=== PATIENT | female | born 1935 | race Caucasian/White ===

== ENCOUNTER → 2018-03-02 11:02 | Outpatient (CLI) | payer MEDICARE, MEDICAID, SELFPAY ==
[2018-03-02 12:21] LABS: Add Manual Diff / Slide Review NO; Basophils Percent Auto 1.5 % (0-2); Eosinophils Percent Auto 9.6 % (2-4); Hematocrit 40.8 % (36-46); Hemoglobin 13.6 g/dL (12.0-16.0); Lymphocytes Percent Auto 30.4 % (25-40); Mean Corpuscular HGB Conc 33.3 % (30-36); Mean Corpuscular Hemoglobin 30.1 PG (26-34); Mean Corpuscular Volume 90.4 fL (80-100); Monocytes Percent Auto 14.1 % (3-14); Neutrophils Absolute Auto 2000 /uL (3000-5900); Neutrophils Percent Auto 44.4 % (50-75); Platelet Count 211 X10^3/uL (150-400); Red Blood Cell Count 4.51 X10^6/uL (4.0-5.2); Red Cell Distribution Width 14.3 % (11.6-14.8); White Blood Cell Count 4.4 X10^3/uL (4.5-11.0)
[2018-03-02 12:37] LABS: Alanine Aminotransferase 27 IU/L (9-52); Albumin 4.1 g/dL (3.5-5.0); Albumin Globulin Ratio 1.4 (1.0-2.8); Alkaline Phosphatase 94 U/L (38-126); Aspartate Aminotransferase 31 IU/L (14-36); BUN Creatinine Ratio 10.8 (6-22); Bilirubin Total 0.6 mg/dL (0.2-1.3); Blood Urea Nitrogen 14 mg/dL (7-17); Calcium 9.2 mg/dL (8.4-10.2); Carbon Dioxide 37 mmol/L (22-32); Chloride 96 mmol/L (98-107); Cholesterol 212 mg/dL (140-199); Estimated Glomerular Filt Rate 39.3 mL/min (>60); Glucose 102 mg/dL (80-110); HDL Cholesterol 53 mg/dL (40-60); HEMOLYSIS < 15 (0-50); LDL Cholesterol Calculated 133 mg/dL (<100); Potassium 3.9 mmol/L (3.4-5.1); Sodium 140 mmol/L (137-145); Total Protein 7.1 g/dL (6.3-8.2); Triglycerides 130 mg/dL (35-150)
[2018-03-02 13:21] LABS: TSH w/ Reflex to FT4 2.13 uIU/mL (0.47-4.68)
== END ==
PROVIDERS: PCP Internal Medicine; Visit Provider Internal Medicine
DX: R60.9 Edema, unspecified (principal)
CPT/HCPCS: 36415; 80053; 80061; 84443; 85025

== ENCOUNTER 2018-03-15 15:49 | Emergency (ER) | payer MEDICARE, MEDICAID, SELFPAY ==
[2018-03-15 16:19] VITALS: BP 125/66; PULSE 79; RESP 20; TEMP 37.2; O2SAT 95
--- NOTE | 2018-03-15 17:44 | ED.GENADULT ---
HPI - General Adult General Chief complaint: Nausea/Vomiting/Diarrhea Stated complaint: sick,low blood pressure,thinks dehydrated Time Seen by Provider: 03/15/18 17:43 Source: patient Mode of arrival: ambulatory Limitations: no limitations History of Present Illness HPI narrative: This 82-year-old female comes to ED today due to feeling ?terrible? she states that she has been feeling this way for at least the last 2 weeks. She describes feeling somewhat weak in general and feels like she is dehydrated with dry lips. She states that she has a history of severe acid reflux and has not been eating or drinking well because even water has been giving her reflux recently. She states that this occurs after she eats or drinks. She states that she has also had medication changes and had been on more diuretic previously due to increased lower extremity swelling, so her grandson thought to check her blood pressure today which was 93/49, when her typical systolic is 120 or more. She thinks that she has probably had low blood pressures at home contributing to her symptoms. She denies any chest pain currently and states she has only had her usual acid reflux pain. She denies any dyspnea even though she does have asthma. States she has not needed her inhaler. She denies any abdominal pain or vomiting. She states that she does have urinary incontinence, denies any increased frequency, dysuria, or hematuria. She states she had a small, harder than usual bowel movement a couple of days ago that caused her to strain. She states there was slight blood after straining, otherwise none. She denies any new pain or swelling in her legs, states she has had some ongoing swelling and also started Coumadin about 3 weeks ago for a DVT. She notes that she saw her information resources manager 2 days ago and had an echocardiogram and EKG, and ?my heart is strong?. She states that she stopped her gabapentin and tramadol on her own thinking it might contribute to her symptoms. She also notes that she was prescribed an additional diuretic to take 3 times per week but cannot remember what it was. Her warfarin level was low and her PCP did already give her instructions on increasing it for the next couple of days. Related Data Home Medications Medication Instructions Recorded Confirmed calcium carbonate [Tums] 500 mg PO QDAY #0 10/18/17 03/15/18 estradiol [Estrace] 1 gm VAGINAL #0 10/18/17 fesoterodine [Toviaz] 4 mg PO QDAY #0 10/18/17 03/15/18 fluoxetine 20 mg PO QDAY #0 10/18/17 03/15/18 furosemide 40 mg PO DAILY #0 10/18/17 03/15/18 levothyroxine [Tirosint] 125 mcg PO QDAY #0 10/18/17 03/15/18 metoprolol succinate [Toprol XL] 100 mg PO QDAY #0 10/18/17 03/15/18 montelukast 10 mg PO QPM #0 10/18/17 03/15/18 pantoprazole 40 mg PO BID #0 10/18/17 03/15/18 cyanocobalamin (vitamin B-12) 1,000 mcg PO DAILY 03/15/18 03/15/18 [B-12 DOTS] oxybutynin chloride 5 mg PO BID 03/15/18 03/15/18 potassium chloride 20 meq PO BID 03/15/18 03/15/18 warfarin 2.5 mg PO DAILY 03/15/18 03/15/18 Allergies Allergy/AdvReac Type Severity Reaction Status Date / Time chlorothiazide Allergy Unknown Verified 03/15/18 16:16 [CHLOROTHIAZIDE] codeine [CODEINE] Allergy Unknown itching Verified 03/15/18 16:16 naproxen [NAPROXEN] AdvReac Unknown SHOOTING Verified 03/15/18 16:16 ELECTRICITY DOWN LEG Review of Systems Review of Systems All systems reviewed & are unremarkable except as noted in HPI and below PFSH Social History Smoking Status: Never smoker Exam Narrative Exam Narrative: GENERAL APPEARANCE: Patient sitting comfortably, in no distress. HEENT: EOMI, normal oropharynx NECK/THYROID: Neck supple, no JVD, no masses. LUNGS: Clear to auscultation bilaterally. HEART: Regular rate and rhythm without murmur, normal S1, S2, no S3 or S4. ABDOMEN: Soft, NT, ND, + BS x 4 quadrants, no palpable masses EXTREMITIES: No cyanosis, 1+ pitting bilaterally with tenderness mainly through the shins NEUROLOGIC: Alert and oriented but not able to remember medications, normal speech, and coordination. DERMATOLOGIC: Numerous small scabs on the lower extremities mainly on the shins where she is tender, no erythema or drainage Initial Vital Signs Initial Vital Signs: Vital Signs Temperature 99 F 03/15/18 16:19 Pulse Rate 79 03/15/18 16:19 Respiratory Rate 20 03/15/18 16:19 Blood Pressure 125/66 H 03/15/18 16:19 Pulse Oximetry 95 03/15/18 16:19 Course Additional Information: Patient's blood pressure readings were back to baseline by the time of discharge. She reported feeling significantly improved, was able to tolerate oral fluids without reflux. She felt comfortable returning home and following up with her PCP. She agreed to return to the ED if any acutely worsening symptoms again. She was ambulating comfortably with her walker at the time of discharge Orders Ordered: ED Orders 03/15/18 17:58 EKG-12 Lead Stat 03/15/18 18:00 XR chest 1V Stat 03/15/18 18:06 Complete Blood Count AUTO DIFF Stat Comprehensive Metabolic Panel Stat Lactate (Lactic Acid) Stat Prothrombin Time INR Stat Troponin I Stat Discontinued Medications Al Hydrox/Mg Hydrox/Simethicone 20 ml/ Lidocaine HCl 15 ml 0 ml PO NOW ONE Stop: 03/15/18 18:13 Last Admin: 03/15/18 18:24 Dose: 35 ml Sodium Chloride (Normal Saline 0.9%) 1,000 mls @ 1,000 mls/hr IV BOLUS ONE Stop: 03/15/18 18:57 Last Infusion: 03/15/18 19:46 Dose: 0 mls/hr Admin: 03/15/18 18:21 Dose: 1,000 mls/hr Potassium Chloride (Potassium Chloride) 20 meq PO NOW ONE Stop: 03/15/18 19:40 Last Admin: 03/15/18 19:48 Dose: Vital Signs - 8 hr 03/15/18 16:19 03/15/18 18:00 03/15/18 18:14 Temperature 99 F Pulse Rate 79 89 Pulse Rate [Orthostatic Lying] 75 Pulse Rate [Orthostatic Sitting] 85 Pulse Rate [Orthostatic Standing] 92 H Respiratory Rate 20 Blood Pressure 125/66 H Blood Pressure [Left Arm] 109/56 L Blood Pressure [Orthostatic Lying] 109/56 L Blood Pressure [Orthostatic Sitting] 121/89 H Blood Pressure [Orthostatic Standing] 112/60 Pulse Oximetry 95 95 03/15/18 19:30 03/15/18 20:30 Temperature Pulse Rate 75 79 Pulse Rate [Orthostatic Lying] Pulse Rate [Orthostatic Sitting] Pulse Rate [Orthostatic Standing] Respiratory Rate Blood Pressure Blood Pressure [Left Arm] 117/43 L 113/62 Blood Pressure [Orthostatic Lying] Blood Pressure [Orthostatic Sitting] Blood Pressure [Orthostatic Standing] Pulse Oximetry 99 95 Medical Decision Making Lab Data Result diagrams: 03/15/18 18:06 03/15/18 18:06 Lab Results 03/15/18 03/15/18 03/15/18 Range/Units 18:06 18:06 18:06 WBC 7.7 (4.5-11.0) X10^3/uL RBC 4.60 (4.0-5.2) X10^6/uL Hgb 13.7 (12.0-16.0) g/dL Hct 41.3 (36-46) % MCV 89.8 (80-100) fL MCH 29.7 (26-34) PG MCHC 33.1 (30-36) % RDW 14.4 (11.6-14.8) % Plt Count 228 (150-400) X10^3/uL Neut % (Auto) 55.3 (50-75) % Lymph % (Auto) 25.7 (25-40) % [place] % (Auto) 12.8 (3-14) % Eos % (Auto) 5.0 H (2-4) % Baso % (Auto) 1.2 (0-2) % Neut # (Auto) 4200 (1164-1787) /uL PT 16.1 H (10.1-12.7) SECONDS INR 1.5 H (0.9-1.3) Sodium 141 (137-145) mmol/L Potassium 3.0 L (3.4-5.1) mmol/L Chloride 96 L (98-107) mmol/L Carbon Dioxide 36 H (22-32) mmol/L BUN 14 (7-17) mg/dL Creatinine 1.20 H (0.52-1.04) mg/dL Estimated GFR 43.1 L (>60) mL/min BUN/Creatinine Ratio 11.7 (6-22) Glucose 102 (80-110) mg/dL Lactate (0.7-2.1) mmol/L Calcium 9.4 (8.4-10.2) mg/dL Total Bilirubin 0.8 (0.2-1.3) mg/dL AST 32 (14-36) IU/L ALT 29 (9-52) IU/L Alkaline Phosphatase 89 (38-126) U/L Troponin I < 0.012 (0.01-0.034) ng/mL Total Protein 7.1 (6.3-8.2) g/dL Albumin 4.0 (3.5-5.0) g/dL Globulin 3.1 (1.7-4.1) g/dL Albumin/Globulin Ratio 1.3 (1.0-2.8) / Range/Units 18:06 WBC (4.5-11.0) X10^3/uL RBC (4.0-5.2) X10^6/uL Hgb (12.0-16.0) g/dL Hct (36-46) % MCV (80-100) fL MCH (26-34) PG MCHC (30-36) % RDW (11.6-14.8) % Plt Count (150-400) X10^3/uL Neut % (Auto) (50-75) % Lymph % (Auto) (25-40) % [place] % (Auto) (3-14) % Eos % (Auto) (2-4) % Baso % (Auto) (0-2) % Neut # (Auto) (2287-9270) /uL PT (10.1-12.7) SECONDS INR (0.9-1.3) Sodium (137-145) mmol/L Potassium (3.4-5.1) mmol/L Chloride (98-107) mmol/L Carbon Dioxide (22-32) mmol/L BUN (7-17) mg/dL Creatinine (0.52-1.04) mg/dL Estimated GFR (>60) mL/min BUN/Creatinine Ratio (6-22) Glucose (80-110) mg/dL Lactate 1.5 (0.7-2.1) mmol/L Calcium (8.4-10.2) mg/dL Total Bilirubin (0.2-1.3) mg/dL AST (14-36) IU/L ALT (9-52) IU/L Alkaline Phosphatase (38-126) U/L Troponin I (0.01-0.034) ng/mL Total Protein (6.3-8.2) g/dL Albumin (3.5-5.0) g/dL Globulin (1.7-4.1) g/dL Albumin/Globulin Ratio (1.0-2.8) ECG Data Attestation: I personally reviewed and interpreted this ECG as follows: (Normal sinus rhythm with rate 73, normal axis, subtle nonspecific T-wave changes in lateral leads) Prior ECG tracings: not available for review Discharge Plan Departure Patient Disposition: Home Clinical Impression: Low blood pressure, Dehydration, GERD (gastroesophageal reflux disease), Diuretic-induced hypokalemia Discharge Date/Time: 03/15/18 20:45 Interventions: ED Discharge Assessment Last Done: 03/15/18 21:04 Instructions: DI for Gastroesophageal Reflux Disease (GERD), GERD Diet, DI for Hypotension Activity Restrictions/Additional Instructions: Since you are feeling better, it is okay to return home and monitor. Please remain off of the additional diuretic that you were prescribed but could not remember today. Please continue your Lasix as prescribed since needed for leg swelling. Please take your potassium again tonight, and continue tomorrow as prescribed. Since you noticed low blood pressures at home, please cut your metoprolol in half for the next couple of days until you follow up with your PCP. Please take your acid reflux medicine as usual, and add a liquid antacid such as Maalox or Gaviscon as needed instead of taking the chewable tablets. You should be sure to see your PCP this week to review your medicines and symptoms and see if any additional adjustments can be made. It seemed like you were low on fluids today and also your potassium was a little bit low. As we talked about, you should return immediately if you have any acutely worsening symptoms again Prescriptions: No Action estradiol [Estrace] 0.01 % cream 1 gm Vaginal Qty: 0 RF: 0 fesoterodine [Toviaz] 4 MG tablet extended release 24 hr 4 mg PO QDAY Qty: 0 RF: 0 calcium carbonate [Tums] 500 MG tablet,chewable 500 mg PO QDAY Qty: 0 RF: 0 fluoxetine 20 MG capsule 20 mg PO QDAY Qty: 0 RF: 0 furosemide 40 MG tablet 40 mg PO DAILY Qty: 0 RF: 0 levothyroxine [Tirosint] 125 MCG capsule 125 mcg PO QDAY Qty: 0 RF: 0 metoprolol succinate [Toprol XL] 100 MG tablet extended release 24 hr 100 mg PO QDAY Qty: 0 RF: 0 montelukast 10 MG tablet 10 mg PO QPM Qty: 0 RF: 0 pantoprazole 40 MG tablet,delayed release (DR/EC) 40 mg PO BID Qty: 0 RF: 0 warfarin 2.5 mg tablet 2.5 mg PO DAILY RF: 0 potassium chloride 10 mEq Capsule, Extended Release 20 meq PO BID RF: 0 cyanocobalamin (vitamin B-12) [B-12 DOTS] 500 mcg Tablet 1,000 mcg PO DAILY RF: 0 oxybutynin chloride 5 mg Tablet 5 mg PO BID RF: 0 Referrals: Moreno Rodas MD [Primary Care Provider] -
[2018-03-15 18:00] VITALS: BP 109/56; PULSE 89; O2SAT 95
--- NOTE | 2018-03-15 18:00 | DI.RAD.S_ITS ---
PROCEDURE: XR CHEST 1V INDICATIONS: asthma, weakness TECHNIQUE: One view of the chest was acquired. COMPARISON: [facility], , CHEST 2 VIEW, 10/18/2017, 16:19. FINDINGS: Surgical changes and devices: None. Lungs and pleura: No pleural effusions or pneumothorax. No new or acute consolidation. There is unchanged nonspecific left basilar pleural thickening. Diffuse scarring/atelectasis Mediastinum: Mediastinal contours appear normal. Heart size is normal. Bones and chest wall: No suspicious bony lesions. Overlying soft tissues appear unremarkable. IMPRESSION: No definite new or acute consolidation. Left basilar pleural thickening, unchanged. Scattered scarring/atelectasis. Dictated by: Stew Sultana M.D. on 03/15/2018 at 18:58 Approved by: Stew Sultana M.D. on 03/15/2018 at 19:00
[2018-03-15 18:14] VITALS: BP 109/56; BP 112/60; BP 121/89; PULSE 75; PULSE 85; PULSE 92
[2018-03-15 18:19] LABS: Add Manual Diff / Slide Review NO; Basophils Percent Auto 1.2 % (0-2); Hematocrit 41.3 % (36-46); Hemoglobin 13.7 g/dL (12.0-16.0); Lymphocytes Percent Auto 25.7 % (25-40); Mean Corpuscular HGB Conc 33.1 % (30-36); Mean Corpuscular Hemoglobin 29.7 PG (26-34); Mean Corpuscular Volume 89.8 fL (80-100); Monocytes Percent Auto 12.8 % (3-14); Neutrophils Absolute Auto 4200 /uL (3000-5900); Neutrophils Percent Auto 55.3 % (50-75); Platelet Count 228 X10^3/uL (150-400); Red Cell Distribution Width 14.4 % (11.6-14.8); White Blood Cell Count 7.7 X10^3/uL (4.5-11.0)
[2018-03-15] MEDS: SODIUM CHLORIDE 0.9% 1,000 ML 1000 ML IV (18:21)
[2018-03-15] MEDS: MAG HYDROX/ALUMINUM/SIMETH SUS 20 ML, LIDOCAINE VISCOUS 2% 15 ML PO (18:24)
[2018-03-15 18:35] LABS: INR 1.5 (0.9-1.3); Prothrombin Time 16.1 SECONDS (10.1-12.7)
[2018-03-15 18:48] LABS: Lactate (Lactic Acid) 1.5 mmol/L (0.7-2.1)
--- NOTE | 2018-03-15 19:02 | PC.NURSE ---
Pt has been feeling ill for last week. Her medications were recently changed around and her reflux has been getting worse as well, per pt report. She states she has not been eating or drinking much, because she will get reflux. Upon assessment, her lips are visibly dry and mucous membranes are dry.
[2018-03-15 19:09] LABS: Alanine Aminotransferase 29 IU/L (9-52); Albumin Globulin Ratio 1.3 (1.0-2.8); Alkaline Phosphatase 89 U/L (38-126); Aspartate Aminotransferase 32 IU/L (14-36); BUN Creatinine Ratio 11.7 (6-22); Bilirubin Total 0.8 mg/dL (0.2-1.3); Blood Urea Nitrogen 14 mg/dL (7-17); Calcium 9.4 mg/dL (8.4-10.2); Carbon Dioxide 36 mmol/L (22-32); Chloride 96 mmol/L (98-107); Estimated Glomerular Filt Rate 43.1 mL/min (>60); Globulin 3.1 g/dL (1.7-4.1); Glucose 102 mg/dL (80-110); HEMOLYSIS < 15 (0-50); Sodium 141 mmol/L (137-145); Total Protein 7.1 g/dL (6.3-8.2)
[2018-03-15 19:24] LABS: Troponin I < 0.012 ng/mL (0.01-0.034)
[2018-03-15 19:30] VITALS: BP 117/43; PULSE 75; O2SAT 99
[2018-03-15 20:30] VITALS: BP 113/62; PULSE 79; O2SAT 95
== END 2018-03-15 20:45 | disposition home or self-care (01) ==
PROVIDERS: Emergency Provider Internal Medicine; PCP Internal Medicine
DX: I95.9 Hypotension, unspecified (principal); E86.0 Dehydration; E87.6 Hypokalemia; K21.9 Gastro-esophageal reflux disease without esophagitis
CPT/HCPCS: 36591; 71045; 80053; 83605; 84484; 85025; 85610; 93005; 93010; 96360; 99283; 99285

== ENCOUNTER 2018-03-16 10:24 | Emergency (ER) | payer MEDICARE, MEDICAID, SELFPAY ==
[2018-03-16 10:32] VITALS: BP 117/63; PULSE 83; RESP 18; TEMP 36.8; O2SAT 100
--- NOTE | 2018-03-16 11:31 | ED_ITS ---
HPI - Weakness General Chief complaint: Weakness Stated complaint: DEHYDRATED, CANT EAT OR DRINK Time Seen by Provider: 03/16/18 11:25 Source: patient and old records reviewed Mode of arrival: ambulatory Limitations: no limitations History of Present Illness HPI Narrative: Patient is a 82-year-old female presenting with generalized weakness she has not been feeling well for the last 2 weeks, not really able to eat or drink doing to her severe acid reflux. She has had episodes of vomiting off and on and continues to have nausea and decreased appetite. Yesterday she was seen and evaluated noted to have some mild hypokalemia and blood pressure was in the 90s. She received IV fluid and potassium. sHe continues to have nausea and decreased appetite. The epigastric discomfort but no real abdominal pain no chest pain shortness of breath. MD Complaint: generalized weakness Related Data Home Medications Medication Instructions Recorded Confirmed calcium carbonate [Tums] 500 mg PO QDAY #0 10/18/17 03/15/18 estradiol [Estrace] 1 gm VAGINAL #0 10/18/17 fesoterodine [Toviaz] 4 mg PO QDAY #0 10/18/17 03/15/18 fluoxetine 20 mg PO QDAY #0 10/18/17 03/15/18 furosemide 40 mg PO DAILY #0 10/18/17 03/15/18 levothyroxine [Tirosint] 125 mcg PO QDAY #0 10/18/17 03/15/18 metoprolol succinate [Toprol XL] 100 mg PO QDAY #0 10/18/17 03/15/18 montelukast 10 mg PO QPM #0 10/18/17 03/15/18 pantoprazole 40 mg PO BID #0 10/18/17 03/15/18 cyanocobalamin (vitamin B-12) 1,000 mcg PO DAILY 03/15/18 03/15/18 [B-12 DOTS] oxybutynin chloride 5 mg PO BID 03/15/18 03/15/18 potassium chloride 20 meq PO BID 03/15/18 03/15/18 warfarin 2.5 mg PO DAILY 03/15/18 03/15/18 Previous Rx's Medication Instructions Recorded amoxicillin-pot clavulanate 1 tab PO BID #14 tab 03/16/18 [Augmentin] Allergies Allergy/AdvReac Type Severity Reaction Status Date / Time chlorothiazide Allergy Unknown Verified 03/15/18 16:16 [CHLOROTHIAZIDE] codeine [CODEINE] Allergy Unknown itching Verified 03/15/18 16:16 naproxen [NAPROXEN] AdvReac Unknown SHOOTING Verified 03/15/18 16:16 ELECTRICITY DOWN LEG Review of Systems Review of Systems All systems reviewed & are unremarkable except as noted in HPI and below Constitutional Denies body ache(s), Denies chills, Reports fatigue, Denies frequent falls and Reports poor appetite Eyes Denies change in vision, Denies eye discharge, Denies irritation and Denies loss of vision Cardiovascular Denies chest pain, Denies irregular heart rhythm (History AFib), Denies lightheadedness, Denies palpitations, Denies dyspnea, Denies dyspnea on exertion and Denies orthopnea Respiratory Denies cough, Denies dyspnea, Denies dyspnea on exertion and Denies wheezing Gastrointestinal Gastrointestinal: Denies abdominal pain, Denies change in bowel habits, Denies diarrhea, Denies nausea and Denies vomiting Musculoskeletal Denies back pain, Denies muscle weakness, Denies numbness and Denies tingling Integumentary/Breasts Denies pruritus, Denies erythema, Denies rash and Denies wounds Neurologic Denies frequent falls, Denies loss of vision, Denies numbness and Denies tingling Endocrine Reports fatigue and Denies palpitations Hematologic/Lymphatic Reports easy bruising (On Coumadin) Allergic/Immunologic Denies wheezing PFSH Medical History GERD (gastroesophageal reflux disease) (Acute) History of hysterectomy (Acute) Hypothyroid (Acute) Paroxysmal A-fib (Acute) Social History Smoking Status: Never smoker Exam Initial Vital Signs Initial Vital Signs: Vital Signs Temperature 98.3 F 03/16/18 10:32 Pulse Rate 83 03/16/18 10:32 Respiratory Rate 18 03/16/18 10:32 Blood Pressure 117/63 03/16/18 10:32 Pulse Oximetry 100 03/16/18 10:32 GENERAL: Alert elderly healthy female in no acute distress cooperative HEENT: Head atraumatic,EOMI, pupils reactive CARDIOVASCULAR: Regular rate and rhythm without murmurs, rubs or gallops. RESPIRATORY: Breath sounds equal bilaterally, no wheezes rales or rhonchi. ABDOMEN: Soft, mild epigastric pain without guarding or rebound no right upper quadrant pain minimal tenderness in her lower abdomen : No CVA tenderness EXTREMITIES: Normal range of motion, no clubbing or edema. Neurovascularly intact NEUROLOGICAL: Alert and oriented x4.Normal gait and speech. Cranial nerves II through XII grossly intact. SKIN: Warm, dry, no laceration, no petechiae, no rashes or lesions. Course Orders Ordered: Discontinued Medications Sodium Chloride (Normal Saline 0.9%) 1,000 mls @ 150 mls/hr IV CONT SUSI Last Infusion: 03/16/18 14:22 Dose: 0 mls/hr Admin: 03/16/18 12:35 Dose: 150 mls/hr Pantoprazole Sodium (Protonix) 40 mg IV NOW ONE Stop: 03/16/18 11:42 Last Admin: 03/16/18 12:35 Dose: 40 mg Vital Signs - 8 hr 03/16/18 10:32 Temperature 98.3 F Pulse Rate 83 Respiratory Rate 18 Blood Pressure 117/63 Pulse Oximetry 100 MDM - Weakness Medical Records Attestation: I reviewed the patient's medical records. Lab Data Attestation: I reviewed the patient's lab results. Result diagrams: 03/16/18 12:15 03/16/18 12:15 Lab Results 03/16/18 03/16/18 Range/Units 12:15 12:15 WBC 5.2 (4.5-11.0) X10^3/uL RBC 4.20 (4.0-5.2) X10^6/uL Hgb 12.6 (12.0-16.0) g/dL Hct 37.9 (36-46) % MCV 90.2 (80-100) fL MCH 30.1 (26-34) PG MCHC 33.4 (30-36) % RDW 14.6 (11.6-14.8) % Plt Count 182 (150-400) X10^3/uL Neut % (Auto) 49.2 L (50-75) % Lymph % (Auto) 30.3 (25-40) % [place] % (Auto) 13.6 (3-14) % Eos % (Auto) 5.6 H (2-4) % Baso % (Auto) 1.3 (0-2) % Neut # (Auto) 2500 L (1331-2981) /uL Sodium 139 (137-145) mmol/L Potassium 4.0 (3.4-5.1) mmol/L Chloride 98 (98-107) mmol/L Carbon Dioxide 35 H (22-32) mmol/L BUN 13 (7-17) mg/dL Creatinine 1.10 H (0.52-1.04) mg/dL Estimated GFR 47.7 L (>60) mL/min BUN/Creatinine Ratio 11.8 (6-22) Glucose 99 (80-110) mg/dL Calcium 8.9 (8.4-10.2) mg/dL Total Bilirubin 1.0 (0.2-1.3) mg/dL AST 37 H (14-36) IU/L ALT 28 (9-52) IU/L Alkaline Phosphatase 69 (38-126) U/L Total Protein 6.7 (6.3-8.2) g/dL Albumin 3.8 (3.5-5.0) g/dL Globulin 2.9 (1.7-4.1) g/dL Albumin/Globulin Ratio 1.3 (1.0-2.8) Lipase 67 (23-300) U/L Imaging Data CT scan - abdomen: Radiologist's impression: PROCEDURE: CT ABDOMEN PELVIS W CON INDICATIONS: Vomitting, nausea, Midline abdominal pain TECHNIQUE: After the administration of intravenous contrast, 5 mm thick sections acquired from the diaphragm to the symphysis. 5 mm coronal and sagittal reformats were acquired. For radiation dose reduction, the following was used: automated exposure control, adjustment of mA and/or kV according to patient size. COMPARISON: None. FINDINGS: Image quality: Excellent. ABDOMEN: Lung bases: Lung bases are clear. Heart size is normal. Solid organs: Liver is normal in size and enhancement. Mild fatty infiltration of the liver. Gallbladder is surgically absent. Biliary system is non dilated. Pancreas enhances normally. Spleen is normal in size and enhancement. No adrenal nodules. Kidneys demonstrate normal size and enhancement, without hydronephrosis. Peritoneum and bowel: There is wall thickening and surrounding inflammatory change in the sigmoid and distal descending colon. No perforation, obstruction, or renal fluid collections. The ascending and proximal transverse colon demonstrates wall thickening with no surrounding inflammatory change. Small esophageal hiatal hernia. Focus of high density in the small bowel likely represents ingested material. Nodes and vessels: No retroperitoneal or mesenteric adenopathy by size criteria. Aorta and inferior vena cava are normal in size. Miscellaneous: Small fat-containing periumbilical hernia. PELVIS: Genitourinary: Bladder wall thickness is normal. Hysterectomy. Miscellaneous: Bilateral fat containing inguinal hernias. No adenopathy. Bones: No suspicious bony lesions. No vertebral body compression fractures. IMPRESSION: 1. Sigmoid and distal descending colitis. No perforation or obstruction. Consider colonoscopy upon resolution of the patient's symptoms to exclude any underlying mass lesions. 2. Mild ascending colitis. Dictated by: Oleg Pham M.D. on 03/16/2018 at 12:46 MDM Narrative Medical decision making narrative: Overall labs appear improved from yesterday. CT does reveal mild colitis. Her INR yesterday was 1.5. She is tolerating oral fluids. Blood pressure has been stable. I will start her on antibiotics. Discharge Plan Departure Patient Disposition: Home Clinical Impression: Colitis Discharge Date/Time: 03/16/18 14:23 Interventions: ED Discharge Assessment Last Done: 03/16/18 14:22 Instructions: Clear Liquid Diet, DI for Colitis Activity Restrictions/Additional Instructions: *You have been diagnosed with colitis *What to do: Clear liquid diet for the next 1-3 days, may increase fluid as tolerated -antibiotics can change it you're Coumadin level please have your INR rechecked next week *Continue to take medications as directed Augmentin 1 pill twice a day for 7 days *Follow up with your primary care provider in 2-3 days *Return to ER if you should have increasing vomiting, abdominal pain, fever inability to drink fluids or any new, worsening or concerning symptoms Prescriptions: New amoxicillin-pot clavulanate [Augmentin] 875-125 mg tablet 1 tab PO BID Qty: 14 RF: 0 No Action estradiol [Estrace] 0.01 % cream 1 gm Vaginal Qty: 0 RF: 0 fesoterodine [Toviaz] 4 MG tablet extended release 24 hr 4 mg PO QDAY Qty: 0 RF: 0 calcium carbonate [Tums] 500 MG tablet,chewable 500 mg PO QDAY Qty: 0 RF: 0 fluoxetine 20 MG capsule 20 mg PO QDAY Qty: 0 RF: 0 furosemide 40 MG tablet 40 mg PO DAILY Qty: 0 RF: 0 levothyroxine [Tirosint] 125 MCG capsule 125 mcg PO QDAY Qty: 0 RF: 0 metoprolol succinate [Toprol XL] 100 MG tablet extended release 24 hr 100 mg PO QDAY Qty: 0 RF: 0 montelukast 10 MG tablet 10 mg PO QPM Qty: 0 RF: 0 pantoprazole 40 MG tablet,delayed release (DR/EC) 40 mg PO BID Qty: 0 RF: 0 warfarin 2.5 mg tablet 2.5 mg PO DAILY RF: 0 potassium chloride 10 mEq Capsule, Extended Release 20 meq PO BID RF: 0 cyanocobalamin (vitamin B-12) [B-12 DOTS] 500 mcg Tablet 1,000 mcg PO DAILY RF: 0 oxybutynin chloride 5 mg Tablet 5 mg PO BID RF: 0 Referrals: Moreno Rodas MD [Primary Care Provider] -
--- NOTE | 2018-03-16 12:04 | DI.CT.S_ITS ---
PROCEDURE: CT ABDOMEN PELVIS W CON INDICATIONS: Vomitting, nausea, Midline abdominal pain TECHNIQUE: After the administration of intravenous contrast, 5 mm thick sections acquired from the diaphragm to the symphysis. 5 mm coronal and sagittal reformats were acquired. For radiation dose reduction, the following was used: automated exposure control, adjustment of mA and/or kV according to patient size. COMPARISON: None. FINDINGS: Image quality: Excellent. ABDOMEN: Lung bases: Lung bases are clear. Heart size is normal. Solid organs: Liver is normal in size and enhancement. Mild fatty infiltration of the liver. Gallbladder is surgically absent. Biliary system is non dilated. Pancreas enhances normally. Spleen is normal in size and enhancement. No adrenal nodules. Kidneys demonstrate normal size and enhancement, without hydronephrosis. Peritoneum and bowel: There is wall thickening and surrounding inflammatory change in the sigmoid and distal descending colon. No perforation, obstruction, or renal fluid collections. The ascending and proximal transverse colon demonstrates wall thickening with no surrounding inflammatory change. Small esophageal hiatal hernia. Focus of high density in the small bowel likely represents ingested material. Nodes and vessels: No retroperitoneal or mesenteric adenopathy by size criteria. Aorta and inferior vena cava are normal in size. Miscellaneous: Small fat-containing periumbilical hernia. PELVIS: Genitourinary: Bladder wall thickness is normal. Hysterectomy. Miscellaneous: Bilateral fat containing inguinal hernias. No adenopathy. Bones: No suspicious bony lesions. No vertebral body compression fractures. IMPRESSION: 1. Sigmoid and distal descending colitis. No perforation or obstruction. Consider colonoscopy upon resolution of the patient's symptoms to exclude any underlying mass lesions. 2. Mild ascending colitis. Dictated by: Oleg Pham M.D. on 03/16/2018 at 12:46 Approved by: Oleg Pham M.D. on 03/16/2018 at 12:53
[2018-03-16 12:09] VITALS: BP 113/67; PULSE 70; RESP 10; O2SAT 97
[2018-03-16] MEDS: SODIUM CHLORIDE 0.9% 1,000 ML 150 ML IV (12:35)
[2018-03-16] MEDS: PANTOPRAZOLE 40 MG VIAL IV (12:35)
[2018-03-16 12:43] LABS: Alanine Aminotransferase 28 IU/L (9-52); Albumin 3.8 g/dL (3.5-5.0); Albumin Globulin Ratio 1.3 (1.0-2.8); Alkaline Phosphatase 69 U/L (38-126); Aspartate Aminotransferase 37 IU/L (14-36); BUN Creatinine Ratio 11.8 (6-22); Blood Urea Nitrogen 13 mg/dL (7-17); Calcium 8.9 mg/dL (8.4-10.2); Carbon Dioxide 35 mmol/L (22-32); Chloride 98 mmol/L (98-107); Estimated Glomerular Filt Rate 47.7 mL/min (>60); Globulin 2.9 g/dL (1.7-4.1); Glucose 99 mg/dL (80-110); Lipase 67 U/L (23-300); Sodium 139 mmol/L (137-145); Total Protein 6.7 g/dL (6.3-8.2)
[2018-03-16 12:47] LABS: HEMOLYSIS 104 (0-50)
[2018-03-16 12:49] LABS: Add Manual Diff / Slide Review NO; Basophils Percent Auto 1.3 % (0-2); Eosinophils Percent Auto 5.6 % (2-4); Hematocrit 37.9 % (36-46); Hemoglobin 12.6 g/dL (12.0-16.0); Lymphocytes Percent Auto 30.3 % (25-40); Mean Corpuscular HGB Conc 33.4 % (30-36); Mean Corpuscular Hemoglobin 30.1 PG (26-34); Mean Corpuscular Volume 90.2 fL (80-100); Monocytes Percent Auto 13.6 % (3-14); Neutrophils Absolute Auto 2500 /uL (3000-5900); Neutrophils Percent Auto 49.2 % (50-75); Platelet Count 182 X10^3/uL (150-400); Red Cell Distribution Width 14.6 % (11.6-14.8); White Blood Cell Count 5.2 X10^3/uL (4.5-11.0)
[2018-03-16 13:09] VITALS: BP 113/85; PULSE 71; RESP 7; O2SAT 97
--- NOTE | 2018-03-16 13:48 | ED_ITS ---
HPI - Weakness General Chief complaint: Weakness Stated complaint: DEHYDRATED, CANT EAT OR DRINK Time Seen by Provider: 03/16/18 11:25 Related Data Home Medications Medication Instructions Recorded Confirmed calcium carbonate [Tums] 500 mg PO QDAY #0 10/18/17 03/15/18 estradiol [Estrace] 1 gm VAGINAL #0 10/18/17 fesoterodine [Toviaz] 4 mg PO QDAY #0 10/18/17 03/15/18 fluoxetine 20 mg PO QDAY #0 10/18/17 03/15/18 furosemide 40 mg PO DAILY #0 10/18/17 03/15/18 levothyroxine [Tirosint] 125 mcg PO QDAY #0 10/18/17 03/15/18 metoprolol succinate [Toprol XL] 100 mg PO QDAY #0 10/18/17 03/15/18 montelukast 10 mg PO QPM #0 10/18/17 03/15/18 pantoprazole 40 mg PO BID #0 10/18/17 03/15/18 cyanocobalamin (vitamin B-12) 1,000 mcg PO DAILY 03/15/18 03/15/18 [B-12 DOTS] oxybutynin chloride 5 mg PO BID 03/15/18 03/15/18 potassium chloride 20 meq PO BID 03/15/18 03/15/18 warfarin 2.5 mg PO DAILY 03/15/18 03/15/18 Allergies Allergy/AdvReac Type Severity Reaction Status Date / Time chlorothiazide Allergy Unknown Verified 03/15/18 16:16 [CHLOROTHIAZIDE] codeine [CODEINE] Allergy Unknown itching Verified 03/15/18 16:16 naproxen [NAPROXEN] AdvReac Unknown SHOOTING Verified 03/15/18 16:16 ELECTRICITY DOWN [facility] Social History Smoking Status: Never smoker Exam Initial Vital Signs Initial Vital Signs: Vital Signs Temperature 98.3 F 03/16/18 10:32 Pulse Rate 83 03/16/18 10:32 Respiratory Rate 18 03/16/18 10:32 Blood Pressure 117/63 03/16/18 10:32 Pulse Oximetry 100 03/16/18 10:32 Scores CURB-65 Confusion: Yes BUN >19mg/dL (>7mmol/L): Yes Respiratory rate greater or equal to 30: Yes SBP <90mmHg or DBP less or equal to 60mmHg: Yes Age 65 or Older: Yes CURB-65 Total: 5 Score 0-1 Outpatient care, Score 2 Inpt vs. Obs, Score 3 or over Inpt admit with ICU for score of 4-5 Course Orders Ordered: ED Orders 03/16/18 12:04 CT abdomen pelvis w con Stat 03/16/18 12:15 Complete Blood Count AUTO DIFF Stat Comprehensive Metabolic Panel Stat Lipase Stat Sodium Chloride (Normal Saline 0.9%) 1,000 mls @ 150 mls/hr IV CONT SUSI Last Admin: 03/16/18 12:35 Dose: 150 mls/hr Discontinued Medications Pantoprazole Sodium (Protonix) 40 mg IV NOW ONE Stop: 03/16/18 11:42 Last Admin: 03/16/18 12:35 Dose: 40 mg Vital Signs - 8 hr 03/16/18 10:32 03/16/18 12:09 03/16/18 13:09 Temperature 98.3 F Pulse Rate 83 70 71 Respiratory Rate 18 10 L 7 L Blood Pressure 117/63 Blood Pressure [Left Arm] 113/67 113/85 H Pulse Oximetry 100 97 97 MDM - Weakness Lab Data Result diagrams: 03/16/18 12:15 03/16/18 12:15 Lab Results 03/16/18 03/16/18 Range/Units 12:15 12:15 WBC 5.2 (4.5-11.0) X10^3/uL RBC 4.20 (4.0-5.2) X10^6/uL Hgb 12.6 (12.0-16.0) g/dL Hct 37.9 (36-46) % MCV 90.2 (80-100) fL MCH 30.1 (26-34) PG MCHC 33.4 (30-36) % RDW 14.6 (11.6-14.8) % Plt Count 182 (150-400) X10^3/uL Neut % (Auto) 49.2 L (50-75) % Lymph % (Auto) 30.3 (25-40) % [place] % (Auto) 13.6 (3-14) % Eos % (Auto) 5.6 H (2-4) % Baso % (Auto) 1.3 (0-2) % Neut # (Auto) 2500 L (7448-0639) /uL Sodium 139 (137-145) mmol/L Potassium 4.0 (3.4-5.1) mmol/L Chloride 98 (98-107) mmol/L Carbon Dioxide 35 H (22-32) mmol/L BUN 13 (7-17) mg/dL Creatinine 1.10 H (0.52-1.04) mg/dL Estimated GFR 47.7 L (>60) mL/min BUN/Creatinine Ratio 11.8 (6-22) Glucose 99 (80-110) mg/dL Calcium 8.9 (8.4-10.2) mg/dL Total Bilirubin 1.0 (0.2-1.3) mg/dL AST 37 H (14-36) IU/L ALT 28 (9-52) IU/L Alkaline Phosphatase 69 (38-126) U/L Total Protein 6.7 (6.3-8.2) g/dL Albumin 3.8 (3.5-5.0) g/dL Globulin 2.9 (1.7-4.1) g/dL Albumin/Globulin Ratio 1.3 (1.0-2.8) Lipase 67 (23-300) U/L Discharge Plan Departure Prescriptions: No Action estradiol [Estrace] 0.01 % cream 1 gm Vaginal Qty: 0 RF: 0 fesoterodine [Toviaz] 4 MG tablet extended release 24 hr 4 mg PO QDAY Qty: 0 RF: 0 calcium carbonate [Tums] 500 MG tablet,chewable 500 mg PO QDAY Qty: 0 RF: 0 fluoxetine 20 MG capsule 20 mg PO QDAY Qty: 0 RF: 0 furosemide 40 MG tablet 40 mg PO DAILY Qty: 0 RF: 0 levothyroxine [Tirosint] 125 MCG capsule 125 mcg PO QDAY Qty: 0 RF: 0 metoprolol succinate [Toprol XL] 100 MG tablet extended release 24 hr 100 mg PO QDAY Qty: 0 RF: 0 montelukast 10 MG tablet 10 mg PO QPM Qty: 0 RF: 0 pantoprazole 40 MG tablet,delayed release (DR/EC) 40 mg PO BID Qty: 0 RF: 0 warfarin 2.5 mg tablet 2.5 mg PO DAILY RF: 0 potassium chloride 10 mEq Capsule, Extended Release 20 meq PO BID RF: 0 cyanocobalamin (vitamin B-12) [B-12 DOTS] 500 mcg Tablet 1,000 mcg PO DAILY RF: 0 oxybutynin chloride 5 mg Tablet 5 mg PO BID RF: 0
[2018-03-16 14:07] VITALS: BP 111/52; PULSE 70; RESP 13; O2SAT 99
== END 2018-03-16 14:23 | disposition home or self-care (01) ==
PROVIDERS: Emergency Provider Emergency Medicine; PCP Internal Medicine
DX: K52.9 Noninfective gastroenteritis and colitis, unspecified (principal)
CPT/HCPCS: 36415; 36591; 74177; 80053; 81003; 83690; 85025; 96361; 96374; 99283; 99285; C9113; Q9967

== ENCOUNTER → 2018-06-10 16:19 | Outpatient (CLI) | payer MEDICARE, MEDICAID, SELFPAY | PROVIDERS: PCP Internal Medicine; Visit Provider Physician Assistant | DX: R30.0 Dysuria (principal) | CPT/HCPCS: 87077; 87086; 87186 ==

== ENCOUNTER 2018-08-24 16:00 | Emergency (ER) | payer MEDICARE, MEDICAID, SELFPAY ==
[2018-08-24 16:03] VITALS: BP 118/71; PULSE 76; RESP 20; TEMP 36.3; O2SAT 100; BMI 34.9
--- NOTE | 2018-08-24 16:17 | ED.HA ---
HPI - Headache <Emilie Burdick PA-C - Last Filed: 08/24/18 19:51> General Chief Complaint: Headache Stated Complaint: HEADACHE Time Seen by Provider: 08/24/18 16:05 Source: patient Mode of arrival: ambulatory Limitations: no limitations History of Present Illness HPI Narrative: This 83-year-old female is sent for evaluation of left-sided headache. She has a history of infrequent migraines. She states that they are always on the left side and she gets photophobia. She developed a headache last night with light sensitivity. She states that typically the headache is in the top and front of her left side and radiates into the eye area, but this 1 is more on the top and side of her head the up above her ear. She does not have any visual scotoma or vision change. She does not have any nausea or vomiting. She does not have any jaw claudication. She states she has not had any earache or recent upper respiratory symptoms. She has not had a fever. She denies any acute weakness or difficulty with speech. She states that this headache is more of a shoot stabbing pain intermittently then as steady as her usual migraine pain is. Pain was more frequent last night. She states that she took 2 tramadol at home without relief. She does not get frequent migraines and thus has not been on any prophylactic medication at home. She has been going about her usual activities and eating and drinking normally. She states that she was on warfarin for a femoral blood clot last year but discontinued that in June. She is not on any new medicines. Related Data Home Medications Medication Instructions Recorded Confirmed estradiol [Estrace] 1 gm VAGINAL #0 10/18/17 08/24/18 fesoterodine [Toviaz] 4 mg PO QDAY #0 10/18/17 08/24/18 fluoxetine 20 mg PO QDAY #0 10/18/17 08/24/18 levothyroxine [Tirosint] 125 mcg PO QDAY #0 10/18/17 08/24/18 montelukast 10 mg PO QPM #0 10/18/17 08/24/18 pantoprazole 40 mg PO BID #0 10/18/17 08/24/18 cyanocobalamin (vitamin B-12) 1,000 mcg PO DAILY 03/15/18 08/24/18 [B-12 DOTS] oxybutynin chloride 5 mg PO BID 03/15/18 08/24/18 potassium chloride 20 meq PO BID 03/15/18 08/24/18 furosemide 40 mg tablet 20 mg PO DAILY #0 tab 06/10/18 08/24/18 Allergies Allergy/AdvReac Type Severity Reaction Status Date / Time chlorothiazide Allergy Unknown Verified 08/24/18 15:23 [CHLOROTHIAZIDE] codeine [CODEINE] Allergy Unknown itching Verified 08/24/18 15:23 naproxen [NAPROXEN] AdvReac Unknown SHOOTING Verified 08/24/18 15:23 ELECTRICITY DOWN [facility] Review of Systems <Emilie Burdick PA-C - Last Filed: 08/24/18 19:51> Review of Systems ROS Unobtainable: All systems reviewed & are unremarkable except as noted in HPI and below PFSH <Emilie Burdick PA-C - Last Filed: 08/24/18 19:51> Medical History GERD (gastroesophageal reflux disease) (Chronic) History of migraine (Chronic) Hypothyroid (Chronic) Neuropathy (Chronic) Paroxysmal A-fib (Chronic) History of DVT (deep vein thrombosis) (Resolved) Surgical History History of hysterectomy (Resolved) Family History Other No pertinent family history Social History Smoking Status: Never smoker Family History Other No pertinent family history Social History Smoking Status: Never smoker Exam <Emilie Burdick PA-C - Last Filed: 08/24/18 19:51> Narrative Exam Narrative: GENERAL APPEARANCE: Patient sitting comfortably, in no distress. HEENT: PERRL, EOMI, normal TMs and oropharynx, no sinus TTP. Temporal artery pulsations symmetric bilaterally, no tenderness NECK: Supple, no masses LUNGS: Clear to auscultation bilaterally. HEART: Rate and rhythm regular without murmur, normal S1 and S2, no S3 or S4. ABDOMEN: Soft, NT, ND, + BS x 4 quadrants NEUROLOGIC: Alert and oriented, normal speech, and coordination. MUSCULOSKELETAL: Full Csp AROM without tenderness over the cervical spine or paraspinal musculature Initial Vital Signs Initial Vital Signs: Vital Signs Temperature 97.4 F L 08/24/18 16:03 Pulse Rate 76 08/24/18 16:03 Respiratory Rate 20 08/24/18 16:03 Blood Pressure 118/71 08/24/18 16:03 Pulse Oximetry 100 08/24/18 16:03 <Aimee Lovell DO - Last Filed: 08/26/18 18:47> Initial Vital Signs Initial Vital Signs: Vital Signs Temperature 97.4 F L 08/24/18 16:03 Pulse Rate 76 08/24/18 16:03 Respiratory Rate 20 08/24/18 16:03 Blood Pressure 118/71 08/24/18 16:03 Pulse Oximetry 100 08/24/18 16:03 Course <Emilie Burdick PA-C - Last Filed: 08/24/18 19:51> Additional Information: Reviewed no acute findings on patient's studies, and she is feeling markedly improved after medications and fluids. She is not at all sedated. She prefers to return home and will rest tonight. She agreed to return if any acutely worsening symptoms again. This is likely a variant of her migraine. She already has follow up scheduled with her PCP next week. Orders Ordered: Discontinued Medications Diphenhydramine HCl (Benadryl) 12.5 mg IV NOW ONE Stop: 08/24/18 16:30 Last Admin: 08/24/18 17:23 Dose: 12.5 mg Sodium Chloride (Normal Saline 0.9%) 1,000 mls @ 1,000 mls/hr IV BOLUS ONE Stop: 08/24/18 17:28 Last Infusion: 08/24/18 18:41 Dose: 0 mls/hr Admin: 08/24/18 17:24 Dose: 1,000 mls/hr Ketorolac Tromethamine (Toradol) 15 mg IV NOW ONE Stop: 08/24/18 17:42 Last Admin: 08/24/18 17:45 Dose: 15 mg Vital Signs - 8 hr 08/24/18 16:03 08/24/18 18:02 08/24/18 19:21 Temperature 97.4 F L Pulse Rate 76 76 72 Respiratory Rate 20 18 16 Blood Pressure 118/71 110/75 Blood Pressure [Right Arm] 103/70 Pulse Oximetry 100 100 97 <DO [place] Last Filed: 08/26/18 18:47> Orders Ordered: Discontinued Medications Diphenhydramine HCl (Benadryl) 12.5 mg IV NOW ONE Stop: 08/24/18 16:30 Last Admin: 08/24/18 17:23 Dose: 12.5 mg Sodium Chloride (Normal Saline 0.9%) 1,000 mls @ 1,000 mls/hr IV BOLUS ONE Stop: 08/24/18 17:28 Last Infusion: 08/24/18 18:41 Dose: 0 mls/hr Admin: 08/24/18 17:24 Dose: 1,000 mls/hr Ketorolac Tromethamine (Toradol) 15 mg IV NOW ONE Stop: 08/24/18 17:42 Last Admin: 08/24/18 17:45 Dose: 15 mg Vital Signs - 8 hr 08/24/18 16:03 08/24/18 18:02 08/24/18 19:21 Temperature 97.4 F L Pulse Rate 76 76 72 Respiratory Rate 20 18 16 Blood Pressure 118/71 110/75 Blood Pressure [Right Arm] 103/70 Pulse Oximetry 100 100 97 MDM - Headache <Emilie Burdick PA-C - Last Filed: 08/24/18 19:51> Lab Data Result diagrams: 08/24/18 16:52 08/24/18 16:52 Lab Results 08/24/18 08/24/18 Range/Units 16:52 16:52 WBC 5.0 (4.5-11.0) X10^3/uL RBC 4.20 (4.0-5.2) X10^6/uL Hgb 12.5 (12.0-16.0) g/dL Hct 37.6 (36-46) % MCV 89.5 (80-100) fL MCH 29.7 (26-34) PG MCHC 33.2 (30-36) % RDW 14.5 (11.6-14.8) % Plt Count 225 (150-400) X10^3/uL Neut % (Auto) 41.6 L (50-75) % Lymph % (Auto) 36.1 (25-40) % [place] % (Auto) 12.4 (3-14) % Eos % (Auto) 8.8 H (2-4) % Baso % (Auto) 1.1 (0-2) % Neut # (Auto) 2100 (4275-7283) /uL Lymph # (Auto) 1800 (8214-0940) /uL [place] # (Auto) 600 (0-900) /uL Eos # (Auto) 400 (0-450) /uL Baso # (Auto) 100 (0-100) /uL ESR 16 (0-20) MM/HR Sodium 138 (137-145) mmol/L Potassium 4.1 (3.4-5.1) mmol/L Chloride 101 (98-107) mmol/L Carbon Dioxide 29 (22-32) mmol/L BUN 17 (7-17) mg/dL Creatinine 1.00 (0.52-1.04) mg/dL Estimated GFR 53.1 L (>60) mL/min BUN/Creatinine Ratio 17.0 (6-22) Glucose 89 (80-110) mg/dL Calcium 8.7 (8.4-10.2) mg/dL Total Bilirubin 0.4 (0.2-1.3) mg/dL AST 27 (14-36) IU/L ALT 31 (9-52) IU/L Alkaline Phosphatase 79 (38-126) U/L C-Reactive Protein < 0.5 (<1.0) mg/dL Total Protein 6.9 (6.3-8.2) g/dL Albumin 3.8 (3.5-5.0) g/dL Globulin 3.1 (1.7-4.1) g/dL Albumin/Globulin Ratio 1.2 (1.0-2.8) Imaging Data CT scan - head: Radiologist's impression: [place] [address] CT Scan Report Signed Patient: Sun Mejia PMR#: [id number] : 1936Acct:[id number] Age/Sex: 83 / FDate of Service: 08/24/18 Loc: ED Accession Number: [id number] Procedure: CT head/brain wo con Ordering Provider: Emilie Burdick P.A-C PROCEDURE: CT HEAD/BRAIN WO CON INDICATIONS: atypical DIGGS TECHNIQUE: Noncontrast 4.5 mm thick angled axial sections acquired from the foramen magnum to the vertex, with coronal and sagittal reformats. For radiation dose reduction, the following was used: automated exposure control, adjustment of mA and/or kV according to patient size. COMPARISON: None. FINDINGS: Image quality: Excellent. CSF spaces: Basal cisterns are patent. No extra-axial fluid collections. The ventricles are symmetric in size and shape. Brain: No intracranial bleeds or masses. There is cerebral volume loss for age, with resultant ventricular and sulcal prominence. There are periventricular and deep white matter chronic small vessel ischemic changes. There is intracranial internal carotid artery atherosclerosis. Skull and face: Calvarium and visualized facial bones appear intact, without suspicious lesions. Sinuses: Visualized sinuses and mastoids are clear. IMPRESSION: Source of atypical headache is not seen. Dictated by: Cristian Gallegos M.D. on 08/24/2018 at 17:03 Approved by: Cristian Gallegos M.D. on 08/24/2018 at 17:04 <Aimee Lovell, DO - Last Filed: 08/26/18 18:47> Lab Data Lab Results 08/24/18 08/24/18 Range/Units 16:52 16:52 WBC 5.0 (4.5-11.0) X10^3/uL RBC 4.20 (4.0-5.2) X10^6/uL Hgb 12.5 (12.0-16.0) g/dL Hct 37.6 (36-46) % MCV 89.5 (80-100) fL MCH 29.7 (26-34) PG MCHC 33.2 (30-36) % RDW 14.5 (11.6-14.8) % Plt Count 225 (150-400) X10^3/uL Neut % (Auto) 41.6 L (50-75) % Lymph % (Auto) 36.1 (25-40) % [place] % (Auto) 12.4 (3-14) % Eos % (Auto) 8.8 H (2-4) % Baso % (Auto) 1.1 (0-2) % Neut # (Auto) 2100 (0389-0248) /uL Lymph # (Auto) 1800 (4434-2052) /uL [place] # (Auto) 600 (0-900) /uL Eos # (Auto) 400 (0-450) /uL Baso # (Auto) 100 (0-100) /uL ESR 16 (0-20) MM/HR Sodium 138 (137-145) mmol/L Potassium 4.1 (3.4-5.1) mmol/L Chloride 101 (98-107) mmol/L Carbon Dioxide 29 (22-32) mmol/L BUN 17 (7-17) mg/dL Creatinine 1.00 (0.52-1.04) mg/dL Estimated GFR 53.1 L (>60) mL/min BUN/Creatinine Ratio 17.0 (6-22) Glucose 89 (80-110) mg/dL Calcium 8.7 (8.4-10.2) mg/dL Total Bilirubin 0.4 (0.2-1.3) mg/dL AST 27 (14-36) IU/L ALT 31 (9-52) IU/L Alkaline Phosphatase 79 (38-126) U/L C-Reactive Protein < 0.5 (<1.0) mg/dL Total Protein 6.9 (6.3-8.2) g/dL Albumin 3.8 (3.5-5.0) g/dL Globulin 3.1 (1.7-4.1) g/dL Albumin/Globulin Ratio 1.2 (1.0-2.8) Imaging Data CT scan - head: Radiologist's impression: [place] [address] CT Scan Report Signed Patient: Sun Mejia PMR#: [id number] : 7Acct:[id number] Age/Sex: 83 / FDate of Service: 08/24/18 Loc: ED Accession Number: [id number] Procedure: CT head/brain wo con Ordering Provider: Emilie Burdick P.A-C PROCEDURE: CT HEAD/BRAIN WO CON INDICATIONS: atypical DIGGS TECHNIQUE: Noncontrast 4.5 mm thick angled axial sections acquired from the foramen magnum to the vertex, with coronal and sagittal reformats. For radiation dose reduction, the following was used: automated exposure control, adjustment of mA and/or kV according to patient size. COMPARISON: None. FINDINGS: Image quality: Excellent. CSF spaces: Basal cisterns are patent. No extra-axial fluid collections. The ventricles are symmetric in size and shape. Brain: No intracranial bleeds or masses. There is cerebral volume loss for age, with resultant ventricular and sulcal prominence. There are periventricular and deep white matter chronic small vessel ischemic changes. There is intracranial internal carotid artery atherosclerosis. Skull and face: Calvarium and visualized facial bones appear intact, without suspicious lesions. Sinuses: Visualized sinuses and mastoids are clear. IMPRESSION: Source of atypical headache is not seen. Dictated by: Cristian Gallegos M.D. on 08/24/2018 at 17:03 Approved by: Cristian Gallegos M.D. on 08/24/2018 at 17:04 Discharge Plan Departure Patient Disposition: Home Clinical Impression: Migraine headache Qualifiers: Migraine type: without aura Status migrainosus presence: without status migrainosus Intractability: not intractable Qualified Code(s): G43.009 - Migraine without aura, not intractable, without status migrainosus Discharge Date/Time: 08/24/18 19:23 Interventions: ED Discharge Assessment Last Done: 08/24/18 19:21 Instructions: DI for Migraine Activity Restrictions/Additional Instructions: Since you are feeling so much better, you can monitor at home. There was no acute problem found on your testing today and it is most likely that this headache is a little bit different variation of your migraine. Please rest in a dark, quiet environment tonight. Avoid screen time! Please follow-up with your PCP in a few days as you have already planned. As we talked about, you should return immediately to the ED if you have acutely worsening symptoms again, or new symptoms such as fever, weakness or difficulty talking, vision change or vomiting Prescriptions: No Action estradiol [Estrace] 0.01 % cream 1 gm Vaginal Qty: 0 RF: 0 fesoterodine [Toviaz] 4 MG tablet extended release 24 hr 4 mg PO QDAY Qty: 0 RF: 0 fluoxetine 20 MG capsule 20 mg PO QDAY Qty: 0 RF: 0 levothyroxine [Tirosint] 125 MCG capsule 125 mcg PO QDAY Qty: 0 RF: 0 montelukast 10 MG tablet 10 mg PO QPM Qty: 0 RF: 0 pantoprazole 40 MG tablet,delayed release (DR/EC) 40 mg PO BID Qty: 0 RF: 0 furosemide 40 mg tablet 20 mg PO DAILY Qty: 0 RF: 0 potassium chloride 10 mEq Capsule, Extended Release 20 meq PO BID RF: 0 cyanocobalamin (vitamin B-12) [B-12 DOTS] 500 mcg Tablet 1,000 mcg PO DAILY RF: 0 oxybutynin chloride 5 mg Tablet 5 mg PO BID RF: 0 Referrals: Moreno Rodas MD [Primary Care Provider] - <Aimee Lovell DO - Last Filed: 08/26/18 18:47> Cosign ED Attending Cosignature Attestation: I was immediately available in the department for consultation. This documentation has been reviewed and I agree with assessment and plan. Supervised by Aimee Lovell DO
--- NOTE | 2018-08-24 16:29 | DI.CT.S_ITS ---
PROCEDURE: CT HEAD/BRAIN WO CON INDICATIONS: atypical DIGGS TECHNIQUE: Noncontrast 4.5 mm thick angled axial sections acquired from the foramen magnum to the vertex, with coronal and sagittal reformats. For radiation dose reduction, the following was used: automated exposure control, adjustment of mA and/or kV according to patient size. COMPARISON: None. FINDINGS: Image quality: Excellent. CSF spaces: Basal cisterns are patent. No extra-axial fluid collections. The ventricles are symmetric in size and shape. Brain: No intracranial bleeds or masses. There is cerebral volume loss for age, with resultant ventricular and sulcal prominence. There are periventricular and deep white matter chronic small vessel ischemic changes. There is intracranial internal carotid artery atherosclerosis. Skull and face: Calvarium and visualized facial bones appear intact, without suspicious lesions. Sinuses: Visualized sinuses and mastoids are clear. IMPRESSION: Source of atypical headache is not seen. Dictated by: Cristian Gallegos M.D. on 08/24/2018 at 17:03 Approved by: Cristian Gallegos M.D. on 08/24/2018 at 17:04
--- NOTE | 2018-08-24 16:40 | ED_ITS ---
HPI - Headache <Emilie Burdick PA-C - Last Filed: 08/24/18 19:51> General Chief Complaint: Headache Stated Complaint: HEADACHE Time Seen by Provider: 08/24/18 16:05 Source: patient Mode of arrival: ambulatory Limitations: no limitations History of Present Illness HPI Narrative: This 83-year-old female is sent for evaluation of left-sided headache. She has a history of infrequent migraines. She states that they are always on the left side and she gets photophobia. She developed a headache last night with light sensitivity. She states that typically the headache is in the top and front of her left side and radiates into the eye area, but this 1 is more on the top and side of her head the up above her ear. She does not have any visual scotoma or vision change. She does not have any nausea or vomiting. She does not have any jaw claudication. She states she has not had any earache or recent upper respiratory symptoms. She has not had a fever. She denies any acute weakness or difficulty with speech. She states that this headache is more of a shoot stabbing pain intermittently then as steady as her usual migraine pain is. Pain was more frequent last night. She states that she took 2 tramadol at home without relief. She does not get frequent migraines and thus has not been on any prophylactic medication at home. She has been going about her usual activities and eating and drinking normally. She states that she was on warfarin for a femoral blood clot last year but discontinued that in June. She is not on any new medicines. Related Data Home Medications Medication Instructions Recorded Confirmed estradiol [Estrace] 1 gm VAGINAL #0 10/18/17 08/24/18 fesoterodine [Toviaz] 4 mg PO QDAY #0 10/18/17 08/24/18 fluoxetine 20 mg PO QDAY #0 10/18/17 08/24/18 levothyroxine [Tirosint] 125 mcg PO QDAY #0 10/18/17 08/24/18 montelukast 10 mg PO QPM #0 10/18/17 08/24/18 pantoprazole 40 mg PO BID #0 10/18/17 08/24/18 cyanocobalamin (vitamin B-12) 1,000 mcg PO DAILY 03/15/18 08/24/18 [B-12 DOTS] oxybutynin chloride 5 mg PO BID 03/15/18 08/24/18 potassium chloride 20 meq PO BID 03/15/18 08/24/18 furosemide 40 mg tablet 20 mg PO DAILY #0 tab 06/10/18 08/24/18 Allergies Allergy/AdvReac Type Severity Reaction Status Date / Time chlorothiazide Allergy Unknown Verified 08/24/18 15:23 [CHLOROTHIAZIDE] codeine [CODEINE] Allergy Unknown itching Verified 08/24/18 15:23 naproxen [NAPROXEN] AdvReac Unknown SHOOTING Verified 08/24/18 15:23 ELECTRICITY DOWN LEG Review of Systems <Emilie Burdick PA-C - Last Filed: 08/24/18 19:51> Review of Systems ROS Unobtainable: All systems reviewed & are unremarkable except as noted in HPI and below PFSH <Emilie Burdick PA-C - Last Filed: 08/24/18 19:51> Medical History GERD (gastroesophageal reflux disease) (Chronic) History of migraine (Chronic) Hypothyroid (Chronic) Neuropathy (Chronic) Paroxysmal A-fib (Chronic) History of DVT (deep vein thrombosis) (Resolved) Surgical History History of hysterectomy (Resolved) Family History Other No pertinent family history Social History Smoking Status: Never smoker Family History Other No pertinent family history Social History Smoking Status: Never smoker Exam <Emilie Burdick PA-C - Last Filed: 08/24/18 19:51> Narrative Exam Narrative: GENERAL APPEARANCE: Patient sitting comfortably, in no distress. HEENT: PERRL, EOMI, normal TMs and oropharynx, no sinus TTP. Temporal artery pulsations symmetric bilaterally, no tenderness NECK: Supple, no masses LUNGS: Clear to auscultation bilaterally. HEART: Rate and rhythm regular without murmur, normal S1 and S2, no S3 or S4. ABDOMEN: Soft, NT, ND, + BS x 4 quadrants NEUROLOGIC: Alert and oriented, normal speech, and coordination. MUSCULOSKELETAL: Full Csp AROM without tenderness over the cervical spine or paraspinal musculature Initial Vital Signs Initial Vital Signs: Vital Signs Temperature 97.4 F L 08/24/18 16:03 Pulse Rate 76 08/24/18 16:03 Respiratory Rate 20 08/24/18 16:03 Blood Pressure 118/71 08/24/18 16:03 Pulse Oximetry 100 08/24/18 16:03 <Aimee Lovell DO - Last Filed: 08/26/18 18:47> Initial Vital Signs Initial Vital Signs: Vital Signs Temperature 97.4 F L 08/24/18 16:03 Pulse Rate 76 08/24/18 16:03 Respiratory Rate 20 08/24/18 16:03 Blood Pressure 118/71 08/24/18 16:03 Pulse Oximetry 100 08/24/18 16:03 Course <Emilie Burdick PA-C - Last Filed: 08/24/18 19:51> Additional Information: Reviewed no acute findings on patient's studies, and she is feeling markedly improved after medications and fluids. She is not at all sedated. She prefers to return home and will rest tonight. She agreed to return if any acutely worsening symptoms again. This is likely a variant of her migraine. She already has follow up scheduled with her PCP next week. Orders Ordered: Discontinued Medications Diphenhydramine HCl (Benadryl) 12.5 mg IV NOW ONE Stop: 08/24/18 16:30 Last Admin: 08/24/18 17:23 Dose: 12.5 mg Sodium Chloride (Normal Saline 0.9%) 1,000 mls @ 1,000 mls/hr IV BOLUS ONE Stop: 08/24/18 17:28 Last Infusion: 08/24/18 18:41 Dose: 0 mls/hr Admin: 08/24/18 17:24 Dose: 1,000 mls/hr Ketorolac Tromethamine (Toradol) 15 mg IV NOW ONE Stop: 08/24/18 17:42 Last Admin: 08/24/18 17:45 Dose: 15 mg Vital Signs - 8 hr 08/24/18 16:03 08/24/18 18:02 08/24/18 19:21 Temperature 97.4 F L Pulse Rate 76 76 72 Respiratory Rate 20 18 16 Blood Pressure 118/71 110/75 Blood Pressure [Right Arm] 103/70 Pulse Oximetry 100 100 97 <DO [place] Last Filed: 08/26/18 18:47> Orders Ordered: Discontinued Medications Diphenhydramine HCl (Benadryl) 12.5 mg IV NOW ONE Stop: 08/24/18 16:30 Last Admin: 08/24/18 17:23 Dose: 12.5 mg Sodium Chloride (Normal Saline 0.9%) 1,000 mls @ 1,000 mls/hr IV BOLUS ONE Stop: 08/24/18 17:28 Last Infusion: 08/24/18 18:41 Dose: 0 mls/hr Admin: 08/24/18 17:24 Dose: 1,000 mls/hr Ketorolac Tromethamine (Toradol) 15 mg IV NOW ONE Stop: 08/24/18 17:42 Last Admin: 08/24/18 17:45 Dose: 15 mg Vital Signs - 8 hr 08/24/18 16:03 08/24/18 18:02 08/24/18 19:21 Temperature 97.4 F L Pulse Rate 76 76 72 Respiratory Rate 20 18 16 Blood Pressure 118/71 110/75 Blood Pressure [Right Arm] 103/70 Pulse Oximetry 100 100 97 MDM - Headache <Emilie Burdick PA-C - Last Filed: 08/24/18 19:51> Lab Data Result diagrams: 08/24/18 16:52 08/24/18 16:52 Lab Results 08/24/18 08/24/18 Range/Units 16:52 16:52 WBC 5.0 (4.5-11.0) X10^3/uL RBC 4.20 (4.0-5.2) X10^6/uL Hgb 12.5 (12.0-16.0) g/dL Hct 37.6 (36-46) % MCV 89.5 (80-100) fL MCH 29.7 (26-34) PG MCHC 33.2 (30-36) % RDW 14.5 (11.6-14.8) % Plt Count 225 (150-400) X10^3/uL Neut % (Auto) 41.6 L (50-75) % Lymph % (Auto) 36.1 (25-40) % Young % (Auto) 12.4 (3-14) % Eos % (Auto) 8.8 H (2-4) % Baso % (Auto) 1.1 (0-2) % Neut # (Auto) 2100 (4569-7631) /uL Lymph # (Auto) 1800 (5996-8665) /uL Young # (Auto) 600 (0-900) /uL Eos # (Auto) 400 (0-450) /uL Baso # (Auto) 100 (0-100) /uL ESR 16 (0-20) MM/HR Sodium 138 (137-145) mmol/L Potassium 4.1 (3.4-5.1) mmol/L Chloride 101 (98-107) mmol/L Carbon Dioxide 29 (22-32) mmol/L BUN 17 (7-17) mg/dL Creatinine 1.00 (0.52-1.04) mg/dL Estimated GFR 53.1 L (>60) mL/min BUN/Creatinine Ratio 17.0 (6-22) Glucose 89 (80-110) mg/dL Calcium 8.7 (8.4-10.2) mg/dL Total Bilirubin 0.4 (0.2-1.3) mg/dL AST 27 (14-36) IU/L ALT 31 (9-52) IU/L Alkaline Phosphatase 79 (38-126) U/L C-Reactive Protein < 0.5 (<1.0) mg/dL Total Protein 6.9 (6.3-8.2) g/dL Albumin 3.8 (3.5-5.0) g/dL Globulin 3.1 (1.7-4.1) g/dL Albumin/Globulin Ratio 1.2 (1.0-2.8) Imaging Data CT scan - head: Radiologist's impression: [place] [address] CT Scan Report Signed Patient: Sun Mejia PMR#: [id number] : 1936Acct:[id number] Age/Sex: 83 / FDate of Service: 08/24/18 Loc: ED Accession Number: [id number] Procedure: CT head/brain wo con Ordering Provider: Emilie Burdick P.A-C PROCEDURE: CT HEAD/BRAIN WO CON INDICATIONS: atypical DIGGS TECHNIQUE: Noncontrast 4.5 mm thick angled axial sections acquired from the foramen magnum to the vertex, with coronal and sagittal reformats. For radiation dose reduction, the following was used: automated exposure control, adjustment of mA and/or kV according to patient size. COMPARISON: None. FINDINGS: Image quality: Excellent. CSF spaces: Basal cisterns are patent. No extra-axial fluid collections. The ventricles are symmetric in size and shape. Brain: No intracranial bleeds or masses. There is cerebral volume loss for age, with resultant ventricular and sulcal prominence. There are periventricular and deep white matter chronic small vessel ischemic changes. There is intracranial internal carotid artery atherosclerosis. Skull and face: Calvarium and visualized facial bones appear intact, without suspicious lesions. Sinuses: Visualized sinuses and mastoids are clear. IMPRESSION: Source of atypical headache is not seen. Dictated by: Cristian Gallegos M.D. on 08/24/2018 at 17:03 Approved by: Cristian Gallegos M.D. on 08/24/2018 at 17:04 <Aimee Lovell, DO - Last Filed: 08/26/18 18:47> Lab Data Lab Results 08/24/18 08/24/18 Range/Units 16:52 16:52 WBC 5.0 (4.5-11.0) X10^3/uL RBC 4.20 (4.0-5.2) X10^6/uL Hgb 12.5 (12.0-16.0) g/dL Hct 37.6 (36-46) % MCV 89.5 (80-100) fL MCH 29.7 (26-34) PG MCHC 33.2 (30-36) % RDW 14.5 (11.6-14.8) % Plt Count 225 (150-400) X10^3/uL Neut % (Auto) 41.6 L (50-75) % Lymph % (Auto) 36.1 (25-40) % Young % (Auto) 12.4 (3-14) % Eos % (Auto) 8.8 H (2-4) % Baso % (Auto) 1.1 (0-2) % Neut # (Auto) 2100 (2099-8856) /uL Lymph # (Auto) 1800 (2660-2810) /uL Young # (Auto) 600 (0-900) /uL Eos # (Auto) 400 (0-450) /uL Baso # (Auto) 100 (0-100) /uL ESR 16 (0-20) MM/HR Sodium 138 (137-145) mmol/L Potassium 4.1 (3.4-5.1) mmol/L Chloride 101 (98-107) mmol/L Carbon Dioxide 29 (22-32) mmol/L BUN 17 (7-17) mg/dL Creatinine 1.00 (0.52-1.04) mg/dL Estimated GFR 53.1 L (>60) mL/min BUN/Creatinine Ratio 17.0 (6-22) Glucose 89 (80-110) mg/dL Calcium 8.7 (8.4-10.2) mg/dL Total Bilirubin 0.4 (0.2-1.3) mg/dL AST 27 (14-36) IU/L ALT 31 (9-52) IU/L Alkaline Phosphatase 79 (38-126) U/L C-Reactive Protein < 0.5 (<1.0) mg/dL Total Protein 6.9 (6.3-8.2) g/dL Albumin 3.8 (3.5-5.0) g/dL Globulin 3.1 (1.7-4.1) g/dL Albumin/Globulin Ratio 1.2 (1.0-2.8) Imaging Data CT scan - head: Radiologist's impression: [place] [address] CT Scan Report Signed Patient: Sun Mejia PMR#: [id number] : 7Acct:[id number] Age/Sex: 83 / FDate of Service: 08/24/18 Loc: ED Accession Number: [id number] Procedure: CT head/brain wo con Ordering Provider: Emilie Burdick P.A-C PROCEDURE: CT HEAD/BRAIN WO CON INDICATIONS: atypical DIGGS TECHNIQUE: Noncontrast 4.5 mm thick angled axial sections acquired from the foramen magnum to the vertex, with coronal and sagittal reformats. For radiation dose reduction, the following was used: automated exposure control, adjustment of mA and/or kV according to patient size. COMPARISON: None. FINDINGS: Image quality: Excellent. CSF spaces: Basal cisterns are patent. No extra-axial fluid collections. The ventricles are symmetric in size and shape. Brain: No intracranial bleeds or masses. There is cerebral volume loss for age, with resultant ventricular and sulcal prominence. There are periventricular and deep white matter chronic small vessel ischemic changes. There is intracranial internal carotid artery atherosclerosis. Skull and face: Calvarium and visualized facial bones appear intact, without suspicious lesions. Sinuses: Visualized sinuses and mastoids are clear. IMPRESSION: Source of atypical headache is not seen. Dictated by: Cristian Gallegos M.D. on 08/24/2018 at 17:03 Approved by: Cristian Gallegos M.D. on 08/24/2018 at 17:04 Discharge Plan Departure Patient Disposition: Home Clinical Impression: Migraine headache Qualifiers: Migraine type: without aura Status migrainosus presence: without status migrainosus Intractability: not intractable Qualified Code(s): G43.009 - Migraine without aura, not intractable, without status migrainosus Discharge Date/Time: 08/24/18 19:23 Interventions: ED Discharge Assessment Last Done: 08/24/18 19:21 Instructions: DI for Migraine Activity Restrictions/Additional Instructions: Since you are feeling so much better, you can monitor at home. There was no acute problem found on your testing today and it is most likely that this headache is a little bit different variation of your migraine. Please rest in a dark, quiet environment tonight. Avoid screen time! Please follow-up with your PCP in a few days as you have already planned. As we talked about, you should return immediately to the ED if you have acutely worsening symptoms again, or new symptoms such as fever, weakness or difficulty talking, vision change or vomiting Prescriptions: No Action estradiol [Estrace] 0.01 % cream 1 gm Vaginal Qty: 0 RF: 0 fesoterodine [Toviaz] 4 MG tablet extended release 24 hr 4 mg PO QDAY Qty: 0 RF: 0 fluoxetine 20 MG capsule 20 mg PO QDAY Qty: 0 RF: 0 levothyroxine [Tirosint] 125 MCG capsule 125 mcg PO QDAY Qty: 0 RF: 0 montelukast 10 MG tablet 10 mg PO QPM Qty: 0 RF: 0 pantoprazole 40 MG tablet,delayed release (DR/EC) 40 mg PO BID Qty: 0 RF: 0 furosemide 40 mg tablet 20 mg PO DAILY Qty: 0 RF: 0 potassium chloride 10 mEq Capsule, Extended Release 20 meq PO BID RF: 0 cyanocobalamin (vitamin B-12) [B-12 DOTS] 500 mcg Tablet 1,000 mcg PO DAILY RF: 0 oxybutynin chloride 5 mg Tablet 5 mg PO BID RF: 0 Referrals: Moreno Rodas MD [Primary Care Provider] - <Aimee Lovell DO - Last Filed: 08/26/18 18:47> Cosign ED Attending Cosignature Attestation: I was immediately available in the department for consultation. This documentation has been reviewed and I agree with assessment and plan. Supervised by Aimee Lovell DO
[2018-08-24 16:59] LABS: Add Manual Diff / Slide Review NO; Basophils Absolute Auto 100 /uL (0-100); Basophils Percent Auto 1.1 % (0-2); Eosinophils Absolute Auto 400 /uL (0-450); Eosinophils Percent Auto 8.8 % (2-4); Hematocrit 37.6 % (36-46); Hemoglobin 12.5 g/dL (12.0-16.0); Lymphocytes Absolute Auto 1800 /uL (1100-4500); Lymphocytes Percent Auto 36.1 % (25-40); Mean Corpuscular HGB Conc 33.2 % (30-36); Mean Corpuscular Hemoglobin 29.7 PG (26-34); Mean Corpuscular Volume 89.5 fL (80-100); Monocytes Absolute Auto 600 /uL (0-900); Monocytes Percent Auto 12.4 % (3-14); Neutrophils Absolute Auto 2100 /uL (1500-7000); Neutrophils Percent Auto 41.6 % (50-75); Platelet Count 225 X10^3/uL (150-400); Red Cell Distribution Width 14.5 % (11.6-14.8)
[2018-08-24] MEDS: diphenhydrAMINE 50 MG/ML VIAL 12.5 MG IV (17:23)
[2018-08-24 17:24] LABS: Alanine Aminotransferase 31 IU/L (9-52); Albumin 3.8 g/dL (3.5-5.0); Albumin Globulin Ratio 1.2 (1.0-2.8); Alkaline Phosphatase 79 U/L (38-126); Aspartate Aminotransferase 27 IU/L (14-36); Bilirubin Total 0.4 mg/dL (0.2-1.3); Blood Urea Nitrogen 17 mg/dL (7-17); Calcium 8.7 mg/dL (8.4-10.2); Carbon Dioxide 29 mmol/L (22-32); Chloride 101 mmol/L (98-107); Estimated Glomerular Filt Rate 53.1 mL/min (>60); Globulin 3.1 g/dL (1.7-4.1); Glucose 89 mg/dL (80-110); HEMOLYSIS 28 (0-50); Potassium 4.1 mmol/L (3.4-5.1); Sodium 138 mmol/L (137-145); Total Protein 6.9 g/dL (6.3-8.2)
[2018-08-24] MEDS: SODIUM CHLORIDE 0.9% 1,000 ML 1000 ML IV (17:24)
[2018-08-24 17:25] LABS: C-Reactive Protein Quant < 0.5 mg/dL (<1.0)
[2018-08-24 17:37] LABS: Erythrocyte Sedimentation Rate 16 MM/HR (0-20)
[2018-08-24] MEDS: KETOROLAC 60 MG/2 ML VIAL 15 MG IV (17:45)
[2018-08-24 18:02] VITALS: BP 103/70; PULSE 76; RESP 18; O2SAT 100
[2018-08-24 19:21] VITALS: BP 110/75; PULSE 72; RESP 16; O2SAT 97
== END 2018-08-24 19:23 | disposition home or self-care (01) ==
PROVIDERS: Emergency Provider Internal Medicine; PCP Internal Medicine
DX: G43.009 Migraine without aura, not intractable, without status migrainosus (principal)
CPT/HCPCS: 70450; 80053; 85025; 85651; 86140; 96361; 96374; 96375; 99283; 99284; J1200; J1885

== ENCOUNTER 2019-01-13 20:15 | Emergency (ER) | payer MEDICARE, MEDICAID, SELFPAY ==
[2019-01-13 20:23] VITALS: BP 113/63; PULSE 91; RESP 18; TEMP 37.2; O2SAT 97; BMI 35.2
--- NOTE | 2019-01-13 20:32 | ED_ITS ---
HPI - General Adult General Chief complaint: Eye Problems Stated complaint: RIGHT EYE BLOOD AND HURTS Time Seen by Provider: 01/13/19 20:31 Source: patient Mode of arrival: ambulatory Limitations: no limitations History of Present Illness HPI narrative: Patient is an 83-year-old female. Several years ago she underwent bilateral cataract surgery. Patient here today for concerns of pain and bleeding in her right eye. She states she woke up this morning noticing some redness on the inside portion of her right eye. She states that has worsened throughout today. Stated that she did not notice any change in vision. Does have some pain on the upper portion of the eye specially with moving the eye. No reported trauma. Related Data Home Medications Medication Instructions Recorded Confirmed estradiol [Estrace] 1 gm VAGINAL #0 10/18/17 08/24/18 fesoterodine [Toviaz] 4 mg PO QDAY #0 10/18/17 08/24/18 fluoxetine 20 mg PO QDAY #0 10/18/17 08/24/18 levothyroxine [Tirosint] 125 mcg PO QDAY #0 10/18/17 08/24/18 montelukast 10 mg PO QPM #0 10/18/17 08/24/18 pantoprazole 40 mg PO BID #0 10/18/17 08/24/18 cyanocobalamin (vitamin B-12) 1,000 mcg PO DAILY 03/15/18 08/24/18 [B-12 DOTS] oxybutynin chloride 5 mg PO BID 03/15/18 08/24/18 potassium chloride 20 meq PO BID 03/15/18 08/24/18 furosemide 40 mg tablet 20 mg PO DAILY #0 tab 06/10/18 08/24/18 Allergies Allergy/AdvReac Type Severity Reaction Status Date / Time chlorothiazide Allergy Unknown Verified 01/13/19 20:23 [CHLOROTHIAZIDE] codeine [CODEINE] Allergy Unknown itching Verified 01/13/19 20:23 naproxen [NAPROXEN] AdvReac Unknown SHOOTING Verified 01/13/19 20:23 ELECTRICITY DOWN LEG Review of Systems Constitutional Denies fever(s) and Denies headache(s) Eyes Denies diplopia, Denies irritation, Denies itchy eyes and Denies seeing flashes Comments: Redness and pain around the right eye ENT Ears, Nose, Mouth, and Throat: Denies vertigo, Denies dizziness, Denies headache(s), Denies nasal congestion and Denies sore throat Cardiovascular Denies chest pain and Denies dyspnea Respiratory Denies dyspnea Gastrointestinal Gastrointestinal: Denies abdominal pain Integumentary/Breasts Denies rash Neurologic Denies vertigo, Denies dizziness and Denies headache(s) Hematologic/Lymphatic Denies easy bleeding and Denies easy bruising Allergic/Immunologic Denies itchy eyes [facility] Medical History GERD (gastroesophageal reflux disease) (Chronic) History of migraine (Chronic) Hypothyroid (Chronic) Neuropathy (Chronic) Paroxysmal A-fib (Chronic) History of DVT (deep vein thrombosis) (Resolved) Surgical History (Updated 08/24/18 @ 16:39 by Emilie Burdick PA-C) History of hysterectomy (Resolved) Family History (Updated 08/24/18 @ 16:39 by Emilie Burdick PA-C) Other No pertinent family history Social History Smoking Status: Never smoker Family History (Updated 08/24/18 @ 16:39 by Emilie Burdick PA-C) Other No pertinent family history Social History Smoking Status: Never smoker Exam Initial Vital Signs Initial Vital Signs: Vital Signs Temperature 99.0 F 01/13/19 20:23 Pulse Rate 91 H 01/13/19 20:23 Respiratory Rate 18 01/13/19 20:23 Blood Pressure 113/63 01/13/19 20:23 Pulse Oximetry 97 01/13/19 20:23 Const General: cooperative, comfortable, well developed, well groomed and No acute distress HENMT Head: normal to inspection and normocephalic Ears: TM's normal bilaterally Eyes Other: Left eye unremarkable, right eye with subconjunctival hemorrhage on the nasal aspect. Does cross the limbus however does not protrude into the visual axis. Interocular pressure right eye 7 interocular pressure left eye 8. No proptosis. No erythema around the eye. Neck Lymphatic: No lymphadenopathy Resp Effort & Inspection: normal respiratory effort Skin Lesions: no lesions Rashes: no rashes Neuro General: alert, awake and oriented x3 Cognition: normal cognition Speech: speech normal Extrem General: normal to inspection and capillary refill normal Psych Appearance: grossly normal and well kempt Scores GCS [place] coma scale eye opening: Spontaneous [place] coma scale verbal response: Orientated [place] coma scale motor response: Obey commands Liz coma scale total score: 15 Course Vital Signs - 8 hr 01/13/19 20:23 Temperature 99.0 F Pulse Rate 91 H Respiratory Rate 18 Blood Pressure 113/63 Pulse Oximetry 97 Medical Decision Making MDM Narrative Medical decision making narrative: Patient stated that she had very difficult time seeing the visual acuity chart with the right eye. She did state that she has had problems with distant vision in that right eye in the past. She can see close vision without problems. I did discuss the case with on-call ophthalmology at [facility] who stated that if she could see a close vision and that is reassuring. He suspected that her distant vision is probably not new. No signs of conjunctivitis. No trauma. Doubt retrobulbar hematoma. No proptosis. Hold on further workup for now. Informed the patient to contact her infection prevention specialist on Wednesday. She was given return precautions and follow-up instructions. She expressed understanding and agreement with plan. Discharge Plan Departure Patient Disposition: Home Clinical Impression: Subconjunctival hemorrhage Qualifiers: Laterality: right Qualified Code(s): H11.31 - Conjunctival hemorrhage, right eye Discharge Date/Time: 01/13/19 21:28 Interventions: ED Discharge Assessment Last Done: 01/13/19 21:27 Instructions: DI for Subconjunctival Hemorrhage Activity Restrictions/Additional Instructions: Recommend you contact the Ophthalmology Clinic here at the hospital on Wednesday morning for a follow-up. Continue all of your medications as directed. Return to the emergency department for any new or worsening symptoms Prescriptions: No Action estradiol [Estrace] 0.01 % cream 1 gm Vaginal Qty: 0 RF: 0 fesoterodine [Toviaz] 4 MG tablet extended release 24 hr 4 mg PO QDAY Qty: 0 RF: 0 fluoxetine 20 MG capsule 20 mg PO QDAY Qty: 0 RF: 0 levothyroxine [Tirosint] 125 MCG capsule 125 mcg PO QDAY Qty: 0 RF: 0 montelukast 10 MG tablet 10 mg PO QPM Qty: 0 RF: 0 pantoprazole 40 MG tablet,delayed release (DR/EC) 40 mg PO BID Qty: 0 RF: 0 furosemide 40 mg tablet 20 mg PO DAILY Qty: 0 RF: 0 potassium chloride 10 mEq Capsule, Extended Release 20 meq PO BID RF: 0 cyanocobalamin (vitamin B-12) [B-12 DOTS] 500 mcg Tablet 1,000 mcg PO DAILY RF: 0 oxybutynin chloride 5 mg Tablet 5 mg PO BID RF: 0 Referrals: Moreno Rodas MD [Primary Care Provider] -
== END 2019-01-13 21:28 | disposition home or self-care (01) ==
PROVIDERS: Emergency Provider Emergency Medicine; PCP Internal Medicine
DX: H11.31 Conjunctival hemorrhage, right eye (principal)
CPT/HCPCS: 99282; 99283

== ENCOUNTER → 2019-06-05 09:35 | Outpatient (CLI) | payer MEDICARE, MEDICAID, SELFPAY | PROVIDERS: PCP Internal Medicine; Visit Provider Physician Assistant | DX: R30.0 Dysuria (principal) | CPT/HCPCS: 87077; 87086; 87186 ==

== ENCOUNTER 2019-06-07 18:28 | Emergency (ER) | payer MEDICARE, MEDICAID, SELFPAY ==
[2019-06-07 18:39] VITALS: BP 120/66; PULSE 119; RESP 20; TEMP 36.4; O2SAT 96; BMI 36.0
--- NOTE | 2019-06-07 18:39 | DI.RAD.S_ITS ---
PROCEDURE: XR CHEST 1V INDICATIONS: chest pain TECHNIQUE: One view of the chest was acquired. COMPARISON: [facility], CR, XR CHEST 1V, 03/15/2018, 18:04. FINDINGS: Surgical changes and devices: None. Lungs and pleura: No acute consolidation. Left basilar pleural thickening appears unchanged. Scattered scarring/atelectasis. No pleural effusions or pneumothorax. Mediastinum: Mediastinal contours appear normal. Heart size is normal. Bones and chest wall: No suspicious bony lesions. Overlying soft tissues appear unremarkable. IMPRESSION: No interval change or acute disease. Dictated by: Stew Sultana M.D. on 06/07/2019 at 19:18 Approved by: Stew Sultana M.D. on 06/07/2019 at 19:19
--- NOTE | 2019-06-07 18:50 | ED.CHESTPAIN ---
HPI - Chest Pain General Chief Complaint: Chest Pain Stated Complaint: Chest pain Time Seen by Provider: 06/07/19 18:30 Source: patient Mode of arrival: Ambulatory Limitations: no limitations History of Present Illness HPI narrative: 83-year-old female nonsmoker with history hypothyroid and was all DVT presents with a chief complaint of a sudden onset right-sided sharp and stabbing chest pain that lasts seconds to minutes and goes away without any provocation or palliation. She denies any radiation of symptoms nor she have any associated symptoms such as dizziness, weakness, lightheadedness. She denies any fever or chills. She was recently started on nitrofurantoin for a urinary tract infection and has concern that her symptoms are because of that medication. MD complaint: chest pain Onset (ago): hour(s) Duration: intermittent Onset: during rest Pain location: right chest Severity: mild Quality: sharp Pain radiation: none Relieving factors: nothing Exacerbating factors: nothing Treatments prior to arrival chest pain: none Related Data On Oral Contraceptives: No Home Medications Medication Instructions Recorded Confirmed estradiol [Estrace] 1 gm VAGINAL #0 10/18/17 06/05/19 fesoterodine [Toviaz] 4 mg PO QDAY #0 10/18/17 06/05/19 fluoxetine 20 mg PO QDAY #0 10/18/17 06/05/19 levothyroxine [Tirosint] 125 mcg PO QDAY #0 10/18/17 06/05/19 montelukast 10 mg PO QPM #0 10/18/17 06/05/19 pantoprazole 40 mg PO BID #0 10/18/17 06/05/19 cyanocobalamin (vitamin B-12) 1,000 mcg PO DAILY 03/15/18 06/05/19 [B-12 DOTS] oxybutynin chloride 5 mg PO BID 03/15/18 06/05/19 potassium chloride 20 meq PO BID 03/15/18 06/05/19 furosemide 40 mg tablet 20 mg PO DAILY #0 tab 06/10/18 06/05/19 Previous Rx's Medication Instructions Recorded nitrofurantoin 100 mg PO BID 7 Days #14 cap 06/05/19 monohydrate/macrocrystals 100 mg capsule Allergies Allergy/AdvReac Type Severity Reaction Status Date / Time chlorothiazide Allergy Unknown Verified 06/07/19 18:39 [CHLOROTHIAZIDE] codeine [CODEINE] Allergy Unknown itching Verified 06/07/19 18:39 naproxen [NAPROXEN] AdvReac Unknown SHOOTING Verified 06/07/19 18:39 ELECTRICITY DOWN LEG Review of Systems Constitutional Constitutional: Denies chills, Denies fatigue, Denies fever(s), Denies frequent falls, Denies lethargy and Denies weakness Eyes Eyes: Denies change in vision, Denies eye discharge, Denies irritation and Denies loss of vision ENT Ears, Nose, Mouth, and Throat: Denies change in voice, Denies dizziness, Denies neck pain, Denies sore throat and Denies throat swelling Cardiovascular Cardiovascular: Reports chest pain, Denies irregular heart rhythm, Denies lightheadedness, Denies palpitations, Denies dyspnea, Denies dyspnea on exertion and Denies orthopnea Respiratory Respiratory: Denies cough, Denies dyspnea, Denies dyspnea on exertion and Denies wheezing Gastrointestinal Gastrointestinal: Denies abdominal pain, Denies change in bowel habits, Denies diarrhea, Denies nausea and Denies vomiting Genitourinary Genitourinary: Denies hematuria, Denies flank pain, Denies urinary incontinence and Denies urinary urgency Musculoskeletal Musculoskeletal: Denies back pain, Denies muscle weakness, Denies neck pain, Denies numbness and Denies tingling Integumentary/Breasts Skin/Breast: Denies pruritus, Denies erythema, Denies rash and Denies wounds Neurologic Neurologic: Denies behavioral changes, Denies confusion, Denies dizziness, Denies frequent falls, Denies loss of vision, Denies numbness, Denies tingling and Denies weakness Psychiatric Psychiatric: Denies anxiety, Denies behavioral changes, Denies confusion, Denies depression, Denies homicidal ideation and Denies suicidal ideation Endocrine Endocrine: Denies fatigue, Denies flushing and Denies palpitations Hematologic/Lymphatic Hematologic/Lymphatic: Denies easy bruising Allergic/Immunologic Allergic/Immunologic: Denies urticaria, Denies throat swelling and Denies wheezing Patient History Medical History GERD (gastroesophageal reflux disease) (Chronic) History of DVT (deep vein thrombosis) (Resolved) History of migraine (Chronic) Hypothyroid (Chronic) Neuropathy (Chronic) Paroxysmal A-fib (Chronic) Surgical History History of hysterectomy (Resolved) Family History Other No pertinent family history Social History Smoking Status: Never smoker alcohol intake frequency: 0-2 drinks per day Substance Use Type: does not use Exam Narrative Exam Narrative: GENERAL: [83] year old patient appears stated age. Well-nourished, well-developed patient, in mild distress. Anxious HEAD: Atraumatic. Normocephalic. EYES: Pupils equal round and reactive. Extraocular motions intact. No scleral icterus. No injection or drainage. ENT: Nose without bleeding, purulent drainage. Throat without erythema, tonsillar hypertrophy or exudate. Airway patent. NECK: Trachea midline. Non tender CARDIOVASCULAR: Regular rate and rhythm without murmurs, gallops, or rubs. RESPIRATORY: Clear to auscultation. Breath sounds equal bilaterally. No wheezes, rales, or rhonchi. GASTROINTESTINAL: Abdomen soft, non-tender, nondistended. EXTREMITIES: No edema or joint tenderness. BACK: Nontender without deformity or crepitance. No flank tenderness. NEURO: AOx3. SKIN: No rash or erythema of visible areas Initial Vital Signs Initial Vital Signs: Vital Signs Temperature 97.5 F L 06/07/19 18:39 Pulse Rate 119 H 06/07/19 18:39 Respiratory Rate 20 06/07/19 18:39 Blood Pressure 120/66 06/07/19 18:39 Pulse Oximetry 96 06/07/19 18:39 Course Orders Ordered: ED Orders 06/07/19 18:39 XR chest 1V Stat EKG-12 Lead Stat 06/07/19 19:01 B Type Natriuretic Peptide Stat Complete Blood Count AUTO DIFF Stat Comprehensive Metabolic Panel Stat D Dimer Stat Lipase Stat Partial Thromboplastin Time Stat Prothrombin Time INR Stat Troponin & CK Cardiac Panel Stat 06/07/19 19:29 CT angio chest PE protocol Stat 06/07/19 20:34 EKG-12 Lead Stat 06/07/19 20:38 Troponin I Stat Vital Signs Vital signs: Vital Signs - 8 hr 06/07/19 18:39 06/07/19 19:39 06/07/19 20:04 Temperature 97.5 F L Pulse Rate 119 H 94 H 89 Respiratory Rate 20 16 18 Blood Pressure 120/66 Blood Pressure [Right Arm] 127/74 141/79 H Pulse Oximetry 96 100 100 06/07/19 21:32 Temperature Pulse Rate 87 Respiratory Rate 13 Blood Pressure 152/71 H Blood Pressure [Right Arm] Pulse Oximetry 96 MDM - Chest Pain Lab Data Result diagrams: 06/07/19 19:06/07/19 19:01 Labs: Lab Results 06/07/19 06/07/19 06/07/19 Range/Units 19:01 19: 19: WBC 5.4 (4.5-11.0) X10^3/uL RBC 4.16 (4.0-5.2) X10^6/uL Hgb 12.3 (12.0-16.0) g/dL Hct 36.8 (36-46) % MCV 88.5 (80-100) fL MCH 29.5 (26-34) PG MCHC 33.3 (30-36) % RDW 15.5 H (11.6-14.8) % Plt Count 246 (150-400) X10^3/uL Neut % (Auto) 48.1 L (50-75) % Lymph % (Auto) 29.9 (25-40) % Victoria % (Auto) 11.7 (3-14) % Eos % (Auto) 9.0 H (2-4) % Baso % (Auto) 1.3 (0-2) % Neut # (Auto) 2600 (8028-5928) /uL Lymph # (Auto) 1600 (4483-7879) /uL Victoria # (Auto) 600 (0-900) /uL Eos # (Auto) 500 H (0-450) /uL Baso # (Auto) 100 (0-100) /uL PT 10.7 (10.1-12.7) SECONDS INR 0.9 (0.9-1.3) APTT 30 (26.4-36.2) SECONDS D-Dimer 2173 H (<230) ng/mL Sodium 139 (137-145) mmol/L Potassium 3.6 (3.4-5.1) mmol/L Chloride 102 (98-107) mmol/L Carbon Dioxide 32 (22-32) mmol/L BUN 13 (7-17) mg/dL Creatinine 1.10 H (0.52-1.04) mg/dL Estimated GFR 47.6 L (>60) mL/min BUN/Creatinine Ratio 11.8 (6-22) Glucose 111 H (80-110) mg/dL Calcium 9.2 (8.4-10.2) mg/dL Total Bilirubin 0.5 (0.2-1.3) mg/dL AST 37 H (14-36) IU/L ALT 32 (<35) IU/L Alkaline Phosphatase 106 (38-126) U/L Total Creatine Kinase 86 (30-135) U/L CK-MB (CK-2) TNP CK-MB (CK-2) Rel Index TNP Troponin I < 0.012 (0.01-0.034) ng/mL B-Natriuretic Peptide (<100) Total Protein 6.7 (6.3-8.2) g/dL Albumin 3.9 (3.5-5.0) g/dL Globulin 2.8 (1.7-4.1) g/dL Albumin/Globulin Ratio 1.4 (1.0-2.8) Lipase 106 (23-300) U/L 06/07/19 06/07/19 06/07/19 Range/Units 19:01 19:01 20:38 WBC (4.5-11.0) X10^3/uL RBC (4.0-5.2) X10^6/uL Hgb (12.0-16.0) g/dL Hct (36-46) % MCV (80-100) fL MCH (26-34) PG MCHC (30-36) % RDW (11.6-14.8) % Plt Count (150-400) X10^3/uL Neut % (Auto) (50-75) % Lymph % (Auto) (25-40) % Victoria % (Auto) (3-14) % Eos % (Auto) (2-4) % Baso % (Auto) (0-2) % Neut # (Auto) (9175-8897) /uL Lymph # (Auto) (6917-5493) /uL Victoria # (Auto) (0-900) /uL Eos # (Auto) (0-450) /uL Baso # (Auto) (0-100) /uL PT (10.1-12.7) SECONDS INR (0.9-1.3) APTT (26.4-36.2) SECONDS D-Dimer Cancelled (<230) ng/mL Sodium (137-145) mmol/L Potassium (3.4-5.1) mmol/L Chloride (98-107) mmol/L Carbon Dioxide (22-32) mmol/L BUN (7-17) mg/dL Creatinine (0.52-1.04) mg/dL Estimated GFR (>60) mL/min BUN/Creatinine Ratio (6-22) Glucose (80-110) mg/dL Calcium (8.4-10.2) mg/dL Total Bilirubin (0.2-1.3) mg/dL AST (14-36) IU/L ALT (<35) IU/L Alkaline Phosphatase (38-126) U/L Total Creatine Kinase (30-135) U/L CK-MB (CK-2) CK-MB (CK-2) Rel Index Troponin I < 0.012 (0.01-0.034) ng/mL B-Natriuretic Peptide < 100 (<100) Total Protein (6.3-8.2) g/dL Albumin (3.5-5.0) g/dL Globulin (1.7-4.1) g/dL Albumin/Globulin Ratio (1.0-2.8) Lipase (23-300) U/L Imaging Data Chest x-ray: Attestation: I personally reviewed and interpreted this imaging study as follows: Radiologist's impression: [facility] Diagnostics DATE TYPE STATUS AUTHOR Racheal 06/07/19 19:29 Stew Sultana 06/07/19 18:39 Stew Sultana 08/24/18 16:29 Cristian Gallegos 03/16/18 12:04 Erasmo Pham 03/15/18 18:00 Stew Sultana Sandra P 83, F0 1935 [facility], Main ED R02 170.18cm 104.326kg BMI: 36.0kg/m? Chest Pain Search Chart No Data to Display itching SHOOTING ELECTRICITY DOWN LEG ONSET Today 20:04 Sun Mejia F [address] [address] XRay Report Signed Patient: Sun Mejia PMR#: [id number] : 7Acct:[id number] Age/Sex: 83 / FDate of Service: 06/07/19 Loc: ED Accession Number: [id number] Procedure: XR chest 1V Ordering Provider: Js Mijares D.O. PROCEDURE: XR CHEST 1V INDICATIONS: chest pain TECHNIQUE: One view of the chest was acquired. COMPARISON: [facility], CR, XR CHEST 1V, 03/15/2018, 18:04. FINDINGS: Surgical changes and devices: None. Lungs and pleura: No acute consolidation. Left basilar pleural thickening appears unchanged. Scattered scarring/atelectasis. No pleural effusions or pneumothorax. Mediastinum: Mediastinal contours appear normal. Heart size is normal. Bones and chest wall: No suspicious bony lesions. Overlying soft tissues appear unremarkable. IMPRESSION: No interval change or acute disease. Dictated by: Stew Sultana M.D. on 06/07/2019 at 19:18 CT scan - chest: Radiologist's impression: [address] [address] [address] Scan Report Signed Patient: Sun Mejia PMR#: [id number] : 7Acct:[id number] Age/Sex: 83 / FDate of Service: 06/07/19 Loc: ED Accession Number: [id number] Procedure: CT angio chest PE protocol Ordering Provider: Js Mijares D.O. PROCEDURE: CT ANGIO CHEST PE PROTOCOL INDICATIONS: sudden sharp chest pain TECHNIQUE: After the administration of intravenous contrast, 2 mm thick sections acquired from the pulmonary apices to the posterior costophrenic angles. 3-dimensional maximum intensity projection (MIP) coronal and sagittal reformats were then acquired through the thorax. For radiation dose reduction, the following was used: automated exposure control, adjustment of mA and/or kV according to patient size. COMPARISON: [facility], CT, CT ABDOMEN PELVIS W CON, 03/16/2018, 12:17. FINDINGS: Image quality: Excellent. Pulmonary arteries: Pulmonary arteries are normal in size, and demonstrate no intraluminal filling defects to suggest central pulmonary embolism. Lungs and pleura: Lungs are clear. 2 mm left lung nodule image 145 series 6. No pleural effusions or pneumothorax. Central and peripheral airways are patent. Mediastinum: Heart size is normal, without pericardial effusion. Coronary artery calcifications are noted. No mediastinal or hilar adenopathy. Thoracic aorta is normal in caliber and enhancement. Small hiatal hernia Bones and chest wall: No suspicious bony lesions. Ribs and thoracic spine appear intact throughout. Thyroid gland grossly unremarkable. No axillary or supraclavicular adenopathy. Abdomen: Visualized upper abdominal solid organs appear normal in the early arterial phase of enhancement. IMPRESSION: No pulmonary embolism. No evidence of aortic dissection. Scattered subsegmental atelectasis and/or scarring. No focal consolidation. Small hiatal hernia 2 mm indeterminate anterior left lung pulmonary nodule which could be followed up with one year interval chest CT to document stability. Dictated by: Stew Sultana M.D. on 06/07/2019 at 20:10 Approved by: Stew Sultana M.D. on 06/07/2019 at 20:17 ECG Data Interpretation: EKG is normal sinus rhythm rate [ 85] and free of any signs of ischemia or ectopy. No ST segmental elevation or depression. No T wave inversions MDM Narrative Medical decision making narrative: Multiple etiologies for patient's symptoms considered including: [Pulmonary embolism versus costochondritis versus atypical chest pain versus cardiac ischemia Multiple causes of chest pain considered including ME, PE, pneumothorax, pneumonia, aortic dissection, and pleurisy. Patient reports no radiation, no diaphoresis, no provocation with exertion, and no vomiting] Patient's symptoms improved or duration of stay with above-stated therapies. Findings and discharge diagnosis discussed with patient/family followed by verbalization of understanding Return precautions discussed with patient/family whom verbalize understanding. Discharge Plan Departure Patient Disposition: Home Clinical Impression: Atypical chest pain Discharge Date/Time: 06/07/19 21:33 Instructions: DI for Atypical Chest Pain Activity Restrictions/Additional Instructions: *You have been diagnosed with [atypical chest] *What to do: *Take medications as directed *Follow up with your primary care provider in 2-3 days, call for an appointment. Let them know you were seen in the Emergency Department and that we ask that you be seen in follow up *Return to ER if you should have any new, worsening or concerning symptoms, Prescriptions: No Action nitrofurantoin monohyd/m-cryst [Macrobid] 100 mg capsule 100 mg PO BID 7 Days Qty: 14 RF: 0 estradiol [Estrace] 0.01 % cream 1 gm Vaginal Qty: 0 RF: 0 fesoterodine [Toviaz] 4 MG tablet extended release 24 hr 4 mg PO QDAY Qty: 0 RF: 0 fluoxetine 20 MG capsule 20 mg PO QDAY Qty: 0 RF: 0 levothyroxine [Tirosint] 125 MCG capsule 125 mcg PO QDAY Qty: 0 RF: 0 montelukast 10 MG tablet 10 mg PO QPM Qty: 0 RF: 0 pantoprazole 40 MG tablet,delayed release (DR/EC) 40 mg PO BID Qty: 0 RF: 0 furosemide 40 mg tablet 20 mg PO DAILY Qty: 0 RF: 0 potassium chloride 10 mEq Capsule, Extended Release 20 meq PO BID RF: 0 cyanocobalamin (vitamin B-12) [B-12 DOTS] 500 mcg Tablet 1,000 mcg PO DAILY RF: 0 oxybutynin chloride 5 mg Tablet 5 mg PO BID RF: 0 Referrals: Moreno Rodas MD [Primary Care Provider] -
[2019-06-07 19:08] LABS: Add Manual Diff / Slide Review NO; Basophils Absolute Auto 100 /uL (0-100); Basophils Percent Auto 1.3 % (0-2); Eosinophils Absolute Auto 500 /uL (0-450); Hematocrit 36.8 % (36-46); Hemoglobin 12.3 g/dL (12.0-16.0); Lymphocytes Absolute Auto 1600 /uL (1100-4500); Lymphocytes Percent Auto 29.9 % (25-40); Mean Corpuscular HGB Conc 33.3 % (30-36); Mean Corpuscular Hemoglobin 29.5 PG (26-34); Mean Corpuscular Volume 88.5 fL (80-100); Monocytes Absolute Auto 600 /uL (0-900); Monocytes Percent Auto 11.7 % (3-14); Neutrophils Absolute Auto 2600 /uL (1500-7000); Neutrophils Percent Auto 48.1 % (50-75); Platelet Count 246 X10^3/uL (150-400); Red Blood Cell Count 4.16 X10^6/uL (4.0-5.2); Red Cell Distribution Width 15.5 % (11.6-14.8); White Blood Cell Count 5.4 X10^3/uL (4.5-11.0)
[2019-06-07 19:15] LABS: INR 0.9 (0.9-1.3); Prothrombin Time 10.7 SECONDS (10.1-12.7)
[2019-06-07 19:18] LABS: PTT Partial Thromboplastin Tim 30 SECONDS (26.4-36.2)
[2019-06-07 19:19] LABS: Alanine Aminotransferase 32 IU/L (<35); Albumin 3.9 g/dL (3.5-5.0); Albumin Globulin Ratio 1.4 (1.0-2.8); Alkaline Phosphatase 106 U/L (38-126); Aspartate Aminotransferase 37 IU/L (14-36); BUN Creatinine Ratio 11.8 (6-22); Bilirubin Total 0.5 mg/dL (0.2-1.3); Blood Urea Nitrogen 13 mg/dL (7-17); Calcium 9.2 mg/dL (8.4-10.2); Carbon Dioxide 32 mmol/L (22-32); Chloride 102 mmol/L (98-107); Creatine Kinase 86 U/L (30-135); Estimated Glomerular Filt Rate 47.6 mL/min (>60); Globulin 2.8 g/dL (1.7-4.1); Glucose 111 mg/dL (80-110); HEMOLYSIS < 15 (0-50); Lipase 106 U/L (23-300); Potassium 3.6 mmol/L (3.4-5.1); Sodium 139 mmol/L (137-145); Total Protein 6.7 g/dL (6.3-8.2)
[2019-06-07 19:25] LABS: D Dimer 2173 ng/mL (<230)
--- NOTE | 2019-06-07 19:29 | DI.CT.S_ITS ---
PROCEDURE: CT ANGIO CHEST PE PROTOCOL INDICATIONS: sudden sharp chest pain TECHNIQUE: After the administration of intravenous contrast, 2 mm thick sections acquired from the pulmonary apices to the posterior costophrenic angles. 3-dimensional maximum intensity projection (MIP) coronal and sagittal reformats were then acquired through the thorax. For radiation dose reduction, the following was used: automated exposure control, adjustment of mA and/or kV according to patient size. COMPARISON: [facility], CT, CT ABDOMEN PELVIS W CON, 03/16/2018, 12:17. FINDINGS: Image quality: Excellent. Pulmonary arteries: Pulmonary arteries are normal in size, and demonstrate no intraluminal filling defects to suggest central pulmonary embolism. Lungs and pleura: Lungs are clear. 2 mm left lung nodule image 145 series 6. No pleural effusions or pneumothorax. Central and peripheral airways are patent. Mediastinum: Heart size is normal, without pericardial effusion. Coronary artery calcifications are noted. No mediastinal or hilar adenopathy. Thoracic aorta is normal in caliber and enhancement. Small hiatal hernia Bones and chest wall: No suspicious bony lesions. Ribs and thoracic spine appear intact throughout. Thyroid gland grossly unremarkable. No axillary or supraclavicular adenopathy. Abdomen: Visualized upper abdominal solid organs appear normal in the early arterial phase of enhancement. IMPRESSION: No pulmonary embolism. No evidence of aortic dissection. Scattered subsegmental atelectasis and/or scarring. No focal consolidation. Small hiatal hernia 2 mm indeterminate anterior left lung pulmonary nodule which could be followed up with one year interval chest CT to document stability. Dictated by: Stew Sultana M.D. on 06/07/2019 at 20:10 Approved by: Stew Sultana M.D. on 06/07/2019 at 20:17
[2019-06-07 19:30] LABS: Troponin I < 0.012 ng/mL (0.01-0.034)
[2019-06-07 19:39] VITALS: BP 127/74; PULSE 94; RESP 16; O2SAT 100
[2019-06-07 20:04] VITALS: BP 141/79; PULSE 89; RESP 18; O2SAT 100
--- NOTE | 2019-06-07 20:26 | PC.NURSE ---
spoke with patient's family, per patient's request i informed them that we were still waiting for reads on radiology and lab results, that patient was stable, VS wnl and that that patient would contact them when we knew more; also alerted dr knight that pt had experienced three consecutive sharp pains on the right which were now resolved, dr knight states no action necessary at this time
--- NOTE | 2019-06-07 20:28 | PC.NURSE ---
terri crowe([facility]) [phone] Maximino crowe([facility]) [phone]
[2019-06-07 20:48] LABS: B Type Natriuretic Peptide < 100 (<100)
[2019-06-07 21:09] LABS: Troponin I < 0.012 ng/mL (0.01-0.034)
[2019-06-07 21:32] VITALS: BP 152/71; PULSE 87; RESP 13; O2SAT 96
== END 2019-06-07 21:33 | disposition home or self-care (01) ==
PROVIDERS: Emergency Provider Emergency Medicine; PCP Internal Medicine
DX: R07.89 Other chest pain (principal)
CPT/HCPCS: 36415; 71045; 71275; 80053; 82550; 83690; 83880; 84484; 85025; 85379; 85610; 85730; 93005; 99283; 99285; Q9967

== ENCOUNTER → 2019-08-15 10:33 | Outpatient (CLI) | payer MEDICARE, MEDICAID, SELFPAY ==
[2019-08-15 11:59] LABS: Appearance Urine UA SL CLOUDY; Color Urine UA Orange
[2019-08-15 12:10] LABS: RBC Urine 0-1/HPF (0-5/HPF)
[2019-08-15 12:11] LABS: Bacteria Urine Moderate (10-30); Squamous Epithelial Cell Urine 5-10 /HPF (0-5/HPF); WBC Urine 1-5/HPF (0-5/HPF)
[2019-08-15 12:12] LABS: Hyaline Casts Urine 5-10/LPF; Mucus Urine 1+ (Negative)
[2019-08-15 12:13] LABS: Culture Indicated Urine Cult Not Indicated
== END ==
PROVIDERS: PCP Internal Medicine; Visit Provider Internal Medicine
DX: R30.0 Dysuria (principal)
CPT/HCPCS: 81001; 87086

== ENCOUNTER → 2019-09-15 14:50 | Outpatient (CLI) | payer MEDICARE, MEDICAID, SELFPAY | PROVIDERS: PCP Internal Medicine; Visit Provider Physician Assistant | DX: R30.0 Dysuria (principal) | CPT/HCPCS: 87077; 87086; 87186 ==

== ENCOUNTER 2020-04-08 13:54 | Emergency (ER) | payer MEDICARE, MEDICAID, SELFPAY ==
[2020-04-08 14:00] VITALS: BP 148/69; PULSE 94; RESP 16; TEMP 36.7; O2SAT 95; BMI 35.6
--- NOTE | 2020-04-08 14:23 | DI.RAD.S_ITS ---
PROCEDURE: XR CHEST 1V INDICATIONS: chest pain TECHNIQUE: One view of the chest was acquired. COMPARISON: [facility], CR, XR CHEST 1V, 06/07/2019, 19:00. FINDINGS: Surgical changes and devices: Overlying monitoring wires. Lungs and pleura: Lung volumes are low. There is no opacity in the left lateral lower lung which is likely overlapping tissue. No definite new consolidations, large pleural effusions, or pneumothorax. Mediastinum: Mediastinal contours appear normal. Heart size is normal. Bones and chest wall: No suspicious bony lesions. Overlying soft tissues appear unremarkable. IMPRESSION: 1. Low lung volumes. 2. Given this, no acute cardiopulmonary disease. Dictated by: Iram Levin M.D. on 04/08/2020 at 13:53 Approved by: Iram Levin M.D. on 04/08/2020 at 13:54
[2020-04-08 14:42] LABS: Add Manual Diff / Slide Review NO; Basophils Absolute Auto 100 /uL (0-100); Basophils Percent Auto 1.8 % (0-2); Eosinophils Absolute Auto 300 /uL (0-450); Eosinophils Percent Auto 5.7 % (2-4); Hematocrit 34.1 % (36-46); Lymphocytes Absolute Auto 1700 /uL (1100-4500); Lymphocytes Percent Auto 34.7 % (25-40); Mean Corpuscular HGB Conc 32.4 % (30-36); Mean Corpuscular Hemoglobin 28.1 PG (26-34); Mean Corpuscular Volume 86.7 fL (80-100); Monocytes Absolute Auto 700 /uL (0-900); Monocytes Percent Auto 13.8 % (3-14); Neutrophils Absolute Auto 2200 /uL (1500-7000); Platelet Count 230 X10^3/uL (150-400); Red Blood Cell Count 3.93 X10^6/uL (4.0-5.2); Red Cell Distribution Width 15.4 % (11.6-14.8)
[2020-04-08 14:45] VITALS: PULSE 78; RESP 12; O2SAT 97
[2020-04-08 14:48] LABS: INR 1.4 (0.9-1.3); Prothrombin Time 15.6 SECONDS (10.1-12.7)
[2020-04-08 14:51] LABS: PTT Partial Thromboplastin Tim 36 SECONDS (26.4-36.2)
--- NOTE | 2020-04-08 14:51 | ED.EXTPRO ---
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 She is actually followed by vascular surgery in [place] at [facility]. She is supposed to have surgery on 1 of her legs in the near future. She had an abdominal CT done last week it was supposed to be with IV contrast but she says based on her lab results and her kidney function they did not do the IV contrast she said that her number was 35 I am assuming she means GFR. She was previously given an anti spasmodic medication for leg which he said was helping and she was sober leave because it was painful however over the last 4-5 days at nighttime she has severe spasming. She has no pain while walking or during the daytime it is only at night and wakes her from her sleep. He has had occasional shortness of breath ongoing for the last 3 months this not any worse over the last few days. She has no chest pain although she has some chest discomfort which feels like her hiatal hernia it does not feel any different. She has no fever or chills. She says her lower extremities is really the issue they are significantly swollen and have been for the past few months there are not any worse today MD Complaint: extremity pain and extremity swelling Related Data Home Medications Medication Instructions Recorded Confirmed estradiol [Estrace] 1 gm VAGINAL #0 10/18/17 06/05/19 fesoterodine [Toviaz] 4 mg PO QDAY #0 10/18/17 06/05/19 fluoxetine 20 mg PO QDAY #0 10/18/17 06/05/19 levothyroxine [Tirosint] 125 mcg PO QDAY #0 10/18/17 06/05/19 montelukast 10 mg PO QPM #0 10/18/17 06/05/19 pantoprazole 40 mg PO BID #0 10/18/17 06/05/19 cyanocobalamin (vitamin B-12) 1,000 mcg PO DAILY 03/15/18 06/05/19 [B-12 DOTS] oxybutynin chloride 5 mg PO BID 03/15/18 06/05/19 potassium chloride 20 meq PO BID 03/15/18 06/05/19 furosemide 40 mg tablet 20 mg PO DAILY #0 tab 06/10/18 06/05/19 Previous Rx's Medication Instructions Recorded sulfamethoxazole 800 1 tab PO BID #14 tab 09/15/19 mg-trimethoprim 160 mg tablet ropinirole [Requip] 0.25 mg PO BEDTIME PRN #7 tab 04/08/20 Allergies Allergy/AdvReac Type Severity Reaction Status Date / Time chlorothiazide Allergy Unknown Verified 04/08/20 14:07 [CHLOROTHIAZIDE] codeine [CODEINE] Allergy Unknown itching Verified 04/08/20 14:07 naproxen [NAPROXEN] AdvReac Unknown SHOOTING Verified 04/08/20 14:07 ELECTRICITY DOWN LEG Review of Systems Review of Systems ROS Unobtainable: All systems reviewed & are unremarkable except as noted in HPI and below Constitutional Constitutional: Denies chills, Denies fever(s), Denies lethargy and Denies weakness ENT Ears, Nose, Mouth, and Throat: Denies change in voice, Denies dizziness, Denies neck pain and Denies sore throat Cardiovascular Cardiovascular: Reports as per HPI and Reports dyspnea on exertion (Unchanged today) Respiratory Respiratory: Reports as per HPI, Denies excessive phlegm production, Denies pain on inspiration, Denies pain with cough and Reports dyspnea on exertion (Unchanged today) Gastrointestinal Gastrointestinal: Denies abdominal pain, Denies change in bowel habits, Denies diarrhea, Denies nausea and Denies vomiting Musculoskeletal Musculoskeletal: Reports as per HPI and Denies neck pain Integumentary/Breasts Skin/Breast: Denies pruritus, Denies erythema, Denies rash and Denies wounds Neurologic Neurologic: Denies abnormal movements, Denies dizziness and Denies weakness Patient History Medical History Dysuria (Acute) GERD (gastroesophageal reflux disease) (Chronic) History of DVT (deep vein thrombosis) (Resolved) History of migraine (Chronic) Hypothyroid (Chronic) Neuropathy (Chronic) Paroxysmal A-fib (Chronic) Surgical History History of hysterectomy (Resolved) Family History Other No pertinent family history Social History Smoking Status: Never smoker Smoking Status: Never smoker alcohol intake frequency: holidays/special occasions only Substance Use Type: does not use Exam Initial Vital Signs Initial Vital Signs: Vital Signs Temperature 98.0 F 04/08/20 14:00 Pulse Rate 94 H 04/08/20 14:00 Respiratory Rate 16 04/08/20 14:00 Blood Pressure 148/69 H 04/08/20 14:00 Pulse Oximetry 95 04/08/20 14:00 GENERAL: Alert pleasant well-appearing elderly female appears younger than stated age and in no acute distress. HEENT: Head atraumatic,EOMI, pupils reactive, face symmetric, moist mucous membranes CARDIOVASCULAR: Regular rate and rhythm without murmurs, rubs or gallops. RESPIRATORY: Breath sounds equal bilaterally, no wheezes rales or rhonchi. ABDOMEN: Soft, nontender. Normoactive bowel sounds all 4 quadrants. No guarding or rebound. EXTREMITIES: Normal range of motion,. Significantly enlarged bilateral lower extremities non erythematous good distal pedal pulses felt bilaterally nonpitting edema bilaterally slightly tender to touch NEUROLOGICAL: Alert and oriented x4.Normal gait and speech. SKIN: Warm, dry, no laceration, no petechiae, no rashes or lesions. Course Orders Ordered: ED Orders 04/08/20 14:23 XR chest 1V Stat EKG-12 Lead Stat 04/08/20 14:30 BNP [NT-proBNP (BNP-Adult 18+)] Stat Complete Blood Count AUTO DIFF Stat Comprehensive Metabolic Panel Stat Lipase Stat Partial Thromboplastin Time Stat Prothrombin Time INR Stat Troponin & CK Cardiac Panel Stat 04/08/20 15:16 CT abdomen pelvis w con Stat Vital Signs Vital signs: Vital Signs - 8 hr 04/08/20 14:00 04/08/20 14:45 04/08/20 15:00 Temperature 98.0 F Pulse Rate 94 H 78 76 Respiratory Rate 16 12 12 Blood Pressure 148/69 H 142/67 H Pulse Oximetry 95 97 96 04/08/20 15:30 04/08/20 16:00 04/08/20 16:31 Temperature Pulse Rate 87 78 81 Respiratory Rate 16 12 12 Blood Pressure 130/62 Pulse Oximetry 87 L 97 100 MDM - Extremity (Nontraumatic) Lab Data Attestation: I reviewed the patient's lab results. Result diagrams: 04/08/20 14:30 04/08/20 14:30 Labs: Lab Results 04/08/20 04/08/20 04/08/20 Range/Units 14:30 14:30 14:30 WBC 5.0 (4.5-11.0) X10^3/uL RBC 3.93 L (4.0-5.2) X10^6/uL Hgb 11.0 L (12.0-16.0) g/dL Hct 34.1 L (36-46) % MCV 86.7 (80-100) fL MCH 28.1 (26-34) PG MCHC 32.4 (30-36) % RDW 15.4 H (11.6-14.8) % Plt Count 230 (150-400) X10^3/uL Neut % (Auto) 44.0 L (50-75) % Lymph % (Auto) 34.7 (25-40) % F[place]ardo % (Auto) 13.8 (3-14) % Eos % (Auto) 5.7 H (2-4) % Baso % (Auto) 1.8 (0-2) % Neut # (Auto) 2200 (0096-6435) /uL Lymph # (Auto) 1700 (3967-5565) /uL F[place]ardo # (Auto) 700 (0-900) /uL Eos # (Auto) 300 (0-450) /uL Baso # (Auto) 100 (0-100) /uL PT 15.6 H (10.1-12.7) SECONDS INR 1.4 H (0.9-1.3) APTT 36 D (26.4-36.2) SECONDS Sodium 139 (137-145) mmol/L Potassium 4.2 (3.4-5.1) mmol/L Chloride 101 (98-107) mmol/L Carbon Dioxide 34 H (22-32) mmol/L BUN 12 (7-17) mg/dL Creatinine 1.14 H (0.52-1.04) mg/dL Estimated GFR 45.5 L (>60) mL/min BUN/Creatinine Ratio 10.5 (6-22) Glucose 94 (80-110) mg/dL Calcium 9.0 (8.4-10.2) mg/dL Total Bilirubin 0.6 (0.2-1.3) mg/dL AST 31 (14-36) IU/L ALT 22 (<35) IU/L Alkaline Phosphatase 95 (38-126) U/L Total Creatine Kinase 124 (30-135) U/L CK-MB (CK-2) 1.24 (<2.37) ng/mL CK-MB (CK-2) Rel Index 1.0 L (1.5-5.0) % Troponin I < 0.012 (0.01-0.034) ng/mL NT-Pro-B Natriuret Pep 222 (<450) pg/mL Total Protein 6.9 (6.3-8.2) g/dL Albumin 4.0 (3.5-5.0) g/dL Globulin 2.9 (1.7-4.1) g/dL Albumin/Globulin Ratio 1.4 (1.0-2.8) Lipase 93 (23-300) U/L Imaging Data CT scan - abdomen/pelvis: Radiologist's Impression: PROCEDURE: CT ABDOMEN PELVIS W CON INDICATIONS: bilateral leg swelling w/clots, ab pain llq TECHNIQUE: After the administration of oral and intravenous contrast, 5 mm thick sections acquired from the diaphragms to the symphysis. 5 mm thick coronal and sagittal reformats were performed. For radiation dose reduction, the following was used: automated exposure control, adjustment of mA and/or kV according to patient size. COMPARISON: [facility], CT, CT ABDOMEN PELVIS W CON, 03/16/2018, 12:17. FINDINGS: Image quality: Excellent. ABDOMEN: Lung bases: Lung bases are clear. Heart size is normal. Small hiatal hernia. Solid organs: Liver is normal in size and enhancement. Gallbladder is surgically absent . Biliary system is non-dilated. Pancreas enhances normally. Spleen is normal in size and enhancement. No adrenal nodules. Kidneys are normal in size and enhancement, without hydronephrosis. The right kidney is under rotated. Peritoneum and bowel: Stomach, small bowel, and colon loops are normal in caliber and wall thickness. Extensive diverticula present throughout the sigmoid colon. No small bowel obstruction. Normal appendix. No free fluid or air. Nodes and vessels: No retroperitoneal or mesenteric adenopathy. Aorta and inferior vena cava are normal in caliber. Miscellaneous: Small fat containing umbilical hernia.. PELVIS: Genitourinary: Bladder wall thickness is normal. The uterus is surgically absent. Ovaries appear normal. Miscellaneous: Small fat containing left inguinal hernia. Bones: No suspicious bony lesions. Severe degenerative facet disease in the low lumbar spine. No vertebral body compression fractures. IMPRESSION: 1. No finding to explain bilateral lower extremity swelling or pro thrombotic state. 2. Sigmoid diverticulosis without acute diverticulitis. Dictated by: Iram Leivn M.D. on 04/08/2020 at 14:50 Approved by: Iram Levin M.D. on 04/08/2020 at 14:56 ECG Data Attestation EKG: I personally reviewed and interpreted this ECG as follows: Prior ECG tracings: available for review Interpretation: Normal sinus rhythm rate 82 p.r. interval 178 QRS [address] changes similar to previous EKG MDM Narrative Medical decision making narrative: CT report from last week did not have any IV contrast concern for superior blockage with bilateral DVTs. CT today does not show any cause for this. 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 Legs are not any more swollen than they have been over the last 3 months she has not any more short of breath than she has been over the last 3 months. She has a leg spasms at night now. She is followed by vascular surgery. Repeating Dopplers at this time for known DVTs does not seem beneficial she is already on Xarelto. Discharge Plan Departure Patient Disposition: Home Clinical Impression: Leg muscle spasm Qualifiers: Laterality: bilateral Qualified Code(s): M62.838 - Other muscle spasm Discharge Date/Time: 04/08/20 16:46 Instructions: DI for Restless Legs Syndrome Activity Restrictions/Additional Instructions: *You have been diagnosed with leg spasm *What to do: For muscle spasms may or may not be related to her blood clots. I recommend continuing to follow up with vascular surgery in regards to your blood clots. *Continue to take medications as directed Stop taking the medication you are previously given Requip 0.25 mg 1-3 hours prior to bed--> SENT TO [place] *Follow up with your primary care provider in 2-3 days *Return to ER if you should have increasing leg pain short of breath increasing swelling chest pain or any new, worsening or concerning symptoms Prescriptions: New ropinirole [Requip] 0.25 mg tablet 0.25 mg PO BEDTIME PRN (Reason: leg spasms) Qty: 7 RF: 0 No Action sulfamethoxazole-trimethoprim [Bactrim DS] 800-160 mg tablet 1 tab PO BID Qty: 14 RF: 0 estradiol [Estrace] 0.01 % cream 1 gm Vaginal Qty: 0 RF: 0 fesoterodine [Toviaz] 4 MG tablet extended release 24 hr 4 mg PO QDAY Qty: 0 RF: 0 fluoxetine 20 MG capsule 20 mg PO QDAY Qty: 0 RF: 0 levothyroxine [Tirosint] 125 MCG capsule 125 mcg PO QDAY Qty: 0 RF: 0 montelukast 10 MG tablet 10 mg PO QPM Qty: 0 RF: 0 pantoprazole 40 MG tablet,delayed release (DR/EC) 40 mg PO BID Qty: 0 RF: 0 furosemide 40 mg tablet 20 mg PO DAILY Qty: 0 RF: 0 potassium chloride 10 mEq Capsule, Extended Release 20 meq PO BID RF: 0 cyanocobalamin (vitamin B-12) [B-12 DOTS] 500 mcg Tablet 1,000 mcg PO DAILY RF: 0 oxybutynin chloride 5 mg Tablet 5 mg PO BID RF: 0 Referrals: Moreno Rodas MD [Primary Care Provider] -
[2020-04-08 14:52] LABS: Alanine Aminotransferase 22 IU/L (<35); Albumin Globulin Ratio 1.4 (1.0-2.8); Alkaline Phosphatase 95 U/L (38-126); Aspartate Aminotransferase 31 IU/L (14-36); BUN Creatinine Ratio 10.5 (6-22); Bilirubin Total 0.6 mg/dL (0.2-1.3); Blood Urea Nitrogen 12 mg/dL (7-17); Carbon Dioxide 34 mmol/L (22-32); Chloride 101 mmol/L (98-107); Creatine Kinase 124 U/L (30-135); Estimated Glomerular Filt Rate 45.5 mL/min (>60); Globulin 2.9 g/dL (1.7-4.1); Glucose 94 mg/dL (80-110); HEMOLYSIS < 15 (0-50); Lipase 93 U/L (23-300); Potassium 4.2 mmol/L (3.4-5.1); Sodium 139 mmol/L (137-145); Total Protein 6.9 g/dL (6.3-8.2)
[2020-04-08 15:00] VITALS: BP 142/67; PULSE 76; RESP 12; O2SAT 96
[2020-04-08 15:04] LABS: NT-proBNP (BNP-Adult 18+) 222 pg/mL (<450); Troponin I < 0.012 ng/mL (0.01-0.034)
[2020-04-08 15:07] LABS: Creatine Kinase MB 1.24 ng/mL (<2.37)
--- NOTE | 2020-04-08 15:16 | DI.CT.S_ITS ---
PROCEDURE: CT ABDOMEN PELVIS W CON INDICATIONS: bilateral leg swelling w/clots, ab pain llq TECHNIQUE: After the administration of oral and intravenous contrast, 5 mm thick sections acquired from the diaphragms to the symphysis. 5 mm thick coronal and sagittal reformats were performed. For radiation dose reduction, the following was used: automated exposure control, adjustment of mA and/or kV according to patient size. COMPARISON: [facility], CT, CT ABDOMEN PELVIS W CON, 03/16/2018, 12:17. FINDINGS: Image quality: Excellent. ABDOMEN: Lung bases: Lung bases are clear. Heart size is normal. Small hiatal hernia. Solid organs: Liver is normal in size and enhancement. Gallbladder is surgically absent . Biliary system is non-dilated. Pancreas enhances normally. Spleen is normal in size and enhancement. No adrenal nodules. Kidneys are normal in size and enhancement, without hydronephrosis. The right kidney is under rotated. Peritoneum and bowel: Stomach, small bowel, and colon loops are normal in caliber and wall thickness. Extensive diverticula present throughout the sigmoid colon. No small bowel obstruction. Normal appendix. No free fluid or air. Nodes and vessels: No retroperitoneal or mesenteric adenopathy. Aorta and inferior vena cava are normal in caliber. Miscellaneous: Small fat containing umbilical hernia.. PELVIS: Genitourinary: Bladder wall thickness is normal. The uterus is surgically absent. Ovaries appear normal. Miscellaneous: Small fat containing left inguinal hernia. Bones: No suspicious bony lesions. Severe degenerative facet disease in the low lumbar spine. No vertebral body compression fractures. IMPRESSION: 1. No finding to explain bilateral lower extremity swelling or pro thrombotic state. 2. Sigmoid diverticulosis without acute diverticulitis. Dictated by: Iram Levin M.D. on 04/08/2020 at 14:50 Approved by: Iram Levin M.D. on 04/08/2020 at 14:56
[2020-04-08 15:30] VITALS: PULSE 87; RESP 16; O2SAT 87
[2020-04-08 16:00] VITALS: PULSE 78; RESP 12; O2SAT 97
[2020-04-08 16:31] VITALS: BP 130/62; PULSE 81; RESP 12; O2SAT 100
== END 2020-04-08 16:46 | disposition home or self-care (01) ==
PROVIDERS: Emergency Provider Emergency Medicine; PCP Internal Medicine
DX: M62.838 Other muscle spasm (principal); R10.32 Left lower quadrant pain; R07.9 Chest pain, unspecified
CPT/HCPCS: 36415; 71045; 74177; 80053; 82550; 82553; 83690; 83880; 84484; 85025; 85610; 85730; 93005; 93010; 99284; Q9967

== ENCOUNTER → 2020-09-23 16:26 | Outpatient (CLI) | payer OTHER, SELFPAY ==
[2020-09-23 17:49] LABS: Appearance Urine UA CLEAR; Bilirubin Urine UA NEGATIVE (NEGATIVE); Color Urine UA ORANGE; Glucose Urine UA TRACE g/dL (Negative); Ketones Urine UA TRACE (NEGATIVE); Leukocyte Esterase Urine UA NEGATIVE (NEGATIVE); Nitrite Urine UA POSITIVE (Negative); Occult Blood Urine UA NEGATIVE (Negative); Protein Urine UA 2+ (Negative)
[2020-09-23 18:02] LABS: Bacteria Urine Few (2-10); Culture Indicated Urine Cult Not Indicated; RBC Urine 1-5/HPF (0-5/HPF); Squamous Epithelial Cell Urine 1-5 /HPF (0-5/HPF); Urine Comments CX ALREADY ORDERED; WBC Urine 5-10/HPF (0-5/HPF)
[2020-09-23 18:16] LABS: Creatinine Urine Random 290.8 mg/dL
[2020-09-23 18:34] LABS: Microalbumin Urine Random < 0.6 mg/dL (0-1.6)
== END ==
PROVIDERS: PCP Internal Medicine; Visit Provider Family Medicine
DX: R30.0 Dysuria (principal); R35.0 Frequency of micturition
CPT/HCPCS: 81001; 82043; 82570; 87077; 87086; 87186

== ENCOUNTER 2020-10-28 18:51 | Emergency (ER) | payer OTHER, MEDICAID, SELFPAY ==
[2020-10-28 19:04] VITALS: BP 142/71; PULSE 94; RESP 18; TEMP 36.6; O2SAT 97; BMI 39.8
--- NOTE | 2020-10-28 20:01 | ED_ITS ---
HPI - General Adult General Chief complaint: Urogenital-Female Stated complaint: Right Sided Kidney Pain Time Seen by Provider: 10/28/20 20:01 Source: patient Mode of arrival: Wheelchair Limitations: no limitations History of Present Illness HPI narrative: Patient is an 85-year-old female who states that for the past week she has had occasional sharp pain in her right flank. She states that when it comes on it lasts for seconds and then completely goes away. Today she has noticed that they have become more frequent. She thinks that she has had issues with her kidneys. She has never had a kidney stone in the past. There is no rash over the area. No urinary symptoms. She does take Lasix because of lower extremity edema. Related Data Home Medications Medication Instructions Recorded Confirmed estradiol [Estrace] 1 gm VAGINAL #0 10/18/17 06/05/19 fesoterodine [Toviaz] 4 mg PO QDAY #0 10/18/17 06/05/19 fluoxetine 20 mg PO QDAY #0 10/18/17 06/05/19 levothyroxine [Tirosint] 125 mcg PO QDAY #0 10/18/17 06/05/19 montelukast 10 mg PO QPM #0 10/18/17 06/05/19 pantoprazole 40 mg PO BID #0 10/18/17 06/05/19 cyanocobalamin (vitamin B-12) 1,000 mcg PO DAILY 03/15/18 06/05/19 [B-12 DOTS] oxybutynin chloride 5 mg PO BID 03/15/18 06/05/19 potassium chloride 20 meq PO BID 03/15/18 06/05/19 furosemide 40 mg tablet 20 mg PO DAILY #0 tab 06/10/18 06/05/19 Previous Rx's Medication Instructions Recorded sulfamethoxazole 800 1 tab PO BID #14 tab 09/15/19 mg-trimethoprim 160 mg tablet ropinirole [Requip] 0.25 mg PO BEDTIME PRN #7 tab 04/08/20 Allergies Allergy/AdvReac Type Severity Reaction Status Date / Time chlorothiazide Allergy Unknown Verified 04/08/20 14:07 [CHLOROTHIAZIDE] codeine [CODEINE] Allergy Unknown itching Verified 04/08/20 14:07 naproxen [NAPROXEN] AdvReac Unknown SHOOTING Verified 04/08/20 14:07 ELECTRICITY DOWN LEG Review of Systems Constitutional Constitutional: Denies headache(s) ENT Ears, Nose, Mouth, and Throat: Denies headache(s) Cardiovascular Cardiovascular: Denies chest pain and Denies dyspnea Respiratory Respiratory: Denies dyspnea Gastrointestinal Gastrointestinal: Denies abdominal pain, Denies nausea and Denies vomiting Comments: Right flank pain Genitourinary Genitourinary: Denies dysuria, Reports flank pain, Denies urinary hesitancy, Denies urinary incontinence and Denies urinary urgency Genitourinary: Denies dysuria, Reports flank pain, Denies urinary incontinence, Denies urinary hesitancy, Denies urinary urgency and Denies vaginal discharge Musculoskeletal Musculoskeletal: Denies arthralgias and Denies myalgias Integumentary/Breasts Skin/Breast: Denies lesions and Denies rash Neurologic Neurologic: Denies behavioral changes, Denies confusion and Denies headache(s) Psychiatric Psychiatric: Denies behavioral changes and Denies confusion Hematologic/Lymphatic Hematologic/Lymphatic: Reports easy bleeding and Reports easy bruising On Anticoagulants: No Allergic/Immunologic Allergic/Immunologic: Denies urticaria Patient History Medical History Dysuria GERD (gastroesophageal reflux disease) History of DVT (deep vein thrombosis) History of migraine Hypothyroid Neuropathy Paroxysmal A-fib Surgical History History of hysterectomy Family History Other No pertinent family history Social History Smoking Status: Never smoker Smoking Status: Never smoker alcohol intake frequency: holidays/special occasions only Substance Use Type: does not use Exam Initial Vital Signs Initial Vital Signs: Vital Signs Temperature 97.8 F 10/28/20 19:04 Pulse Rate 94 H 10/28/20 19:04 Respiratory Rate 18 10/28/20 19:04 Blood Pressure 142/71 H 10/28/20 19:04 Pulse Oximetry 97 10/28/20 19:04 Const General: cooperative and comfortable Limitations: mental status not altered HENMT Head: normal to inspection and normocephalic Eyes Eyelids: eyelids normal Resp Effort & Inspection: normal respiratory effort Auscultation: clear to auscultation bilaterally Cardio Rate: regular rate Rhythm: regular rhythm GI Inspection: non-distended Palpation: soft and No tender Back/Spine/Pelvis Back: No CVA tenderness Skin Lesions: no lesions Rashes: no rashes Neuro General: patient alert and patient awake Cognition: normal cognition Speech: speech normal Extrem General: capillary refill normal Psych Appearance: grossly normal and well kempt Course Orders Ordered: ED Orders 10/28/20 20:02 CT kidney ureter bladder (KUB) Stat Discontinued Medications Furosemide (Furosemide 40 Mg/4 Ml Vial) 40 mg IV NOW ONE Stop: 10/28/20 20:02 Last Admin: 10/28/20 20:45 Dose: 40 mg Documented by: ANANTH Vital Signs Vital signs: Vital Signs - 8 hr 10/28/20 22:18 Pulse Rate 76 Respiratory Rate 17 Blood Pressure 131/66 Pulse Oximetry 97 Medical Decision Making Lab Data Lab results reviewed: Yes I reviewed the patient's lab results. Result diagrams: 10/28/20 19:58 10/28/20 19:58 Labs: Lab Results 10/28/20 10/28/20 Range/Units 19:58 19:58 WBC 6.8 (4.5-11.0) X10^3/uL RBC 3.75 L (4.0-5.2) X10^6/uL Hgb 9.6 L (12.0-16.0) g/dL Hct 30.6 L (36-46) % MCV 81.6 (80-100) fL MCH 25.6 L (26-34) PG MCHC 31.4 (30-36) % RDW 17.4 H (11.6-14.8) % Plt Count 217 (150-400) X10^3/uL Neut % (Auto) 52.2 (50-75) % Lymph % (Auto) 31.1 (25-40) % [place] % (Auto) 14.2 H (3-14) % Eos % (Auto) 1.5 L (2-4) % Baso % (Auto) 1.0 (0-2) % Neut # (Auto) 3500 (2746-7139) /uL Lymph # (Auto) 2100 (3112-8642) /uL [place] # (Auto) 1000 H (0-900) /uL Eos # (Auto) 100 (0-450) /uL Baso # (Auto) 100 (0-100) /uL Sodium 141 (137-145) mmol/L Potassium 4.0 (3.4-5.1) mmol/L Chloride 103 (98-107) mmol/L Carbon Dioxide 35 H (22-32) mmol/L BUN 14 (7-17) mg/dL Creatinine 1.13 H (0.52-1.04) mg/dL Estimated GFR 45.9 L (>60) mL/min BUN/Creatinine Ratio 12.4 (6-22) Glucose 103 (80-110) mg/dL Calcium 9.0 (8.4-10.2) mg/dL Total Bilirubin 0.3 (0.2-1.3) mg/dL AST 30 (14-36) IU/L ALT 19 (<35) IU/L Alkaline Phosphatase 76 (38-126) U/L Total Protein 6.4 (6.3-8.2) g/dL Albumin 3.8 (3.5-5.0) g/dL Globulin 2.6 (1.7-4.1) g/dL Albumin/Globulin Ratio 1.5 (1.0-2.8) Lipase 82 (23-300) U/L Urine Dip Bedside Urine Glucose Negative Bedside Urine Bilirubin - Negative Bedside Urine Ketone - Negative Urine Specific [place] 1.015 Bedside Urine Occult Blood - Negative Bedside Urine pH 7.5 Bedside Urine Protein - Negative Bedside Urine Urobilinogen - Negative Bedside Urine Nitrite - Negative Point of care testing: Urine Dip Bedside Urine Glucose Negative Bedside Urine Bilirubin - Negative Bedside Urine Ketone - Negative Urine Specific [place] 1.015 Bedside Urine Occult Blood - Negative Bedside Urine pH 7.5 Bedside Urine Protein - Negative Bedside Urine Urobilinogen - Negative Bedside Urine Nitrite - Negative Imaging Data CT scan - abdomen/pelvis: Radiologist's Impression: [address] [id number] Scan ReportSigned Patient: Sun Mejia PMR#: [id number]: [id number]/Sex: 85 / FDate of Service: 10/28/20Loc: EDAccession Number: [id number] Procedure: CT kidney ureter bladder (KUB) Ordering Provider: Shantanu Nails D.O. PROCEDURE: CT KIDNEY URETER BLADDER (KUB) INDICATIONS: right sided pain eval for stone TECHNIQUE: Noncontrast 5 mm thick sections acquired from the diaphragms to the symphysis. 5 mm thick coronal and sagittal reformats were then performed. For radiation dose reduction, the following was used: automated exposure control, adjustment of mA and/or kV according to patient size. COMPARISON: None. FINDINGS: Image quality: Excellent. Lung bases: Lung bases are clear. Heart size is normal. Urinary system: Both kidneys are normal in size. No kidney stones. No hydronephrosis or perinephric fat stranding. Both ureters appear non-dilated throughout their expected courses. Bladder wall thickness is normal; no calcified bladder stones. Other solid organs: Liver is normal in size. Gallbladder appears previously resected . Pancreas is normal in contours. Spleen is normal in size. No adrenal nodules. Peritoneum and bowel: Unenhanced bowel loops demonstrate normal wall thickness and caliber. No free fluid or air. Nodes and vessels: No retroperitoneal or mesenteric adenopathy by size criteria. Aorta and inferior vena cava are normal in caliber. Abdominal wall: No ventral hernias. Pelvis: No free pelvic fluid. No inguinal hernias or adenopathy. Bones: No suspicious bony lesions. No vertebral body compression fractures. IMPRESSION: A urinary tract stone is not found, a source of asymmetric right flank pain is not identified. Dictated by: Cristian Gallegos M.D. on 10/28/2020 at 20:13 Approved by: Cristian Gallegos M.D. on 10/28/2020 at 20:14 [facility] Narrative Medical decision making narrative: Patient's CT scan does not show any signs of kidney stone or other acute issues. Her kidney function is baseline. Rest of her labs are unremarkable. During her stay here in the ER she stated that she has had a resolution of her symptoms and is not any pain. Nursing staff states that they thought they noticed was potentially very small stone in her urine however this is not confirmed. No indication for antibiotics. No indication for surgical consultation. She was given return precautions and follow-up instructions. She expressed understanding and agreed. Discharge Plan Departure Patient Disposition: Home Clinical Impression: Acute right flank pain Instructions: DI for Flank Pain Activity Restrictions/Additional Instructions: Your workup and labs here in the emergency department are very reassuring. There is no signs of any infection or surgical issue. Contact your primary provider for follow-up. Return to the emergency department for any new or worsening symptoms Prescriptions: No Action sulfamethoxazole-trimethoprim [Bactrim DS] 800-160 mg tablet 1 tab PO BID Qty: 14 RF: 0 estradiol [Estrace] 0.01 % cream 1 gm Vaginal Qty: 0 RF: 0 fesoterodine [Toviaz] 4 MG tablet extended release 24 hr 4 mg PO QDAY Qty: 0 RF: 0 fluoxetine 20 MG capsule 20 mg PO QDAY Qty: 0 RF: 0 levothyroxine [Tirosint] 125 MCG capsule 125 mcg PO QDAY Qty: 0 RF: 0 montelukast 10 MG tablet 10 mg PO QPM Qty: 0 RF: 0 pantoprazole 40 MG tablet,delayed release (DR/EC) 40 mg PO BID Qty: 0 RF: 0 furosemide 40 mg tablet 20 mg PO DAILY Qty: 0 RF: 0 potassium chloride 10 mEq Capsule, Extended Release 20 meq PO BID RF: 0 cyanocobalamin (vitamin B-12) [B-12 DOTS] 500 mcg Tablet 1,000 mcg PO DAILY RF: 0 oxybutynin chloride 5 mg Tablet 5 mg PO BID RF: 0 ropinirole [Requip] 0.25 mg tablet 0.25 mg PO BEDTIME PRN (Reason: leg spasms) Qty: 7 RF: 0 Referrals: Yessy Uriarte [Primary Care Provider] -
[2020-10-28 20:12] LABS: Add Manual Diff / Slide Review NO; Basophils Absolute Auto 100 /uL (0-100); Eosinophils Absolute Auto 100 /uL (0-450); Eosinophils Percent Auto 1.5 % (2-4); Hematocrit 30.6 % (36-46); Hemoglobin 9.6 g/dL (12.0-16.0); Lymphocytes Absolute Auto 2100 /uL (1100-4500); Lymphocytes Percent Auto 31.1 % (25-40); Mean Corpuscular HGB Conc 31.4 % (30-36); Mean Corpuscular Hemoglobin 25.6 PG (26-34); Mean Corpuscular Volume 81.6 fL (80-100); Monocytes Absolute Auto 1000 /uL (0-900); Monocytes Percent Auto 14.2 % (3-14); Neutrophils Absolute Auto 3500 /uL (1500-7000); Neutrophils Percent Auto 52.2 % (50-75); Platelet Count 217 X10^3/uL (150-400); Red Blood Cell Count 3.75 X10^6/uL (4.0-5.2); Red Cell Distribution Width 17.4 % (11.6-14.8); White Blood Cell Count 6.8 X10^3/uL (4.5-11.0)
[2020-10-28 20:20] LABS: Alanine Aminotransferase 19 IU/L (<35); Albumin 3.8 g/dL (3.5-5.0); Albumin Globulin Ratio 1.5 (1.0-2.8); Alkaline Phosphatase 76 U/L (38-126); Aspartate Aminotransferase 30 IU/L (14-36); BUN Creatinine Ratio 12.4 (6-22); Bilirubin Total 0.3 mg/dL (0.2-1.3); Blood Urea Nitrogen 14 mg/dL (7-17); Carbon Dioxide 35 mmol/L (22-32); Chloride 103 mmol/L (98-107); Estimated Glomerular Filt Rate 45.9 mL/min (>60); Globulin 2.6 g/dL (1.7-4.1); Glucose 103 mg/dL (80-110); HEMOLYSIS < 15 (0-50); Lipase 82 U/L (23-300); Sodium 141 mmol/L (137-145); Total Protein 6.4 g/dL (6.3-8.2)
[2020-10-28] MEDS: FUROSEMIDE 40 MG/4 ML VIAL IV (20:45)
[2020-10-28 20:51] VITALS: BP 119/56; PULSE 79; RESP 16; O2SAT 99
[2020-10-28 22:18] VITALS: BP 131/66; PULSE 76; RESP 17; O2SAT 97
== END 2020-10-28 22:24 | disposition home or self-care (01) ==
PROVIDERS: Emergency Provider Emergency Medicine; PCP Family Medicine
DX: R10.9 Unspecified abdominal pain (principal)
CPT/HCPCS: 36415; 74176; 80053; 81003; 83690; 85025; 96374; 99284; J1940

== ENCOUNTER 2020-11-28 14:30 | Outpatient (RCR) | payer OTHER, MEDICAID, SELFPAY ==
--- NOTE | 2020-11-12 16:44 | PT.OIE ---
Current Diagnoses Venous insufficiency (chronic) (peripheral) (11/12/20) Localized edema (11/12/20) Past Medical History (Last Reviewed 10/29/20 @ 05:02 by Shantanu Nails DO) Dysuria GERD (gastroesophageal reflux disease) History of DVT (deep vein thrombosis) History of migraine Hypothyroid Neuropathy Paroxysmal A-fib Past Surgical History (Last Reviewed 04/08/20 @ 15:39 by Jeimy Alfonso DO) History of hysterectomy Visit Care Team Role Provider Type Yessy Felipe Primary Care Provider Non-Staff Specialty: Family Practice Address: [address] [address], [address] Phone: Fax: Email: Timothy Walton MD Attending Provider Non-Staff Referring Provider Specialty: Cardiovascular/Thoracic Surg Address: [address] [place] [address], [id number] Email: Physical Therapy Initial Evaluation PT-OP-A Visit Information Start: 10/15/20 15:12 Freq: Status: Active Protocol: Document 11/12/20 14:28 SAK (Rec: 11/12/20 15:59 SAK [id number]) Out-Patient Physical Therapy Visit Information Visit Information Visit Type Initial Evaluation Visit Start Time 14:30 Visit Stop Time 15:30 Total Visit Minutes 60 Visit Number 1 Evaluation Information Evaluation Date 11/12/20 Precautions Precautions history blood clots, no MLD at this time PT-OP-B Current Condition Start: 10/15/20 15:12 Freq: Status: Active Protocol: Document 11/12/20 14:28 SAK (Rec: 11/12/20 15:59 SAK [id number]) Current Condition History of Current Condition Onset Date June 2020 Current Complaints bilateral LE edema History of Current Condition Had bilateral blood clots in June 2020, both legs ballooned up. Has prior history of blood clot, reports doctor told her she will be on blood thinners the rest of her life. Heart tests negative, seeing a spreader operator automatic within a couple week to check lungs due to persistent SOB. If nothing found, will go back to vascular surgeon for surgery on legs. Has not worn compression bandaging or stockings. 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 States the swelling doesn't get better with elevation as it used to. Can't wear her shoes due to swelling and has to use her UE's to move her legs in and out of bed at this time. Used a 4WW prior to the swelling, but reports walking much more limited due to the heaviness in her legs. Prior Treatments and Tests ultrasound 2 months ago Future Testing and Treatments Planned District Director 2 weeks. Treatment Goals Patient/Caregiver Goals Be able to wear her shoes again, be able to walk short community distances without difficulty, be able to get in and out of bed without using UE's the lift her LE' s Prior Functional Status Baseline Function- ADL's Modified Independent Baseline Function- Mobility Modified Independent Baseline Function- Gait independnet indoors and community distances with 4WW Current Functional Impairments (Reported) Functional Limitations- ADL's limited, heavy, has to use UE' s to lift LE's, decreased balance Functional Limitations- Mobility/Gait uses 4WW, limited distance primarily inside, has to use electric cart at store Functional Limitations- Work/School retired Personal Factors Other Personal Factors That May Effect Can't don socks or shoes by Therapy/Recovery herself. Will likely make donning compression difficult PT-OP-C Subjective Start: 10/15/20 15:12 Freq: Status: Active Protocol: Document 11/12/20 14:28 [facility] (Rec: 11/12/20 16:42 [facility] [id number]) Patient Questionnaires Lower Extremity Functional Scale LEFS Score 30 Lymphedema Life Impact Score Lymphedema Score 59 OP-PT Pain Assessment Pain Assessment Grid Paper Pain Assessment Grid Completed Yes Location micheline LE Pain Location Details see pain chart Intensity 7 Scale Used Numeric (0 - 10) Description Aching,Burning,Cramping, Tightness Frequency Frequent Pain Aggravating Factors Activity,Standing,Walking Pain Alleviating Factors Inactivity,Rest PT-OP-F Manual Assessment Start: 10/15/20 15:12 Freq: Status: Active Protocol: Document 11/12/20 14:28 [facility] (Rec: 11/12/20 16:42 [facility] [id number]) Manual Assessments Soft Tissue Assessment Soft Tissue Mobility Assessment Patient LE's visibly very dry, no open sores or wounds. No hemosiderin staining, no redness. PT-OP-G Mobility & Gait Start: 10/15/20 15:12 Freq: Status: Active Protocol: Document 11/12/20 14:28 [facility] (Rec: 11/12/20 16:42 [facility] [id number]) OP Gait Assessment Gait Gait Assistance Required: Independent Distance (Feet) 50 Assistive Devices Assistive Device 4 Wheeled Walker Gait Deviations General Gait Pattern Decreased Stride Length, Decreased Feet Clearance, Flexed Trunk Factors Limiting Gait Function Factors Limiting Gait Function Pain Comments Gait Comments swelling with heaviness of LE' s limits ambulation PT-OP-J Posture/Palpation/Skin Start: 10/15/20 15:12 Freq: Status: Active Protocol: Document 11/12/20 14:28 [facility] (Rec: 11/12/20 16:42 [facility] [id number]) Palpation Assessment Location bilateral LE's Palpation Location toes to distal thigh Palpation Findings Edema,Soft Tissue Tightness PT-OP-K Range of Motion Start: 10/15/20 15:12 Freq: Status: Active Protocol: Document 11/12/20 14:28 [facility] (Rec: 11/12/20 16:42 [facility] [id number]) Hip Goniometric Range of Motion Hip micheline Hip ROM WFL Yes Knee Goniometric Range of Motion Knee micheline Knee ROM WFL Yes Ankle and Foot Goniometric Range of Motion Ankle and Foot Left Ankle/Foot ROM WFL No Testing Position Sitting Dorsiflexion with Knee Flexed 0 Comments lacking 5 degrees df with knee extended Right Ankle/Foot ROM WFL No Testing Position Supine Dorsiflexion with Knee Flexed 0 Plantarflexion 45 Comments lacking 5 degress df with knee extended Ankle and Foot ROM Limitations ROM Limitations Soft Tissue Tightness,Swelling Toe Range of Motion Toes ROM Limitations Toe ROM Limitations Swelling Comments moderate limitations throughout toes PT-OP-N Lymphedema Start: 10/15/20 15:12 Freq: Status: Active Protocol: Document 11/12/20 14:28 [facility] (Rec: 11/12/20 16:42 [facility] [id number]) Lymphedema Measurements Lower Extremity Circumference Measurements Left Affected MT Heads 24 cm Mid-foot 23.4 cm Medial Malleolus 25.4 cm 10 cm From Medial Malleolus 24.6 cm 20 cm From Medial Malleolus 40.4 cm 30 cm From Medial Malleolus 46.6 cm 40 cm From Medial Malleolus 45.4 cm 50 cm From Medial Malleolus 52.5 cm 60 cm From Medial Malleolus 57.1 cm Knee Joint 48.1 cm Right Affected MT Heads 24.2 cm Mid-foot 24.9 cm Medial Malleolus 28.7 cm 10 cm From Medial Malleolus 28.7 cm 20 cm From Medial Malleolus 42.1 cm 30 cm From Medial Malleolus 50.1 cm 40 cm From Medial Malleolus 47.4 cm 50 cm From Medial Malleolus 53.5 cm 60 cm From Medial Malleolus 57.3 cm Knee Joint 51.6 cm PT-OP-Q Treatments Start: 10/15/20 15:12 Freq: Status: Active Protocol: Document 11/12/20 14:28 [facility] (Rec: 11/12/20 16:42 [facility] [id number]) Self-Care/Home Management Treatment Education Patient Education Home Exercise Program Lymphedema Treatment Lymphedema Wrapping Body Location right LE toes to mid-thigh Materials elastic gauze toe bandages, Tricofix size F, Artiflex, comprex foam kidneys, Comprilan (6,8,10,12) Sequential Lymphedema Exercises Location instructed Duration 5 min Patient Education Sequential Lymphedema Exercises issued written handout Other skin care- use of low pH lotion without perfumes or dyes PT-OP-T Assessment and Plan Start: 10/15/20 15:12 Freq: Status: Active Protocol: Document 11/12/20 14:28 [facility] (Rec: 11/12/20 16:42 [facility] [id number]) Physical Therapy Assessment Rehab Potential Rehabilitation Potential Good Evaluation Complexity Number of Personal Factors/Comorbidities 3 or More Number of Body Systems Impaired 3 Clinical Presentation at Evaluation Evolving Goals Four Impairment pain and limited gait due to LE heaviness Short Term Goal (STG) decrease pain by at least 25% STG Duration 01/11/21 Mcc Goal (LTG) Patient will report at least a 50% reduction in pain and return to prior level of functional ability in the home and community. LTG Duration 02/10/21 Three Impairment patient requires use of UE's to move LEs due to heaviness Mcc Goal (LTG) Patient will be able to get in and out of bed without using UE's to move her legs LTG Duration 02/10/21 Two Impairment patient not currently wearing compression for edema management Short Term Goal (STG) Patient will be instructed in benefits and safe uses of compression for edema reduction STG Duration 12/11/20 Power Engineer Goal (LTG) when swelling stable, patient to be measured and fit for appropriate compression garments and demonstrate good understanding of correct wearing and ability to don and doff LTG Duration 02/10/21 One Impairment function-limiting swelling bilateral LE's Mcc Goal (LTG) Decrease swelling bilateral LE 's to stable level (no increase or decrease greater than 1 cm over the course of 1 week). She will demonstrate good understanding and ability to do self-care to include skin care, therapeutic exercises, and possibly self- massage as indicated. LTG Duration 01/11/21 Assessment Summary Assessment Patient presents to PT with bilateral LE swelling right greater than left of approximately 5 months duration resulting from vascular insufficiency related to blood clots. The swelling does not decrease with elevation. Patient does not have or wear compression stockings or other compression alternatives. Patient has visible edema, no warmth or redness, no open wounds or signs or symptoms of infection . Her skin is extremely dry with high potential for breakdown. Her function is limited due to the heaviness and pain of her legs. She would benefit from physical therapy to address her bilateral LE swelling which should improve her functional mobility and activity tolerance and overall quality of life. Once edema reduced as possible she will need to be fit with compression stockings and/or compression alternatives for long-term management. Physical Therapy Plan Frequency and Duration Frequency of Treatment 20 visits Duration of Treatment 12 weeks Plan of Care Start Date 11/12/20 Plan of Care End Date 02/10/21 Therapeutic Interventions Therapeutic Interventions Home Exercise Program,Manual Therapy,Patient/Caregiver Education,Self-Care/Home Management,Soft Tissue Mobilization,Therapeutic Exercises Other Therapeutic Interventions edema management Next Visit Focus/Plan Next Note Type Treatment Note Next Visit Plan PT to address bilateral LE edema to include skin care, compression bandaging, and therapeutic exercise to reduce the edema. At this time no lymphatic massage/MLD due to current blood clots.
--- NOTE | 2020-11-12 16:44 | PT.OPPOC ---
Physical, Occupational & Speech Therapy At [facility] Current Diagnoses Venous insufficiency (chronic) (peripheral) (11/12/20) Localized edema (11/12/20) Visit Care Team Role Provider Type Yessy Felipe Primary Care Provider Non-Staff Specialty: Family Practice Address: [address] [place], [address] Phone: Fax: Email: Timothy Walton MD Attending Provider Non-Staff Referring Provider Specialty: Cardiovascular/Thoracic Surg Address: [address] [place] [address], [id number] Email: Plan Of Care PT-OP-T Assessment and Plan Start: 10/15/20 15:12 Freq: Status: Active Protocol: Document 11/12/20 14:28 SAK (Rec: 11/12/20 16:42 SAK [id number]) Physical Therapy Assessment Rehab Potential Rehabilitation Potential Good Evaluation Complexity Number of Personal Factors/Comorbidities 3 or More Number of Body Systems Impaired 3 Clinical Presentation at Evaluation Evolving Goals Four Impairment pain and limited gait due to LE heaviness Short Term Goal (STG) decrease pain by at least 25% STG Duration 01/11/21 Child Care Counselor Goal (LTG) Patient will report at least a 50% reduction in pain and return to prior level of functional ability in the home and community. LTG Duration 02/10/21 Three Impairment patient requires use of UE's to move LEs due to heaviness Intermediate Goal (LTG) Patient will be able to get in and out of bed without using UE's to move her legs LTG Duration 02/10/21 Two Impairment patient not currently wearing compression for edema management Short Term Goal (STG) Patient will be instructed in benefits and safe uses of compression for edema reduction STG Duration 12/11/20 Child Care Counselor Goal (LTG) when swelling stable, patient to be measured and fit for appropriate compression garments and demonstrate good understanding of correct wearing and ability to don and doff LTG Duration 02/10/21 One Impairment function-limiting swelling bilateral LE's Intermediate Goal (LTG) Decrease swelling bilateral LE 's to stable level (no increase or decrease greater than 1 cm over the course of 1 week). She will demonstrate good understanding and ability to do self-care to include skin care, therapeutic exercises, and possibly self- massage as indicated. LTG Duration 01/11/21 Assessment Summary Assessment Patient presents to PT with bilateral LE swelling right greater than left of approximately 5 months duration resulting from vascular insufficiency related to blood clots. The swelling does not decrease with elevation. Patient does not have or wear compression stockings or other compression alternatives. Patient has visible edema, no warmth or redness, no open wounds or signs or symptoms of infection . Her skin is extremely dry with high potential for breakdown. Her function is limited due to the heaviness and pain of her legs. She would benefit from physical therapy to address her bilateral LE swelling which should improve her functional mobility and activity tolerance and overall quality of life. Once edema reduced as possible she will need to be fit with compression stockings and/or compression alternatives for long-term management. Physical Therapy Plan Frequency and Duration Frequency of Treatment 20 visits Duration of Treatment 12 weeks Plan of Care Start Date 11/12/20 Plan of Care End Date 02/10/21 Therapeutic Interventions Therapeutic Interventions Home Exercise Program,Manual Therapy,Patient/Caregiver Education,Self-Care/Home Management,Soft Tissue Mobilization,Therapeutic Exercises Other Therapeutic Interventions edema management Next Visit Focus/Plan Next Note Type Treatment Note Next Visit Plan PT to address bilateral LE edema to include skin care, compression bandaging, and therapeutic exercise to reduce the edema. At this time no lymphatic massage/MLD due to current blood clots. Plan of Care Dates Plan of Care Start Date 11/12/20 Plan of Care End Date 02/10/21 Electronically Signed by: Nat Scherer, PT 11/12/20 2130 Please Sign and Return: I have reviewed this Plan of Care and certify that the skilled therapy services above are required to meet the patient?s needs. Physician Signature Date Printed Name and Credentials Clinical Instructor Signature Printed Name and Credentials
--- NOTE | 2020-11-18 15:59 | PT.OTN ---
Current Diagnoses Venous insufficiency (chronic) (peripheral) (11/18/20) Localized edema (11/18/20) Physical Therapy Treatment Note PT-OP-A Visit Information Start: 10/15/20 15:12 Freq: Status: Active Protocol: Document 11/18/20 14:25 SAK (Rec: 11/18/20 14:44 SAK [id number]) Out-Patient Physical Therapy Visit Information Visit Information Visit Type Treatment Note Visit Start Time 14:26 Visit Stop Time 15:44 Total Visit Minutes 78 Visit Number 2 Evaluation Information Evaluation Date 11/12/20 Precautions Precautions history blood clots, no MLD at this time PT-OP-B Current Condition Start: 10/15/20 15:12 Freq: Status: Active Protocol: Document 11/18/20 14:25 SAK (Rec: 11/18/20 14:44 SAK [id number]) Current Condition History of Current Condition Onset Date June 2020 Current Complaints bilateral LE edema History of Current Condition Had bilateral blood clots in June 2020, both legs ballooned up. Has prior history of blood clot, reports doctor told her she will be on blood thinners the rest of her life. Heart tests negative, seeing a die reamer within a couple week to check lungs due to persistent SOB. If nothing found, will go back to vascular surgeon for surgery on legs. Has not worn compression bandaging or stockings. 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 States the swelling doesn't get better with elevation as it used to. Can't wear her shoes due to swelling and has to use her UE's to move her legs in and out of bed at this time. Used a 4WW prior to the swelling, but reports walking much more limited due to the heaviness in her legs. Prior Treatments and Tests ultrasound 2 months ago Future Testing and Treatments Planned Architect Internship 2 weeks. PT-OP-C Subjective Start: 10/15/20 15:12 Freq: Status: Active Protocol: Document 11/18/20 14:25 SAK (Rec: 11/18/20 14:44 SAK [id number]) OP-PT Subjective Patient Comments Patient Comments Reports she has had worse pain at night, possibly due to exercising for the first time in a long time; worst in knees right greater than left. Taking Tylenol, Benadryl and occasional Vicodin. Sees die reamer in 2 weeks, and melt superintendant soon too. Reports her right LE seemed the same but her left LE swelling was decreased after bandaging to right LE; she was able to leave it on for 24 hours. States grandson may be able to bandage her. PT-OP-F Manual Assessment Start: 10/15/20 15:12 Freq: Status: Active Protocol: Document 11/12/20 14:28 [facility] (Rec: 11/12/20 16:42 [facility] [id number]) Manual Assessments Soft Tissue Assessment Soft Tissue Mobility Assessment Patient LE's visibly very dry, no open sores or wounds. No hemosiderin staining, no redness. PT-OP-G Mobility & Gait Start: 10/15/20 15:12 Freq: Status: Active Protocol: Document 11/12/20 14:28 [facility] (Rec: 11/12/20 16:42 [facility] [id number]) OP Gait Assessment Gait Gait Assistance Required: Independent Distance (Feet) 50 Assistive Devices Assistive Device 4 Wheeled Walker Gait Deviations General Gait Pattern Decreased Stride Length, Decreased Feet Clearance, Flexed Trunk Factors Limiting Gait Function Factors Limiting Gait Function Pain Comments Gait Comments swelling with heaviness of LE' s limits ambulation PT-OP-J Posture/Palpation/Skin Start: 10/15/20 15:12 Freq: Status: Active Protocol: Document 11/12/20 14:28 [facility] (Rec: 11/12/20 16:42 [facility] [id number]) Palpation Assessment Location bilateral LE's Palpation Location toes to distal thigh Palpation Findings Edema,Soft Tissue Tightness PT-OP-K Range of Motion Start: 10/15/20 15:12 Freq: Status: Active Protocol: Document 11/12/20 14:28 [facility] (Rec: 11/12/20 16:42 [facility] [id number]) Hip Goniometric Range of Motion Hip micheline Hip ROM WFL Yes Knee Goniometric Range of Motion Knee micheline Knee ROM WFL Yes Ankle and Foot Goniometric Range of Motion Ankle and Foot Left Ankle/Foot ROM WFL No Testing Position Sitting Dorsiflexion with Knee Flexed 0 Comments lacking 5 degrees df with knee extended Right Ankle/Foot ROM WFL No Testing Position Supine Dorsiflexion with Knee Flexed 0 Plantarflexion 45 Comments lacking 5 degress df with knee extended Ankle and Foot ROM Limitations ROM Limitations Soft Tissue Tightness,Swelling Toe Range of Motion Toes ROM Limitations Toe ROM Limitations Swelling Comments moderate limitations throughout toes PT-OP-N Lymphedema Start: 10/15/20 15:12 Freq: Status: Active Protocol: Document 11/18/20 14:25 [facility] (Rec: 11/18/20 15:59 [facility] [id number]) Lymphedema Measurements Lower Extremity Circumference Measurements Left Affected MT Heads 23.5 cm Mid-foot 23.7 cm Medial Malleolus 25.7 cm 10 cm From Medial Malleolus 24.9 cm 20 cm From Medial Malleolus 39 cm 30 cm From Medial Malleolus 47 cm 40 cm From Medial Malleolus 45.1 cm 50 cm From Medial Malleolus 52.5 cm 60 cm From Medial Malleolus 56.7 cm Knee Joint 51 cm Right Affected MT Heads 24.5 cm Mid-foot 24.3 cm Medial Malleolus 28.9 cm 10 cm From Medial Malleolus 29 cm 20 cm From Medial Malleolus 43 cm 30 cm From Medial Malleolus 50 cm 40 cm From Medial Malleolus 50.6 cm 50 cm From Medial Malleolus 54.5 cm 60 cm From Medial Malleolus 56.7 cm Knee Joint 51.7 cm PT-OP-Q Treatments Start: 10/15/20 15:12 Freq: Status: Active Protocol: Document 11/18/20 14:25 [facility] (Rec: 11/18/20 15:59 [facility] [id number]) Lymphedema Treatment Lymphedema Wrapping Body Location micheline LE toes to mid-thigh Materials elastic gauze toe bandages, Tricofix size G, Artiflex, comprex foam kidneys, Comprilan (6,8,10,12) Other Skin care with application of Cetaphil bilateral LE's prior to bandaging. Sequential Lymphedema Exercises Comments Sci-Fit level 1.0 x3 min to facilitate lymphatic flow after bandaging. Patient fatigued after 3 mi n PT-OP-T Assessment and Plan Start: 10/15/20 15:12 Freq: Status: Active Protocol: Document 11/18/20 14:25 [facility] (Rec: 11/18/20 14:44 [facility] [id number]) Physical Therapy Assessment Goals Four Impairment pain and limited gait due to LE heaviness Short Term Goal (STG) decrease pain by at least 25% STG Duration 01/11/21 Halfway Goal (LTG) Patient will report at least a 50% reduction in pain and return to prior level of functional ability in the home and community. LTG Duration 02/10/21 Three Impairment patient requires use of UE's to move LEs due to heaviness Halfway Goal (LTG) Patient will be able to get in and out of bed without using UE's to move her legs LTG Duration 02/10/21 Two Impairment patient not currently wearing compression for edema management Short Term Goal (STG) Patient will be instructed in benefits and safe uses of compression for edema reduction STG Duration 12/11/20 Horticulture Supervisor Goal (LTG) when swelling stable, patient to be measured and fit for appropriate compression garments and demonstrate good understanding of correct wearing and ability to don and doff LTG Duration 02/10/21 One Impairment function-limiting swelling bilateral LE's Horticulture Supervisor Goal (LTG) Decrease swelling bilateral LE 's to stable level (no increase or decrease greater than 1 cm over the course of 1 week). She will demonstrate good understanding and ability to do self-care to include skin care, therapeutic exercises, and possibly self- massage as indicated. LTG Duration 01/11/21 Assessment Summary Assessment Patient reporting decrease in swelling in non-bandaged LE last week. Minimal difference as only bandaged 1x 6 days ago due to waiting for insurance approval. Some soreness from exercising. Good tolerance for bandaging. Hasn't yet seen melt superintendant or die reamer, so no MLD yet. Cady 3 min on Sci-Fit. Feel best option for compression will likely be compression alternative. Physical Therapy Plan Frequency and Duration Frequency of Treatment 20 visits Duration of Treatment 12 weeks Plan of Care Start Date 11/12/20 Plan of Care End Date 02/10/21 Therapeutic Interventions Therapeutic Interventions Home Exercise Program,Manual Therapy,Patient/Caregiver Education,Self-Care/Home Management,Soft Tissue Mobilization,Therapeutic Exercises Other Therapeutic Interventions edema management Next Visit Focus/Plan Next Note Type Treatment Note Next Visit Plan Continue lymphedema managment with skin care, lymphedema bandaging, gentle ther ex. Show compression alternative sample as option for her compression. Possible family education of grandson for LE bandaging.
--- NOTE | 2020-11-19 16:00 | PT.OTN ---
Current Diagnoses Venous insufficiency (chronic) (peripheral) (11/19/20) Localized edema (11/19/20) Physical Therapy Treatment Note PT-OP-A Visit Information Start: 10/15/20 15:12 Freq: Status: Active Protocol: Document 11/19/20 17:02 AW (Rec: 11/19/20 17:11 AW [id number]) Out-Patient Physical Therapy Visit Information Visit Information Visit Type Treatment Note Visit Start Time 14:35 Visit Stop Time 16:00 Total Visit Minutes 85 Visit Number 3 Evaluation Information Evaluation Date 11/12/20 Precautions Precautions history blood clots, no MLD at this time PT-OP-B Current Condition Start: 10/15/20 15:12 Freq: Status: Active Protocol: Document 11/18/20 14:25 SAK (Rec: 11/18/20 14:44 SAK [id number]) Current Condition History of Current Condition Onset Date June 2020 Current Complaints bilateral LE edema History of Current Condition Had bilateral blood clots in June 2020, both legs ballooned up. Has prior history of blood clot, reports doctor told her she will be on blood thinners the rest of her life. Heart tests negative, seeing a sheet rock layer within a couple week to check lungs due to persistent SOB. If nothing found, will go back to vascular surgeon for surgery on legs. Has not worn compression bandaging or stockings. 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 States the swelling doesn't get better with elevation as it used to. Can't wear her shoes due to swelling and has to use her UE's to move her legs in and out of bed at this time. Used a 4WW prior to the swelling, but reports walking much more limited due to the heaviness in her legs. Prior Treatments and Tests ultrasound 2 months ago Future Testing and Treatments Planned Filling Operator 2 weeks. PT-OP-C Subjective Start: 10/15/20 15:12 Freq: Status: Active Protocol: Document 11/19/20 17:02 AW (Rec: 11/19/20 17:11 AW [id number]) OP-PT Subjective Patient Comments Patient Comments Pt was able to keep her wraps on both legs until ~0300 this morning when she removed the left leg wraps due to pain between ankle and calf. States her grandson, Scar, should be able to attend with her either tomorrow or . PT-OP-F Manual Assessment Start: 10/15/20 15:12 Freq: Status: Active Protocol: Document 11/12/20 14:28 [facility] (Rec: 11/12/20 16:42 [facility] [id number]) Manual Assessments Soft Tissue Assessment Soft Tissue Mobility Assessment Patient LE's visibly very dry, no open sores or wounds. No hemosiderin staining, no redness. PT-OP-G Mobility & Gait Start: 10/15/20 15:12 Freq: Status: Active Protocol: Document 11/12/20 14:28 [facility] (Rec: 11/12/20 16:42 [facility] [id number]) OP Gait Assessment Gait Gait Assistance Required: Independent Distance (Feet) 50 Assistive Devices Assistive Device 4 Wheeled Walker Gait Deviations General Gait Pattern Decreased Stride Length, Decreased Feet Clearance, Flexed Trunk Factors Limiting Gait Function Factors Limiting Gait Function Pain Comments Gait Comments swelling with heaviness of LE' s limits ambulation PT-OP-J Posture/Palpation/Skin Start: 10/15/20 15:12 Freq: Status: Active Protocol: Document 11/12/20 14:28 [facility] (Rec: 11/12/20 16:42 [facility] [id number]) Palpation Assessment Location bilateral LE's Palpation Location toes to distal thigh Palpation Findings Edema,Soft Tissue Tightness PT-OP-K Range of Motion Start: 10/15/20 15:12 Freq: Status: Active Protocol: Document 11/12/20 14:28 [facility] (Rec: 11/12/20 16:42 [facility] [id number]) Hip Goniometric Range of Motion Hip micheline Hip ROM WFL Yes Knee Goniometric Range of Motion Knee micheline Knee ROM WFL Yes Ankle and Foot Goniometric Range of Motion Ankle and Foot Left Ankle/Foot ROM WFL No Testing Position Sitting Dorsiflexion with Knee Flexed 0 Comments lacking 5 degrees df with knee extended Right Ankle/Foot ROM WFL No Testing Position Supine Dorsiflexion with Knee Flexed 0 Plantarflexion 45 Comments lacking 5 degress df with knee extended Ankle and Foot ROM Limitations ROM Limitations Soft Tissue Tightness,Swelling Toe Range of Motion Toes ROM Limitations Toe ROM Limitations Swelling Comments moderate limitations throughout toes PT-OP-N Lymphedema Start: 10/15/20 15:12 Freq: Status: Active Protocol: Document 11/18/20 14:25 SAK (Rec: 11/18/20 15:59 SAK [id number]) Lymphedema Measurements Lower Extremity Circumference Measurements Left Affected MT Heads 23.5 cm Mid-foot 23.7 cm Medial Malleolus 25.7 cm 10 cm From Medial Malleolus 24.9 cm 20 cm From Medial Malleolus 39 cm 30 cm From Medial Malleolus 47 cm 40 cm From Medial Malleolus 45.1 cm 50 cm From Medial Malleolus 52.5 cm 60 cm From Medial Malleolus 56.7 cm Knee Joint 51 cm Right Affected MT Heads 24.5 cm Mid-foot 24.3 cm Medial Malleolus 28.9 cm 10 cm From Medial Malleolus 29 cm 20 cm From Medial Malleolus 43 cm 30 cm From Medial Malleolus 50 cm 40 cm From Medial Malleolus 50.6 cm 50 cm From Medial Malleolus 54.5 cm 60 cm From Medial Malleolus 56.7 cm Knee Joint 51.7 cm PT-OP-Q Treatments Start: 10/15/20 15:12 Freq: Status: Active Protocol: Document 11/19/20 17:02 AW (Rec: 11/19/20 17:11 AW [id number]) Lymphedema Treatment Lymphedema Wrapping Body Location micheline LE toes to mid-thigh Materials elastic gauze toe bandages, Tricofix size G, Artiflex, comprex foam kidneys, Comprilan (6,8,10,12) Other Skin care with application of Cetaphil bilateral LE's prior to bandaging. Sequential Lymphedema Exercises Comments Sci-Fit level 1.0 x 5 min to facilitate lymphatic flow after bandaging. Patient Education Other Diaphragmatic breathing with demonstration and practice during wrapping. PT-OP-T Assessment and Plan Start: 10/15/20 15:12 Freq: Status: Active Protocol: Document 11/19/20 17:02 AW (Rec: 11/19/20 17:11 AW [id number]) Physical Therapy Assessment Goals Four Impairment pain and limited gait due to LE heaviness Short Term Goal (STG) decrease pain by at least 25% STG Duration 01/11/21 Snf Goal (LTG) Patient will report at least a 50% reduction in pain and return to prior level of functional ability in the home and community. LTG Duration 02/10/21 Three Impairment patient requires use of UE's to move LEs due to heaviness Snf Goal (LTG) Patient will be able to get in and out of bed without using UE's to move her legs LTG Duration 02/10/21 Two Impairment patient not currently wearing compression for edema management Short Term Goal (STG) Patient will be instructed in benefits and safe uses of compression for edema reduction STG Duration 12/11/20 Associate Professor Of Communication Goal (LTG) when swelling stable, patient to be measured and fit for appropriate compression garments and demonstrate good understanding of correct wearing and ability to don and doff LTG Duration 02/10/21 One Impairment function-limiting swelling bilateral LE's Associate Professor Of Communication Goal (LTG) Decrease swelling bilateral LE 's to stable level (no increase or decrease greater than 1 cm over the course of 1 week). She will demonstrate good understanding and ability to do self-care to include skin care, therapeutic exercises, and possibly self- massage as indicated. LTG Duration 01/11/21 Assessment Summary Assessment Pt reporting no change in BLE after wrapping yesterday. Deferred measurement this session. Pt reports less soreness today. She tolerate wrapping without complaint and felt she might be able to maintain until appointment tomorrow. Introduced Juzo compression alternative but did not trial fit. Physical Therapy Plan Frequency and Duration Frequency of Treatment 20 visits Duration of Treatment 12 weeks Plan of Care Start Date 11/12/20 Plan of Care End Date 02/10/21 Therapeutic Interventions Therapeutic Interventions Home Exercise Program,Manual Therapy,Patient/Caregiver Education,Self-Care/Home Management,Soft Tissue Mobilization,Therapeutic Exercises Other Therapeutic Interventions edema management Next Visit Focus/Plan Next Note Type Treatment Note Next Visit Plan Continue lymphedema managment with skin care, lymphedema bandaging, gentle ther ex. Possible family education of grandson for LE bandaging.
--- NOTE | 2020-11-20 16:21 | PT.OTN ---
Current Diagnoses Venous insufficiency (chronic) (peripheral) (11/20/20) Localized edema (11/20/20) Physical Therapy Treatment Note PT-OP-A Visit Information Start: 10/15/20 15:12 Freq: Status: Active Protocol: Document 11/20/20 14:30 SAK (Rec: 11/20/20 15:14 SAK [id number]) Out-Patient Physical Therapy Visit Information Visit Information Visit Type Treatment Note Visit Start Time 14:30 Visit Stop Time 16:00 Total Visit Minutes 90 Visit Number 4 Evaluation Information Evaluation Date 11/12/20 Precautions Precautions history blood clots, no MLD at this time PT-OP-B Current Condition Start: 10/15/20 15:12 Freq: Status: Active Protocol: Document 11/18/20 14:25 SAK (Rec: 11/18/20 14:44 SAK [id number]) Current Condition History of Current Condition Onset Date June 2020 Current Complaints bilateral LE edema History of Current Condition Had bilateral blood clots in June 2020, both legs ballooned up. Has prior history of blood clot, reports doctor told her she will be on blood thinners the rest of her life. Heart tests negative, seeing a rn dermatology within a couple week to check lungs due to persistent SOB. If nothing found, will go back to vascular surgeon for surgery on legs. Has not worn compression bandaging or stockings. 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 States the swelling doesn't get better with elevation as it used to. Can't wear her shoes due to swelling and has to use her UE's to move her legs in and out of bed at this time. Used a 4WW prior to the swelling, but reports walking much more limited due to the heaviness in her legs. Prior Treatments and Tests ultrasound 2 months ago Future Testing and Treatments Planned [place] 2 weeks. PT-OP-C Subjective Start: 10/15/20 15:12 Freq: Status: Active Protocol: Document 11/20/20 14:30 SAK (Rec: 11/20/20 15:14 SAK [id number]) OP-PT Subjective Patient Comments Patient Comments Didn't seem like the bandages had helped yesterday, not sure they are going to get better. Was able to leave on since yesterday. Brought all her prior compression stockings in to show PT today. PT-OP-F Manual Assessment Start: 10/15/20 15:12 Freq: Status: Active Protocol: Document 11/12/20 14:28 [facility] (Rec: 11/12/20 16:42 [facility] [id number]) Manual Assessments Soft Tissue Assessment Soft Tissue Mobility Assessment Patient LE's visibly very dry, no open sores or wounds. No hemosiderin staining, no redness. PT-OP-G Mobility & Gait Start: 10/15/20 15:12 Freq: Status: Active Protocol: Document 11/12/20 14:28 [facility] (Rec: 11/12/20 16:42 [facility] [id number]) OP Gait Assessment Gait Gait Assistance Required: Independent Distance (Feet) 50 Assistive Devices Assistive Device 4 Wheeled Walker Gait Deviations General Gait Pattern Decreased Stride Length, Decreased Feet Clearance, Flexed Trunk Factors Limiting Gait Function Factors Limiting Gait Function Pain Comments Gait Comments swelling with heaviness of LE' s limits ambulation PT-OP-J Posture/Palpation/Skin Start: 10/15/20 15:12 Freq: Status: Active Protocol: Document 11/12/20 14:28 [facility] (Rec: 11/12/20 16:42 [facility] [id number]) Palpation Assessment Location bilateral LE's Palpation Location toes to distal thigh Palpation Findings Edema,Soft Tissue Tightness PT-OP-K Range of Motion Start: 10/15/20 15:12 Freq: Status: Active Protocol: Document 11/12/20 14:28 [facility] (Rec: 11/12/20 16:42 [facility] [id number]) Hip Goniometric Range of Motion Hip micheline Hip ROM WFL Yes Knee Goniometric Range of Motion Knee micheline Knee ROM WFL Yes Ankle and Foot Goniometric Range of Motion Ankle and Foot Left Ankle/Foot ROM WFL No Testing Position Sitting Dorsiflexion with Knee Flexed 0 Comments lacking 5 degrees df with knee extended Right Ankle/Foot ROM WFL No Testing Position Supine Dorsiflexion with Knee Flexed 0 Plantarflexion 45 Comments lacking 5 degress df with knee extended Ankle and Foot ROM Limitations ROM Limitations Soft Tissue Tightness,Swelling Toe Range of Motion Toes ROM Limitations Toe ROM Limitations Swelling Comments moderate limitations throughout toes PT-OP-N Lymphedema Start: 03/30/21 15:12 Freq: Status: Active Protocol: Document 11/20/20 16:16 [facility] (Rec: 11/20/20 16:17 [facility] [id number]) Lymphedema Measurements Lower Extremity Circumference Measurements Right Affected MT Heads 23.5 cm Mid-foot 24.5 cm Medial Malleolus 27.2 cm 10 cm From Medial Malleolus 26.7 cm 20 cm From Medial Malleolus 41 cm 30 cm From Medial Malleolus 47.3 cm 40 cm From Medial Malleolus 46 cm 50 cm From Medial Malleolus 53 cm 60 cm From Medial Malleolus 56.2 cm Knee Joint 50.6 cm PT-OP-Q Treatments Start: 10/15/20 15:12 Freq: Status: Active Protocol: Document 11/20/20 14:30 [facility] (Rec: 11/20/20 15:14 [facility] [id number]) Lymphedema Treatment Lymphedema Wrapping Body Location micheline LE toes to mid-thigh Materials Right LE: elastic gauze toe bandages, Tricofix size G, Artiflex, comprex foam kidneys , Comprilan (6,8,10,12) Left LE: elastic gauze toe bandages, Jobst 30-40mmHg thigh high compression stocking applied by PT. Other Skin care with application of Cetaphil bilateral LE's prior to bandaging. Sequential Lymphedema Exercises Comments Sci-Fit level 1.0 x 5 min to facilitate lymphatic flow after bandaging. Patient Education Compression Garments shown Juzo calf compression wrap size L Other Diaphragmatic breathing with demonstration and practice during bandaging. Other Other self-bandaging handout issued for patient's grandson to read . PT-OP-T Assessment and Plan Start: 10/15/20 15:12 Freq: Status: Active Protocol: Document 11/20/20 14:30 [facility] (Rec: 11/20/20 15:14 [facility] [id number]) Physical Therapy Assessment Goals Four Impairment pain and limited gait due to LE heaviness Short Term Goal (STG) decrease pain by at least 25% STG Duration 01/11/21 Detention Goal (LTG) Patient will report at least a 50% reduction in pain and return to prior level of functional ability in the home and community. LTG Duration 02/10/21 Three Impairment patient requires use of UE's to move LEs due to heaviness Detention Goal (LTG) Patient will be able to get in and out of bed without using UE's to move her legs LTG Duration 02/10/21 Two Impairment patient not currently wearing compression for edema management Short Term Goal (STG) Patient will be instructed in benefits and safe uses of compression for edema reduction STG Duration 12/11/20 Detention Goal (LTG) when swelling stable, patient to be measured and fit for appropriate compression garments and demonstrate good understanding of correct wearing and ability to don and doff LTG Duration 02/10/21 One Impairment function-limiting swelling bilateral LE's Detention Goal (LTG) Decrease swelling bilateral LE 's to stable level (no increase or decrease greater than 1 cm over the course of 1 week). She will demonstrate good understanding and ability to do self-care to include skin care, therapeutic exercises, and possibly self- massage as indicated. LTG Duration 01/11/21 Assessment Summary Assessment Patient has several pairs of compression stockings, did not get through all of them today but PT able to don Jobst 30- 40mmHg stocking left LE (toes wrapped first, patient had cut toes off of garment previously. Circumerential measurements were down today. Patient's grandson not able to come today for education, possibly tomorrow. Appears Juzo compression wrap will be a good option for patient, she is to check with her insurance about coverage. Physical Therapy Plan Frequency and Duration Frequency of Treatment 20 visits Duration of Treatment 12 weeks Plan of Care Start Date 11/12/20 Plan of Care End Date 02/10/21 Therapeutic Interventions Therapeutic Interventions Home Exercise Program,Manual Therapy,Patient/Caregiver Education,Self-Care/Home Management,Soft Tissue Mobilization,Therapeutic Exercises Other Therapeutic Interventions edema management Next Visit Focus/Plan Next Note Type Treatment Note Next Visit Plan Continue lymphedema managment with skin care, lymphedema bandaging, gentle ther ex. Possible family education of grandson for LE bandaging.
--- NOTE | 2020-11-21 16:01 | PT.OTN ---
Current Diagnoses Venous insufficiency (chronic) (peripheral) (11/21/20) Localized edema (11/21/20) Physical Therapy Treatment Note PT-OP-A Visit Information Start: 10/15/20 15:12 Freq: Status: Active Protocol: Document 11/21/20 14:29 SAK (Rec: 11/21/20 14:36 SAK [id number]) Out-Patient Physical Therapy Visit Information Visit Information Visit Type Treatment Note Visit Start Time 14:30 Visit Stop Time 15:54 Total Visit Minutes 84 Visit Number 5 Evaluation Information Evaluation Date 11/12/20 Precautions Precautions history blood clots, no MLD at this time PT-OP-B Current Condition Start: 10/15/20 15:12 Freq: Status: Active Protocol: Document 11/18/20 14:25 SAK (Rec: 11/18/20 14:44 SAK [id number]) Current Condition History of Current Condition Onset Date June 2020 Current Complaints bilateral LE edema History of Current Condition Had bilateral blood clots in June 2020, both legs ballooned up. Has prior history of blood clot, reports doctor told her she will be on blood thinners the rest of her life. Heart tests negative, seeing a gauntlet pairer within a couple week to check lungs due to persistent SOB. If nothing found, will go back to vascular surgeon for surgery on legs. Has not worn compression bandaging or stockings. 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 States the swelling doesn't get better with elevation as it used to. Can't wear her shoes due to swelling and has to use her UE's to move her legs in and out of bed at this time. Used a 4WW prior to the swelling, but reports walking much more limited due to the heaviness in her legs. Prior Treatments and Tests ultrasound 2 months ago Future Testing and Treatments Planned [employer] Claims [employer]er 2 weeks. PT-OP-C Subjective Start: 10/15/20 15:12 Freq: Status: Active Protocol: Document 11/21/20 14:29 SAK (Rec: 11/21/20 16:01 SAK [id number]) OP-PT Subjective Patient Comments Patient Comments Reports she contacted insurance company and they are checking to see if compression wraps would be covered. Patient brings adult grandson Scar to PT for training in compression bandaging and/or donning of compression stockings. PT-OP-F Manual Assessment Start: 10/15/20 15:12 Freq: Status: Active Protocol: Document 11/12/20 14:28 [facility] (Rec: 11/12/20 16:42 [facility] [id number]) Manual Assessments Soft Tissue Assessment Soft Tissue Mobility Assessment Patient LE's visibly very dry, no open sores or wounds. No hemosiderin staining, no redness. PT-OP-G Mobility & Gait Start: 10/15/20 15:12 Freq: Status: Active Protocol: Document 11/12/20 14:28 [facility] (Rec: 11/12/20 16:42 [facility] [id number]) OP Gait Assessment Gait Gait Assistance Required: Independent Distance (Feet) 50 Assistive Devices Assistive Device 4 Wheeled Walker Gait Deviations General Gait Pattern Decreased Stride Length, Decreased Feet Clearance, Flexed Trunk Factors Limiting Gait Function Factors Limiting Gait Function Pain Comments Gait Comments swelling with heaviness of LE' s limits ambulation PT-OP-J Posture/Palpation/Skin Start: 10/15/20 15:12 Freq: Status: Active Protocol: Document 11/12/20 14:28 [facility] (Rec: 11/12/20 16:42 [facility] [id number]) Palpation Assessment Location bilateral LE's Palpation Location toes to distal thigh Palpation Findings Edema,Soft Tissue Tightness PT-OP-K Range of Motion Start: 10/15/20 15:12 Freq: Status: Active Protocol: Document 11/12/20 14:28 [facility] (Rec: 11/12/20 16:42 [facility] [id number]) Hip Goniometric Range of Motion Hip dario Hip ROM WFL Yes Knee Goniometric Range of Motion Knee dario Knee ROM WFL Yes Ankle and Foot Goniometric Range of Motion Ankle and Foot Left Ankle/Foot ROM WFL No Testing Position Sitting Dorsiflexion with Knee Flexed 0 Comments lacking 5 degrees df with knee extended Right Ankle/Foot ROM WFL No Testing Position Supine Dorsiflexion with Knee Flexed 0 Plantarflexion 45 Comments lacking 5 degress df with knee extended Ankle and Foot ROM Limitations ROM Limitations Soft Tissue Tightness,Swelling Toe Range of Motion Toes ROM Limitations Toe ROM Limitations Swelling Comments moderate limitations throughout toes PT-OP-N Lymphedema Start: 10/15/20 15:12 Freq: Status: Active Protocol: Document 11/21/20 14:29 [facility] (Rec: 11/21/20 16:01 [facility] [id number]) Lymphedema Measurements Lower Extremity Circumference Measurements Left Affected MT Heads 23.2 cm Mid-foot 24.2 cm Medial Malleolus 25.9 cm 10 cm From Medial Malleolus 22.9 cm 20 cm From Medial Malleolus 37.7 cm 30 cm From Medial Malleolus 43.9 cm 40 cm From Medial Malleolus 46 cm 50 cm From Medial Malleolus 51 cm 60 cm From Medial Malleolus 57.9 cm Knee Joint 49.3 cm Right Affected MT Heads 23.5 cm Mid-foot 23.2 cm Medial Malleolus 27.3 cm 10 cm From Medial Malleolus 27.5 cm 20 cm From Medial Malleolus 39.3 cm 30 cm From Medial Malleolus 46.3 cm 40 cm From Medial Malleolus 45.9 cm 50 cm From Medial Malleolus 52.5 cm 60 cm From Medial Malleolus 60.4 cm Knee Joint 47 cm PT-OP-Q Treatments Start: 10/15/20 15:12 Freq: Status: Active Protocol: Document 11/21/20 14:29 [facility] (Rec: 11/21/20 14:36 [facility] [id number]) Lymphedema Treatment Lymphedema Wrapping Body Location dario LE toes to mid-thigh Materials Dario LE: elastic gauze toe bandages Jobst 30-40mmHg thigh high compression stockings applied by grandson with assist by PT after instruction Other Skin care with application of Cetaphil bilateral LE's prior to bandaging. Sequential Lymphedema Exercises Comments Sci-Fit level 1.0 x 5 min to facilitate lymphatic flow after bandaging. Patient Education Compression Garments Jobst 30-40mmHg Other Other Juzo compression calf wrap loaned for weekend; if not able to apply compression stocking patient and grandson instructed to use patient's white Oscar Hose, Size F Tubigrip on foot (issued), Juzo compression calf wrap. PT-OP-T Assessment and Plan Start: 10/15/20 15:12 Freq: Status: Active Protocol: Document 11/21/20 14:29 [facility] (Rec: 11/21/20 14:36 [facility] [id number]) Physical Therapy Assessment Goals Four Impairment pain and limited gait due to LE heaviness Short Term Goal (STG) decrease pain by at least 25% STG Duration 01/11/21 Track Service Worker Goal (LTG) Patient will report at least a 50% reduction in pain and return to prior level of functional ability in the home and community. LTG Duration 02/10/21 Three Impairment patient requires use of UE's to move LEs due to heaviness Track Service Worker Goal (LTG) Patient will be able to get in and out of bed without using UE's to move her legs LTG Duration 02/10/21 Two Impairment patient not currently wearing compression for edema management Short Term Goal (STG) Patient will be instructed in benefits and safe uses of compression for edema reduction STG Duration 12/11/20 Half-Way Goal (LTG) when swelling stable, patient to be measured and fit for appropriate compression garments and demonstrate good understanding of correct wearing and ability to don and doff LTG Duration 02/10/21 One Impairment function-limiting swelling bilateral LE's Track Service Worker Goal (LTG) Decrease swelling bilateral LE 's to stable level (no increase or decrease greater than 1 cm over the course of 1 week). She will demonstrate good understanding and ability to do self-care to include skin care, therapeutic exercises, and possibly self- massage as indicated. LTG Duration 01/11/21 Assessment Summary Assessment Circumferential measurements decreased on both LE's today. Due to grandson's limited functional use left UE donning compression stockings challenging but able to do with PT help. He would not be able to do bandaging; both patient and grandson expressed they feel more likely to be able to assist with stockings, patient not able to don independently due to weakness and inability to reach her feet. Instructed if not able to don stockings over weekend to apply white Oscar Hose , size F Tubigrip to foot, compression calf wrap. They demonstrated good understanding after extensive review. Better tolerance for Sci-Fit today. Patient reported she contacted her insurance company to see if compression wraps would be covered by insurance. Physical Therapy Plan Frequency and Duration Frequency of Treatment 20 visits Duration of Treatment 12 weeks Plan of Care Start Date 11/12/20 Plan of Care End Date 02/10/21 Therapeutic Interventions Therapeutic Interventions Home Exercise Program,Manual Therapy,Patient/Caregiver Education,Self-Care/Home Management,Soft Tissue Mobilization,Therapeutic Exercises Other Therapeutic Interventions edema management Next Visit Focus/Plan Next Note Type Treatment Note Next Visit Plan Evaluate self-care with assist of grandson over the weekend. Continue lymphedema management.
--- NOTE | 2020-11-26 16:00 | PT.OTN ---
Current Diagnoses Venous insufficiency (chronic) (peripheral) (11/26/20) Localized edema (11/26/20) Physical Therapy Treatment Note PT-OP-A Visit Information Start: 10/15/20 15:12 Freq: Status: Active Protocol: Document 11/26/20 16:00 AW (Rec: 11/26/20 15:55 AW [id number]) Out-Patient Physical Therapy Visit Information Visit Information Visit Type Treatment Note Visit Start Time 14:35 Visit Stop Time 16:00 Total Visit Minutes 85 Visit Number 6 Precautions Precautions history blood clots, no MLD at this time PT-OP-B Current Condition Start: 10/15/20 15:12 Freq: Status: Active Protocol: Document 11/18/20 14:25 SAK (Rec: 11/18/20 14:44 SAK [id number]) Current Condition History of Current Condition Onset Date June 2020 Current Complaints bilateral LE edema History of Current Condition Had bilateral blood clots in June 2020, both legs ballooned up. Has prior history of blood clot, reports doctor told her she will be on blood thinners the rest of her life. Heart tests negative, seeing a job coach/job developer within a couple week to check lungs due to persistent SOB. If nothing found, will go back to vascular surgeon for surgery on legs. Has not worn compression bandaging or stockings. 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 States the swelling doesn't get better with elevation as it used to. Can't wear her shoes due to swelling and has to use her UE's to move her legs in and out of bed at this time. Used a 4WW prior to the swelling, but reports walking much more limited due to the heaviness in her legs. Prior Treatments and Tests ultrasound 2 months ago Future Testing and Treatments Planned Vacation Guide 2 weeks. PT-OP-C Subjective Start: 10/15/20 15:12 Freq: Status: Active Protocol: Document 11/26/20 16:00 AW (Rec: 11/26/20 15:55 AW [id number]) OP-PT Subjective Patient Comments Patient Comments Has not heard back from insurance company yet but will call again tomorrow. PT-OP-F Manual Assessment Start: 10/15/20 15:12 Freq: Status: Active Protocol: Document 11/12/20 14:28 [facility] (Rec: 11/12/20 16:42 [facility] [id number]) Manual Assessments Soft Tissue Assessment Soft Tissue Mobility Assessment Patient LE's visibly very dry, no open sores or wounds. No hemosiderin staining, no redness. PT-OP-G Mobility & Gait Start: 10/15/20 15:12 Freq: Status: Active Protocol: Document 11/12/20 14:28 SAK (Rec: 11/12/20 16:42 [facility] [id number]) OP Gait Assessment Gait Gait Assistance Required: Independent Distance (Feet) 50 Assistive Devices Assistive Device 4 Wheeled Walker Gait Deviations General Gait Pattern Decreased Stride Length, Decreased Feet Clearance, Flexed Trunk Factors Limiting Gait Function Factors Limiting Gait Function Pain Comments Gait Comments swelling with heaviness of LE' s limits ambulation PT-OP-J Posture/Palpation/Skin Start: 10/15/20 15:12 Freq: Status: Active Protocol: Document 11/12/20 14:28 [facility] (Rec: 11/12/20 16:42 [facility] [id number]) Palpation Assessment Location bilateral LE's Palpation Location toes to distal thigh Palpation Findings Edema,Soft Tissue Tightness PT-OP-K Range of Motion Start: 10/15/20 15:12 Freq: Status: Active Protocol: Document 11/12/20 14:28 [facility] (Rec: 11/12/20 16:42 [facility] [id number]) Hip Goniometric Range of Motion Hip micheline Hip ROM WFL Yes Knee Goniometric Range of Motion Knee micheline Knee ROM WFL Yes Ankle and Foot Goniometric Range of Motion Ankle and Foot Left Ankle/Foot ROM WFL No Testing Position Sitting Dorsiflexion with Knee Flexed 0 Comments lacking 5 degrees df with knee extended Right Ankle/Foot ROM WFL No Testing Position Supine Dorsiflexion with Knee Flexed 0 Plantarflexion 45 Comments lacking 5 degress df with knee extended Ankle and Foot ROM Limitations ROM Limitations Soft Tissue Tightness,Swelling Toe Range of Motion Toes ROM Limitations Toe ROM Limitations Swelling Comments moderate limitations throughout toes PT-OP-N Lymphedema Start: 10/15/20 15:12 Freq: Status: Active Protocol: Document 11/26/20 16:00 AW (Rec: 11/26/20 16:07 AW [id number]) Lymphedema Measurements Lower Extremity Circumference Measurements Left Affected MT Heads 23 cm Mid-foot 23.9 cm Medial Malleolus 25.1 cm 10 cm From Medial Malleolus 23 cm 20 cm From Medial Malleolus 36.3 cm 30 cm From Medial Malleolus 44.7 cm 40 cm From Medial Malleolus 44 cm 50 cm From Medial Malleolus 51.2 cm 60 cm From Medial Malleolus 55.1 cm Knee Joint 48.7 cm Right Affected MT Heads 22.5 cm Mid-foot 24 cm Medial Malleolus 28.2 cm 10 cm From Medial Malleolus 25.4 cm 20 cm From Medial Malleolus 38.9 cm 30 cm From Medial Malleolus 46.1 cm 40 cm From Medial Malleolus 44.5 cm 50 cm From Medial Malleolus 51.9 cm 60 cm From Medial Malleolus 56.3 cm Knee Joint 48 cm Comments Lymphedema Comments Scattered, inconsistent reduction overall PT-OP-Q Treatments Start: 10/15/20 15:12 Freq: Status: Active Protocol: Document 11/26/20 16:00 AW (Rec: 11/26/20 15:55 AW [id number]) Lymphedema Treatment Lymphedema Wrapping Materials elastic gauze toe bandages, Tricofix size G, Artiflex, comprex foam kidneys, Comprilan (6,8,10,12) Other Pt states she forgot her lotion today. Skin care provided with applicationof Cetaphil BLE prior to bandaging Sequential Lymphedema Exercises Duration 8 min Comments Sci-Fit level 1.0 x 8 min to facilitate lymphatic flow after bandaging. Improved tolerance while not using right shoulder due to reported pain. Patient Education Other Continued to encourage diaphragmatic breathing for improved lymphatic flow and physiological quieting PT-OP-T Assessment and Plan Start: 10/15/20 15:12 Freq: Status: Active Protocol: Document 11/26/20 16:00 AW (Rec: 11/26/20 16:23 AW [id number]) Physical Therapy Assessment Goals Four Impairment pain and limited gait due to LE heaviness Short Term Goal (STG) decrease pain by at least 25% STG Duration 01/11/21 Shelter Goal (LTG) Patient will report at least a 50% reduction in pain and return to prior level of functional ability in the home and community. LTG Duration 02/10/21 Three Impairment patient requires use of UE's to move LEs due to heaviness [employer] Dba Goal (LTG) Patient will be able to get in and out of bed without using UE's to move her legs LTG Duration 02/10/21 Two Impairment patient not currently wearing compression for edema management Short Term Goal (STG) Patient will be instructed in benefits and safe uses of compression for edema reduction STG Duration 12/11/20 [employer] D[employer] Goal (LTG) when swelling stable, patient to be measured and fit for appropriate compression garments and demonstrate good understanding of correct wearing and ability to don and doff LTG Duration 02/10/21 One Impairment function-limiting swelling bilateral LE's [employer] Goal (LTG) Decrease swelling bilateral LE 's to stable level (no increase or decrease greater than 1 cm over the course of 1 week). She will demonstrate good understanding and ability to do self-care to include skin care, therapeutic exercises, and possibly self- massage as indicated. LTG Duration 01/11/21 Assessment Summary Assessment Scattered and inconsistent reduction on measurements today but overall improvement. Pt managed to use KEVYN hose over the weekend as her grandson is unable to assist with compression garments. Physical Therapy Plan Frequency and Duration Frequency of Treatment 20 visits Duration of Treatment 12 weeks Plan of Care Start Date 11/12/20 Plan of Care End Date 02/10/21 Therapeutic Interventions Therapeutic Interventions Home Exercise Program,Manual Therapy,Patient/Caregiver Education,Self-Care/Home Management,Soft Tissue Mobilization,Therapeutic Exercises Other Therapeutic Interventions edema management Next Visit Focus/Plan Next Note Type Treatment Note Next Visit Plan Continue lymphedema management .
--- NOTE | 2020-11-28 15:45 | PT.OTN ---
Current Diagnoses Venous insufficiency (chronic) (peripheral) (11/28/20) Localized edema (11/28/20) Physical Therapy Treatment Note PT-OP-A Visit Information Start: 10/15/20 15:12 Freq: Status: Active Protocol: Document 11/28/20 15:18 SAK (Rec: 11/28/20 15:44 SAK [id number]) Out-Patient Physical Therapy Visit Information Visit Information Visit Type Treatment Note Visit Start Time 14:30 Visit Stop Time 15:32 Total Visit Minutes 62 Visit Number 7 Precautions Precautions history blood clots, no MLD at this time PT-OP-B Current Condition Start: 10/15/20 15:12 Freq: Status: Active Protocol: Document 11/18/20 14:25 SAK (Rec: 11/18/20 14:44 SAK [id number]) Current Condition History of Current Condition Onset Date June 2020 Current Complaints bilateral LE edema History of Current Condition Had bilateral blood clots in June 2020, both legs ballooned up. Has prior history of blood clot, reports doctor told her she will be on blood thinners the rest of her life. Heart tests negative, seeing a hospital manager within a couple week to check lungs due to persistent SOB. If nothing found, will go back to vascular surgeon for surgery on legs. Has not worn compression bandaging or stockings. 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 States the swelling doesn't get better with elevation as it used to. Can't wear her shoes due to swelling and has to use her UE's to move her legs in and out of bed at this time. Used a 4WW prior to the swelling, but reports walking much more limited due to the heaviness in her legs. Prior Treatments and Tests ultrasound 2 months ago Future Testing and Treatments Planned Manager [employer] 2 weeks. PT-OP-C Subjective Start: 10/15/20 15:12 Freq: Status: Active Protocol: Document 11/28/20 15:18 SAK (Rec: 11/28/20 15:44 SAK [id number]) OP-PT Subjective Patient Comments Patient Comments Still waiting to hear from insurance company. States both she and her grandson feel the compression stockings work better than lymphedema bandaging, very hard to put on but prefers. I don't want to spend what little time I have left wearing these bandages and going to so many appointments. PT-OP-F Manual Assessment Start: 10/15/20 15:12 Freq: Status: Active Protocol: Document 11/12/20 14:28 [facility] (Rec: 11/12/20 16:42 [facility] [id number]) Manual Assessments Soft Tissue Assessment Soft Tissue Mobility Assessment Patient LE's visibly very dry, no open sores or wounds. No hemosiderin staining, no redness. PT-OP-G Mobility & Gait Start: 10/15/20 15:12 Freq: Status: Active Protocol: Document 11/12/20 14:28 [facility] (Rec: 11/12/20 16:42 [facility] [id number]) OP Gait Assessment Gait Gait Assistance Required: Independent Distance (Feet) 50 Assistive Devices Assistive Device 4 Wheeled Walker Gait Deviations General Gait Pattern Decreased Stride Length, Decreased Feet Clearance, Flexed Trunk Factors Limiting Gait Function Factors Limiting Gait Function Pain Comments Gait Comments swelling with heaviness of LE' s limits ambulation PT-OP-J Posture/Palpation/Skin Start: 10/15/20 15:12 Freq: Status: Active Protocol: Document 11/12/20 14:28 [facility] (Rec: 11/12/20 16:42 [facility] [id number]) Palpation Assessment Location bilateral LE's Palpation Location toes to distal thigh Palpation Findings Edema,Soft Tissue Tightness PT-OP-K Range of Motion Start: 10/15/20 15:12 Freq: Status: Active Protocol: Document 11/12/20 14:28 [facility] (Rec: 11/12/20 16:42 [facility] [id number]) Hip Goniometric Range of Motion Hip micheline Hip ROM WFL Yes Knee Goniometric Range of Motion Knee micheline Knee ROM WFL Yes Ankle and Foot Goniometric Range of Motion Ankle and Foot Left Ankle/Foot ROM WFL No Testing Position Sitting Dorsiflexion with Knee Flexed 0 Comments lacking 5 degrees df with knee extended Right Ankle/Foot ROM WFL No Testing Position Supine Dorsiflexion with Knee Flexed 0 Plantarflexion 45 Comments lacking 5 degress df with knee extended Ankle and Foot ROM Limitations ROM Limitations Soft Tissue Tightness,Swelling Toe Range of Motion Toes ROM Limitations Toe ROM Limitations Swelling Comments moderate limitations throughout toes PT-OP-N Lymphedema Start: 10/15/20 15:12 Freq: Status: Active Protocol: Document 11/28/20 15:18 [facility] (Rec: 11/28/20 15:44 [facility] [id number]) Lymphedema Measurements Lower Extremity Circumference Measurements Left Affected MT Heads 23 cm Mid-foot 22.8 cm Medial Malleolus 24.5 cm 10 cm From Medial Malleolus 22.9 cm 20 cm From Medial Malleolus 37.5 cm 30 cm From Medial Malleolus 43.3 cm 40 cm From Medial Malleolus 44.9 cm 50 cm From Medial Malleolus 53.3 cm 60 cm From Medial Malleolus 57.8 cm Knee Joint 48.6 cm Right Affected MT Heads 23.2 cm Mid-foot 23 cm Medial Malleolus 27.9 cm 10 cm From Medial Malleolus 25.5 cm 20 cm From Medial Malleolus 37.9 cm 30 cm From Medial Malleolus 44.1 cm 40 cm From Medial Malleolus 46.4 cm 50 cm From Medial Malleolus 54.1 cm 60 cm From Medial Malleolus 57.4 cm Knee Joint 47.9 cm Comments Lymphedema Comments Scattered, inconsistent reduction overall, most in midfoot to just proximal to ankle region which had been most swollen PT-OP-Q Treatments Start: 10/15/20 15:12 Freq: Status: Active Protocol: Document 11/28/20 15:18 [facility] (Rec: 11/28/20 15:44 [facility] [id number]) Lymphedema Treatment Lymphedema Wrapping Body Location micheline LE toes to mid-thigh Materials Applied bilateral Jobst 30-40 mmHG thigh high compression stockings per patient request Other Cetaphil bilateral LE's prior to donning compression stockins Sequential Lymphedema Exercises Duration 11 min, 1 mile Comments Sci-Fit level 1.0 x 8 min to facilitate lymphatic flow after compression stockings applied. Improved tolerance while not using right shoulder due to reported pain. Compression Garment Assessment Compression Garment Assessment Details compression stockings fit well , difficult to don. Due to difficulty donning patient still needs compression wrap alternatives micheline, is waiting for insurance approval. Patient Education Compression Garments Jobst 30-40mmHg Other Continued to encourage diaphragmatic breathing for improved lymphatic flow and physiological quieting PT-OP-T Assessment and Plan Start: 10/15/20 15:12 Freq: Status: Active Protocol: Document 11/28/20 15:18 [facility] (Rec: 11/28/20 15:44 [facility] [id number]) Physical Therapy Assessment Goals Four Impairment pain and limited gait due to LE heaviness Short Term Goal (STG) decrease pain by at least 25% STG Duration 01/11/21 Correction Goal (LTG) Patient will report at least a 50% reduction in pain and return to prior level of functional ability in the home and community. LTG Duration 02/10/21 Three Impairment patient requires use of UE's to move LEs due to heaviness Nailer Operator Goal (LTG) Patient will be able to get in and out of bed without using UE's to move her legs LTG Duration 02/10/21 Two Impairment patient not currently wearing compression for edema management Short Term Goal (STG) Patient will be instructed in benefits and safe uses of compression for edema reduction STG Duration 12/11/20 Correction Goal (LTG) when swelling stable, patient to be measured and fit for appropriate compression garments and demonstrate good understanding of correct wearing and ability to don and doff LTG Duration 02/10/21 One Impairment function-limiting swelling bilateral LE's Nailer Operator Goal (LTG) Decrease swelling bilateral LE 's to stable level (no increase or decrease greater than 1 cm over the course of 1 week). She will demonstrate good understanding and ability to do self-care to include skin care, therapeutic exercises, and possibly self- massage as indicated. LTG Duration 01/11/21 Assessment Summary Assessment Patient requested wearing compression stockings vs compression bandaging for quality of life at this time. Wants to hold PT x 1 wk while she gets in touch with insurance company and tries to order compression wraps for bilateral LE's as recommended. Will call PT with any questions. Decreased SOB and improved activity tolerance noted with patient pleased she could use exercise equipment for 10+ min and go 1 mile. Good progress with activity tolerance. Physical Therapy Plan Frequency and Duration Frequency of Treatment 20 visits Duration of Treatment 12 weeks Plan of Care Start Date 11/12/20 Plan of Care End Date 02/10/21 Therapeutic Interventions Therapeutic Interventions Home Exercise Program,Manual Therapy,Patient/Caregiver Education,Self-Care/Home Management,Soft Tissue Mobilization,Therapeutic Exercises Other Therapeutic Interventions edema management Next Visit Focus/Plan Next Note Type Treatment Note Next Visit Plan Hold PT 1 week, patient to contact PT with update regarding insurance coverage for compression wraps and any assistance needed with ordering. See for follow up appointments following week to monitor progress with self- care, determine need for further PT.
--- NOTE | 2021-04-21 10:57 | PT.OPDS ---
Current Diagnoses Venous insufficiency (chronic) (peripheral) (11/28/20) Localized edema (11/28/20) Visit Care Team Role Provider Type Yessy Felipe Primary Care Provider Non-Staff Specialty: Family Practice Address: [address] [place], [address] Phone: Fax: Email: Timothy Walton MD Attending Provider Non-Staff Referring Provider Specialty: Cardiovascular/Thoracic Surg Address: [address] [place] [address], [place], [address] Email: Visit Number Visit Number 7 Discharge Summary PT-OP-B Current Condition Start: 10/15/20 15:12 Freq: Status: Active Protocol: Document 11/18/20 14:25 SAK (Rec: 11/18/20 14:44 SAK [id number]) Current Condition History of Current Condition Onset Date June 2020 Current Complaints bilateral LE edema History of Current Condition Had bilateral blood clots in June 2020, both legs ballooned up. Has prior history of blood clot, reports doctor told her she will be on blood thinners the rest of her life. Heart tests negative, seeing a automotive service writer within a couple week to check lungs due to persistent SOB. If nothing found, will go back to vascular surgeon for surgery on legs. Has not worn compression bandaging or stockings. 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 States the swelling doesn't get better with elevation as it used to. Can't wear her shoes due to swelling and has to use her UE's to move her legs in and out of bed at this time. Used a 4WW prior to the swelling, but reports walking much more limited due to the heaviness in her legs. Prior Treatments and Tests ultrasound 2 months ago Future Testing and Treatments Planned Footwear Stitcher 2 weeks. PT-OP-C Subjective Start: 10/15/20 15:12 Freq: Status: Active Protocol: Document 11/28/20 15:18 SAK (Rec: 11/28/20 15:44 SAK [id number]) OP-PT Subjective Patient Comments Patient Comments Still waiting to hear from insurance company. States both she and her grandson feel the compression stockings work better than lymphedema bandaging, very hard to put on but prefers. I don't want to spend what little time I have left wearing these bandages and going to so many appointments. PT-OP-F Manual Assessment Start: 10/15/20 15:12 Freq: Status: Active Protocol: Document 11/12/20 14:28 [facility] (Rec: 11/12/20 16:42 [facility] [id number]) Manual Assessments Soft Tissue Assessment Soft Tissue Mobility Assessment Patient LE's visibly very dry, no open sores or wounds. No hemosiderin staining, no redness. PT-OP-G Mobility & Gait Start: 10/15/20 15:12 Freq: Status: Active Protocol: Document 11/12/20 14:28 [facility] (Rec: 11/12/20 16:42 [facility] [id number]) OP Gait Assessment Gait Gait Assistance Required: Independent Distance (Feet) 50 Assistive Devices Assistive Device 4 Wheeled Walker Gait Deviations General Gait Pattern Decreased Stride Length, Decreased Feet Clearance, Flexed Trunk Factors Limiting Gait Function Factors Limiting Gait Function Pain Comments Gait Comments swelling with heaviness of LE' s limits ambulation PT-OP-J Posture/Palpation/Skin Start: 10/15/20 15:12 Freq: Status: Active Protocol: Document 11/12/20 14:28 [facility] (Rec: 11/12/20 16:42 [facility] [id number]) Palpation Assessment Location bilateral LE's Palpation Location toes to distal thigh Palpation Findings Edema,Soft Tissue Tightness PT-OP-K Range of Motion Start: 10/15/20 15:12 Freq: Status: Active Protocol: Document 11/12/20 14:28 [facility] (Rec: 11/12/20 16:42 [facility] [id number]) Hip Goniometric Range of Motion Hip micheline Hip ROM WFL Yes Knee Goniometric Range of Motion Knee micheline Knee ROM WFL Yes Ankle and Foot Goniometric Range of Motion Ankle and Foot Left Ankle/Foot ROM WFL No Testing Position Sitting Dorsiflexion with Knee Flexed 0 Comments lacking 5 degrees df with knee extended Right Ankle/Foot ROM WFL No Testing Position Supine Dorsiflexion with Knee Flexed 0 Plantarflexion 45 Comments lacking 5 degress df with knee extended Ankle and Foot ROM Limitations ROM Limitations Soft Tissue Tightness,Swelling Toe Range of Motion Toes ROM Limitations Toe ROM Limitations Swelling Comments moderate limitations throughout toes PT-OP-N Lymphedema Start: 10/15/20 15:12 Freq: Status: Active Protocol: Document 11/28/20 15:18 [facility] (Rec: 11/28/20 15:44 [facility] [id number]) Lymphedema Measurements Lower Extremity Circumference Measurements Left Affected MT Heads 23 cm Mid-foot 22.8 cm Medial Malleolus 24.5 cm 10 cm From Medial Malleolus 22.9 cm 20 cm From Medial Malleolus 37.5 cm 30 cm From Medial Malleolus 43.3 cm 40 cm From Medial Malleolus 44.9 cm 50 cm From Medial Malleolus 53.3 cm 60 cm From Medial Malleolus 57.8 cm Knee Joint 48.6 cm Right Affected MT Heads 23.2 cm Mid-foot 23 cm Medial Malleolus 27.9 cm 10 cm From Medial Malleolus 25.5 cm 20 cm From Medial Malleolus 37.9 cm 30 cm From Medial Malleolus 44.1 cm 40 cm From Medial Malleolus 46.4 cm 50 cm From Medial Malleolus 54.1 cm 60 cm From Medial Malleolus 57.4 cm Knee Joint 47.9 cm Comments Lymphedema Comments Scattered, inconsistent reduction overall, most in midfoot to just proximal to ankle region which had been most swollen PT-OP-T Assessment and Plan Start: 10/15/20 15:12 Freq: Status: Active Protocol: Document 04/21/21 10:57 [facility] (Rec: 04/21/21 10:57 [facility] [id number]) Physical Therapy Plan Discharge Physical Therapy Discharge Reasons No Longer Attending PT
== END 2021-05-06 10:28 ==
LOC: PHYS 14:30
PROVIDERS: PCP Family Medicine; Referring Provider Thoracic Surgery (Cardiothoracic Vascular Surgery); Visit Provider Thoracic Surgery (Cardiothoracic Vascular Surgery)
DX: I87.2 Venous insufficiency (chronic) (peripheral) (principal); R60.0 Localized edema
CPT/HCPCS: 97110; 97140; 97162; 97535

== ENCOUNTER → 2020-12-20 17:20 | Outpatient (CLI) | payer OTHER, MEDICAID, SELFPAY ==
[2020-12-20 17:28] LABS: Bacteria Urine None Seen; RBC Urine None Seen (0-5/HPF)
[2020-12-20 18:12] LABS: Amorphous Sediment Urine 4+; Culture Indicated Urine Specimen Cultured; Squamous Epithelial Cell Urine 0-1 /HPF (0-5/HPF); Transitional Epi Cells Urine 0-1/HPF (0-5/HPF); WBC Urine 5-10/HPF (0-5/HPF)
== END ==
PROVIDERS: PCP Family Medicine; Referring Provider Family Medicine; Visit Provider Family Medicine
DX: R30.0 Dysuria (principal)
CPT/HCPCS: 81015; 87086

== ENCOUNTER 2021-02-28 12:18 | Emergency (ER) | payer OTHER, MEDICAID, SELFPAY ==
[2021-02-28 12:28] VITALS: BP 132/78; PULSE 81; RESP 2; TEMP 36.6; O2SAT 94; BMI 37.5
--- NOTE | 2021-02-28 12:31 | DI.RAD.S_ITS ---
PROCEDURE: XR HAND LT MIN 3V INDICATIONS: hand injury TECHNIQUE: 3 views of the hand(s) acquired. COMPARISON: None. FINDINGS: Bones: No fractures or dislocations. Carpal bones are normally aligned. No suspicious bony lesions. Soft tissues: No suspicious soft tissue calcifications. IMPRESSION: No fracture. No osseous lesion. If symptoms and/or clinical suspicion for pathology persists, further assessment with repeat radiographs (7-10 days) or advanced imaging (e.g. CT, MRI or bone scan) should be considered. Dictated by: Dariana Levin MD, PhD on 02/28/2021 at 12:54 Approved by: Dariana Levin MD, PhD on 02/28/2021 at 12:55
--- NOTE | 2021-02-28 15:15 | PC.NURSE ---
Notified pt of NPO status, understanding verbalized.
--- NOTE | 2021-02-28 15:32 | ED.UPPEXIN ---
HPI - Extremity Injury (Upper) <Eliezer Lopez PA-C - Last Filed: 02/28/21 20:59> General Chief Complaint: Extremity Injury, Upper Stated Complaint: POSS BROKEN FINGER-LT MIDDLE Time Seen by Provider: 02/28/21 15:22 Source: patient Mode of arrival: Ambulatory Limitations: no limitations History of Present Illness HPI narrative: Sun presents today with chief complaint of right middle finger pain that she sustained yesterday while picking up a bag of groceries. She reports that she had immediate pain while she was picking it up. The pain was so bad that she thought that it might be broken. She has not noticed any significant swelling, bruising or redness. She does note that the pain is worse with flexing and extending her fingers. She has not tried anything to help alleviate her symptoms. She has no other acute concerns or complaints. Related Data Home Medications Medication Instructions Recorded Confirmed estradiol (Estrace) 1 gm VAGINAL #0 10/18/17 06/05/19 fesoterodine 4 mg tablet,extended 4 mg PO QDAY #0 10/18/17 06/05/19 release 24 hr (Toviaz) fluoxetine 20 mg capsule 20 mg PO QDAY #0 10/18/17 06/05/19 levothyroxine 125 mcg capsule 125 mcg PO QDAY #0 10/18/17 06/05/19 (Tirosint) montelukast 10 mg tablet 10 mg PO QPM #0 10/18/17 06/05/19 pantoprazole 40 mg tablet,delayed 40 mg PO BID #0 10/18/17 06/05/19 release cyanocobalamin (vitamin B-12) 500 1,000 mcg PO DAILY 03/15/18 06/05/19 mcg tablet (B-12 DOTS) oxybutynin chloride 5 mg tablet 5 mg PO BID 03/15/18 06/05/19 potassium chloride 10 mEq 20 meq PO BID 03/15/18 06/05/19 capsule,extended release furosemide 40 mg tablet 20 mg PO DAILY #0 tab 06/10/18 06/05/19 Previous Rx's Medication Instructions Recorded sulfamethoxazole 800 1 tab PO BID #14 tab 09/15/19 mg-trimethoprim 160 mg tablet (Bactrim DS) ropinirole 0.25 mg tablet (Requip) 0.25 mg PO BEDTIME PRN #7 tab 04/08/20 Allergies Allergy/AdvReac Type Severity Reaction Status Date / Time chlorothiazide Allergy Unknown Verified 02/28/21 12:28 [CHLOROTHIAZIDE] codeine [CODEINE] Allergy Unknown itching Verified 02/28/21 12:28 naproxen [NAPROXEN] AdvReac Unknown SHOOTING Verified 02/28/21 12:28 ELECTRICITY DOWN LEG Patient History <Eliezer Lopez PA-C - Last Filed: 02/28/21 20:59> Medical History (Updated 02/28/21 @ 15:34 by Eliezer Lopez PA-C) Dysuria GERD (gastroesophageal reflux disease) History of DVT (deep vein thrombosis) History of migraine Hypothyroid Neuropathy Paroxysmal A-fib Surgical History History of hysterectomy Family History Other No pertinent family history Social History Smoking Status: Never smoker Smoking Status: Never smoker alcohol intake frequency: holidays/special occasions only Substance Use Type: does not use Exam <Eliezer Lopez PA-C - Last Filed: 02/28/21 20:59> Narrative Exam Narrative: Exam Narrative: Const General: cooperative, healthy appearing, comfortable, no acute distress, well developed and well groomed Nutritional Appearance: Elevated BMI Orientation: alert and oriented x3 HENMT Head: normal to inspection and atraumatic Ears: hearing grossly normal bilaterally Nose: external nose normal and nares normal Face and sinus: normal facial exam Neck Neck: normal visual inspection and supple Resp Effort & Inspection: normal respiratory effort, able to speak in complete sentences, no audible wheezes, not labored, no nasal flaring and no respiratory distress Neuro General: alert, oriented x3, gait normal, tone normal and moves all extremities Cognition: normal cognition Speech: speech normal Gait: normal gait Extremity Upper extremities exposed. Grossly normal appearance with no obvious swelling, ecchymosis or erythema. Skin is intact. Full range of motion of bilateral hands and fingers. Slight tenderness of her left middle finger with flexion. No bony tenderness with palpation. Psych Appearance: grossly normal and well kempt Mental Status: mental status grossly normal Speech and Movement: speech and movement normal Mood: congruent mood Affect: normal affect Initial Vital Signs Initial Vital Signs: Vital Signs Temperature 97.8 F 02/28/21 12:28 Pulse Rate 81 02/28/21 12:28 Respiratory Rate 2 L 02/28/21 12:28 Blood Pressure 132/78 02/28/21 12:28 Pulse Oximetry 94 02/28/21 12:28 <Aimee Lovell DO - Last Filed: 03/07/21 07:37> Initial Vital Signs Initial Vital Signs: Vital Signs Temperature 97.8 F 02/28/21 12:28 Pulse Rate 81 02/28/21 12:28 Respiratory Rate 2 L 02/28/21 12:28 Blood Pressure 132/78 02/28/21 12:28 Pulse Oximetry 94 02/28/21 12:28 Course <Eliezer Lopez PA-C - Last Filed: 02/28/21 20:59> Orders Ordered: ED Orders 02/28/21 12:31 XR hand LT min 3V Stat Vital Signs Vital signs: Vital Signs - 8 hr 02/28/21 15:42 Temperature 98.5 F Pulse Rate 86 Respiratory Rate 16 Blood Pressure 131/60 Pulse Oximetry 100 <Aimee Lovell DO - Last Filed: 03/07/21 07:37> Orders Ordered: ED Orders 02/28/21 12:31 XR hand LT min 3V Stat Vital Signs Vital signs: Vital Signs - 8 hr 02/28/21 15:42 Temperature 98.5 F Pulse Rate 86 Respiratory Rate 16 Blood Pressure 131/60 Pulse Oximetry 100 MDM - Extremity Injury (Upper) <SILVESTRE Carlson Last Filed: 02/28/21 20:59> MDM Narrative Medical decision making narrative: Differential diagnosis includes fracture, dislocation, contusion. No x-ray evidence of fracture. No dislocation. Suspect this is a strain. She has full range of motion so I do not think that she has any tendon rupture or significant injury. Return precautions were discussed with the patient. Patient verbalizes understanding and agrees to plan and has no further concerns at this time. Thank you A [id number] system was used with the dictation of this note. Please disregard any spelling or grammatical errors. Discharge Plan Departure Patient Disposition: Home Clinical Impression: Finger sprain Qualifiers: Encounter type: initial encounter Finger: middle finger Sprain of finger site: unspecified site Laterality: right Qualified Code(s): S63.612A - Unspecified sprain of right middle finger, initial encounter Activity Restrictions/Additional Instructions: It was very nice to meet you this afternoon. Please apply ice and rest your finger to prevent any worsening injury. Expect your symptoms to improve over the next few days to a week. Follow-up with your primary care provider if your symptoms have not improved at that time. Thank you Eliezer Lopez PAC Prescriptions: No Action sulfamethoxazole-trimethoprim [Bactrim DS] 800-160 mg tablet 1 tab PO BID Qty: 14 RF: 0 estradiol [Estrace] 0.01 % cream 1 gm Vaginal Qty: 0 RF: 0 fesoterodine [Toviaz] 4 MG tablet extended release 24 hr 4 mg PO QDAY Qty: 0 RF: 0 fluoxetine 20 MG capsule 20 mg PO QDAY Qty: 0 RF: 0 levothyroxine [Tirosint] 125 MCG capsule 125 mcg PO QDAY Qty: 0 RF: 0 montelukast 10 MG tablet 10 mg PO QPM Qty: 0 RF: 0 pantoprazole 40 MG tablet,delayed release (DR/EC) 40 mg PO BID Qty: 0 RF: 0 furosemide 40 mg tablet 20 mg PO DAILY Qty: 0 RF: 0 potassium chloride 10 mEq Capsule, Extended Release 20 meq PO BID RF: 0 cyanocobalamin (vitamin B-12) [B-12 DOTS] 500 mcg Tablet 1,000 mcg PO DAILY RF: 0 oxybutynin chloride 5 mg Tablet 5 mg PO BID RF: 0 ropinirole [Requip] 0.25 mg tablet 0.25 mg PO BEDTIME PRN (Reason: leg spasms) Qty: 7 RF: 0 Referrals: Yessy Uriarte [Primary Care Provider] - <Aimee Lovell DO - Last Filed: 03/07/21 07:37> Cosign ED Attending Stephenieature Attestation: I was immediately available in the department for consultation. Documentation has been reviewed.
[2021-02-28 15:42] VITALS: BP 131/60; PULSE 86; RESP 16; TEMP 36.9; O2SAT 100
--- NOTE | 2021-02-28 15:43 | PC.NURSE ---
Placed bertha splint to right 3rd and 4th digit; Positive CMS
== END 2021-02-28 15:42 | disposition home or self-care (01) ==
PROVIDERS: Emergency Provider Physician Assistant; PCP Family Medicine
DX: S63.612A Unspecified sprain of right middle finger, initial encounter (principal); X50.0XXA Overexertion from strenuous movement or load, initial encounter
CPT/HCPCS: 73130; 99281; 99283

== ENCOUNTER → 2021-03-11 16:47 | Outpatient (CLI) | payer OTHER, MEDICAID, SELFPAY ==
[2021-03-11 16:59] LABS: RBC Urine None Seen (0-5/HPF)
[2021-03-11 18:09] LABS: Appearance Urine UA SL CLOUDY; Bilirubin Urine UA NEGATIVE (NEGATIVE); Color Urine UA YELLOW; Glucose Urine UA NEGATIVE (Negative); Ketones Urine UA NEGATIVE (NEGATIVE); Leukocyte Esterase Urine UA NEGATIVE (NEGATIVE); Nitrite Urine UA POSITIVE (Negative); Occult Blood Urine UA NEGATIVE (Negative); Protein Urine UA TRACE (Negative); Urobilinogen Urine UA 0.2 E.U./dL (0.2)
[2021-03-11 18:18] LABS: Squamous Epithelial Cell Urine 1-5 /HPF (0-5/HPF); WBC Urine 1-5/HPF (0-5/HPF); pH Urine UA 6.5 (4.5-8.0)
[2021-03-11 18:19] LABS: Amorphous Sediment Urine 1+; Bacteria Urine Occasional (0-1)
== END ==
PROVIDERS: PCP Family Medicine; Referring Provider Family Medicine; Visit Provider Family Medicine
DX: R30.0 Dysuria (principal)
CPT/HCPCS: 36415; 81001; 87077; 87086; 87186

== ENCOUNTER → 2021-04-28 15:11 | Outpatient (CLI) | payer OTHER, MEDICAID, SELFPAY ==
[2021-04-28 16:46] LABS: TSH w/ Reflex to FT4 2.47 uIU/mL (0.47-4.68)
== END ==
PROVIDERS: PCP Internal Medicine; Referring Provider Internal Medicine; Visit Provider Internal Medicine
DX: E03.9 Hypothyroidism, unspecified (principal)
CPT/HCPCS: 36415; 84443

== ENCOUNTER → 2021-04-29 12:29 | Outpatient (CLI) | payer OTHER, MEDICAID, SELFPAY ==
[2021-04-29 13:14] LABS: INR 1.6 (0.9-1.3)
[2021-04-29 13:16] LABS: PTT Partial Thromboplastin Tim 37 SECONDS (26.4-36.2)
[2021-04-29 13:24] LABS: Alanine Aminotransferase 21 IU/L (<35); Albumin 3.7 g/dL (3.5-5.0); Albumin Globulin Ratio 1.5 (1.0-2.8); Alkaline Phosphatase 90 U/L (38-126); Aspartate Aminotransferase 34 IU/L (14-36); Bilirubin Total 0.5 mg/dL (0.2-1.3); Blood Urea Nitrogen 14 mg/dL (7-17); Calcium 8.8 mg/dL (8.4-10.2); Carbon Dioxide 35 mmol/L (22-32); Chloride 102 mmol/L (98-107); Cholesterol 148 mg/dL (140-199); Estimated Glomerular Filt Rate 44.1 mL/min (>60); Globulin 2.4 g/dL (1.7-4.1); Glucose 96 mg/dL (80-110); HDL Cholesterol 61 mg/dL (40-60); HEMOLYSIS < 15 (0-50); LDL Cholesterol Calculated 70 mg/dL (<100); Potassium 4.9 mmol/L (3.4-5.1); Sodium 142 mmol/L (137-145); Total Protein 6.1 g/dL (6.3-8.2); Triglycerides 85 mg/dL (35-150)
== END ==
PROVIDERS: PCP Internal Medicine; Referring Provider Internal Medicine; Visit Provider Internal Medicine
DX: E78.2 Mixed hyperlipidemia (principal); I48.0 Paroxysmal atrial fibrillation; N18.32 Chronic kidney disease, stage 3b; N39.0 Urinary tract infection, site not specified; N39.46 Mixed incontinence
CPT/HCPCS: 36415; 80053; 80061; 85610; 85730

== ENCOUNTER → 2021-05-27 13:54 | Outpatient (CLI) | payer OTHER, MEDICAID, SELFPAY ==
[2021-05-27 14:23] LABS: Add Manual Diff / Slide Review NO; Basophils Absolute Auto 100 /uL (0-100); Basophils Percent Auto 1.3 % (0-2); Eosinophils Absolute Auto 400 /uL (0-450); Eosinophils Percent Auto 5.8 % (2-4); Hematocrit 32.3 % (36-46); Hemoglobin 10.3 g/dL (12.0-16.0); Lymphocytes Absolute Auto 2300 /uL (1100-4500); Lymphocytes Percent Auto 32.3 % (25-40); Mean Corpuscular HGB Conc 31.7 % (30-36); Mean Corpuscular Hemoglobin 26.6 PG (26-34); Monocytes Absolute Auto 900 /uL (0-900); Monocytes Percent Auto 13.3 % (3-14); Neutrophils Absolute Auto 3300 /uL (1500-7000); Neutrophils Percent Auto 47.3 % (50-75); Platelet Count 257 X10^3/uL (150-400); Red Blood Cell Count 3.85 X10^6/uL (4.0-5.2)
[2021-05-27 14:44] LABS: Anisocytosis 1+; Hypochromasia 1+
== END ==
PROVIDERS: PCP Internal Medicine; Referring Provider Internal Medicine; Visit Provider Internal Medicine
DX: Z79.899 Other long term (current) drug therapy (principal)
CPT/HCPCS: 36415; 85025

== ENCOUNTER → 2021-08-21 09:54 | Outpatient (CLI) | payer OTHER, MEDICAID, SELFPAY ==
--- NOTE | 2021-08-21 | DI.MG.S_ITS ---
BILATERAL DIGITAL SCREENING MAMMOGRAM 3D/2D WITH CAD: 08/21/2021 CLINICAL: Routine screening. Comparison is made to exams dated: 01/31/2015 mammogram, 01/18/2014 mammogram, and 11/29/2012 mammogram - out side. There are scattered fibroglandular elements in both breasts. Current study was also evaluated with a Computer Aided Detection (CAD) system. There are new 1.3 cm grouped heterogeneous calcifications in the left breast at 7 o'clock anterior depth. No other significant masses, calcifications, or other findings are seen in either breast. IMPRESSION: INCOMPLETE: NEEDS ADDITIONAL IMAGING EVALUATION The new 1.3 cm grouped heterogeneous calcifications in the left breast are indeterminate. Diagnostic mammogram for additional views to include mediolateral and spot magnification views is recommended. This exam was interpreted at Station ID: [id number]. NOTE: For mammograms, a report in lay terms will be sent to the patient. Approximately 15% of breast malignancies will not be visualized mammographically. In the management of a palpable breast mass, a negative mammogram must not discourage biopsy of a clinically suspicious lesion. Electronically Signed By: Jameel Ramon M.D. aty/:08/21/2021 11:06:52 letter sent: Additional Imaging Needed ACR BI-RADS Category 0: Incomplete [id number]
== END ==
PROVIDERS: PCP Internal Medicine; Referring Provider Internal Medicine; Visit Provider Internal Medicine
DX: Z12.31 Encounter for screening mammogram for malignant neoplasm of breast (principal)
CPT/HCPCS: 77063; 77067

== ENCOUNTER → 2021-08-21 09:57 | Outpatient (CLI) | payer OTHER, MEDICAID, SELFPAY | PROVIDERS: PCP Internal Medicine; Referring Provider Internal Medicine; Visit Provider Internal Medicine | DX: Z78.0 Asymptomatic menopausal state (principal); Z13.820 Encounter for screening for osteoporosis; M85.851 Other specified disorders of bone density and structure, right thigh; M06.9 Rheumatoid arthritis, unspecified; E07.9 Disorder of thyroid, unspecified | CPT/HCPCS: 77080 ==

== ENCOUNTER 2021-08-29 15:39 | Emergency (ER) | payer OTHER, MEDICAID, SELFPAY ==
[2021-08-29] VITALS (10 sets, daily range): BP systolic 135–150; BP diastolic 63–67; PULSE 75–105; RESP 15–22; TEMP 36.7; O2SAT 79–99; BMI 36.3
--- NOTE | 2021-08-29 15:54 | DI.US.S_ITS ---
PROCEDURE: US PERIPH VENOUS LOW EXTREM RT INDICATIONS: SUSPECTED DVT IN RLE TECHNIQUE: Real-time imaging, as well as color and pulse Doppler interrogation, were performed of the lower extremity deep veins from the inguinal ligament to the popliteal fossa. COMPARISON: None. FINDINGS: There is intraluminal filling defects seen in distal superficial femoral vein and proximal popliteus vein with decreased compressibility. IMPRESSION: Nonocclusive deep venous thrombosis involving distal right superficial femoral vein and proximal right popliteal vein. It is difficult to determine whether these represent chronic or acute thrombosis. Dictated by: James Rasmussen M.D. on 08/29/2021 at 16:47 Approved by: James Rasmussen M.D. on 08/29/2021 at 16:50
--- NOTE | 2021-08-29 18:24 | ED.EXTPRO ---
HPI - Extremity Problem General Chief complaint: Extremity Problem,Nontraumatic Stated complaint: RT LEG BLOOD CLOT SWELLING Time Seen by Provider: 08/29/21 18:13 Source: patient Mode of arrival: Ambulatory History of Present Illness HPI Narrative: 86-year-old female. Does have a history of blood clots in her bilateral lower extremities. Is on anticoagulation. States she takes this medication every day. She has never had a blood clot in her lungs. Has noticed for the past several weeks that she has had increasing swelling in her right lower extremity. After she was diagnosed with blood clots she had swelling in both of her legs but that seemed to improved and now it is returning in her right leg. She denies any chest pain. Has had some increasing shortness of breath over the past couple days. She contacted her primary doctor because of the swelling in her lower extremity and was instructed to come to the emergency department for further evaluation. No trauma. Related Data Home Medications Medication Instructions Recorded Confirmed estradiol (Estrace) 1 gm VAGINAL #0 10/18/17 06/05/19 fesoterodine 4 mg tablet,extended 4 mg PO QDAY #0 10/18/17 06/05/19 release 24 hr (Toviaz) fluoxetine 20 mg capsule 20 mg PO QDAY #0 10/18/17 06/05/19 levothyroxine 125 mcg capsule 125 mcg PO QDAY #0 10/18/17 06/05/19 (Tirosint) montelukast 10 mg tablet 10 mg PO QPM #0 10/18/17 06/05/19 pantoprazole 40 mg tablet,delayed 40 mg PO BID #0 10/18/17 06/05/19 release cyanocobalamin (vitamin B-12) 500 1,000 mcg PO DAILY 03/15/18 06/05/19 mcg tablet (B-12 DOTS) oxybutynin chloride 5 mg tablet 5 mg PO BID 03/15/18 06/05/19 potassium chloride 10 mEq 20 meq PO BID 03/15/18 06/05/19 capsule,extended release furosemide 40 mg tablet 20 mg PO DAILY #0 tab 06/10/18 06/05/19 Previous Rx's Medication Instructions Recorded sulfamethoxazole 800 1 tab PO BID #14 tab 09/15/19 mg-trimethoprim 160 mg tablet (Bactrim DS) ropinirole 0.25 mg tablet (Requip) 0.25 mg PO BEDTIME PRN #7 tab 04/08/20 Allergies Allergy/AdvReac Type Severity Reaction Status Date / Time chlorothiazide Allergy Unknown Verified 08/29/21 20:26 [CHLOROTHIAZIDE] codeine [CODEINE] Allergy Unknown itching Verified 08/29/21 20:26 naproxen [NAPROXEN] AdvReac Unknown SHOOTING Verified 08/29/21 20:26 ELECTRICITY DOWN LEG Review of Systems Constitutional Constitutional: Denies fever(s) Cardiovascular Cardiovascular: Denies chest pain, Reports dyspnea and Reports dyspnea on exertion Respiratory Respiratory: Denies cough, Reports dyspnea and Reports dyspnea on exertion Gastrointestinal Gastrointestinal: Reports system reviewed and no additional complaints, except as documented Musculoskeletal Musculoskeletal: Reports system reviewed and no additional complaints, except as documented and Reports as per HPI Integumentary/Breasts Skin/Breast: Reports system reviewed and no additional complaints, except as documented Neurologic Neurologic: Reports system reviewed and no additional complaints, except as documented Hematologic/Lymphatic On Anticoagulants: Yes Patient History Medical History Dysuria GERD (gastroesophageal reflux disease) History of DVT (deep vein thrombosis) History of migraine Hypothyroid Neuropathy Paroxysmal A-fib Surgical History History of hysterectomy Family History Other No pertinent family history Social History Smoking Status: Never smoker Smoking Status: Never smoker alcohol intake frequency: holidays/special occasions only Substance Use Type: does not use Exam Initial Vital Signs Initial Vital Signs: Vital Signs Temperature 98.0 F 08/29/21 15:43 Pulse Rate 97 H 08/29/21 15:43 Respiratory Rate 22 08/29/21 15:43 Blood Pressure 150/65 H 08/29/21 15:43 Pulse Oximetry 98 08/29/21 15:43 Const General: cooperative, healthy appearing and comfortable Limitations: mental status not altered HENMT Head: normal to inspection and normocephalic Resp Effort & Inspection: normal respiratory effort Auscultation: clear to auscultation bilaterally Cardio Rate: regular rate Rhythm: regular rhythm GI Inspection: normal to inspection Palpation: soft Back/Spine/Pelvis Back: normal to inspection Skin General: no rashes or lesions noted Neuro General: patient alert, patient awake and moves all extremities Extrem General: capillary refill normal and edema (Right lower extremity) Psych Appearance: grossly normal and well kempt Course Orders Ordered: ED Orders 08/29/21 18:26 CT angio chest PE protocol Stat 08/29/21 18:49 Complete Blood Count AUTO DIFF Stat Comprehensive Metabolic Panel Stat NT-proBNP (BNP-Adult 18+) Stat Partial Thromboplastin Time Stat Prothrombin Time INR Stat Troponin & CK Cardiac Panel Stat Discontinued Medications Apixaban (Apixaban 5 Mg Tablet) 5 mg PO NOW ONE Stop: 08/29/21 20:27 Last Admin: 08/29/21 20:30 Dose: 5 mg Documented by: WHIT Vital Signs Vital signs: Vital Signs - 8 hr 08/29/21 19:33 08/29/21 20:00 08/29/21 20:30 Pulse Rate 85 83 80 Pulse Oximetry 94 96 79 L MDM - Extremity (Nontraumatic) Lab Data Result diagrams: 08/29/21 18:49 08/29/21 18:49 Labs: Lab Results 08/29/21 08/29/21 08/29/21 Range/Units 18:49 18:49 18:49 WBC 4.9 (4.5-11.0) X10^3/uL RBC 3.39 L (4.0-5.2) X10^6/uL Hgb 9.3 L (12.0-16.0) g/dL Hct 29.5 L (36-46) % MCV 86.9 (80-100) fL MCH 27.3 (26-34) PG MCHC 31.4 (30-36) % RDW 19.6 H (11.6-14.8) % Plt Count 235 (150-400) X10^3/uL Neut % (Auto) 36.0 L (50-75) % Lymph % (Auto) 43.3 H (25-40) % [place] % (Auto) 13.1 (3-14) % Eos % (Auto) 6.5 H (2-4) % Baso % (Auto) 1.1 (0-2) % Neut # (Auto) 1800 (6822-4979) /uL Lymph # (Auto) 2100 (8095-8626) /uL [place] # (Auto) 600 (0-900) /uL Eos # (Auto) 300 (0-450) /uL Baso # (Auto) 100 (0-100) /uL PT 16.1 H (10.1-12.7) SECONDS INR 1.4 H (0.9-1.3) APTT 37 H (26.4-36.2) SECONDS Sodium 140 (137-145) mmol/L Potassium 4.2 (3.4-5.1) mmol/L Chloride 105 (98-107) mmol/L Carbon Dioxide 35 H (22-32) mmol/L BUN 14 (7-17) mg/dL Creatinine 1.25 H (0.52-1.04) mg/dL Estimated GFR 40.7 L (>60) mL/min BUN/Creatinine Ratio 11.2 (6-22) Glucose 91 (80-110) mg/dL Calcium 8.8 (8.4-10.2) mg/dL Total Bilirubin 0.5 (0.2-1.3) mg/dL AST 31 (14-36) IU/L ALT 23 (<35) IU/L Alkaline Phosphatase 82 (38-126) U/L Total Creatine Kinase 68 (30-135) U/L CK-MB (CK-2) TNP CK-MB (CK-2) Rel Index TNP Troponin I < 0.012 (0.01-0.034) ng/mL NT-Pro-B Natriuret Pep 434 (<450) pg/mL Total Protein 6.2 L (6.3-8.2) g/dL Albumin 3.6 (3.5-5.0) g/dL Globulin 2.6 (1.7-4.1) g/dL Albumin/Globulin Ratio 1.4 (1.0-2.8) Imaging Data US - DVT: Radiologist's Impression: [address] [address] Ultrasound Report Signed Patient: Sun Mejia MR#: [id number] : 1935 Acct:[id number] Age/Sex: 86 / F Date of Service: 08/29/21 Loc: ED Accession Number: [id number] ?? Procedure: US periph venous low extrem rt Ordering Provider: Jeimy Alfonso D.O. PROCEDURE:? US PERIPH VENOUS LOW EXTREM RT ? INDICATIONS:? SUSPECTED DVT IN RLE ? TECHNIQUE:? Real-time imaging, as well as color and pulse Doppler interrogation, were performed of the lower extremity deep veins from the inguinal ligament to the popliteal fossa.? ? COMPARISON:? None. ? FINDINGS:? There is intraluminal filling defects seen in distal superficial femoral vein and proximal popliteus vein with decreased compressibility. ? IMPRESSION:? Nonocclusive deep venous thrombosis involving distal right superficial femoral vein and proximal right popliteal vein.? It is difficult to determine whether these represent chronic or acute thrombosis. ? ? Dictated by: James Rasmussen M.D. on 08/29/2021 at 16:47 ? ? Approved by: James Rasmussen M.D. on 08/29/2021 at 16:50?? CT scan - chest: Radiologist's Impression: [place] [address] CT Scan Report Signed Patient: Sun Mejia MR#: [id number] : 1935 Acct:[id number] Age/Sex: 86 / F Date of Service: 08/29/21 Loc: ED Accession Number: [id number] ?? Procedure: CT angio chest PE protocol Ordering Provider: Shantanu Nails D.O. PROCEDURE:? CT ANGIO CHEST PE PROTOCOL ? INDICATIONS:? Chest pain, shortness of breath, tachycardia ? TECHNIQUE:? After the administration of intravenous contrast, 2 mm thick sections acquired from the pulmonary apices to the posterior costophrenic angles.? 3-dimensional maximum intensity projection (MIP) coronal and sagittal reformats were then acquired through the thorax.? For radiation dose reduction, the following was used:? automated exposure control, adjustment of mA and/or kV according to patient size.? ? COMPARISON:? [facility], CT, CT ANGIO CHEST PE PROTOCOL, 06/07/2019, 19:41. ? FINDINGS:? Image quality:? Excellent.? ? Pulmonary arteries:? Pulmonary arterial opacification is suboptimal.? No definite filling defect within the pulmonary arteries to indicate pulmonary embolus. ? Lungs and pleura:? Lungs are clear.? No pleural effusions or pneumothorax.? Central and peripheral airways are patent.? ? Mediastinum:? Heart size is normal, without pericardial effusion.? Mild calcification of the coronary vasculature.? No mediastinal or hilar adenopathy.? Thoracic aorta is normal in caliber and enhancement.? Esophagus is normal in caliber.? Small hiatal hernia.? ? Bones and chest wall:? No suspicious bony lesions.? Ribs and thoracic spine appear intact throughout.? Thyroid gland is not well seen.? No axillary or supraclavicular adenopathy.? ? ? Abdomen:? Visualized upper abdominal solid organs appear normal in the early arterial phase of enhancement.? ? IMPRESSION:? 1. No acute process. 2. No pulmonary embolus. 3. Coronary artery disease. 4. Small hiatal hernia.? ? ? Dictated by: Agatha Obrien M.D. on 08/29/2021 at 19:58 ? ? Approved by: Agatha Obrien M.D. on 08/29/2021 at 20:00? MDM Narrative Medical decision making narrative: Patient has a known right lower extremity DVT in the ultrasound again demonstrate a DVT. Because of the increasing shortness of breath that she has been having recently is CT scan of her chest was obtained. No signs of pulmonary embolism. Did have a discussion with her regarding the clot in her lower extremity. We discuss the difficulty in determining whether not this is a new blood clot versus an old blood clot. Informed her that is unlikely she has developed a new blood clot given the fact that she is on anticoagulation but we also discussed that it could potentially happen and if it did then she needs to be switched to another form of anticoagulation. We also discussed that the swelling could be a post thrombotic syndrome which is not unexpected with having a DVT. I also considered other etiologies however it is not consistent with cellulitis. Not consistent with compartment syndrome. No trauma. I also have low suspicion for heart failure. Plan will be is to have her continue with her current anticoagulation regiment. We discussed keeping her leg elevated and compression stockings. Will have her contact her primary doctor on Wednesday for a follow-up. She was given return precautions. She expressed understanding and agreement. Discharge Plan Departure Patient Disposition: Home Clinical Impression: Deep vein thrombosis of lower extremity Instructions: DI for Deep Vein Thrombosis Activity Restrictions/Additional Instructions: Continue to take all of your medications as directed and on Wednesday contact your primary doctor for a follow-up. Return to the emergency department for any new or worsening symptoms. Prescriptions: No Action sulfamethoxazole-trimethoprim [Bactrim DS] 800-160 mg tablet 1 tab PO BID Qty: 14 0RF estradiol [Estrace] 0.01 % cream 1 gm Vaginal Qty: 0 0RF fesoterodine [Toviaz] 4 MG tablet extended release 24 hr 4 mg PO QDAY Qty: 0 0RF fluoxetine 20 MG capsule 20 mg PO QDAY Qty: 0 0RF levothyroxine [Tirosint] 125 MCG capsule 125 mcg PO QDAY Qty: 0 0RF montelukast 10 MG tablet 10 mg PO QPM Qty: 0 0RF pantoprazole 40 MG tablet,delayed release (DR/EC) 40 mg PO BID Qty: 0 0RF furosemide 40 mg tablet 20 mg PO DAILY Qty: 0 0RF potassium chloride 10 mEq Capsule, Extended Release 20 meq PO BID 0RF cyanocobalamin (vitamin B-12) [B-12 DOTS] 500 mcg Tablet 1,000 mcg PO DAILY 0RF oxybutynin chloride 5 mg Tablet 5 mg PO BID 0RF ropinirole [Requip] 0.25 mg tablet 0.25 mg PO BEDTIME PRN (Reason: leg spasms) Qty: 7 0RF Rx Instructions: administer 1-3 hours before bedtime Referrals: Jessica Ward MD [Primary Care Provider] -
--- NOTE | 2021-08-29 18:26 | DI.CT.S_ITS ---
PROCEDURE: CT ANGIO CHEST PE PROTOCOL INDICATIONS: Chest pain, shortness of breath, tachycardia TECHNIQUE: After the administration of intravenous contrast, 2 mm thick sections acquired from the pulmonary apices to the posterior costophrenic angles. 3-dimensional maximum intensity projection (MIP) coronal and sagittal reformats were then acquired through the thorax. For radiation dose reduction, the following was used: automated exposure control, adjustment of mA and/or kV according to patient size. COMPARISON: [facility], CT, CT ANGIO CHEST PE PROTOCOL, 06/07/2019, 19:41. FINDINGS: Image quality: Excellent. Pulmonary arteries: Pulmonary arterial opacification is suboptimal. No definite filling defect within the pulmonary arteries to indicate pulmonary embolus. Lungs and pleura: Lungs are clear. No pleural effusions or pneumothorax. Central and peripheral airways are patent. Mediastinum: Heart size is normal, without pericardial effusion. Mild calcification of the coronary vasculature. No mediastinal or hilar adenopathy. Thoracic aorta is normal in caliber and enhancement. Esophagus is normal in caliber. Small hiatal hernia. Bones and chest wall: No suspicious bony lesions. Ribs and thoracic spine appear intact throughout. Thyroid gland is not well seen. No axillary or supraclavicular adenopathy. Abdomen: Visualized upper abdominal solid organs appear normal in the early arterial phase of enhancement. IMPRESSION: 1. No acute process. 2. No pulmonary embolus. 3. Coronary artery disease. 4. Small hiatal hernia. Dictated by: Agatha Obrien M.D. on 08/29/2021 at 19:58 Approved by: Agatha Obrien M.D. on 08/29/2021 at 20:00
[2021-08-29 19:02] LABS: INR 1.4 (0.9-1.3); Prothrombin Time 16.1 SECONDS (10.1-12.7)
[2021-08-29 19:04] LABS: PTT Partial Thromboplastin Tim 37 SECONDS (26.4-36.2)
[2021-08-29 19:06] LABS: Add Manual Diff / Slide Review NO; Basophils Absolute Auto 100 /uL (0-100); Basophils Percent Auto 1.1 % (0-2); Eosinophils Absolute Auto 300 /uL (0-450); Eosinophils Percent Auto 6.5 % (2-4); Hematocrit 29.5 % (36-46); Hemoglobin 9.3 g/dL (12.0-16.0); Lymphocytes Absolute Auto 2100 /uL (1100-4500); Lymphocytes Percent Auto 43.3 % (25-40); Mean Corpuscular HGB Conc 31.4 % (30-36); Mean Corpuscular Hemoglobin 27.3 PG (26-34); Mean Corpuscular Volume 86.9 fL (80-100); Monocytes Absolute Auto 600 /uL (0-900); Monocytes Percent Auto 13.1 % (3-14); Neutrophils Absolute Auto 1800 /uL (1500-7000); Platelet Count 235 X10^3/uL (150-400); Red Blood Cell Count 3.39 X10^6/uL (4.0-5.2); Red Cell Distribution Width 19.6 % (11.6-14.8); White Blood Cell Count 4.9 X10^3/uL (4.5-11.0)
[2021-08-29 19:07] LABS: Alanine Aminotransferase 23 IU/L (<35); Albumin 3.6 g/dL (3.5-5.0); Albumin Globulin Ratio 1.4 (1.0-2.8); Alkaline Phosphatase 82 U/L (38-126); Aspartate Aminotransferase 31 IU/L (14-36); BUN Creatinine Ratio 11.2 (6-22); Bilirubin Total 0.5 mg/dL (0.2-1.3); Blood Urea Nitrogen 14 mg/dL (7-17); Calcium 8.8 mg/dL (8.4-10.2); Carbon Dioxide 35 mmol/L (22-32); Chloride 105 mmol/L (98-107); Creatine Kinase 68 U/L (30-135); Estimated Glomerular Filt Rate 40.7 mL/min (>60); Globulin 2.6 g/dL (1.7-4.1); Glucose 91 mg/dL (80-110); HEMOLYSIS < 15 (0-50); Potassium 4.2 mmol/L (3.4-5.1); Sodium 140 mmol/L (137-145); Total Protein 6.2 g/dL (6.3-8.2)
[2021-08-29 19:16] LABS: NT-proBNP (BNP-Adult 18+) 434 pg/mL (<450)
[2021-08-29 19:21] LABS: Troponin I < 0.012 ng/mL (0.01-0.034)
--- NOTE | 2021-08-29 19:30 | PC.NURSE ---
pt resting quietly on stretcher without any c/o
[2021-08-29] MEDS: APIXABAN 5 MG TABLET PO (20:30)
== END 2021-08-29 21:06 | disposition home or self-care (01) ==
PROVIDERS: Emergency Provider Emergency Medicine; PCP Internal Medicine
DX: I82.411 Acute embolism and thrombosis of right femoral vein (principal); I82.431 Acute embolism and thrombosis of right popliteal vein
CPT/HCPCS: 36415; 71275; 80053; 82550; 83880; 84484; 85025; 85610; 85730; 93971; 99284; Q9967

== ENCOUNTER → 2021-09-15 09:09 | Outpatient (CLI) | payer OTHER, MEDICAID, SELFPAY ==
--- NOTE | 2021-09-15 | DI.MG.S_ITS ---
UNILATERAL LEFT DIGITAL DIAGNOSTIC MAMMOGRAM 3D/2D WITH ADDITIONAL VIEWS: 09/15/2021 CLINICAL: Additional evaluation requested from prior study. Comparison is made to exams dated: 08/21/2021 mammogram - [facility], 01/31/2015 mammogram, and 01/18/2014 mammogram - out side. There are scattered fibroglandular elements in left breast. There is a 1.3 cm group of mainly dystrophic calcifications, some with lucent centers, and some rim calcifications in the left breast at 7 o'clock anterior depth. No other significant masses or calcifications are seen in the breast. IMPRESSION: PROBABLY BENIGN The calcifications in the left breast are probably benign and have a differential diagnosis of fat necrosis, fibrocystic change, degenerating fibroadenoma, or milk of calcium. A follow-up left mammogram in 6 months is recommended to demonstrate stability. Findings and recommendations were conveyed to the patient at time of exam. This exam was interpreted at Station ID: [id number]. NOTE: For mammograms, a report in lay terms will be sent to the patient. Approximately 15% of breast malignancies will not be visualized mammographically. In the management of a palpable breast mass, a negative mammogram must not discourage biopsy of a clinically suspicious lesion. Electronically Signed By: Iram calles/:09/18/2021 08:43:34 letter sent: Followup Recommended ACR BI-RADS Category 3: Probably benign [id number]
== END ==
PROVIDERS: PCP Internal Medicine; Referring Provider Internal Medicine; Visit Provider Internal Medicine
DX: R92.8 Other abnormal and inconclusive findings on diagnostic imaging of breast (principal); R92.1 Mammographic calcification found on diagnostic imaging of breast
CPT/HCPCS: 77065; G0279

== ENCOUNTER → 2021-10-31 11:32 | Outpatient (CLI) | payer OTHER, MEDICAID, SELFPAY ==
[2021-10-31 12:15] LABS: Add Manual Diff / Slide Review NO; Basophils Absolute Auto 0 /uL (0-100); Eosinophils Absolute Auto 200 /uL (0-450); Hematocrit 33.5 % (36-46); Hemoglobin 10.6 g/dL (12.0-16.0); Lymphocytes Absolute Auto 1500 /uL (1100-4500); Lymphocytes Percent Auto 30.9 % (25-40); Mean Corpuscular HGB Conc 31.8 % (30-36); Mean Corpuscular Hemoglobin 28.1 PG (26-34); Mean Corpuscular Volume 88.4 fL (80-100); Monocytes Absolute Auto 600 /uL (0-900); Monocytes Percent Auto 12.5 % (3-14); Neutrophils Absolute Auto 2500 /uL (1500-7000); Neutrophils Percent Auto 51.6 % (50-75); Platelet Count 258 X10^3/uL (150-400); Red Blood Cell Count 3.78 X10^6/uL (4.0-5.2); Red Cell Distribution Width 18.8 % (11.6-14.8); White Blood Cell Count 4.9 X10^3/uL (4.5-11.0)
[2021-10-31 12:36] LABS: Appearance Urine UA CLOUDY; Bilirubin Urine UA NEGATIVE (NEGATIVE); Color Urine UA YELLOW; Glucose Urine UA TRACE g/dL (Negative); Ketones Urine UA NEGATIVE (NEGATIVE); Leukocyte Esterase Urine UA 2+ (NEGATIVE); Nitrite Urine UA POSITIVE (Negative); Occult Blood Urine UA TRACE-INTACT (Negative); Protein Urine UA 2+ (Negative)
[2021-10-31 12:44] LABS: pH Urine UA 7.5 (4.5-8.0)
[2021-10-31 12:45] LABS: Amorphous Sediment Urine 1+; Bacteria Urine Moderate (10-30); Culture Indicated Urine Specimen Cultured; Mucus Urine 1+ (Negative); RBC Urine 0-1/HPF (0-5/HPF); Squamous Epithelial Cell Urine 1-5 /HPF (0-5/HPF); WBC Urine >100/HPF (0-5/HPF)
[2021-10-31 13:15] LABS: Alanine Aminotransferase 20 IU/L (<35); Albumin Globulin Ratio 1.5 (1.0-2.8); Alkaline Phosphatase 86 U/L (38-126); Aspartate Aminotransferase 28 IU/L (14-36); BUN Creatinine Ratio 10.8 (6-22); Bilirubin Total 0.5 mg/dL (0.2-1.3); Blood Urea Nitrogen 16 mg/dL (7-17); Calcium 8.7 mg/dL (8.4-10.2); Carbon Dioxide 30 mmol/L (22-32); Chloride 104 mmol/L (98-107); Estimated Glomerular Filt Rate 34 mL/min (>60); Globulin 2.6 g/dL (1.7-4.1); Glucose 97 mg/dL (80-110); HEMOLYSIS < 15 (0-50); Potassium 4.6 mmol/L (3.4-5.1); Sodium 142 mmol/L (137-145); Total Protein 6.6 g/dL (6.3-8.2)
== END ==
PROVIDERS: PCP Internal Medicine; Referring Provider Internal Medicine; Visit Provider Internal Medicine
DX: M05.79 Rheumatoid arthritis with rheumatoid factor of multiple sites without organ or systems involvement (principal)
CPT/HCPCS: 36415; 80053; 81001; 85025; 87077; 87086; 87186

== ENCOUNTER 2022-01-21 12:43 | Emergency (ER) | payer OTHER, MEDICAID, SELFPAY ==
--- NOTE | 2022-01-21 | DI.US.S_ITS ---
PROCEDURE: US PERIPH VENOUS LOW EXTREM LT INDICATIONS: LEG CRAMPS WITH HISTORY OF BLOOD CLOTS TECHNIQUE: Real-time imaging, as well as color and pulse Doppler interrogation, were performed of the lower extremity deep veins from the inguinal ligament to the popliteal fossa. COMPARISON: None. FINDINGS: The common femoral, femoral and popliteal veins are normally compressible, and free of intraluminal thrombus. Color and pulse Doppler demonstrate normal phasic intraluminal flow. There is normal augmentation response to distal compression maneuver. 3.0 x 2.6 x 1.1 centimeter popliteal cyst. IMPRESSION: No evidence of deep vein thrombosis involving the left lower extremity. Dictated by: Dariana Levin MD, PhD on 01/21/2022 at 14:23 Approved by: Dariana Levin MD, PhD on 01/21/2022 at 14:24
[2022-01-21 12:45] VITALS: BP 144/63; PULSE 88; RESP 18; TEMP 36.4; O2SAT 97; BMI 20.7
--- NOTE | 2022-01-21 14:53 | ED.EXTPRO ---
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 Patient is currently anticoagulated on Eliquis, states that she is on maximum dosing and will be forever for her right lower extremity DVT. She denies any dependent edema, endorses bilateral knee arthritis with swelling, tenderness, and pain at baseline. She says that her restless legs have been a lot worse with frequent muscle spasms preventing her from sleeping at night. On chart review it appears that she has been on Requip in the past but is not currently. Patient states that she usually gets up and walks around to make it improved but that did not help this time. She takes Tylenol for pain at baseline, states this is quite helpful for her. She states that it did not help all of the pain that she has in her left knee at this time though. She denies any recent fever, illness, worsened fatigue, sensation changes or other. She denies any swelling, redness, tenderness to palpation or concern for infection. Patient endorses history of rheumatoid arthritis and osteoarthritis. Related Data Home Medications Medication Instructions Recorded Confirmed estradiol 0.01% (0.1 mg/gram) 1 gm vaginal ##0 10/18/17 06/05/19 vaginal cream (Estrace) fesoterodine 4 mg tablet,extended 4 mg PO QDAY ##0 10/18/17 06/05/19 release 24 hr (Toviaz) fluoxetine 20 mg capsule 20 mg PO QDAY ##0 10/18/17 06/05/19 levothyroxine 125 mcg capsule 125 mcg PO QDAY ##0 10/18/17 06/05/19 (Tirosint) montelukast 10 mg tablet 10 mg PO QPM ##0 10/18/17 06/05/19 pantoprazole 40 mg tablet,delayed 40 mg PO BID ##0 10/18/17 06/05/19 release cyanocobalamin (vitamin B-12) 500 1,000 mcg PO DAILY 03/15/18 06/05/19 mcg tablet (B-12 DOTS) oxybutynin chloride 5 mg tablet 5 mg PO BID 03/15/18 06/05/19 potassium chloride 10 mEq 20 meq PO BID 03/15/18 06/05/19 capsule,extended release furosemide 40 mg tablet 20 mg PO DAILY #0 tabs 06/10/18 06/05/19 Previous Rx's Medication Instructions Recorded sulfamethoxazole 800 1 tab PO BID #14 tabs 09/15/19 mg-trimethoprim 160 mg tablet (Bactrim DS) ropinirole 0.25 mg tablet (Requip) 0.25 mg PO BEDTIME PRN leg spasms 04/08/20 #7 tabs diclofenac sodium 1 % topical gel 4 g topical QID PRN pain (scale 01/21/22 (Arthritis Pain (diclofenac)) score 4-6) #100 grams methocarbamol 500 mg tablet 250 mg PO BEDTIME PRN muscle 01/21/22 cramps #14 tabs Allergies Allergy/AdvReac Type Severity Reaction Status Date / Time chlorothiazide Allergy Unknown Verified 08/29/21 20:26 [CHLOROTHIAZIDE] codeine [CODEINE] Allergy Unknown itching Verified 08/29/21 20:26 naproxen [NAPROXEN] AdvReac Unknown SHOOTING Verified 08/29/21 20:26 ELECTRICITY DOWN LEG Review of Systems <CHANELLE Bragg - Last Filed: 01/21/22 16:49> Review of Systems Narrative: General: denies fever, chills Head/Neck: denies headache, neck pain Eyes: denies visual changes, eye pain Cardio: denies chest pain, palpitations Respiratory: denies shortness of breath, cough GI: denies abdominal pain, nausea, vomiting, or diarrhea : denies dysuria, hematuria or flank pain MSK: denies new joint pain, muscle weakness or swelling, endorses ongoing knee pain bilaterally, new left-sided worsening of knee pain Skin: denies rash, itching or wound Neuro: denies numbness, tingling, dizziness Patient History <CHANELLE Bragg - Last Filed: 01/21/22 16:49> Medical History Dysuria GERD (gastroesophageal reflux disease) History of DVT (deep vein thrombosis) History of migraine Hypothyroid Neuropathy Paroxysmal A-fib Surgical History History of hysterectomy Family History Other No pertinent family history Social History Smoking Status: Never smoker Smoking Status: Never smoker alcohol intake frequency: holidays/special occasions only Substance Use Type: does not use Exam <CHANELLE Bragg - Last Filed: 01/21/22 16:49> Narrative Exam Narrative: Independently reviewed vitals signs and nursing notes. General: cooperative, comfortable, in no acute distress, well groomed Head: atraumatic, symmetrical facial expressions Neck: supple Eyes: equal round and reactive, EOMI, conjunctiva normal Nose: nares patent, no rhinorrhea Mouth/Throat: moist mucus membranes Cardiovascular: regular rate and rhythm, no peripheral edema, warm extremities Respiratory: normal effort, able to speak in complete sentences, no audible wheezing, stridor, or rales. No retractions or tachypnea. GI: abdomen soft, nontender to palpation, nondistended, no masses, no exquisite tenderness with exam, without guarding or rebound. MSK: moves all extremities, neurovascularly intact, no weakness, normal tone, endorses bilateral knee swelling and tenderness with movement, states it is worse in the morning, endorses bilateral lower extremity cramps, states this happens at nighttime. Skin: brisk capillary refill, no rash, no erythema Neuro: normal speech and cognition, A&O x3 Psych: mental status is grossly normal, congruent mood, normal affect, pleasant and cooperative Initial Vital Signs Initial Vital Signs: Vital Signs Temperature 97.6 F 01/21/22 12:45 Pulse Rate 88 01/21/22 12:45 Respiratory Rate 18 01/21/22 12:45 Blood Pressure 144/63 H 01/21/22 12:45 Pulse Oximetry 97 01/21/22 12:45 Oxygen Delivery Method 01/21/22 12:45 <Maximino Combs MD - Last Filed: 01/29/22 03:37> Initial Vital Signs Initial Vital Signs: Vital Signs Temperature 97.6 F 01/21/22 12:45 Pulse Rate 88 01/21/22 12:45 Respiratory Rate 18 01/21/22 12:45 Blood Pressure 144/63 H 01/21/22 12:45 Pulse Oximetry 97 01/21/22 12:45 Oxygen Delivery Method 01/21/22 12:45 Course <CHANELLE Bragg - Last Filed: 01/21/22 16:49> Vital Signs Vital signs: Vital Signs - 8 hr 01/21/22 12:45 Temperature 97.6 F Pulse Rate 88 Respiratory Rate 18 Blood Pressure 144/63 H Pulse Oximetry 97 Oxygen Delivery Method Room Air <Maximino Combs MD - Last Filed: 01/29/22 03:37> Vital Signs Vital signs: Vital Signs - 8 hr 01/21/22 12:45 Temperature 97.6 F Pulse Rate 88 Respiratory Rate 18 Blood Pressure 144/63 H Pulse Oximetry 97 Oxygen Delivery Method Room Air MDM - Extremity (Nontraumatic) <CHANELLE Bragg - Last Filed: 01/21/22 16:49> Imaging Data US - DVT: Radiologist's Impression: PROCEDURE:? US PERIPH VENOUS LOW EXTREM LT ? INDICATIONS:? LEG CRAMPS WITH HISTORY OF BLOOD CLOTS ? TECHNIQUE:? Real-time imaging, as well as color and pulse Doppler interrogation, were performed of the lower extremity deep veins from the inguinal ligament to the popliteal fossa.? ? COMPARISON:? None. ? FINDINGS:? The common femoral, femoral and popliteal veins are normally compressible, and free of intraluminal thrombus.? Color and pulse Doppler demonstrate normal phasic intraluminal flow.? There is normal augmentation response to distal compression maneuver. ? 3.0 x 2.6 x 1.1 centimeter popliteal cyst.? ? IMPRESSION:? No evidence of deep vein thrombosis involving the left lower extremity. ? ? Dictated by: Dariana Levin MD, PhD on 01/21/2022 at 14:23 ? ? Approved by: Dariana Levin MD, PhD on 01/21/2022 at 14:24 ? MDM Narrative Medical decision making narrative: This is an 86-year-old female presents to the emergency department for evaluation of her left lower extremity and rule out DVT. She is chronically anticoagulated on at [facility]. She was sent over from [facility], [place], [facility]. Her ultrasound DVT of her left leg shows no evidence of deep vein thrombosis involving the left lower extremity, she does have a 3 x 2.6 x 1.1 cm popliteal cyst. She endorses worsening cramps in her lower extremities, endorses trying baclofen in the past, chart review shows that she has been on Requip but is no longer. Encouraged patient to try Voltaren gel for her knee pain, gave her prescription the methocarbamol for muscle spasms, encouraged her to take a half dose and only at bedtime to prevent sedation during the day and possible falls. She has a walker at home to ambulate, encouraged her to use this at all times to help prevent fall. Encouraged ice, elevation and treatment of her arthritis. Patient cannot NSAIDs so gave her Tylenol, diclofenac gel and a small dose of methocarbamol. Encouraged her follow-up with Dr. Ward, to explore other restless leg medication options. Patient is appropriate and amenable to discharge home. Vital signs are stable on repeat examination is unremarkable. Patient has been informed of results. Patient has been given strict return to ER precautions for any new or worsening symptoms. Patient understands to follow up closely with outpatient providers as instructed. Patient understands plan and agrees to discharge home. All questions and concerns answered at this time. Discharge Plan Departure Patient Disposition: Home Clinical Impression: Bilateral leg cramps, Anticoagulant long-term use, History of deep vein thrombosis (DVT) of lower extremity Acute knee pain Qualifiers: Laterality: left Qualified Code(s): M25.562 - Pain in left knee Instructions: DI for Nocturnal Leg Cramps Activity Restrictions/Additional Instructions: *You have been diagnosed with a popliteal cyst behind your left knee, arthritis of both knees, and no DVT in your left leg. Please continue your Eliquis at your normal dosing, follow-up with Dr. Ward about your leg cramps which have been persistent for you lately. I have given you a prescription for topical Voltaren gel, this is a topical anti-inflammatory, and Robaxin a muscle relaxer. Please start with a half dose before bed, you may take it with Tylenol, and empty your bladder before going to bed so that you do not need to get up shortly afterwards. It will make you sleepy, please do not do anything other than go to bed after taking it. Keep a walker and phone nearby at all times so that you are safely moving about. If something happens in you will be able to call somebody if you were to fall down. Continue to ice your knees when painful, try topical modalities like Voltaren CBD cream, massage, or walking around. Remember to stay hydrated, follow up with Dr. Ward, and return to the emergency department if you have any worsening of your symptoms. *What to do: *Please continue to take your regular medications as directed. [x ] New medication prescriptions sent to your pharmacy: [[facility]] [ ] New medication written as a paper prescription [ ] No new medications given *Please follow up with your primary care provider in 2-3 days, call for an appointment. Let them know you were seen in the Emergency Department and that we asked that you be seen for follow-up. We will electronically transmit a record of today's note if your PCP is in our system *If you do not have a primary care provider please contact [phone] to establish care with one of the [facility] primary care providers. *Return to Emergency Department if you should have any new, worsening or concerning symptoms, such as [fever greater than 101F, chills, worsening pain, persistent vomiting or other bothersome symptoms] Prescriptions: New diclofenac sodium [Arthritis Pain (diclofenac)] 1 % gel 4 g topical QID PRN (Reason: pain (scale score 4-6)) Qty: 100 0RF Rx Instructions: apply to knee when painful methocarbamol 500 mg tablet 250 mg PO BEDTIME PRN (Reason: muscle cramps) Qty: 14 0RF No Action sulfamethoxazole-trimethoprim [Bactrim DS] 800-160 mg tablet 1 tab PO BID Qty: 14 0RF estradiol [Estrace] 0.01 % cream 1 gm Vaginal Qty: 0 fesoterodine [Toviaz] 4 MG tablet extended release 24 hr 4 mg PO QDAY Qty: 0 fluoxetine 20 MG capsule 20 mg PO QDAY Qty: 0 levothyroxine [Tirosint] 125 MCG capsule 125 mcg PO QDAY Qty: 0 montelukast 10 MG tablet 10 mg PO QPM Qty: 0 pantoprazole 40 MG tablet,delayed release (DR/EC) 40 mg PO BID Qty: 0 furosemide 40 mg tablet 20 mg PO DAILY Qty: 0 potassium chloride 10 mEq Capsule, Extended Release 20 meq PO BID cyanocobalamin (vitamin B-12) [B-12 DOTS] 500 mcg Tablet 1,000 mcg PO DAILY oxybutynin chloride 5 mg Tablet 5 mg PO BID ropinirole [Requip] 0.25 mg tablet 0.25 mg PO BEDTIME PRN (Reason: leg spasms) Qty: 7 0RF Rx Instructions: administer 1-3 hours before bedtime Referrals: Jessica Ward MD [Primary Care Provider] - Visit Report Forms: Patient Portal/API <Maximino Combs MD - Last Filed: 01/29/22 03:37> Cosign ED Attending Cosignature Attestation: I was immediately available in the department for consultation. This documentation has been reviewed and I agree with assessment and plan. Supervised by Maximino Combs MD
== END 2022-01-21 15:36 | disposition home or self-care (01) ==
PROVIDERS: Emergency Provider Nurse Practitioner Critical Care Medicine; PCP Internal Medicine
DX: M25.562 Pain in left knee (principal); R25.2 Cramp and spasm; Z79.01 Long term (current) use of anticoagulants; Z86.718 Personal history of other venous thrombosis and embolism
CPT/HCPCS: 93971; 99281; 99283

== ENCOUNTER 2022-02-14 10:40 | Emergency (ER) | payer OTHER, MEDICAID, SELFPAY ==
[2022-02-14 11:02] VITALS: BP 139/66; PULSE 88; RESP 20; TEMP 37.1; O2SAT 97
--- NOTE | 2022-02-14 11:10 | ED_ITS ---
HPI - Dental/Oral General Chief complaint: Dental/Oral Stated complaint: Bleeding s/p dental work, takes eloquis Time Seen by Provider: 02/14/22 11:09 Source: patient and EMS Mode of arrival: EMS History of Present Illness HPI Narrative: Patient has different chart this is duplicate. Unable to cancel. Related Data Home Medications Medication Instructions Recorded Confirmed estradiol 0.01% (0.1 mg/gram) 1 gm vaginal ##0 10/18/17 06/05/19 vaginal cream (Estrace) fesoterodine 4 mg tablet,extended 4 mg PO QDAY ##0 10/18/17 06/05/19 release 24 hr (Toviaz) fluoxetine 20 mg capsule 20 mg PO QDAY ##0 10/18/17 06/05/19 levothyroxine 125 mcg capsule 125 mcg PO QDAY ##0 10/18/17 06/05/19 (Tirosint) montelukast 10 mg tablet 10 mg PO QPM ##0 10/18/17 06/05/19 pantoprazole 40 mg tablet,delayed 40 mg PO BID ##0 10/18/17 06/05/19 release cyanocobalamin (vitamin B-12) 500 1,000 mcg PO DAILY 03/15/18 06/05/19 mcg tablet (B-12 DOTS) oxybutynin chloride 5 mg tablet 5 mg PO BID 03/15/18 06/05/19 potassium chloride 10 mEq 20 meq PO BID 03/15/18 06/05/19 capsule,extended release furosemide 40 mg tablet 20 mg PO DAILY #0 tabs 06/10/18 06/05/19 Previous Rx's Medication Instructions Recorded sulfamethoxazole 800 1 tab PO BID #14 tabs 09/15/19 mg-trimethoprim 160 mg tablet (Bactrim DS) ropinirole 0.25 mg tablet (Requip) 0.25 mg PO BEDTIME PRN leg spasms 04/08/20 #7 tabs diclofenac sodium 1 % topical gel 4 g topical QID PRN pain (scale 01/21/22 (Arthritis Pain (diclofenac)) score 4-6) #100 grams methocarbamol 500 mg tablet 250 mg PO BEDTIME PRN muscle 01/21/22 cramps #14 tabs oxycodone-acetaminophen 5 mg-325 1 tab PO Q6H PRN pain #10 tabs 02/14/22 mg tablet (Percocet) Allergies Allergy/AdvReac Type Severity Reaction Status Date / Time chlorothiazide Allergy Unknown Verified 08/29/21 20:26 [CHLOROTHIAZIDE] codeine [CODEINE] Allergy Unknown itching Verified 08/29/21 20:26 naproxen [NAPROXEN] AdvReac Unknown SHOOTING Verified 08/29/21 20:26 ELECTRICITY DOWN LEG Review of Systems Review of Systems ROS Unobtainable: All systems reviewed & are unremarkable except as noted in HPI and below Patient History Medical History Dysuria GERD (gastroesophageal reflux disease) History of DVT (deep vein thrombosis) History of migraine Hypothyroid Neuropathy Paroxysmal A-fib Surgical History History of hysterectomy Family History Other No pertinent family history Social History Smoking Status: Never smoker Smoking Status: Never smoker alcohol intake frequency: holidays/special occasions only Substance Use Type: does not use Exam Initial Vital Signs Initial Vital Signs: Vital Signs Temperature 98.7 F 02/14/22 11:02 Pulse Rate 88 02/14/22 11:02 Respiratory Rate 20 02/14/22 11:02 Blood Pressure 139/66 02/14/22 11:02 Pulse Oximetry 97 02/14/22 11:02 Oxygen Delivery Method 02/14/22 11:02 Course Orders Ordered: Discontinued Medications Tranexamic Acid (Tranexamic Acid 1,000 Mg Vial) 1,000 mg TOP NOW ONE Stop: 02/14/22 11:45 Last Admin: 02/14/22 12:57 Dose: 1,000 mg Documented By: BRENNON Vital Signs Vital signs: Vital Signs - 8 hr 02/14/22 14:20 Pulse Rate 83 Respiratory Rate 18 Blood Pressure 153/73 H Pulse Oximetry 97 Oxygen Delivery Method Room Air Discharge Plan Departure Patient Disposition: Home Clinical Impression: Surgical wound hemorrhage after dental procedure Instructions: DI for Dental Pain Activity Restrictions/Additional Instructions: *You have been diagnosed with post dental procedure bleeding. We were able to remove the clot and close the site that was bleeding with 2 sutures. The sutures will dissolve on their own. As we discussed, please continue with clear fluids only for the evening and gradually advance her diet as tolerated. I will give you a short amount pain medications to help you sleep. If possible, follow-up with your dentist later this week to let them know of your progress in healing. *What to do: *Please continue to take your regular medications as directed. [ ] New medication prescriptions sent to your pharmacy: [ ] [ x] New medication written as a paper prescription [ ] No new medications given *Please follow up with your primary care provider in 2-3 days, call for an appointment. Let them know you were seen in the Emergency Department and that we ask that you be seen in follow up. We will electronically transmit a record of today's note if your PCP is in our system *If you do not have a primary care provider please contact the [facility] Resource line at [phone]. They will ask some questions about your medical history and help get you set up with a doctor in the community. ? Return to ER if you should have any new, worsening or concerning symptoms, such as worsening pain, severe headache, confusion, chest pain, difficulty breathing, fever greater than 101 F, shaking chills, persistent vomiting to the point that you cannot drink fluids, or other new or worsening symptoms. Prescriptions: New oxycodone-acetaminophen [Percocet] 5-325 mg tablet 1 tab PO Q6H PRN (Reason: pain) Qty: 10 0RF No Action sulfamethoxazole-trimethoprim [Bactrim DS] 800-160 mg tablet 1 tab PO BID Qty: 14 0RF estradiol [Estrace] 0.01 % cream 1 gm Vaginal Qty: 0 fesoterodine [Toviaz] 4 MG tablet extended release 24 hr 4 mg PO QDAY Qty: 0 fluoxetine 20 MG capsule 20 mg PO QDAY Qty: 0 levothyroxine [Tirosint] 125 MCG capsule 125 mcg PO QDAY Qty: 0 montelukast 10 MG tablet 10 mg PO QPM Qty: 0 pantoprazole 40 MG tablet,delayed release (DR/EC) 40 mg PO BID Qty: 0 furosemide 40 mg tablet 20 mg PO DAILY Qty: 0 potassium chloride 10 mEq Capsule, Extended Release 20 meq PO BID cyanocobalamin (vitamin B-12) [B-12 DOTS] 500 mcg Tablet 1,000 mcg PO DAILY oxybutynin chloride 5 mg Tablet 5 mg PO BID ropinirole [Requip] 0.25 mg tablet 0.25 mg PO BEDTIME PRN (Reason: leg spasms) Qty: 7 0RF Rx Instructions: administer 1-3 hours before bedtime diclofenac sodium [Arthritis Pain (diclofenac)] 1 % gel 4 g topical QID PRN (Reason: pain (scale score 4-6)) Qty: 100 0RF Rx Instructions: apply to knee when painful methocarbamol 500 mg tablet 250 mg PO BEDTIME PRN (Reason: muscle cramps) Qty: 14 0RF Referrals: Jessica Ward MD [Primary Care Provider] - Visit Report Forms: Patient Portal/API
[2022-02-14] MEDS: TRANEXAMIC ACID 1,000 MG VIAL 1000 MG TOP (12:57)
[2022-02-14] MEDS: LIDOCAINE 1% W/EPI 30 ML (12:57)
--- NOTE | 2022-02-14 13:20 | ED_ITS ---
HPI - Dental/Oral <CHANELLE Alvarado - Last Filed: 02/14/22 13:43> General Chief complaint: Dental/Oral Stated complaint: Bleeding s/p dental work, takes eloquis Time Seen by Provider: 02/14/22 11:09 Source: patient and EMS Mode of arrival: EMS History of Present Illness HPI Narrative: 86-year-old female, never smoker, who presents emergency department with bleeding from midline mandible secondary to tooth extraction x7 at [facility] earlier this week. Patient states that it has been persistently bleeding and is concerned because she is on blood thinners, Eliquis. She was directed to continue using all of her medications due to history of frequent clots. Patient arrived via EMS because she could not drive due to the amount of bleeding. Patient's airway is patent and she is not having any difficulty breathing. Related Data Home Medications Medication Instructions Recorded Confirmed estradiol 0.01% (0.1 mg/gram) 1 gm vaginal ##0 10/18/17 06/05/19 vaginal cream (Estrace) fesoterodine 4 mg tablet,extended 4 mg PO QDAY ##0 10/18/17 06/05/19 release 24 hr (Toviaz) fluoxetine 20 mg capsule 20 mg PO QDAY ##0 10/18/17 06/05/19 levothyroxine 125 mcg capsule 125 mcg PO QDAY ##0 10/18/17 06/05/19 (Tirosint) montelukast 10 mg tablet 10 mg PO QPM ##0 10/18/17 06/05/19 pantoprazole 40 mg tablet,delayed 40 mg PO BID ##0 10/18/17 06/05/19 release cyanocobalamin (vitamin B-12) 500 1,000 mcg PO DAILY 03/15/18 06/05/19 mcg tablet (B-12 DOTS) oxybutynin chloride 5 mg tablet 5 mg PO BID 03/15/18 06/05/19 potassium chloride 10 mEq 20 meq PO BID 03/15/18 06/05/19 capsule,extended release furosemide 40 mg tablet 20 mg PO DAILY #0 tabs 06/10/18 06/05/19 Previous Rx's Medication Instructions Recorded sulfamethoxazole 800 1 tab PO BID #14 tabs 09/15/19 mg-trimethoprim 160 mg tablet (Bactrim DS) ropinirole 0.25 mg tablet (Requip) 0.25 mg PO BEDTIME PRN leg spasms 04/08/20 #7 tabs diclofenac sodium 1 % topical gel 4 g topical QID PRN pain (scale 01/21/22 (Arthritis Pain (diclofenac)) score 4-6) #100 grams methocarbamol 500 mg tablet 250 mg PO BEDTIME PRN muscle 01/21/22 cramps #14 tabs oxycodone-acetaminophen 5 mg-325 1 tab PO Q6H PRN pain #10 tabs 02/14/22 mg tablet (Percocet) Allergies Allergy/AdvReac Type Severity Reaction Status Date / Time chlorothiazide Allergy Unknown Verified 08/29/21 20:26 [CHLOROTHIAZIDE] codeine [CODEINE] Allergy Unknown itching Verified 08/29/21 20:26 naproxen [NAPROXEN] AdvReac Unknown SHOOTING Verified 08/29/21 20:26 ELECTRICITY DOWN LEG Review of Systems <CHANELLE Alvarado - Last Filed: 02/14/22 13:43> Review of Systems Narrative: Narrative: GENERAL: Denies chills, fatigue, fever, sweats. See HPI HEENT: Denies sinus pain, ear pain, sore throat, difficulty swallowing, dizziness. RESPIRATORY: Denies dyspnea, cough, wheezing, sputum. CARDIOVASCULAR: Denies chest pain, palpitations, edema. GASTROINTESTINAL: Denies nausea, vomiting, abdominal pain, diarrhea, constipation. : Denies dysuria, frequency, incontinence, hematuria, urinary retention, flank pain. MSK: Denies weakness, joint pain, or bony pain. SKIN: Denies rash, skin lesions, or pruritis. NEUROLOGIC: Denies weakness, dizziness, headache, numbness, confusion. PSYCHIATRIC: No concerning psychosocial issues. Patient History <CHANELLE Alvarado - Last Filed: 02/14/22 13:43> Medical History (Updated 02/14/22 @ 13:41 by CHANELLE Alvarado) Dysuria GERD (gastroesophageal reflux disease) History of DVT (deep vein thrombosis) History of migraine Hypothyroid Neuropathy Paroxysmal A-fib Surgical History History of hysterectomy Family History Other No pertinent family history Social History Smoking Status: Never smoker Smoking Status: Never smoker alcohol intake frequency: holidays/special occasions only Substance Use Type: does not use Exam <CHANELLE Alvarado - Last Filed: 02/14/22 13:43> Narrative Exam Narrative: Exam Narrative: GENERAL: This is a well-nourished, well-developed patient, in no acute distress HEAD: Atraumatic. Normocephalic. EYES: Pupils equal round and reactive. Extraocular motions intact. No scleral icterus, injection or drainage. ENT: Nose without bleeding, purulent drainage. Active bleeding from midline mandible. Large clot on midline gumline. Visible sutures in place. Airway patent. NECK: Trachea midline. No JVD or lymphadenopathy. Nontender. CARDIOVASCULAR: Regular rate and rhythm without murmurs, peripheral pulses intact, cap refill <2 sec. RESPIRATORY: Breath sounds equal and clear bilaterally. No wheezes, rales, or rhonchi. No cough. No increased respiratory effort. No accessory muscle use. GASTROINTESTINAL: Abdomen soft, non-tender, nondistended without guarding or rebound. No suprapubic pain. MSK: Moves all extremities. Normal range of motion, no clubbing or edema. Neurovascularly intact. NEURO: A&O x 3. SKIN: Warm, dry, no rashes or lesions noted. Initial Vital Signs Initial Vital Signs: Vital Signs Temperature 98.7 F 02/14/22 11:02 Pulse Rate 88 02/14/22 11:02 Respiratory Rate 20 02/14/22 11:02 Blood Pressure 139/66 02/14/22 11:02 Pulse Oximetry 97 02/14/22 11:02 Oxygen Delivery Method 02/14/22 11:02 Reviewed <Aimee Lovell DO - Last Filed: 02/19/22 22:05> Initial Vital Signs Initial Vital Signs: Vital Signs Temperature 98.7 F 02/14/22 11:02 Pulse Rate 88 02/14/22 11:02 Respiratory Rate 20 02/14/22 11:02 Blood Pressure 139/66 02/14/22 11:02 Pulse Oximetry 97 02/14/22 11:02 Oxygen Delivery Method 02/14/22 11:02 Procedures <CHANELLE Alvarado - Last Filed: 02/14/22 13:43> Laceration Repair Laceration 1: Site: other (lower gumline) Side (If applicable): left Size (cm): 0.5 Description: flap Depth: simple, single layer Local Anesthetic: lidocaine 1% and with epi Amount of anesthesia used (mL): 3 Skin layer closed with: vicryl Skin layer suture size: 4-0 Number of sutures: 2 Technique: simple, interrupted Course <CHANELLE Alvarado - Last Filed: 02/14/22 13:43> Orders Ordered: Discontinued Medications Tranexamic Acid (Tranexamic Acid 1,000 Mg Vial) 1,000 mg TOP NOW ONE Stop: 02/14/22 11:45 Last Admin: 02/14/22 12:57 Dose: 1,000 mg Documented By: BRENNON Vital Signs Vital signs: Vital Signs - 8 hr 02/14/22 11:02 Temperature 98.7 F Pulse Rate 88 Respiratory Rate 20 Blood Pressure 139/66 Pulse Oximetry 97 Oxygen Delivery Method Room Air <Aimee Lovell DO - Last Filed: 02/19/22 22:05> Orders Ordered: Discontinued Medications Tranexamic Acid (Tranexamic Acid 1,000 Mg Vial) 1,000 mg TOP NOW ONE Stop: 02/14/22 11:45 Last Admin: 02/14/22 12:57 Dose: 1,000 mg Documented By: BRENNON Vital Signs Vital signs: Vital Signs - 8 hr 02/14/22 11:02 Temperature 98.7 F Pulse Rate 88 Respiratory Rate 20 Blood Pressure 139/66 Pulse Oximetry 97 Oxygen Delivery Method Room Air MDM - Dental/Oral <CHANELLE Alvarado - Last Filed: 02/14/22 13:43> Differential Diagnosis Differential diagnosis: Likely other (Post tooth extraction bleeding) [facility] Narrative Medical decision making narrative: 86-year-old female with bleeding from midline mandible after tooth extraction x7 earlier this week. Site was anesthetized, cleaned, dislodgement of clot, and closed with 2 sutures. Patient tolerated procedure well. Patient observed for 1 hour to ensure bleeding did not restart. Will provide a short course pain medications to help her sleep. Discussed plan of care and return precautions with patient and her son, who were agreeable with course of action. Discharge Plan Departure Patient Disposition: Home Clinical Impression: Surgical wound hemorrhage after dental procedure Instructions: DI for Dental Pain Activity Restrictions/Additional Instructions: *You have been diagnosed with post dental procedure bleeding. We were able to remove the clot and close the site that was bleeding with 2 sutures. The sutures will dissolve on their own. As we discussed, please continue with clear fluids only for the evening and gradually advance her diet as tolerated. I will give you a short amount pain medications to help you sleep. If possible, follow-up with your dentist later this week to let them know of your progress in healing. *What to do: *Please continue to take your regular medications as directed. [ ] New medication prescriptions sent to your pharmacy: [ ] [ x] New medication written as a paper prescription [ ] No new medications given *Please follow up with your primary care provider in 2-3 days, call for an appointment. Let them know you were seen in the Emergency Department and that we ask that you be seen in follow up. We will electronically transmit a record of today's note if your PCP is in our system *If you do not have a primary care provider please contact the [facility] Resource line at [phone]. They will ask some questions about your medical history and help get you set up with a doctor in the community. ? Return to ER if you should have any new, worsening or concerning symptoms, such as worsening pain, severe headache, confusion, chest pain, difficulty breathing, fever greater than 101 F, shaking chills, persistent vomiting to the point that you cannot drink fluids, or other new or worsening symptoms. Prescriptions: New oxycodone-acetaminophen [Percocet] 5-325 mg tablet 1 tab PO Q6H PRN (Reason: pain) Qty: 10 0RF No Action sulfamethoxazole-trimethoprim [Bactrim DS] 800-160 mg tablet 1 tab PO BID Qty: 14 0RF estradiol [Estrace] 0.01 % cream 1 gm Vaginal Qty: 0 fesoterodine [Toviaz] 4 MG tablet extended release 24 hr 4 mg PO QDAY Qty: 0 fluoxetine 20 MG capsule 20 mg PO QDAY Qty: 0 levothyroxine [Tirosint] 125 MCG capsule 125 mcg PO QDAY Qty: 0 montelukast 10 MG tablet 10 mg PO QPM Qty: 0 pantoprazole 40 MG tablet,delayed release (DR/EC) 40 mg PO BID Qty: 0 furosemide 40 mg tablet 20 mg PO DAILY Qty: 0 potassium chloride 10 mEq Capsule, Extended Release 20 meq PO BID cyanocobalamin (vitamin B-12) [B-12 DOTS] 500 mcg Tablet 1,000 mcg PO DAILY oxybutynin chloride 5 mg Tablet 5 mg PO BID ropinirole [Requip] 0.25 mg tablet 0.25 mg PO BEDTIME PRN (Reason: leg spasms) Qty: 7 0RF Rx Instructions: administer 1-3 hours before bedtime diclofenac sodium [Arthritis Pain (diclofenac)] 1 % gel 4 g topical QID PRN (Reason: pain (scale score 4-6)) Qty: 100 0RF Rx Instructions: apply to knee when painful methocarbamol 500 mg tablet 250 mg PO BEDTIME PRN (Reason: muscle cramps) Qty: 14 0RF Referrals: Jessica Ward MD [Primary Care Provider] - Visit Report Forms: Patient Portal/API <Aimee Lovell DO - Last Filed: 02/19/22 22:05> Cosign ED Attending Cosignature Attestation: Patient was seen by myself as well in the department. HPI and physical exam were obtained by myself as well. Patient has a large clot on her lower frontal teeth which appears to be likely source. She is not actively bleeding at the moment but there appears to be a suture on the mid middle that has either broken or fallen out. Suture was placed by mid-level pain. Patient's bleeding was controlled and patient was able to be discharged home.
--- NOTE | 2022-02-14 13:52 | ED_ITS ---
HPI - Dental/Oral <CHANELLE Alvarado - Last Filed: 02/14/22 13:53> General Chief complaint: Dental/Oral Stated complaint: Bleeding s/p dental work, takes eloquis Time Seen by Provider: 02/14/22 11:09 Source: patient and EMS Mode of arrival: EMS Related Data Home Medications Medication Instructions Recorded Confirmed estradiol 0.01% (0.1 mg/gram) 1 gm vaginal ##0 10/18/17 06/05/19 vaginal cream (Estrace) fesoterodine 4 mg tablet,extended 4 mg PO QDAY ##0 10/18/17 06/05/19 release 24 hr (Toviaz) fluoxetine 20 mg capsule 20 mg PO QDAY ##0 10/18/17 06/05/19 levothyroxine 125 mcg capsule 125 mcg PO QDAY ##0 10/18/17 06/05/19 (Tirosint) montelukast 10 mg tablet 10 mg PO QPM ##0 10/18/17 06/05/19 pantoprazole 40 mg tablet,delayed 40 mg PO BID ##0 10/18/17 06/05/19 release cyanocobalamin (vitamin B-12) 500 1,000 mcg PO DAILY 03/15/18 06/05/19 mcg tablet (B-12 DOTS) oxybutynin chloride 5 mg tablet 5 mg PO BID 03/15/18 06/05/19 potassium chloride 10 mEq 20 meq PO BID 03/15/18 06/05/19 capsule,extended release furosemide 40 mg tablet 20 mg PO DAILY #0 tabs 06/10/18 06/05/19 Previous Rx's Medication Instructions Recorded sulfamethoxazole 800 1 tab PO BID #14 tabs 09/15/19 mg-trimethoprim 160 mg tablet (Bactrim DS) ropinirole 0.25 mg tablet (Requip) 0.25 mg PO BEDTIME PRN leg spasms 04/08/20 #7 tabs diclofenac sodium 1 % topical gel 4 g topical QID PRN pain (scale 01/21/22 (Arthritis Pain (diclofenac)) score 4-6) #100 grams methocarbamol 500 mg tablet 250 mg PO BEDTIME PRN muscle 01/21/22 cramps #14 tabs oxycodone-acetaminophen 5 mg-325 1 tab PO Q6H PRN pain #10 tabs 02/14/22 mg tablet (Percocet) Allergies Allergy/AdvReac Type Severity Reaction Status Date / Time chlorothiazide Allergy Unknown Verified 08/29/21 20:26 [CHLOROTHIAZIDE] codeine [CODEINE] Allergy Unknown itching Verified 08/29/21 20:26 naproxen [NAPROXEN] AdvReac Unknown SHOOTING Verified 08/29/21 20:26 ELECTRICITY DOWN LEG <Aimee Lovell DO - Last Filed: 02/27/22 07:45> History of Present Illness HPI Narrative: This is duplicate chart. Unable to cancel. Patient History <CHANELLE Alvarado - Last Filed: 02/14/22 13:53> Medical History Dysuria GERD (gastroesophageal reflux disease) History of DVT (deep vein thrombosis) History of migraine Hypothyroid Neuropathy Paroxysmal A-fib Surgical History History of hysterectomy Family History Other No pertinent family history Social History Smoking Status: Never smoker Smoking Status: Never smoker alcohol intake frequency: holidays/special occasions only Substance Use Type: does not use Exam <CHANELLE Alvarado - Last Filed: 02/14/22 13:53> Initial Vital Signs Initial Vital Signs: Vital Signs Temperature 98.7 F 02/14/22 11:02 Pulse Rate 88 02/14/22 11:02 Respiratory Rate 20 02/14/22 11:02 Blood Pressure 139/66 02/14/22 11:02 Pulse Oximetry 97 02/14/22 11:02 Oxygen Delivery Method 02/14/22 11:02 <Aimee Lovell DO - Last Filed: 02/27/22 07:45> Initial Vital Signs Initial Vital Signs: Vital Signs Temperature 98.7 F 02/14/22 11:02 Pulse Rate 88 02/14/22 11:02 Respiratory Rate 20 02/14/22 11:02 Blood Pressure 139/66 02/14/22 11:02 Pulse Oximetry 97 02/14/22 11:02 Oxygen Delivery Method 02/14/22 11:02 Course <CHANELLE Alvarado - Last Filed: 02/14/22 13:53> Orders Ordered: Discontinued Medications Tranexamic Acid (Tranexamic Acid 1,000 Mg Vial) 1,000 mg TOP NOW ONE Stop: 02/14/22 11:45 Last Admin: 02/14/22 12:57 Dose: 1,000 mg Documented By: Vital Signs Vital signs: Vital Signs - 8 hr 02/14/22 11:02 Temperature 98.7 F Pulse Rate 88 Respiratory Rate 20 Blood Pressure 139/66 Pulse Oximetry 97 Oxygen Delivery Method Room Air <Aimee Lovell DO - Last Filed: 02/27/22 07:45> Orders Ordered: Discontinued Medications Tranexamic Acid (Tranexamic Acid 1,000 Mg Vial) 1,000 mg TOP NOW ONE Stop: 02/14/22 11:45 Last Admin: 02/14/22 12:57 Dose: 1,000 mg Documented By: Vital Signs Vital signs: Vital Signs - 8 hr 02/14/22 11:02 Temperature 98.7 F Pulse Rate 88 Respiratory Rate 20 Blood Pressure 139/66 Pulse Oximetry 97 Oxygen Delivery Method Room Air Discharge Plan Departure Patient Disposition: Home Clinical Impression: Surgical wound hemorrhage after dental procedure Instructions: DI for Dental Pain Activity Restrictions/Additional Instructions: *You have been diagnosed with post dental procedure bleeding. We were able to remove the clot and close the site that was bleeding with 2 sutures. The sutures will dissolve on their own. As we discussed, please continue with clear fluids only for the evening and gradually advance her diet as tolerated. I will give you a short amount pain medications to help you sleep. If possible, follow-up with your dentist later this week to let them know of your progress in healing. *What to do: *Please continue to take your regular medications as directed. [ ] New medication prescriptions sent to your pharmacy: [ ] [ x] New medication written as a paper prescription [ ] No new medications given *Please follow up with your primary care provider in 2-3 days, call for an appointment. Let them know you were seen in the Emergency Department and that we ask that you be seen in follow up. We will electronically transmit a record of today's note if your PCP is in our system *If you do not have a primary care provider please contact the [facility] Resource line at [phone]. They will ask some questions about your medical history and help get you set up with a doctor in the community. ? Return to ER if you should have any new, worsening or concerning symptoms, such as worsening pain, severe headache, confusion, chest pain, difficulty breathing, fever greater than 101 F, shaking chills, persistent vomiting to the point that you cannot drink fluids, or other new or worsening symptoms. Prescriptions: New oxycodone-acetaminophen [Percocet] 5-325 mg tablet 1 tab PO Q6H PRN (Reason: pain) Qty: 10 0RF No Action sulfamethoxazole-trimethoprim [Bactrim DS] 800-160 mg tablet 1 tab PO BID Qty: 14 0RF estradiol [Estrace] 0.01 % cream 1 gm Vaginal Qty: 0 fesoterodine [Toviaz] 4 MG tablet extended release 24 hr 4 mg PO QDAY Qty: 0 fluoxetine 20 MG capsule 20 mg PO QDAY Qty: 0 levothyroxine [Tirosint] 125 MCG capsule 125 mcg PO QDAY Qty: 0 montelukast 10 MG tablet 10 mg PO QPM Qty: 0 pantoprazole 40 MG tablet,delayed release (DR/EC) 40 mg PO BID Qty: 0 furosemide 40 mg tablet 20 mg PO DAILY Qty: 0 potassium chloride 10 mEq Capsule, Extended Release 20 meq PO BID cyanocobalamin (vitamin B-12) [B-12 DOTS] 500 mcg Tablet 1,000 mcg PO DAILY oxybutynin chloride 5 mg Tablet 5 mg PO BID ropinirole [Requip] 0.25 mg tablet 0.25 mg PO BEDTIME PRN (Reason: leg spasms) Qty: 7 0RF Rx Instructions: administer 1-3 hours before bedtime diclofenac sodium [Arthritis Pain (diclofenac)] 1 % gel 4 g topical QID PRN (Reason: pain (scale score 4-6)) Qty: 100 0RF Rx Instructions: apply to knee when painful methocarbamol 500 mg tablet 250 mg PO BEDTIME PRN (Reason: muscle cramps) Qty: 14 0RF Referrals: Jessica Ward MD [Primary Care Provider] - Visit Report Forms: Patient Portal/API
[2022-02-14 14:20] VITALS: BP 153/73; PULSE 83; RESP 18; O2SAT 97
== END 2022-02-14 14:21 | disposition home or self-care (01) ==
PROVIDERS: Emergency Provider Registered Nurse; PCP Internal Medicine
DX: K91.840 Postprocedural hemorrhage of a digestive system organ or structure following a digestive system procedure (principal); Z79.01 Long term (current) use of anticoagulants
CPT/HCPCS: 99283

== ENCOUNTER → 2022-02-24 12:05 | Outpatient (CLI) | payer OTHER, MEDICAID, SELFPAY ==
--- NOTE | 2022-02-24 | DI.RAD.S_ITS ---
PROCEDURE: XR CHEST 2V INDICATIONS: Cough TECHNIQUE: 2 views of the chest were acquired. COMPARISON: [facility], CR, XR CHEST 1V, 04/08/2020, 14:25. FINDINGS: Surgical changes and devices: None. Lungs and pleura: Mild bilateral interstitial prominence. Bibasilar scars or atelectasis. No focal consolidation. No pleural effusions or pneumothorax. Mediastinum: Mediastinal contours are normal. Heart size is normal. Bones and chest wall: No suspicious bony abnormalities. Soft tissues appear unremarkable. IMPRESSION: 1. No acute cardiopulmonary disease. 2. Bibasilar scars or atelectasis. Dictated by: Jyothi Mercado M.D. on 02/24/2022 at 15:26 Approved by: Jyothi Mercado M.D. on 02/24/2022 at 15:30
== END ==
PROVIDERS: PCP Internal Medicine; Referring Provider Physician Assistant
DX: R05.9 Cough, unspecified (principal)
CPT/HCPCS: 71046

== ENCOUNTER 2022-02-24 20:30 | Emergency (ER) | payer OTHER, MEDICAID, SELFPAY ==
[2022-02-24 21:02] VITALS: BP 171/83; PULSE 105; RESP 20; TEMP 36.6; O2SAT 98
[2022-02-24 23:33] VITALS: BP 145/63; PULSE 101; TEMP 36.6; O2SAT 97
--- NOTE | 2022-02-25 00:51 | ED.GENADULT ---
HPI - General Adult General Chief complaint: Upper Respiratory Symptoms Stated complaint: sent by MD for elevated D Dimer Time Seen by Provider: 02/25/22 00:16 Source: patient Mode of arrival: Ambulatory History of Present Illness HPI narrative: Patient drove herself here. Patient states her family doctor called her 8:00 pm. tonight because the blood work they did in the office today was abnormal. There was elevated D-dimer. Patient is on Eliquis for atrial fibrillation. Patient states she was at the office today for a follow-up visit from visiting here recently. When she was walking in the parking lot into the office she had asthma attack. She states that is all it was. The office decided to do a D-dimer because she had noted to them she has been short of breath before the asthma attack. Denies any chest pain. No cough cold or congestion. No leg swelling. She does take Robaxin at night which she needs now for leg cramps. Patient states the office did not give her breathing treatment. She did have her rescue inhaler but she did not take it at the office. Related Data Home Medications Medication Instructions Recorded Confirmed estradiol 0.01% (0.1 mg/gram) 1 gm vaginal ##0 10/18/17 06/05/19 vaginal cream (Estrace) fesoterodine 4 mg tablet,extended 4 mg PO QDAY ##0 10/18/17 06/05/19 release 24 hr (Toviaz) fluoxetine 20 mg capsule 20 mg PO QDAY ##0 10/18/17 06/05/19 levothyroxine 125 mcg capsule 125 mcg PO QDAY ##0 10/18/17 06/05/19 (Tirosint) montelukast 10 mg tablet 10 mg PO QPM ##0 10/18/17 06/05/19 pantoprazole 40 mg tablet,delayed 40 mg PO BID ##0 10/18/17 06/05/19 release cyanocobalamin (vitamin B-12) 500 1,000 mcg PO DAILY 03/15/18 06/05/19 mcg tablet (B-12 DOTS) oxybutynin chloride 5 mg tablet 5 mg PO BID 03/15/18 06/05/19 potassium chloride 10 mEq 20 meq PO BID 03/15/18 06/05/19 capsule,extended release furosemide 40 mg tablet 20 mg PO DAILY #0 tabs 06/10/18 06/05/19 Previous Rx's Medication Instructions Recorded sulfamethoxazole 800 1 tab PO BID #14 tabs 09/15/19 mg-trimethoprim 160 mg tablet (Bactrim DS) ropinirole 0.25 mg tablet (Requip) 0.25 mg PO BEDTIME PRN leg spasms 04/08/20 #7 tabs diclofenac sodium 1 % topical gel 4 g topical QID PRN pain (scale 01/21/22 (Arthritis Pain (diclofenac)) score 4-6) #100 grams methocarbamol 500 mg tablet 250 mg PO BEDTIME PRN muscle 01/21/22 cramps #14 tabs oxycodone-acetaminophen 5 mg-325 1 tab PO Q6H PRN pain #10 tabs 02/14/22 mg tablet (Percocet) Allergies Allergy/AdvReac Type Severity Reaction Status Date / Time chlorothiazide Allergy Unknown Verified 08/29/21 20:26 [CHLOROTHIAZIDE] codeine [CODEINE] Allergy Unknown itching Verified 08/29/21 20:26 naproxen [NAPROXEN] AdvReac Unknown SHOOTING Verified 08/29/21 20:26 ELECTRICITY DOWN LEG Review of Systems Review of Systems Narrative: GENERAL: Denies chills, fatigue, malaise, fever, sweats. HEENT: Denies sinus pain, ear pain, sore throat RESPIRATORY: Positive for dyspnea, negative for cough CARDIOVASCULAR: Denies chest pain, palpitations GASTROINTESTINAL: Denies nausea, vomiting, abdominal pain : Denies dysuria, frequency, hematuria MUSCULOSKELETAL: Positive for muscle or bony pain SKIN: Denies rash, skin lesions NEUROLOGIC: Denies weakness, numbness ROS Unobtainable: All systems reviewed & are unremarkable except as noted in HPI and below Patient History Medical History (Updated 02/25/22 @ 05:40 by Maximino Combs MD) Dysuria GERD (gastroesophageal reflux disease) History of DVT (deep vein thrombosis) History of migraine Hypothyroid Neuropathy Paroxysmal A-fib Surgical History History of hysterectomy Family History Other No pertinent family history Social History Smoking Status: Never smoker Smoking Status: Never smoker alcohol intake frequency: holidays/special occasions only Substance Use Type: does not use Exam Narrative Exam Narrative: GENERAL: in no distress, not toxic not dyspneic HEAD: Normocephalic. EYES: Pupils equal round No scleral icterus. ENT: Mucous membranes moist. NECK: Trachea midline. CARDIOVASCULAR: Regular rate and rhythm without murmurs RESPIRATORY: Clear to auscultation. Breath sounds equal bilaterally. No wheezes, rales, or rhonchi. Speaking full sentences. No respiratory distress. GASTROINTESTINAL: Abdomen soft, non-tender EXTREMITIES: No gross deformities. Calves nontender BACK: No flank tenderness. NEURO: AOx4. SKIN: Warm and dry PSYCH: Not anxious, is cooperative Initial Vital Signs Initial Vital Signs: Vital Signs Temperature 97.9 F 02/24/22 21:02 Pulse Rate 105 H 02/24/22 21:02 Respiratory Rate 20 02/24/22 21:02 Blood Pressure 171/83 H 02/24/22 21:02 Pulse Oximetry 98 02/24/22 21:02 Oxygen Delivery Method 02/24/22 21:02 Course Course Course Narrative: No new issues during course of stay Orders Ordered: ED Orders 02/25/22 00:57 CBC Auto Diff [Complete Blood Count AUTO DIFF] Stat CMP [Comprehensive Metabolic Panel] Stat D Dimer Stat PT [Prothrombin Time INR] Stat PTT [Partial Thromboplastin Time] Stat Troponin & CK Cardiac Panel Stat 02/25/22 01:22 EKG-12 Lead Stat 02/25/22 02:26 CT angio chest PE protocol Stat Discontinued Medications Methocarbamol (Methocarbamol 500 Mg Tablet) 500 mg PO NOW ONE Stop: 02/25/22 00:49 Last Admin: 02/25/22 00:55 Dose: 500 mg Documented By: KHUSHBU Reevaluation(s) Reevaluation #1: Reviewed results with patient. She is in no distress. No dyspnea. Precautions reviewed with her. Did explain to her what D dimer is ordered for in her situation, however, as she mentioned it was an asthma attack at the doctor's office yesterday, possibly in the past week her asthma has been flaring up due to weather changes and the high heat we have had. Return precautions reviewed with her. She desires discharge home. Vital Signs Vital signs: Vital Signs - 8 hr 02/24/22 23:33 02/24/22 23:33 Temperature 97.9 F Pulse Rate 101 H Blood Pressure 145/63 H Pulse Oximetry 97 Medical Decision Making Differential Diagnosis Differential Diagnosis: Abnormal lab/asthma exacerbation/pulmonary embolism/CHF/arrhythmia/afib Lab Data Result diagrams: 02/25/22 00:57 02/25/22 00:57 Labs: Lab Results 02/25/22 02/25/22 02/25/22 Range/Units 00:57 00:57 00:57 WBC 6.6 (4.5-11.0) X10^3/uL RBC 3.50 L (4.0-5.2) X10^6/uL Hgb 9.6 L (12.0-16.0) g/dL Hct 29.4 L (36-46) % MCV 84.0 (80-100) fL MCH 27.3 (26-34) PG MCHC 32.5 (30-36) % RDW 19.1 H (11.6-14.8) % Plt Count 282 (150-400) X10^3/uL Neut % (Auto) 50.5 (50-75) % Lymph % (Auto) 33.6 (25-40) % [place] % (Auto) 10.1 (3-14) % Eos % (Auto) 5.0 H (2-4) % Baso % (Auto) 0.8 (0-2) % Neut # (Auto) 3300 (1187-3043) /uL Lymph # (Auto) 2200 (9534-2611) /uL [place] # (Auto) 700 (0-900) /uL Eos # (Auto) 300 (0-450) /uL Baso # (Auto) 100 (0-100) /uL PT 17.3 H (10.1-12.7) SECONDS INR 1.5 H (0.9-1.3) APTT 35 (26.4-36.2) SECONDS D-Dimer 711 H (<500) ng/ml Sodium 140 (137-145) mmol/L Potassium 4.1 (3.4-5.1) mmol/L Chloride 102 (98-107) mmol/L Carbon Dioxide 32 (22-32) mmol/L BUN 19 H (7-17) mg/dL Creatinine 1.23 H (0.52-1.04) mg/dL Estimated GFR 43 L (>60) mL/min BUN/Creatinine Ratio 15.4 (6-22) Glucose 110 (80-110) mg/dL Calcium 8.6 (8.4-10.2) mg/dL Total Bilirubin 0.3 (0.2-1.3) mg/dL AST 31 (14-36) IU/L ALT 25 (<35) IU/L Alkaline Phosphatase 93 (38-126) U/L Total Creatine Kinase (30-135) U/L CK-MB (CK-2) (<2.37) ng/mL CK-MB (CK-2) Rel Index (1.5-5.0) % Troponin I (0.01-0.034) ng/mL Total Protein 6.8 (6.3-8.2) g/dL Albumin 3.9 (3.5-5.0) g/dL Globulin 2.9 (1.7-4.1) g/dL Albumin/Globulin Ratio 1.3 (1.0-2.8) 02/25/22 Range/Units 00:57 WBC (4.5-11.0) X10^3/uL RBC (4.0-5.2) X10^6/uL Hgb (12.0-16.0) g/dL Hct (36-46) % MCV (80-100) fL MCH (26-34) PG MCHC (30-36) % RDW (11.6-14.8) % Plt Count (150-400) X10^3/uL Neut % (Auto) (50-75) % Lymph % (Auto) (25-40) % [place] % (Auto) (3-14) % Eos % (Auto) (2-4) % Baso % (Auto) (0-2) % Neut # (Auto) (5073-5290) /uL Lymph # (Auto) (0730-1632) /uL [place] # (Auto) (0-900) /uL Eos # (Auto) (0-450) /uL Baso # (Auto) (0-100) /uL PT (10.1-12.7) SECONDS INR (0.9-1.3) APTT (26.4-36.2) SECONDS D-Dimer (<500) ng/ml Sodium (137-145) mmol/L Potassium (3.4-5.1) mmol/L Chloride (98-107) mmol/L Carbon Dioxide (22-32) mmol/L BUN (7-17) mg/dL Creatinine (0.52-1.04) mg/dL Estimated GFR (>60) mL/min BUN/Creatinine Ratio (6-22) Glucose (80-110) mg/dL Calcium (8.4-10.2) mg/dL Total Bilirubin (0.2-1.3) mg/dL AST (14-36) IU/L ALT (<35) IU/L Alkaline Phosphatase (38-126) U/L Total Creatine Kinase 163 H (30-135) U/L CK-MB (CK-2) 0.82 (<2.37) ng/mL CK-MB (CK-2) Rel Index 0.5 L (1.5-5.0) % Troponin I < 0.012 (0.01-0.034) ng/mL Total Protein (6.3-8.2) g/dL Albumin (3.5-5.0) g/dL Globulin (1.7-4.1) g/dL Albumin/Globulin Ratio (1.0-2.8) Imaging Data Chest x-ray: Radiologist's Impression: Chest x-ray read by radiologist was done earlier today. No acute cardiopulmonary disease CT scan - chest: Radiologist's Impression: Unremarkable CT pulmonary angiogram no acute intrathoracic abnormality identified. No pulmonary embolism. ECG Data Interpretation: Normal sinus rhythm rate [address] elevation or depression MDM Narrative Medical decision making narrative: Appropriate for discharge home. Yesterday's events of dyspnea was an asthma attack. She had been shortness of breath off and on prior to the visit for follow-up. However D-dimer is nonspecific. Possibly the recent heat wave and weather conditions may have triggered her asthma. At this time laboratory studies and imaging and exam are reassuring. Return precautions reviewed with patient. She desires discharge home. Discharge Plan Departure Patient Disposition: Home Clinical Impression: Dyspnea Instructions: DI for Shortness of Breath Activity Restrictions/Additional Instructions: Sees family doctor in a week for re-evaluation. May continue home medications. Return if worse if any questions or concerns. Prescriptions: No Action sulfamethoxazole-trimethoprim [Bactrim DS] 800-160 mg tablet 1 tab PO BID Qty: 14 0RF estradiol [Estrace] 0.01 % cream 1 gm Vaginal Qty: 0 fesoterodine [Toviaz] 4 MG tablet extended release 24 hr 4 mg PO QDAY Qty: 0 fluoxetine 20 MG capsule 20 mg PO QDAY Qty: 0 levothyroxine [Tirosint] 125 MCG capsule 125 mcg PO QDAY Qty: 0 montelukast 10 MG tablet 10 mg PO QPM Qty: 0 pantoprazole 40 MG tablet,delayed release (DR/EC) 40 mg PO BID Qty: 0 furosemide 40 mg tablet 20 mg PO DAILY Qty: 0 potassium chloride 10 mEq Capsule, Extended Release 20 meq PO BID cyanocobalamin (vitamin B-12) [B-12 DOTS] 500 mcg Tablet 1,000 mcg PO DAILY oxybutynin chloride 5 mg Tablet 5 mg PO BID ropinirole [Requip] 0.25 mg tablet 0.25 mg PO BEDTIME PRN (Reason: leg spasms) Qty: 7 0RF Rx Instructions: administer 1-3 hours before bedtime oxycodone-acetaminophen [Percocet] 5-325 mg tablet 1 tab PO Q6H PRN (Reason: pain) Qty: 10 0RF diclofenac sodium [Arthritis Pain (diclofenac)] 1 % gel 4 g topical QID PRN (Reason: pain (scale score 4-6)) Qty: 100 0RF Rx Instructions: apply to knee when painful methocarbamol 500 mg tablet 250 mg PO BEDTIME PRN (Reason: muscle cramps) Qty: 14 0RF Referrals: Jessica Ward MD [Primary Care Provider] - Visit Report Forms: Patient Portal/API
[2022-02-25] MEDS: methocarbamoL 500 MG TABLET PO (00:55)
[2022-02-25 01:09] LABS: Add Manual Diff / Slide Review NO; Basophils Absolute Auto 100 /uL (0-100); Basophils Percent Auto 0.8 % (0-2); Eosinophils Absolute Auto 300 /uL (0-450); Hematocrit 29.4 % (36-46); Hemoglobin 9.6 g/dL (12.0-16.0); Lymphocytes Absolute Auto 2200 /uL (1100-4500); Lymphocytes Percent Auto 33.6 % (25-40); Mean Corpuscular HGB Conc 32.5 % (30-36); Mean Corpuscular Hemoglobin 27.3 PG (26-34); Monocytes Absolute Auto 700 /uL (0-900); Monocytes Percent Auto 10.1 % (3-14); Neutrophils Absolute Auto 3300 /uL (1500-7000); Neutrophils Percent Auto 50.5 % (50-75); Platelet Count 282 X10^3/uL (150-400); Red Cell Distribution Width 19.1 % (11.6-14.8); White Blood Cell Count 6.6 X10^3/uL (4.5-11.0)
[2022-02-25 01:25] LABS: INR 1.5 (0.9-1.3); Prothrombin Time 17.3 SECONDS (10.1-12.7)
[2022-02-25 01:27] LABS: D Dimer 711 ng/ml (<500)
[2022-02-25 01:28] LABS: PTT Partial Thromboplastin Tim 35 SECONDS (26.4-36.2)
[2022-02-25 01:46] LABS: Alanine Aminotransferase 25 IU/L (<35); Albumin 3.9 g/dL (3.5-5.0); Albumin Globulin Ratio 1.3 (1.0-2.8); Alkaline Phosphatase 93 U/L (38-126); Aspartate Aminotransferase 31 IU/L (14-36); BUN Creatinine Ratio 15.4 (6-22); Bilirubin Total 0.3 mg/dL (0.2-1.3); Blood Urea Nitrogen 19 mg/dL (7-17); Calcium 8.6 mg/dL (8.4-10.2); Carbon Dioxide 32 mmol/L (22-32); Chloride 102 mmol/L (98-107); Creatine Kinase 163 U/L (30-135); Estimated Glomerular Filt Rate 43 mL/min (>60); Globulin 2.9 g/dL (1.7-4.1); Glucose 110 mg/dL (80-110); HEMOLYSIS < 15 (0-50); Potassium 4.1 mmol/L (3.4-5.1); Sodium 140 mmol/L (137-145); Total Protein 6.8 g/dL (6.3-8.2)
[2022-02-25 01:58] LABS: Troponin I < 0.012 ng/mL (0.01-0.034)
[2022-02-25 02:02] LABS: CKMB % Relative Index 0.5 % (1.5-5.0); Creatine Kinase MB 0.82 ng/mL (<2.37)
--- NOTE | 2022-02-25 02:26 | DI.CT.S_ITS ---
PROCEDURE: CT ANGIO CHEST PE PROTOCOL INDICATIONS: Dyspnea TECHNIQUE: After the administration of intravenous contrast, 2 mm thick sections acquired from the pulmonary apices to the posterior costophrenic angles. 3-dimensional maximum intensity projection (MIP) coronal and sagittal reformats were then acquired through the thorax. For radiation dose reduction, the following was used: automated exposure control, adjustment of mA and/or kV according to patient size. COMPARISON: [facility], CT, CT ANGIO CHEST PE PROTOCOL, 08/29/2021, 19:27. FINDINGS: Image quality: Excellent. Pulmonary arteries: Pulmonary arteries are normal in size, and demonstrate no intraluminal filling defects to suggest central pulmonary embolism. Lungs and pleura: Lungs are clear. No pleural effusions or pneumothorax. Central and peripheral airways are patent. Mediastinum: Heart size is normal, without pericardial effusion . Coronary artery calcifications. No mediastinal or hilar adenopathy. Thoracic aorta is normal in caliber and enhancement. Esophagus is normal in caliber, with moderate hiatal hernia. Bones and chest wall: No suspicious bony lesions. Anterior wedging of multiple midthoracic vertebral bodies results in increased thoracic kyphosis. Ribs and thoracic spine appear intact throughout. Thyroid gland in somewhat small. No axillary or supraclavicular adenopathy. Abdomen: Visualized upper abdominal solid organs appear normal in the early arterial phase of enhancement. Remote cholecystectomy. IMPRESSION: 1. No evidence acute pulmonary emboli. 2. No evidence acute pulmonary process. 3. Moderate hiatal hernia. Comment: Final report is concordant with preliminary interpretation provided by [facility]. Dictated by: Robles Green M.D. on 02/25/2022 at 7:51 Approved by: Robles Green M.D. on 02/25/2022 at 7:55
== END 2022-02-25 06:02 | disposition home or self-care (01) ==
PROVIDERS: Emergency Provider Emergency Medicine; PCP Internal Medicine; Referring Provider Internal Medicine
DX: R06.00 Dyspnea, unspecified (principal); Z79.01 Long term (current) use of anticoagulants; R07.9 Chest pain, unspecified; R05.9 Cough, unspecified
CPT/HCPCS: 36415; 71046; 71275; 80053; 82550; 82553; 84484; 85025; 85379; 85610; 85730; 93005; 93010; 99283; 99284; Q9967

== ENCOUNTER → 2022-03-02 13:18 | Outpatient (CLI) | payer OTHER, MEDICAID, SELFPAY ==
--- NOTE | 2022-03-02 | DI.MG.S_ITS ---
UNILATERAL LEFT DIGITAL DIAGNOSTIC MAMMOGRAM 3D/2D: 03/02/2022 CLINICAL: Short term follow up for the left breast. Comparison is made to exams dated: 09/15/2021 mammogram, 08/21/2021 mammogram - [facility], 01/31/2015 mammogram, and 11/29/2012 mammogram - out side. There are scattered fibroglandular elements in left breast. There are 1.3 cm grouped dystrophic and punctate calcifications in the left breast at 7 o'clock anterior depth. These are not significantly changed. No other significant masses or calcifications are seen in the breast. IMPRESSION: PROBABLY BENIGN The 1.3 cm grouped punctate calcifications in the left breast are probably benign. A follow-up mammogram in 6 months is recommended to demonstrate stability. Patient will be due for right mammogram at that time. Exam findings were conveyed to the patient. This exam was interpreted at Station ID: [id number]. NOTE: For mammograms, a report in lay terms will be sent to the patient. Approximately 15% of breast malignancies will not be visualized mammographically. In the management of a palpable breast mass, a negative mammogram must not discourage biopsy of a clinically suspicious lesion. Electronically Signed By: Elio Rodriguez M.D. slc/:03/02/2022 14:19:20 letter sent: Followup Recommended ACR BI-RADS Category 3: Probably benign [id number]
== END ==
PROVIDERS: PCP Internal Medicine; Referring Provider Internal Medicine; Visit Provider Internal Medicine
DX: R92.8 Other abnormal and inconclusive findings on diagnostic imaging of breast (principal); R92.1 Mammographic calcification found on diagnostic imaging of breast
CPT/HCPCS: 77065; G0279

== ENCOUNTER 2022-07-17 13:38 | Emergency (ER) | payer OTHER, MEDICAID, SELFPAY ==
[2022-07-17 14:10] VITALS: BP 128/77; PULSE 92; RESP 97; TEMP 36.7; O2SAT 98; BMI 34.4
[2022-07-17 15:50] LABS: Add Manual Diff / Slide Review NO; Basophils Absolute Auto 100 /uL (0-100); Basophils Percent Auto 1.2 % (0-2); Eosinophils Absolute Auto 300 /uL (0-450); Eosinophils Percent Auto 5.5 % (2-4); Hematocrit 42.7 % (36-46); Hemoglobin 14.1 g/dL (12.0-16.0); Lymphocytes Absolute Auto 2000 /uL (1100-4500); Mean Corpuscular Hemoglobin 30.9 PG (26-34); Mean Corpuscular Volume 93.6 fL (80-100); Monocytes Absolute Auto 600 /uL (0-900); Monocytes Percent Auto 10.8 % (3-14); Neutrophils Absolute Auto 2600 /uL (1500-7000); Neutrophils Percent Auto 46.5 % (50-75); Platelet Count 208 X10^3/uL (150-400); Red Blood Cell Count 4.56 X10^6/uL (4.0-5.2); White Blood Cell Count 5.5 X10^3/uL (4.5-11.0)
[2022-07-17 15:57] LABS: Appearance Urine UA SL CLOUDY; Bilirubin Urine UA NEGATIVE (NEGATIVE); Color Urine UA ORANGE; Glucose Urine UA 2+ g/dL (Negative); Ketones Urine UA TRACE (NEGATIVE); Leukocyte Esterase Urine UA TRACE (NEGATIVE); Nitrite Urine UA POSITIVE (Negative); Occult Blood Urine UA NEGATIVE (Negative); Protein Urine UA 2+ (Negative); Specific Gravity Urine UA <=1.005 (1.000-1.035)
[2022-07-17 16:02] LABS: Bacteria Urine Many (>30); Culture Indicated Urine Specimen Cultured; RBC Urine None Seen (0-5/HPF); Squamous Epithelial Cell Urine 1-5 /HPF (0-5/HPF); WBC Urine 10-30/HPF (0-5/HPF); pH Urine UA 6.5 (4.5-8.0)
[2022-07-17 16:12] LABS: Alanine Aminotransferase 45 IU/L (<35); Albumin 3.9 g/dL (3.5-5.0); Albumin Globulin Ratio 1.2 (1.0-2.8); Alkaline Phosphatase 86 U/L (38-126); Aspartate Aminotransferase 45 IU/L (14-36); BUN Creatinine Ratio 13.2 (6-22); Bilirubin Total 0.7 mg/dL (0.2-1.3); Blood Urea Nitrogen 15 mg/dL (7-17); Carbon Dioxide 26 mmol/L (22-32); Chloride 102 mmol/L (98-107); Estimated Glomerular Filt Rate 47 mL/min (>60); Globulin 3.3 g/dL (1.7-4.1); Glucose 102 mg/dL (80-110); HEMOLYSIS < 15 (0-50); Lipase 67 U/L (23-300); Sodium 139 mmol/L (137-145); Total Protein 7.2 g/dL (6.3-8.2)
--- NOTE | 2022-07-17 17:40 | ED.EXTPRO ---
HPI - Extremity Problem <Alice Chen, [facility] - Last Filed: 07/17/22 19:15> General Chief complaint: Extremity Problem,Nontraumatic Stated complaint: severe leg cramps Time Seen by Provider: 07/17/22 17:40 Source: patient Mode of arrival: Ambulatory History of Present Illness HPI Narrative: This is a pleasant 86-year-old female with history of UTIs, valvular disease of her heart, history of blood clots and pulmonary embolus, is anticoagulated on Eliquis, is being treated for her valvular disease with Jardiance from her performance improvement analyst and is not able to titrate off of this at this time. She complains both of severe leg cramps at night and during the day related to this but dysuria for the last 3 days which has been worsening and concern for UTI. She has history of Klebsiella UTI in October of 2021, last urine culture was negative for growth. Patient denies allergy to medications, denies fever chills but endorses dry mouth, feeling dehydrated, takes diuretics and has not had much urine output. She denies fever, nausea, vomiting, chills, flank pain, back pain, abdoulaye hematuria. Endorses that she is been using azo to help treat her symptoms. Has been using Tylenol for pain and states that it is not adequate for her leg cramps and this is the most severe pain she is ever had. She states it is bilateral, denies any lower extremity swelling. Related Data Home Medications Medication Instructions Recorded Confirmed estradiol 0.01% (0.1 mg/gram) 1 gm vaginal ##0 10/18/17 06/05/19 vaginal cream (Estrace) fesoterodine 4 mg tablet,extended 4 mg PO QDAY ##0 10/18/17 06/05/19 release 24 hr (Toviaz) fluoxetine 20 mg capsule 20 mg PO QDAY ##0 10/18/17 06/05/19 levothyroxine 125 mcg capsule 125 mcg PO QDAY ##0 10/18/17 06/05/19 (Tirosint) montelukast 10 mg tablet 10 mg PO QPM ##0 10/18/17 06/05/19 pantoprazole 40 mg tablet,delayed 40 mg PO BID ##0 10/18/17 06/05/19 release cyanocobalamin (vitamin B-12) 500 1,000 mcg PO DAILY 03/15/18 06/05/19 mcg tablet (B-12 DOTS) oxybutynin chloride 5 mg tablet 5 mg PO BID 03/15/18 06/05/19 potassium chloride 10 mEq 20 meq PO BID 03/15/18 06/05/19 capsule,extended release furosemide 40 mg tablet 20 mg PO DAILY #0 tabs 06/10/18 06/05/19 Previous Rx's Medication Instructions Recorded sulfamethoxazole 800 1 tab PO BID #14 tabs 09/15/19 mg-trimethoprim 160 mg tablet (Bactrim DS) ropinirole 0.25 mg tablet (Requip) 0.25 mg PO BEDTIME PRN leg spasms 04/08/20 #7 tabs diclofenac sodium 1 % topical gel 4 g topical QID PRN pain (scale 01/21/22 (Arthritis Pain (diclofenac)) score 4-6) #100 grams methocarbamol 500 mg tablet 250 mg PO BEDTIME PRN muscle 01/21/22 cramps #14 tabs oxycodone-acetaminophen 5 mg-325 1 tab PO Q6H PRN pain #10 tabs 02/14/22 mg tablet (Percocet) cephalexin 500 mg capsule 500 mg PO QID 5 days #20 caps 07/17/22 hydrocodone 5 mg-acetaminophen 325 1 tab PO BID PRN pain #14 tabs 07/17/22 mg tablet methocarbamol 500 mg tablet 250 mg PO TID PRN muscle cramps 07/17/22 #14 tabs ropinirole 0.25 mg tablet 0.25 mg PO BEDTIME #30 tabs 07/17/22 Allergies Allergy/AdvReac Type Severity Reaction Status Date / Time chlorothiazide Allergy Unknown Verified 07/19/22 18:33 [CHLOROTHIAZIDE] codeine [CODEINE] Allergy Unknown itching Verified 07/19/22 18:33 naproxen [NAPROXEN] AdvReac Unknown SHOOTING Verified 07/19/22 18:33 ELECTRICITY DOWN LEG Review of Systems <CHANELLE Bragg - Last Filed: 07/17/22 19:15> Review of Systems ROS Unobtainable: All systems reviewed & are unremarkable except as noted in HPI and below Patient History <CHANELLE Bragg - Last Filed: 07/17/22 19:15> Medical History (Updated 07/19/22 @ 21:25 by Aimee Lovell DO) Dysuria GERD (gastroesophageal reflux disease) History of DVT (deep vein thrombosis) History of migraine Hypothyroid Neuropathy Paroxysmal A-fib Surgical History History of hysterectomy Family History Other No pertinent family history Social History Smoking Status: Never smoker Smoking Status: Never smoker alcohol intake frequency: holidays/special occasions only Substance Use Type: does not use Exam <CHANELLE Bragg - Last Filed: 07/17/22 19:15> Initial Vital Signs Initial Vital Signs: Vital Signs Temperature 98.1 F 07/17/22 14:10 Pulse Rate 92 H 07/17/22 14:10 Respiratory Rate 97 H 07/17/22 14:10 Blood Pressure 128/77 07/17/22 14:10 Pulse Oximetry 98 07/17/22 14:10 Oxygen Delivery Method 07/17/22 14:10 <Js Mijares DO - Last Filed: 07/21/22 10:48> Initial Vital Signs Initial Vital Signs: Vital Signs Temperature 98.1 F 07/17/22 14:10 Pulse Rate 92 H 07/17/22 14:10 Respiratory Rate 97 H 07/17/22 14:10 Blood Pressure 128/77 07/17/22 14:10 Pulse Oximetry 98 07/17/22 14:10 Oxygen Delivery Method 07/17/22 14:10 Course <CHANELLE Bragg - Last Filed: 07/17/22 19:15> Orders Ordered: Discontinued Medications Hydrocodone Bitart/Acetaminophen (Hydrocodone/Acet 5/325 Tablet) 1 tab PO NOW ONE Stop: 07/17/22 18:07 Last Admin: 07/17/22 18:33 Dose: Not Given Documented By: CAITLIN Ceftriaxone Sodium 1,000 mg/ (Sodium Chloride) 100 mls @ 200 mls/hr IV NOW ONE Stop: 07/17/22 17:53 Last Infusion: 07/17/22 19:10 Dose: 0 mls/hr Documented By: Admin: 07/17/22 18:25 Dose: 200 mls/hr Documented By: CAITLIN Methocarbamol (Methocarbamol 500 Mg Tablet) 250 mg PO NOW ONE Stop: 07/17/22 17:53 Last Admin: 07/17/22 18:32 Dose: Not Given Documented By: CAITLIN Ropinirole HCl (Ropinirole 0.25 Mg Tablet) 0.25 mg PO NOW ONE Stop: 07/17/22 18:06 Last Admin: 07/17/22 18:30 Dose: 0.25 mg Documented By: CAITLIN Vital Signs Vital signs: Vital Signs - 8 hr 07/17/22 14:10 07/17/22 19:10 Temperature 98.1 F Pulse Rate 92 H 93 H Respiratory Rate 97 H 18 Blood Pressure 128/77 117/74 Pulse Oximetry 98 97 Oxygen Delivery Method Room Air Room Air <Js Mijares DO - Last Filed: 07/21/22 10:48> Orders Ordered: Discontinued Medications Hydrocodone Bitart/Acetaminophen (Hydrocodone/Acet 5/325 Tablet) 1 tab PO NOW ONE Stop: 07/17/22 18:07 Last Admin: 07/17/22 18:33 Dose: Not Given Documented By: CAITLIN Ceftriaxone Sodium 1,000 mg/ (Sodium Chloride) 100 mls @ 200 mls/hr IV NOW ONE Stop: 07/17/22 17:53 Last Infusion: 07/17/22 19:10 Dose: 0 mls/hr Documented By: Admin: 07/17/22 18:25 Dose: 200 mls/hr Documented By: CAITLIN Methocarbamol (Methocarbamol 500 Mg Tablet) 250 mg PO NOW ONE Stop: 07/17/22 17:53 Last Admin: 07/17/22 18:32 Dose: Not Given Documented By: CAITLIN Ropinirole HCl (Ropinirole 0.25 Mg Tablet) 0.25 mg PO NOW ONE Stop: 07/17/22 18:06 Last Admin: 07/17/22 18:30 Dose: 0.25 mg Documented By: CAITLIN Vital Signs Vital signs: Vital Signs - 8 hr 07/17/22 14:10 07/17/22 19:10 Temperature 98.1 F Pulse Rate 92 H 93 H Respiratory Rate 97 H 18 Blood Pressure 128/77 117/74 Pulse Oximetry 98 97 Oxygen Delivery Method Room Air Room Air MDM - Extremity (Nontraumatic) <Alice Chen, [facility] - Last Filed: 07/17/22 19:15> Lab Data Lab results narrative: Name: Sun Mejia Age/Sex: 86/F Attend Dr: Tomasa Reddy MD Unit#: [id number] : 1935Location: LAB Re10/31/21 Disch: Status: REG CLI SPEC #: [id number] HARRY: 10/31/21 STATUS: COMP REQ #: [id number] SPDESC: RECD: 10/31/[address]: Tomasa Reddy MD SOURCE: UA Reflex ENTR: 10/31/21-[address]: Jessica Ward MD FAX TO: ORDERED: URINE CULTURE Procedure Result Verified Site Urine Culture Final 11/02/21 Organism 1 Klebsiella pneumoniae [place] Count 50,000 - 60,000 CFU/ml 1. Klebsiella pneumoniae M.I.C. RX --------- --- * Amoxicillin/Clavulanate <=2 S * Ampicillin >=32 R * Ampicillin/Sulbactam 8 S * Cefazolin <=4 S * Cefepime <=1 S * Ceftriaxone <=1 S * Ciprofloxacin <=0.25 S * Ertapenem <=0.5 S * Gentamicin <=1 S * Imipenem <=0.25 S * Levofloxacin <=0.12 S * Nitrofurantoin <=16 S * Tobramycin <=1 S * Trimethoprim/Sulfamethoxazole >=320 R * Piperacillin/Tazobactam <=4 S Diagnostics Reports Sun Mejia??86??F??1935 ? Allergy/Adv: chlorothiazide, codeine, naproxen (More??) Close Micro Urine Specimen 07/17/22 Urine Culture - Pending Micro Urine Specimen 10/31/21 Urine Culture - Final Micro Urine Specimen 03/11/21 Urine Culture - Final Micro Urine Specimen 12/20/20 Urine Culture - Cancelled Micro Urine Specimen 12/20/20 Urine Culture - Final Micro Urine Specimen 09/23/20 Urine Culture - Final Micro Urine Specimen 09/15/19 Urine Culture - Final Micro Urine Specimen 08/15/19 Urine Culture - Final Micro Urine Specimen 06/05/19 Urine Culture - Final Micro Urine Specimen 06/10/18 Urine Culture - Final Launch?[facility] CLIA ID [id number] [address] [place] [address] RUN DATE: 07/17/22 Specimen Inquiry PAGE 1 RUN TIME: 1905 Name: Sun Mejia Age/Sex: 85/F Attend Dr: Yessy Uriarte Unit#: [id number] : 1935Location: LAB Re03/11/21 Disch: Status: REG CLI SPEC #: [id number] HARRY: 03/11/21 STATUS: COMP REQ #: [id number] SPDESC: RECD: 03/11/[address]: Yessy Uriarte Kesha SOURCE: Urine CC ENTR: 03/11/[address]: FAX TO: ORDERED: URINE CULTURE Procedure Result Verified Site Urine Culture Final 03/13/21 Organism 1 Escherichia coli [place] Count 10,000 - 20,000 CFU/ml 1. Escherichia coli M.I.C. RX --------- --- * Amoxicillin/Clavulanate 4 S * Ampicillin 4 S * Ampicillin/Sulbactam <=2 S * Cefazolin <=4 S * Cefepime <=1 S * Ceftriaxone <=1 S * Ciprofloxacin <=0.25 S * Ertapenem <=0.5 S * Gentamicin <=1 S * Imipenem <=0.25 S * Levofloxacin <=0.12 S * Nitrofurantoin <=16 S * Tobramycin <=1 S * Trimethoprim/Sulfamethoxazole <=20 S * Piperacillin/Tazobactam <=4 S Result diagrams: 07/17/22 15:40 07/17/22 15:40 Labs: Lab Results 07/17/22 07/17/22 07/17/22 Range/Units 14:16 15:40 15:40 WBC 5.5 (4.5-11.0) X10^3/uL RBC 4.56 (4.0-5.2) X10^6/uL Hgb 14.1 (12.0-16.0) g/dL Hct 42.7 (36-46) % MCV 93.6 (80-100) fL MCH 30.9 (26-34) PG MCHC 33.0 (30-36) % RDW 17.0 H (11.6-14.8) % Plt Count 208 (150-400) X10^3/uL Neut % (Auto) 46.5 L (50-75) % Lymph % (Auto) 36.0 (25-40) % Lee % (Auto) 10.8 (3-14) % Eos % (Auto) 5.5 H (2-4) % Baso % (Auto) 1.2 (0-2) % Neut # (Auto) 2600 (5559-5167) /uL Lymph # (Auto) 2000 (7533-6858) /uL Lee # (Auto) 600 (0-900) /uL Eos # (Auto) 300 (0-450) /uL Baso # (Auto) 100 (0-100) /uL Sodium 139 (137-145) mmol/L Potassium 4.0 (3.4-5.1) mmol/L Chloride 102 (98-107) mmol/L Carbon Dioxide 26 (22-32) mmol/L BUN 15 (7-17) mg/dL Creatinine 1.14 H (0.52-1.04) mg/dL Estimated GFR 47 L (>60) mL/min BUN/Creatinine Ratio 13.2 (6-22) Glucose 102 (80-110) mg/dL Calcium 9.0 (8.4-10.2) mg/dL Total Bilirubin 0.7 (0.2-1.3) mg/dL AST 45 H (14-36) IU/L ALT 45 H (<35) IU/L Alkaline Phosphatase 86 (38-126) U/L Total Protein 7.2 (6.3-8.2) g/dL Albumin 3.9 (3.5-5.0) g/dL Globulin 3.3 (1.7-4.1) g/dL Albumin/Globulin Ratio 1.2 (1.0-2.8) Lipase 67 (23-300) U/L Urine Color [place] Urine Appearance Sl cloudy Urine pH 6.5 (4.5-8.0) Ur Specific [place] <=1.005 (1.000-1.035) Urine Protein 2+ H (Negative) Urine Glucose (UA) 2+ H (Negative) g/dL Urine Ketones Trace H (NEGATIVE) Urine Occult Blood Negative (Negative) Urine Nitrate Positive H (Negative) Urine Bilirubin Negative (NEGATIVE) Urine Urobilinogen 4.0 H (0.2) E.U./dL Ur Leukocyte Esterase Trace H (NEGATIVE) Urine RBC None seen (0-5/HPF) Urine WBC 10-30/hpf H (0-5/HPF) Ur Squamous Epith Cells 1-5 /hpf (0-5/HPF) Urine Bacteria Many (>30) H (None) Ur Culture Indicated? Specimen cultured MDM Narrative Medical decision making narrative: This patient presents with symptoms consistent with acute uncomplicated urinary tract infection. Well-appearing without fever or systemic symptoms. She also complains of severe nocturnal leg cramps from her Jardiance which she is on for valvular disease of her heart. Per her performance improvement analyst Dr. Jimenez. Patient does not have a history of diabetes, she does have a history of Klebsiella UTI but has not had symptoms or recent antibiotics and is not immunosuppressed at this point. She is on Eliquis, her UA today is positive for leukocytes, blood, nitrites, leukocyte esterase, many bacteria and wbc's on microscopy. Urine is pending for culture. Consultation with pharmacy regarding medication for patient's nocturnal leg cramps. She is already taking methocarbamol and states it is not helpful at all. She has previous tolerance to Vicodin however wanted to help treat her cause as this is the most distressing symptom for the patient. She recommended ropinirol and will start patient on 0.25 mg q.h.s., discussed that this may be titrated by PCP or her performance improvement analyst, she may treat herself with b.i.d. therapy if that is helpful, told her to avoid more than 2 doses in a day and to not treat herself with a pain medication and muscle relaxer with this at the same time. Patient has history of healthcare and is a good historian, is lucid without mental status changes. She is a good patient advocate and will follow-up with her providers as discussed. She appears dehydrated today with dry mucous membranes, concentrated urine, hemoconcentration on her lab work. No concerning findings on her lab work, no leukocytosis, anemia, her creatinine is 1.14 and is stable at her baseline with a GFR of 47, no elevation in liver enzymes. Patient p.o. hydrated without vomiting. No significant electrolyte abnormalities. Low suspicion for acute pyelonephritis given lack of fever, CVAT, or systemic features. Low suspicion for ureteral/kidney stone or infected stone. Differential diagnosis include malignancy, atrophic vaginitis, dehydration appendicitis, contact dermatitis, interstitial cystitis, perineal infection. Patient denies any rash or similar symptoms. Will follow urine culture results, encouraged tyleno for pain, hydration, and recheck with primary care provider if not improving within 2 days, and return to the emergency department for worsening symptoms, vomiting, fever and chills. Patient is appropriate and amenable to discharge home. Vital signs are stable on repeat examination is unremarkable. Patient has been informed of results. Patient has been given strict return to ER precautions for any new or worsening symptoms. Patient understands to follow up closely with outpatient providers as instructed. Patient understands plan and agrees to discharge home. All questions and concerns answered at this time. <Js Mijares, DO - Last Filed: 07/21/22 10:48> Lab Data Labs: Lab Results 07/17/22 07/17/22 07/17/22 Range/Units 14:16 15:40 15:40 WBC 5.5 (4.5-11.0) X10^3/uL RBC 4.56 (4.0-5.2) X10^6/uL Hgb 14.1 (12.0-16.0) g/dL Hct 42.7 (36-46) % MCV 93.6 (80-100) fL MCH 30.9 (26-34) PG MCHC 33.0 (30-36) % RDW 17.0 H (11.6-14.8) % Plt Count 208 (150-400) X10^3/uL Neut % (Auto) 46.5 L (50-75) % Lymph % (Auto) 36.0 (25-40) % Lee % (Auto) 10.8 (3-14) % Eos % (Auto) 5.5 H (2-4) % Baso % (Auto) 1.2 (0-2) % Neut # (Auto) 2600 (5836-3930) /uL Lymph # (Auto) 2000 (9806-5881) /uL Lee # (Auto) 600 (0-900) /uL Eos # (Auto) 300 (0-450) /uL Baso # (Auto) 100 (0-100) /uL Sodium 139 (137-145) mmol/L Potassium 4.0 (3.4-5.1) mmol/L Chloride 102 (98-107) mmol/L Carbon Dioxide 26 (22-32) mmol/L BUN 15 (7-17) mg/dL Creatinine 1.14 H (0.52-1.04) mg/dL Estimated GFR 47 L (>60) mL/min BUN/Creatinine Ratio 13.2 (6-22) Glucose 102 (80-110) mg/dL Calcium 9.0 (8.4-10.2) mg/dL Total Bilirubin 0.7 (0.2-1.3) mg/dL AST 45 H (14-36) IU/L ALT 45 H (<35) IU/L Alkaline Phosphatase 86 (38-126) U/L Total Protein 7.2 (6.3-8.2) g/dL Albumin 3.9 (3.5-5.0) g/dL Globulin 3.3 (1.7-4.1) g/dL Albumin/Globulin Ratio 1.2 (1.0-2.8) Lipase 67 (23-300) U/L Urine Color [place] Urine Appearance Sl cloudy Urine pH 6.5 (4.5-8.0) Ur Specific [place] <=1.005 (1.000-1.035) Urine Protein 2+ H (Negative) Urine Glucose (UA) 2+ H (Negative) g/dL Urine Ketones Trace H (NEGATIVE) Urine Occult Blood Negative (Negative) Urine Nitrate Positive H (Negative) Urine Bilirubin Negative (NEGATIVE) Urine Urobilinogen 4.0 H (0.2) E.U./dL Ur Leukocyte Esterase Trace H (NEGATIVE) Urine RBC None seen (0-5/HPF) Urine WBC 10-30/hpf H (0-5/HPF) Ur Squamous Epith Cells 1-5 /hpf (0-5/HPF) Urine Bacteria Many (>30) H (None) Ur Culture Indicated? Specimen cultured Discharge Plan Departure Patient Disposition: Home Clinical Impression: Acute UTI, Muscle cramp, nocturnal Instructions: Nocturnal Leg Cramps, Urinary Tract Infection Activity Restrictions/Additional Instructions: *You have been diagnosed with a bladder infection, and severe muscle spasms of your lower extremities. I consulted with the pharmacist who recommends ropinirole which starts at a low dose 1-3 hours before bed each night. Sometimes titrated up to morning and night, 0.5 mg at night, or greater. Please start with 0.25 mg at night, see how this helps you. Please follow-up with your performance improvement analyst, your primary care provider, we will call you if your urine culture grows bacteria that is not covered on your antibiotic. This is a good 1st start. Please remember to fill your tank and keep it full. If you are not peeing, you are not hydrated enough. I hope you feel better soon. The pharmacist recommends this medication for your leg cramps and it is well tolerated in older population. Please avoid combining hydrocodone with methocarbamol with ropinirole because they all cause of sedation and I do not want you falling at home. *What to do: *Please continue to take your regular medications as directed. [x ] New medication prescriptions sent to your pharmacy: [[facility] ] [ ] New medication written as a paper prescription [ ] No new medications given *Please follow up with your primary care provider in 2-3 days, call for an appointment. Let them know you were seen in the Emergency Department and that we asked that you be seen for follow-up. We will electronically transmit a record of today's note if your PCP is in our system *If you do not have a primary care provider please contact [phone] to establish care with one of the [facility] primary care providers. *Return to Emergency Department if you should have any new, worsening, or concerning symptoms, such as [fever greater than 101F, chills, worsening pain, persistent vomiting or other bothersome symptoms]. Prescriptions: New ropinirole 0.25 mg tablet 0.25 mg PO BEDTIME Qty: 30 0RF Rx Instructions: administer 1-3 hours before bedtime, may use morning and night as needed but please use before bed primarily cephalexin 500 mg capsule 500 mg PO QID 5 Days Qty: 20 0RF hydrocodone-acetaminophen 5-325 mg tablet 1 tab PO BID PRN (Reason: pain) Qty: 14 0RF methocarbamol 500 mg tablet 250 mg PO TID PRN (Reason: muscle cramps) Qty: 14 0RF Rx Instructions: Plan to titrate off methocarbamol and use ropinirole No Action sulfamethoxazole-trimethoprim [Bactrim DS] 800-160 mg tablet 1 tab PO BID Qty: 14 0RF estradiol [Estrace] 0.01 % cream 1 gm Vaginal Qty: 0 fesoterodine [Toviaz] 4 MG tablet extended release 24 hr 4 mg PO QDAY Qty: 0 fluoxetine 20 MG capsule 20 mg PO QDAY Qty: 0 levothyroxine [Tirosint] 125 MCG capsule 125 mcg PO QDAY Qty: 0 montelukast 10 MG tablet 10 mg PO QPM Qty: 0 pantoprazole 40 MG tablet,delayed release (DR/EC) 40 mg PO BID Qty: 0 furosemide 40 mg tablet 20 mg PO DAILY Qty: 0 potassium chloride 10 mEq Capsule, Extended Release 20 meq PO BID cyanocobalamin (vitamin B-12) [B-12 DOTS] 500 mcg Tablet 1,000 mcg PO DAILY oxybutynin chloride 5 mg Tablet 5 mg PO BID ropinirole [Requip] 0.25 mg tablet 0.25 mg PO BEDTIME PRN (Reason: leg spasms) Qty: 7 0RF Rx Instructions: administer 1-3 hours before bedtime oxycodone-acetaminophen [Percocet] 5-325 mg tablet 1 tab PO Q6H PRN (Reason: pain) Qty: 10 0RF diclofenac sodium [Arthritis Pain (diclofenac)] 1 % gel 4 g topical QID PRN (Reason: pain (scale score 4-6)) Qty: 100 0RF Rx Instructions: apply to knee when painful methocarbamol 500 mg tablet 250 mg PO BEDTIME PRN (Reason: muscle cramps) Qty: 14 0RF Referrals: Jose Jimenez [Non-Staff] - 3-5 days Jessica Ward MD [Primary Care Provider] - <Js Mijares DO - Last Filed: 07/21/22 10:48> Cosign ED Attending Cosignature Attestation: I was immediately available in the department for consultation. This documentation has been reviewed and I agree with assessment and plan. Supervised by Js Mijares DO
[2022-07-17] MEDS: cefTRIAXone 1,000 MG in SODIUM CHLORIDE 0.9% 100 ML 200 MG IV (18:25)
[2022-07-17] MEDS: ROPINIROLE 0.25 MG TABLET PO (18:30)
[2022-07-17 19:10] VITALS: BP 117/74; PULSE 93; RESP 18; O2SAT 97
== END 2022-07-17 19:11 | disposition home or self-care (01) ==
PROVIDERS: Emergency Medicine; Emergency Provider Nurse Practitioner Critical Care Medicine; PCP Internal Medicine
DX: N39.0 Urinary tract infection, site not specified (principal); R25.2 Cramp and spasm; Z79.01 Long term (current) use of anticoagulants; Z79.899 Other long term (current) drug therapy
CPT/HCPCS: 36415; 80053; 81001; 83690; 85025; 87077; 87086; 87186; 96365; 99284; J0696

== ENCOUNTER 2022-07-19 18:19 | Emergency (ER) | payer OTHER, MEDICAID, SELFPAY ==
[2022-07-19 18:33] VITALS: BP 155/69; PULSE 97; RESP 20; TEMP 36.1; O2SAT 97; BMI 34.4
--- NOTE | 2022-07-19 21:05 | ED.EYEPROB ---
HPI - Eye Problem General Chief complaint: Eye Problems Stated complaint: Blood and swelling in Lt eye Time Seen by Provider: 07/19/22 19:53 Source: patient Mode of arrival: Family Vehicle Limitations: no limitations History of Present Illness HPI Narrative: This is an 86-year-old female on Xarelto for prior blood clots who presents with complaint of blood and swelling in the sclera or white portion of her eye that she noticed today. Patient states she did not actually notice a family member did she states it grew in size. She states there is little bit sensation fullness but no pain. She denies any vision changes. She states that there is a difference between her right and left vision as she had surgery to use her right vision for far vision in her left for near. She does not use glasses, contacts or other interventions. She denies any discharge, drainage or other changes. Patient states she was started antibiotics yesterday for UTI symptoms. She is also noted a little bit of mild cough which she states has been very mild. She does state that she bleeds very easily any time she gets cuts or injuries. Patient denies any recent trauma or injury. Related Data Home Medications Medication Instructions Recorded Confirmed estradiol 0.01% (0.1 mg/gram) 1 gm vaginal ##0 10/18/17 06/05/19 vaginal cream (Estrace) fesoterodine 4 mg tablet,extended 4 mg PO QDAY ##0 10/18/17 06/05/19 release 24 hr (Toviaz) fluoxetine 20 mg capsule 20 mg PO QDAY ##0 10/18/17 06/05/19 levothyroxine 125 mcg capsule 125 mcg PO QDAY ##0 10/18/17 06/05/19 (Tirosint) montelukast 10 mg tablet 10 mg PO QPM ##0 10/18/17 06/05/19 pantoprazole 40 mg tablet,delayed 40 mg PO BID ##0 10/18/17 06/05/19 release cyanocobalamin (vitamin B-12) 500 1,000 mcg PO DAILY 03/15/18 06/05/19 mcg tablet (B-12 DOTS) oxybutynin chloride 5 mg tablet 5 mg PO BID 03/15/18 06/05/19 potassium chloride 10 mEq 20 meq PO BID 03/15/18 06/05/19 capsule,extended release furosemide 40 mg tablet 20 mg PO DAILY #0 tabs 06/10/18 06/05/19 Previous Rx's Medication Instructions Recorded sulfamethoxazole 800 1 tab PO BID #14 tabs 09/15/19 mg-trimethoprim 160 mg tablet (Bactrim DS) ropinirole 0.25 mg tablet (Requip) 0.25 mg PO BEDTIME PRN leg spasms 04/08/20 #7 tabs diclofenac sodium 1 % topical gel 4 g topical QID PRN pain (scale 01/21/22 (Arthritis Pain (diclofenac)) score 4-6) #100 grams methocarbamol 500 mg tablet 250 mg PO BEDTIME PRN muscle 01/21/22 cramps #14 tabs oxycodone-acetaminophen 5 mg-325 1 tab PO Q6H PRN pain #10 tabs 02/14/22 mg tablet (Percocet) cephalexin 500 mg capsule 500 mg PO QID 5 days #20 caps 07/17/22 hydrocodone 5 mg-acetaminophen 325 1 tab PO BID PRN pain #14 tabs 07/17/22 mg tablet methocarbamol 500 mg tablet 250 mg PO TID PRN muscle cramps 07/17/22 #14 tabs ropinirole 0.25 mg tablet 0.25 mg PO BEDTIME #30 tabs 07/17/22 Allergies Allergy/AdvReac Type Severity Reaction Status Date / Time chlorothiazide Allergy Unknown Verified 07/19/22 18:33 [CHLOROTHIAZIDE] codeine [CODEINE] Allergy Unknown itching Verified 07/19/22 18:33 naproxen [NAPROXEN] AdvReac Unknown SHOOTING Verified 07/19/22 18:33 ELECTRICITY DOWN LEG Review of Systems Review of Systems ROS Unobtainable: All systems reviewed & are unremarkable except as noted in HPI and below Patient History Medical History (Updated 07/19/22 @ 21:25 by Aimee Lovell DO) Dysuria GERD (gastroesophageal reflux disease) History of DVT (deep vein thrombosis) History of migraine Hypothyroid Neuropathy Paroxysmal A-fib Surgical History History of hysterectomy Family History Other No pertinent family history Social History Smoking Status: Never smoker Smoking Status: Never smoker alcohol intake frequency: holidays/special occasions only Substance Use Type: does not use Exam Narrative Exam Narrative: GEN: well nourished, well appearing female, alert and oriented x 3, patient appears to be in mild distress. HEENT: Atraumatic, pupils are equal round reactive to light, extraocular movements are intact, nares are clear, there is no conjunctival pallor. Throat is clear without any exudates, erythema, tonsillar enlargement or uvular deviation Visual acuity: right [20/100], left [20/50] without correction. IOP: Right [default value] mm Hg, Left 13 mm Hg General: no globe trauma Eyelids: normal inspection, eyelids everted for exam on left Conjunctiva/Sclera: normal inspection the right, on the left patient's sclera has subconjunctival hemorrhage, does not intrude over the area of the cornea. Corneas: normal inspection, examined with fluroscein on left with no uptake. EOM: intact, no palsy/entrapment Pupils: PERRL, normal accomadation, pupil normal Anterior Chambers: normal inspection, no hypema noted Posterior: normal fundoscopic on bilateral HEART: Regular rate and rhythm without murmur, clicks, rubs. No carotid bruits, pulses are equal in upper and lower extremities LUNGS:Lungs clear to auscultation, no wheezes, rales, crackles, chest moves symmetrically ABD:bowel sounds normal, soft, non-tender, no guarding, rebound, rigidity, no masses noted, no hepatosplenomegaly MSCL: Non-tender, no muscle atrophy, muscles strength 5/5 upper and lower extremities, full range of motion, normal gait NEURO:CN 2-12 intact, sensation normal, normal gait SKIN: No rash, erythema petechiae or ecchymosis noted Initial Vital Signs Initial Vital Signs: Vital Signs Temperature 96.9 F L 07/19/22 18:33 Pulse Rate 97 H 07/19/22 18:33 Respiratory Rate 20 07/19/22 18:33 Blood Pressure 155/69 H 07/19/22 18:33 Pulse Oximetry 97 07/19/22 18:33 Oxygen Delivery Method 07/19/22 18:33 Course Orders Ordered: Discontinued Medications Fluorescein Sodium (Fluorescein 1 Mg Strip) 1 mg EYE-LEFT NOW ONE Stop: 07/19/22 21:12 Last Admin: 07/19/22 21:25 Dose: 1 mg Documented By: SIDDHARTHA Proparacaine HCl (Proparacaine 0.5% Ophth Jacque) 1 drops EYE-LEFT NOW ONE Stop: 07/19/22 21:12 Last Admin: 07/19/22 21:25 Dose: 1 drop Documented By: SIDDHARTHA Vital Signs Vital signs: Vital Signs - 8 hr 07/19/22 21:38 Pulse Rate 107 H Respiratory Rate 16 Blood Pressure 160/72 H Pulse Oximetry 95 Oxygen Delivery Method Room Air MDM - Eye Problem MDM Narrative Medical decision making narrative: this is an 86-year-old female who was seen yesterday for UTI symptoms. Patient was started on Keflex, repair in all [place] and noted today that she had bleeding in the sclera of her eye. She states it is not really painful it does not affect her vision it is noted that her visual acuity is different but she states she had surgery to allow for for vision in 1 eye and near in the other which is consistent with her visual acuity today. Patient's exam does show subconjunctival hemorrhage, intra-ocular pressure is normal there is no foreign body appreciated no signs of infection. Suspect she is on Eliquis she likely popped a small vessel and is bleeding a little bit easier because of this. Return precautions discussed all questions answered. She does follow with Dr. Judy sykes with ophthalmology and encouraged to follow-up if not improving or having any worsening symptoms. We did discuss return precautions here for the emergency department. Discharge Plan Departure Patient Disposition: Home Clinical Impression: Subconjunctival hemorrhage of left eye Instructions: DI for Subconjunctival Hemorrhage Activity Restrictions/Additional Instructions: Please follow-up with ophthalmology if your symptoms are not improving over the next week or if you are having any worsening. I would recommend that you hold your blood thinner tonight and restart it tomorrow. You can continue your other medications as prescribed. Please return for worsening bleeding, decreased vision, new pain, inability to move your eye, bruising of face or other new or concerning changes Prescriptions: No Action sulfamethoxazole-trimethoprim [Bactrim DS] 800-160 mg tablet 1 tab PO BID Qty: 14 0RF estradiol [Estrace] 0.01 % cream 1 gm Vaginal Qty: 0 fesoterodine [Toviaz] 4 MG tablet extended release 24 hr 4 mg PO QDAY Qty: 0 fluoxetine 20 MG capsule 20 mg PO QDAY Qty: 0 levothyroxine [Tirosint] 125 MCG capsule 125 mcg PO QDAY Qty: 0 montelukast 10 MG tablet 10 mg PO QPM Qty: 0 pantoprazole 40 MG tablet,delayed release (DR/EC) 40 mg PO BID Qty: 0 furosemide 40 mg tablet 20 mg PO DAILY Qty: 0 potassium chloride 10 mEq Capsule, Extended Release 20 meq PO BID cyanocobalamin (vitamin B-12) [B-12 DOTS] 500 mcg Tablet 1,000 mcg PO DAILY oxybutynin chloride 5 mg Tablet 5 mg PO BID ropinirole [Requip] 0.25 mg tablet 0.25 mg PO BEDTIME PRN (Reason: leg spasms) Qty: 7 0RF Rx Instructions: administer 1-3 hours before bedtime oxycodone-acetaminophen [Percocet] 5-325 mg tablet 1 tab PO Q6H PRN (Reason: pain) Qty: 10 0RF ropinirole 0.25 mg tablet 0.25 mg PO BEDTIME Qty: 30 0RF Rx Instructions: administer 1-3 hours before bedtime, may use morning and night as needed but please use before bed primarily cephalexin 500 mg capsule 500 mg PO QID 5 Days Qty: 20 0RF hydrocodone-acetaminophen 5-325 mg tablet 1 tab PO BID PRN (Reason: pain) Qty: 14 0RF methocarbamol 500 mg tablet 250 mg PO TID PRN (Reason: muscle cramps) Qty: 14 0RF Rx Instructions: Plan to titrate off methocarbamol and use ropinirole diclofenac sodium [Arthritis Pain (diclofenac)] 1 % gel 4 g topical QID PRN (Reason: pain (scale score 4-6)) Qty: 100 0RF Rx Instructions: apply to knee when painful methocarbamol 500 mg tablet 250 mg PO BEDTIME PRN (Reason: muscle cramps) Qty: 14 0RF Referrals: Judy Sykes MD [Physician] - Jessica Ward MD [Primary Care Provider] -
[2022-07-19] MEDS: PROPARACAINE 0.5% OPHTH SOL 1 DROPS EYE-LEFT (21:25)
[2022-07-19] MEDS: FLUORESCEIN 1 MG STRIP EYE-LEFT (21:25)
[2022-07-19 21:38] VITALS: BP 160/72; PULSE 107; RESP 16; O2SAT 95
== END 2022-07-19 21:41 | disposition home or self-care (01) ==
PROVIDERS: Emergency Provider Emergency Medicine; PCP Internal Medicine
DX: H11.32 Conjunctival hemorrhage, left eye (principal)
CPT/HCPCS: 99282

== ENCOUNTER → 2022-09-03 11:56 | Outpatient (CLI) | payer OTHER, MEDICAID, SELFPAY ==
--- NOTE | 2022-09-03 | DI.MG.S_ITS ---
BILATERAL DIGITAL DIAGNOSTIC MAMMOGRAM 3D/2D: 09/03/2022 CLINICAL: Short term follow up of the left breast, due for bilateral imaging. Comparison is made to exams dated: 03/02/2022 mammogram, 09/15/2021 mammogram, 08/21/2021 mammogram - [facility], and 01/31/2015 mammogram - out side. There are scattered areas of fibroglandular density in both breasts (category b / 25%-50% glandular tissue). There are 1.3 cm grouped dystrophic punctate calcifications in the left breast at 7 o'clock anterior depth. These are not significantly changed. No other significant masses, calcifications, or other findings are seen in either breast. IMPRESSION: PROBABLY BENIGN The 1.3 cm grouped dystrophic punctate calcifications in the left breast are probably benign. A follow-up diagnostic mammogram with magnification views in 12 months is recommended. This exam was interpreted at Station ID: [id number]. NOTE: For mammograms, a report in lay terms will be sent to the patient. Approximately 15% of breast malignancies will not be visualized mammographically. In the management of a palpable breast mass, a negative mammogram must not discourage biopsy of a clinically suspicious lesion. Electronically Signed By: Kennedy Humphreys M.D. ar/:09/03/2022 12:48:54 letter sent: Followup Recommended ACR BI-RADS Category 3: Probably benign [id number]
== END ==
PROVIDERS: PCP Physician Assistant; Referring Provider Internal Medicine; Visit Provider Internal Medicine
DX: R92.8 Other abnormal and inconclusive findings on diagnostic imaging of breast (principal); R92.1 Mammographic calcification found on diagnostic imaging of breast
CPT/HCPCS: 77066; G0279

== ENCOUNTER → 2022-11-25 12:43 | Outpatient (CLI) | payer OTHER, MEDICAID, SELFPAY ==
--- NOTE | 2022-11-25 16:03 | DI.MRI.S_ITS ---
PROCEDURE: MR LUMBAR SPINE WO CON INDICATIONS: CHRONIC MIDLINE LOW BACK PAIN/BILAT LEG WEAKNESS TECHNIQUE: Noncontrast sagittal T1 spin echo and T2 fast echo, sagittal STIR, and T2 fast spin echo through the lumbar spine. In cases with scoliosis, additional coronal T2 fast spin echo may be performed. COMPARISON: None. FINDINGS: Image quality: Excellent. Alignment and Curvature: There is 3 mm retrolisthesis of L3 on L4. 4 mm anterolisthesis of L4 on L5 is also seen. Bone Marrow: Marrow is of normal overall signal. No acute vertebral body compression fractures. Spinal Cord: Conus medullaris terminates at the L1 level. Visualized cord demonstrates normal signal and size. Paraspinous Soft Tissues: No paravertebral masses. T12-L1: Loss of disc signal is seen. No significant disc bulge, canal stenosis or neural foraminal narrowing. L1-L2: Loss of disc signal. No significant disc bulge, canal stenosis or neural foraminal narrowing. L2-L3: Loss of disc signal. Mild diffuse disc bulge and bilateral facet arthrosis is seen with hypertrophy of ligamentum flavum. No significant canal stenosis or neural foraminal narrowing. L3-L4: There is loss of disc signal and disc height. Broad-based disc bulge and bilateral facet arthrosis is seen with hypertrophy of ligamentum flavum. There is [id number] central canal stenosis and bilateral neural foraminal narrowing. L4-L5: Loss of disc signal and disc height is seen. Broad-based disc bulge and bilateral facet arthrosis is noted with hypertrophy of ligamentum flavum. Moderate central canal stenosis is seen. Moderate to severe right-sided neural foraminal narrowing and moderate left-sided neural foraminal narrowing is seen. L5-S1: There is loss of disc height and disc signal. Broad-based disc bulge and bilateral facet arthrosis is seen with mild central canal stenosis and [id number] right-sided neural foraminal narrowing. IMPRESSION: 1. Grade 1 spondylolisthesis at L3-4 and L4-5 levels as described above. No acute compression fracture . No marrow edema. 2. Degenerative disc disease throughout lumbar spine causing various degrees of central canal stenosis and bilateral neural foraminal narrowing as described in detail above. Dictated by: James Rasmussen M.D. on 11/25/2022 at 16:56 Approved by: James Rasmussen M.D. on 11/25/2022 at 17:00
== END ==
PROVIDERS: PCP Physician Assistant; Referring Provider Psychiatry & Neurology Neurology; Visit Provider Psychiatry & Neurology Neurology
DX: M51.16 Intervertebral disc disorders with radiculopathy, lumbar region (principal); M43.16 Spondylolisthesis, lumbar region; M48.061 Spinal stenosis, lumbar region without neurogenic claudication; R29.898 Other symptoms and signs involving the musculoskeletal system; G89.29 Other chronic pain
CPT/HCPCS: 72148

== ENCOUNTER → 2023-05-24 11:25 | Outpatient (CLI) | payer OTHER, MEDICAID, SELFPAY ==
[2023-05-24 13:52] LABS: Albumin 3.8 g/dL (3.5-5.0); BUN Creatinine Ratio 13.7 (6-22); Blood Urea Nitrogen 18 mg/dL (7-17); Calcium 9.4 mg/dL (8.4-10.2); Carbon Dioxide 31 mmol/L (22-32); Chloride 98 mmol/L (98-107); Estimated Glomerular Filt Rate 40 mL/min (>60); Glucose 93 mg/dL (80-110); HEMOLYSIS < 15 (0-50); Phosphorous 4.1 mg/dL (2.8-4.1); Sodium 138 mmol/L (137-145)
== END ==
PROVIDERS: PCP Physician Assistant; Referring Provider Internal Medicine Cardiovascular Disease; Visit Provider Internal Medicine Cardiovascular Disease
DX: I50.32 Chronic diastolic (congestive) heart failure (principal)
CPT/HCPCS: 36415; 80069

== ENCOUNTER 2023-07-28 11:18 | Inpatient (IN) | payer OTHER, MEDICAID, SELFPAY ==
[2023-07-28] VITALS (12 sets, daily range): BP systolic 99–137; BP diastolic 51–102; PULSE 94–130; RESP 15–29; TEMP 36.9–37.5; O2SAT 89–98; BMI 31.9
--- NOTE | 2023-07-28 11:23 | ED.SOB ---
HPI - SOB/Dyspnea General Chief Complaint: Shortness of Breath/Dyspnea Stated Complaint: Body Aches, Diff. Breathing Time Seen by Provider: 07/28/23 11:21 History of Present Illness HPI Narrative: 87-year-old female with history of asthma on Xarelto prior pulmonary emboli and blood clots, valvular disease diabetes. Patient had COVID exposure over the [place] patient has not tested positive at home but the last 2 or 3 days has had increasing shortness of breath. Patient has been using her home nebulizers without any improvement. Reports cough, congestion, body aches, shortness of breath. Patient does note she has a history of CHF, she states her weight is actually been down they been diuresing her little bit more recently. Patient states no fever. She does feel improved after albuterol neb with EMS. She has not noticed any new swelling of her extremities. No GI or urinary symptoms, no new swelling in extremities. Patient had mid to low 90% oxygenation on room air with EMS, received DuoNeb EN route which she was finding helpful. Has allergies to codeine, naproxen and chlorothiazide. 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 States she takes it every day has not missed any doses. Denies any tobacco use but states both her parents were 5 pack a day smoker growing up and that she has been told she has long issues. She is recently established with pulmonology. Related Data Home Medications Medication Instructions Recorded Confirmed estradiol 0.01% (0.1 mg/gram) 1 gm vaginal ##0 10/18/17 06/05/19 vaginal cream (Estrace) fesoterodine 4 mg tablet,extended 4 mg PO QDAY ##0 10/18/17 06/05/19 release 24 hr (Toviaz) fluoxetine 20 mg capsule 20 mg PO QDAY ##0 10/18/17 06/05/19 levothyroxine 125 mcg capsule 125 mcg PO QDAY ##0 10/18/17 06/05/19 (Tirosint) montelukast 10 mg tablet 10 mg PO QPM ##0 10/18/17 06/05/19 pantoprazole 40 mg tablet,delayed 40 mg PO BID ##0 10/18/17 06/05/19 release cyanocobalamin (vitamin B-12) 500 1,000 mcg PO DAILY 03/15/18 06/05/19 mcg tablet (B-12 DOTS) oxybutynin chloride 5 mg tablet 5 mg PO BID 03/15/18 06/05/19 potassium chloride 10 mEq 20 meq PO BID 03/15/18 06/05/19 capsule,extended release furosemide 40 mg tablet 20 mg PO DAILY #0 tabs 06/10/18 06/05/19 Previous Rx's Medication Instructions Recorded sulfamethoxazole 800 1 tab PO BID #14 tabs 09/15/19 mg-trimethoprim 160 mg tablet (Bactrim DS) ropinirole 0.25 mg tablet (Requip) 0.25 mg PO BEDTIME PRN leg spasms 04/08/20 #7 tabs diclofenac sodium 1 % topical gel 4 g topical QID PRN pain (scale 01/21/22 (Arthritis Pain (diclofenac)) score 4-6) #100 grams methocarbamol 500 mg tablet 250 mg (1/2 x 500 mg) PO BEDTIME 01/21/22 PRN muscle cramps #14 tabs oxycodone-acetaminophen 5 mg-325 1 tab PO Q6H PRN pain #10 tabs 02/14/22 mg tablet (Percocet) hydrocodone 5 mg-acetaminophen 325 1 tab PO BID PRN pain #14 tabs 07/17/22 mg tablet methocarbamol 500 mg tablet 250 mg (1/2 x 500 mg) PO TID PRN 07/17/22 muscle cramps #14 tabs ropinirole 0.25 mg tablet 0.25 mg PO BEDTIME #30 tabs 07/17/22 Allergies Allergy/AdvReac Type Severity Reaction Status Date / Time chlorothiazide Allergy Unknown Verified 07/19/22 18:33 [CHLOROTHIAZIDE] codeine [CODEINE] Allergy Unknown itching Verified 07/19/22 18:33 naproxen [NAPROXEN] AdvReac Unknown SHOOTING Verified 07/19/22 18:33 ELECTRICITY DOWN LEG Review of Systems Review of Systems ROS Unobtainable: All systems reviewed & are unremarkable except as noted in HPI and below Patient History Medical History Dysuria History of DVT (deep vein thrombosis) Neuropathy History of migraine Paroxysmal A-fib Hypothyroid GERD (gastroesophageal reflux disease) Surgical History History of hysterectomy Family History Other No pertinent family history Social History Smoking Status: Never smoker Smoking Status: Never smoker alcohol intake frequency: holidays/special occasions only Substance Use Type: does not use Exam Narrative Exam Narrative: GEN: Elderly female, alert and oriented x 3 in moderate distress, patient appears to be in moderate distress. HEENT: Atraumatic, pupils are equal round reactive to light, extraocular movements are intact, nares are clear, there is no conjunctival pallor. Throat is clear without any exudates, erythema, tonsillar enlargement or uvular deviation HEART: Regular rate and rhythm without murmur, clicks, rubs. pulses are equal in upper and lower extremities LUNGS:Lungs decreased bilaterally with wheezes bilaterally in upper and lower lobes, no rales, crackles, chest moves symmetrically, mild tachypnea. Mild accessory muscle use appreciated ABD:bowel sounds normal, soft, non-tender, no guarding, rebound, rigidity, no masses noted, no hepatosplenomegaly :No CVA tenderness MSCL: Non-tender, no muscle atrophy, muscles strength 5/5 upper and lower extremities, full range of motion NEURO:CN 2-12 intact, sensation normal Initial Vital Signs Initial Vital Signs: Vital Signs Pulse Rate 121 H 07/28/23 11:26 Pulse Oximetry 95 07/28/23 11:26 Course Orders Ordered: ED Orders 07/28/23 11:22 XR chest 1V Stat 07/28/23 11:26 Complete Blood Count AUTO DIFF Stat Comprehensive Metabolic Panel Stat Lipase Stat NT-proBNP (BNP-Adult 18+) Stat PTT Partial Thromboplastin Cristhian Stat Prothrombin Time INR Stat Troponin & CK Cardiac Panel Stat 07/28/23 11:29 COVID19 -Nasal RAPID Stat 07/28/23 11:31 Respiratory Panel (Film Array) Stat 07/28/23 11:43 EKG-12 Lead Stat 07/28/23 12:34 ABG [Arterial Blood Gas] Stat Albuterol (Albuterol 2.5 Mg/3 Ml Neb (Adult)) 2.5 mg INH [id number] PRN PRN Reason: Shortness Of Breath Last Admin: 07/28/23 12:23 Dose: 2.5 mg Documented By: JOSE ANTONIO Discontinued Medications Albuterol/Ipratropium (Albuterol/Ipratropium 3 Ml Ampul) 3 ml INH NOW ONE Stop: 07/28/23 11:23 Last Admin: 07/28/23 11:30 Dose: 3 ml Documented By: JOSE ANTONIO Sodium Chloride (Normal Saline 0.9%) 500 mls @ 1,000 mls/hr IV BOLUS ONE Stop: 07/28/23 12:42 Last Infusion: 07/28/23 13:12 Dose: Infused Documented By: JOSE ANTONIO Admin: 07/28/23 12:23 Dose: 1,000 mls/hr Documented By: JOSE ANTONIO Methylprednisolone (Methylprednisolone 125 Mg/2 Ml Vial) 125 mg IV NOW ONE Stop: 07/28/23 12:14 Last Admin: 07/28/23 12:22 Dose: 125 mg Documented By: JOSE ANTONIO Vital Signs Vital signs: Vital Signs - 8 hr 07/28/23 11:26 07/28/23 11:28 07/28/23 11:28 Temperature Pulse Rate 121 H Respiratory Rate Blood Pressure 137/102 H Pulse Oximetry 95 89 L Oxygen Delivery Method Oxygen Flow Rate 07/28/23 11:30 07/28/23 11:30 07/28/23 11:31 Temperature Pulse Rate 122 H 122 H 119 H Respiratory Rate 21 20 23 Blood Pressure Pulse Oximetry 95 93 95 Oxygen Delivery Method Room Air Oxygen Flow Rate 07/28/23 11:31 07/28/23 11:33 07/28/23 12:00 Temperature 98.5 F Pulse Rate 122 H 130 H Respiratory Rate 22 29 H Blood Pressure 126/57 L 137/102 H Pulse Oximetry 96 91 Oxygen Delivery Method Room Air Oxygen Flow Rate 07/28/23 12:00 07/28/23 12:30 07/28/23 12:30 Temperature Pulse Rate 124 H Respiratory Rate 20 Blood Pressure 123/67 99/55 L Pulse Oximetry Oxygen Delivery Method Oxygen Flow Rate 07/28/23 13:00 07/28/23 13:00 07/28/23 13:30 Temperature Pulse Rate 124 H 126 H Respiratory Rate 18 15 Blood Pressure 104/51 L Pulse Oximetry 94 94 Oxygen Delivery Method Nasal Cannula Oxygen Flow Rate 4 07/28/23 13:30 Temperature Pulse Rate Respiratory Rate Blood Pressure 112/72 Pulse Oximetry Oxygen Delivery Method Oxygen Flow Rate MDM - SOB/Dyspnea Lab Data 07/28/23 11:26 07/28/23 11:26 Labs: Lab Results 07/28/23 07/28/23 07/28/23 Range/Units 11:26 11:29 11:31 WBC 6.7 (4.5-11.0) X10^3/uL RBC 4.75 (4.0-5.2) X10^6/uL Hgb 14.9 (12.0-16.0) g/dL Hct 45.2 (36-46) % MCV 95.2 (80-100) fL MCH 31.4 (26-34) PG MCHC 33.0 (30-36) % RDW 14.7 (11.6-14.8) % Plt Count 206 (150-400) X10^3/uL Neut % (Auto) 66.3 (50-75) % Lymph % (Auto) 12.4 L (25-40) % [place] % (Auto) 12.4 (3-14) % Eos % (Auto) 8.1 H (2-4) % Baso % (Auto) 0.8 (0-2) % Neut # (Auto) 4500 (3524-6182) /uL Lymph # (Auto) 800 L (1352-3878) /uL [place] # (Auto) 800 (0-900) /uL Eos # (Auto) 500 H (0-450) /uL Baso # (Auto) 100 (0-100) /uL PT 17.5 H (9.4-12.5) SECONDS INR 1.5 H (0.9-1.3) APTT 32 (25.1-36.5) SECONDS Sodium 138 (137-145) mmol/L Potassium 3.8 (3.4-5.1) mmol/L Chloride 97 L (98-107) mmol/L Carbon Dioxide 33 H (22-32) mmol/L BUN 16 (7-17) mg/dL Creatinine 1.21 H (0.52-1.04) mg/dL Estimated GFR 44 L (>60) mL/min BUN/Creatinine Ratio 13.2 (6-22) Glucose 119 H (80-110) mg/dL Calcium 9.6 (8.4-10.2) mg/dL Total Bilirubin 0.7 (0.2-1.3) mg/dL AST 32 (14-36) IU/L ALT 23 (<35) IU/L Alkaline Phosphatase 98 (38-126) U/L Total Creatine Kinase 93 (30-135) U/L Troponin I < 0.012 (0.01-0.034) ng/mL NT-Pro-B Natriuret Pep 714 H (<450) pg/mL Total Protein 8.0 (6.3-8.2) g/dL Albumin 4.4 (3.5-5.0) g/dL Globulin 3.6 (1.7-4.1) g/dL Albumin/Globulin Ratio 1.2 (1.0-2.8) Lipase 113 (23-300) U/L Chlamy pneumoniae PCR Not detected (Not Detect) Adenovirus (PCR) Not detected (Not Detect) B.parapertussis DNA PCR Not detected (Not Detecte) Coronavirus OC43 (PCR) Not detected (Not Detect) Coronavirus HKU1 (PCR) Not detected (Not Detect) Coronavirus 229E (PCR) Not detected (Not Detect) SARS-CoV-2 (PCR) Negative Not detected (Negative) Coronavirus NL63 (PCR) Not detected (Not Detect) Human Metapneumovir PCR Not detected (Not Detect) Influenza Type A (PCR) Not detected (Not Detect) Influenza Type B (PCR) Not detected (Not Detect) M. pneumoniae (PCR) Not detected (Not Detect) Parainfluenza 1 (PCR) Not detected (Not Detect) Parainfluenza 2 (PCR) Not detected (Not Detect) Parainfluenza 3 (PCR) Not detected (Not Detect) Parainfluenza 4 (PCR) Not detected (Not Detect) RSV (PCR) Not detected (Not Detect) Entero/Rhino (PCR) Detected H (Not Detect) Imaging Data Chest x-ray: Radiologist's Impression: [address] [address] XRay Report Signed Patient: Sun Mejia MR#: [id number] : 1935 Acct:[id number] Age/Sex: 87 / F Date of Service: 07/28/23 Loc: ED Accession Number: [id number] Procedure: XR chest 1V Ordering Provider: Aimee Lovell D.O. PROCEDURE: XR CHEST 1V INDICATIONS: sob, recent covid exposure, hx asthma TECHNIQUE: One view of the chest was acquired. COMPARISON: [facility], CR, XR CHEST 2V, 02/24/2022, 12:22. FINDINGS: Surgical changes and devices: None. Lungs and pleura: Lungs are clear. No pleural effusions or pneumothorax. Mediastinum: Mediastinal contours appear normal. Heart size is normal. Bones and chest wall: No suspicious bony lesions. Overlying soft tissues appear unremarkable. IMPRESSION: No acute cardiopulmonary abnormality is seen. Dictated by: Agatha Obrien M.D. on 07/28/2023 at 11:50 Approved by: Agatha Obrien M.D. on 07/28/2023 at 11:52 ECG Data Attestation: I personally reviewed and interpreted this ECG as follows: Prior ECG tracings: available for review Interpretation: Sinus tachycardia rate of 127 NM 158 QRS is [address] QTC [address] No acute ST elevation depression noted. Patient has prior from 02/25/2022 which was not tachycardic but had no acute ST changes at that time. MDM Narrative Medical decision making narrative: 87-year-old female with known asthma history. Patient had recent COVID exposure tested negative at home. For flexes negative here but respiratory panel was sent. Patient's wheezy hypoxic sometimes into the mid 80s. Patient has some known lung disease. Patient does have a history of pulmonary emboli but has been anticoagulated on Xarelto. Patient states she has been taking her medications regularly. Workup shows no acute change with CBC, patient has chronic kidney disease which appears stable. Troponin is negative. BNP is 714 has been to the 2-400 range. Chest x-ray shows no acute change. CO2 is 33 with a chloride 97 potassium 3.8 with a sodium 138, glucose is 119. LFTs are otherwise negative. [facility] COVID/influenza/RSV is negative. Dimer/CTA was deferred as patient notes she is taking appropriate anticoagulation regularly. On recheck patient has had some improvement with albuterol her wheezing has improved she has been intermittently tachycardic but appears to be sinus tachycardia not atrial flutter as read has changed over time has improved mildly after 500 L bolus. Was given small bolus secondary to CHF history. Also had an ABG which shows a pH of 7.42, pCO2 of 42 with a PaO2 of 52 and a bicarb of 28 on room air. Patient was placed on oxygen. Full respiratory panel was sent and is positive for entero/rhinovirus. Patient received several DuoNebs, was also given Solu-Medrol 125mg continues to have hypoxia. Case was discussed with Dr. Patel hospitalist: accepts for admission. Discharge Plan Departure Patient Disposition: Admitted As Inpatient Clinical Impression: Acute hypoxic respiratory failure, CKD (chronic kidney disease) Admit Date/Time: 07/28/23 13:48 Admit Provider: Greg Patel
[2023-07-28 11:29] LABS: Add Manual Diff / Slide Review NO; Basophils Absolute Auto 100 /uL (0-100); Basophils Percent Auto 0.8 % (0-2); Eosinophils Absolute Auto 500 /uL (0-450); Eosinophils Percent Auto 8.1 % (2-4); Hematocrit 45.2 % (36-46); Hemoglobin 14.9 g/dL (12.0-16.0); Lymphocytes Absolute Auto 800 /uL (1100-4500); Lymphocytes Percent Auto 12.4 % (25-40); Mean Corpuscular Hemoglobin 31.4 PG (26-34); Mean Corpuscular Volume 95.2 fL (80-100); Monocytes Absolute Auto 800 /uL (0-900); Monocytes Percent Auto 12.4 % (3-14); Neutrophils Absolute Auto 4500 /uL (1500-7000); Neutrophils Percent Auto 66.3 % (50-75); Platelet Count 206 X10^3/uL (150-400); Red Blood Cell Count 4.75 X10^6/uL (4.0-5.2); Red Cell Distribution Width 14.7 % (11.6-14.8); White Blood Cell Count 6.7 X10^3/uL (4.5-11.0)
[2023-07-28] MEDS: ALBUTEROL/IPRATROPIUM 3 ML AMPUL INH (11:30)
[2023-07-28 11:36] LABS: INR 1.5 (0.9-1.3); Prothrombin Time 17.5 SECONDS (9.4-12.5)
[2023-07-28 11:39] LABS: PTT Partial Thromboplastin Tim 32 SECONDS (25.1-36.5)
[2023-07-28 11:40] LABS: Alanine Aminotransferase 23 IU/L (<35); Albumin 4.4 g/dL (3.5-5.0); Albumin Globulin Ratio 1.2 (1.0-2.8); Alkaline Phosphatase 98 U/L (38-126); Aspartate Aminotransferase 32 IU/L (14-36); BUN Creatinine Ratio 13.2 (6-22); Bilirubin Total 0.7 mg/dL (0.2-1.3); Blood Urea Nitrogen 16 mg/dL (7-17); Calcium 9.6 mg/dL (8.4-10.2); Carbon Dioxide 33 mmol/L (22-32); Chloride 97 mmol/L (98-107); Creatine Kinase 93 U/L (30-135); Estimated Glomerular Filt Rate 44 mL/min (>60); Globulin 3.6 g/dL (1.7-4.1); Glucose 119 mg/dL (80-110); HEMOLYSIS < 15 (0-50); Lipase 113 U/L (23-300); Potassium 3.8 mmol/L (3.4-5.1); Sodium 138 mmol/L (137-145)
[2023-07-28 11:52] LABS: NT-proBNP (BNP-Adult 18+) 714 pg/mL (<450); Troponin I < 0.012 ng/mL (0.01-0.034)
[2023-07-28 11:59] LABS: COVID19 -Nasal RAPID Negative (Negative)
[2023-07-28] MEDS: methylPREDNISolone 125 MG/2 ML VIAL IV (12:22)
[2023-07-28] MEDS: SODIUM CHLORIDE 0.9% 500 ML 1000 ML IV (12:23)
[2023-07-28] MEDS: ALBUTEROL 2.5 MG/3 ML NEB (ADULT) INH ×2 (12:23→22:00)
[2023-07-28 13:06] LABS: Adenovirus Not Detected (Not Detect); B. parapertussis Not Detected (Not Detecte); Bordetella pertussis Not Detected (Not Detect); Chlamydophila pneumoniae Not Detected (Not Detect); Coronavirus 229E Not Detected (Not Detect); Coronavirus HKU1 Not Detected (Not Detect); Coronavirus NL 63 Not Detected (Not Detect); Coronavirus OC43 Not Detected (Not Detect); Human Metapneumovirus Not Detected (Not Detect); Human Rhinovirus/Enterovirus Detected (Not Detect); Influenza A Not Detected (Not Detect); Influenza B Not Detected (Not Detect); Mycoplasma pneumoniae Not Detected (Not Detect); Parainfluenza Virus 1 Not Detected (Not Detect); Parainfluenza Virus 2 Not Detected (Not Detect); Parainfluenza Virus 3 Not Detected (Not Detect); Parainfluenza Virus 4 Not Detected (Not Detect); Respiratory Syncytial Virus Not Detected (Not Detect); SARS- CoV-2 Not Detected (Not Detecte)
[2023-07-28] MEDS: SODIUM CHLORIDE 0.9% 1,000 ML 100 ML IV (15:07)
[2023-07-28 15:18] LABS: Magnesium 2.3 mg/dL (1.6-2.3)
--- NOTE | 2023-07-28 18:39 | PM.HP.1 ---
History of Present Illness History of Present Illness Date Patient Seen: 07/28/23 Chief complaint: Body Aches, Diff Breathing Narrative: Sun Mejia is an 87yo F with PMH of DVT and PE on eliquis, paroxysmal A-fib, migraines, frequent UTI's on chronic Bactrim, CKD, hypothyroidism, HLD, valvular disease and GERD who presents with worsening dyspnea, cough and congestion. Patient states she has felt like she is going to for 3 days due to worsening SOB. She hasn't been this sick in 40 years she claims. Says her grandson whom she lives with has had a hacking cough lately as well. In the ED found to have rhinovirus and requiring 4L NC to maintain O2 sats. She was given nebs and steroids. She currently feels much better after the nebs especially. She thinks she may have a history of COPD given both of her parents smoked 5 packs per day for her entire childhood and smoked in the house. She denies CP, NV, abd pain, dizziness, or diarrhea. PFSH Medical History Dysuria History of DVT (deep vein thrombosis) Neuropathy History of migraine Paroxysmal A-fib Hypothyroid GERD (gastroesophageal reflux disease) Surgical History History of hysterectomy Family History Other No pertinent family history Social History household members: family Smoking Status: Never smoker Meds Home Medications and Allergies Home Medications Medication Instructions Recorded Confirmed Type pantoprazole 40 mg tablet,delayed 40 mg PO BID ##0 10/18/17 07/28/23 History release cyanocobalamin (vitamin B-12) 500 1,000 mcg PO DAILY 03/15/18 07/28/23 History mcg tablet (B-12 DOTS) potassium chloride 10 mEq 20 meq PO QAM 03/15/18 07/28/23 History capsule,extended release furosemide 40 mg tablet 20 mg PO DAILY #0 tabs 06/10/18 07/28/23 History methocarbamol 500 mg tablet 250 mg (1/2 x 500 mg) PO TID PRN 07/17/22 07/28/23 Rx muscle cramps #14 tabs albuterol sulfate 90 mcg/actuation 2 puff inhalation PRN PRN sob 07/28/23 07/28/23 History aerosol inhaler apixaban 5 mg tablet (Eliquis) 5 mg PO BID 07/28/23 07/28/23 History atorvastatin 20 mg tablet 20 mg PO QAM 07/28/23 07/28/23 History cyclosporine 0.05 % eye drops in a 2 drp EYE-BOTH PRN PRN Dry Eyes 07/28/23 07/28/23 History dropperette (Restasis) empagliflozin 10 mg tablet 10 mg PO QAM 07/28/23 07/28/23 History (Jardiance) levothyroxine 125 mcg tablet 125 mcg PO QAM 07/28/23 07/28/23 History magnesium 200 mg tablet 400 mg PO BID 07/28/23 07/28/23 History metoprolol succinate 25 mg 25 mg PO QAM 07/28/23 07/28/23 History tablet,extended release 24 hr mirabegron 50 mg tablet,extended 50 mg PO DAILY 07/28/23 07/28/23 History release 24 hr (Myrbetriq) nitroglycerin 0.4 mg sublingual 4 mg sublingual PRN PRN Chest Pain 07/28/23 07/28/23 History tablet sulfamethoxazole 400 1 tab PO DAILY 07/28/23 07/28/23 History mg-trimethoprim 80 mg tablet vitamin E 400 unit tablet 180 mg PO DAILY 07/28/23 07/28/23 History Allergies Allergy/AdvReac Type Severity Reaction Status Date / Time chlorothiazide Allergy Unknown Verified 07/19/22 18:33 [CHLOROTHIAZIDE] codeine [CODEINE] Allergy Unknown itching Verified 07/19/22 18:33 naproxen [NAPROXEN] AdvReac Unknown SHOOTING Verified 07/19/22 18:33 ELECTRICITY DOWN LEG Review of Systems Review of Systems Narrative: All other systems reviewed with the patient and are negative unless otherwise stated. Exam Vital Signs (past 8 hours): - 07/28/23 11:26 07/28/23 11:28 07/28/23 11:28 Temperature Pulse Rate 121 H Respiratory Rate Blood Pressure 137/102 H Pulse Oximetry 95 89 L Oxygen Delivery Method Oxygen Flow Rate 07/28/23 11:30 07/28/23 11:30 07/28/23 11:31 Temperature Pulse Rate 122 H 122 H 119 H Respiratory Rate 21 20 23 Blood Pressure Pulse Oximetry 95 93 95 Oxygen Delivery Method Room Air Oxygen Flow Rate 07/28/23 11:31 07/28/23 11:33 07/28/23 12:00 Temperature 98.5 F Pulse Rate 122 H 130 H Respiratory Rate 22 29 H Blood Pressure 126/57 L 137/102 H Pulse Oximetry 96 91 Oxygen Delivery Method Room Air Oxygen Flow Rate 07/28/23 12:00 07/28/23 12:30 07/28/23 12:30 Temperature Pulse Rate 124 H Respiratory Rate 20 Blood Pressure 123/67 99/55 L Pulse Oximetry Oxygen Delivery Method Oxygen Flow Rate 07/28/23 13:00 07/28/23 13:00 07/28/23 13:30 Temperature Pulse Rate 124 H 126 H Respiratory Rate 18 15 Blood Pressure 104/51 L Pulse Oximetry 94 94 Oxygen Delivery Method Nasal Cannula Oxygen Flow Rate 4 07/28/23 13:30 07/28/23 14:58 07/28/23 14:58 Temperature 99.5 F Pulse Rate 94 H Respiratory Rate 18 Blood Pressure 112/72 116/64 Pulse Oximetry 98 Oxygen Delivery Method Nasal Cannula Oxygen Flow Rate 4 07/28/23 18:22 Temperature 99.5 F Pulse Rate 115 H Respiratory Rate 20 Blood Pressure Pulse Oximetry 95 Oxygen Delivery Method Oxygen Flow Rate 4 Oxygen Delivery Method Nasal Cannula Oxygen Flow Rate 4 Narrative Exam Narrative: GEN: no acute distress, frequent coughing HEENT: moist mucous membranes, PERRL NECK: trachea midline, no JVD CV: regular rate and rhythm, no murmurs PULM: coarse breath sounds bilaterally ABD: soft, nontender, nondistended, no organomegaly EXT: warm and well perfused with no edema NEURO: awake, alert, oriented, no focal deficits Objective Labs 07/28/23 11:26 07/28/23 11:26 Labs: Laboratory Results - last 24 hr 07/28/23 07/28/23 07/28/23 11:26 11:29 11:31 WBC 6.7 RBC 4.75 Hgb 14.9 Hct 45.2 MCV 95.2 MCH 31.4 MCHC 33.0 RDW 14.7 Plt Count 206 Neut % (Auto) 66.3 Lymph % (Auto) 12.4 L [place] % (Auto) 12.4 Eos % (Auto) 8.1 H Baso % (Auto) 0.8 Neut # (Auto) 4500 Lymph # (Auto) 800 L [place] # (Auto) 800 Eos # (Auto) 500 H Baso # (Auto) 100 PT 17.5 H INR 1.5 H APTT 32 Sodium 138 Potassium 3.8 Chloride 97 L Carbon Dioxide 33 H BUN 16 Creatinine 1.21 H Estimated GFR 44 L BUN/Creatinine Ratio 13.2 Glucose 119 H Calcium 9.6 Magnesium 2.3 Total Bilirubin 0.7 AST 32 ALT 23 Alkaline Phosphatase 98 Total Creatine Kinase 93 Troponin I < 0.012 NT-Pro-B Natriuret Pep 714 H Total Protein 8.0 Albumin 4.4 Globulin 3.6 Albumin/Globulin Ratio 1.2 Lipase 113 Chlamy pneumoniae PCR Not detected Adenovirus (PCR) Not detected B.parapertussis DNA PCR Not detected Coronavirus OC43 (PCR) Not detected Coronavirus HKU1 (PCR) Not detected Coronavirus 229E (PCR) Not detected SARS-CoV-2 (PCR) Negative Not detected Coronavirus NL63 (PCR) Not detected Human Metapneumovir PCR Not detected Influenza Type A (PCR) Not detected Influenza Type B (PCR) Not detected M. pneumoniae (PCR) Not detected Parainfluenza 1 (PCR) Not detected Parainfluenza 2 (PCR) Not detected Parainfluenza 3 (PCR) Not detected Parainfluenza 4 (PCR) Not detected RSV (PCR) Not detected Entero/Rhino (PCR) Detected H Assessment & Plan Assessment & Plan narrative: # acute hypoxic resp failure 2/2 rhinovirus -patient reports 3 days of dyspnea, coughing and congestion -in ED satting in 80's and req 4L NC -supportive care with mucinex, tessalon perles PRN -duonebs and IV solu-medrol 60mg BID -CXR normal -doubt PE as she has been compliant with eliquis -if not improving will obtain CT chest # CKD -Cr 1.21 -IVF x12 hrs # h/o DVT/PE -continue eliquis # valvular disease -continue jardiance and metoprolol # GERD -continue PPI # UTI prophylaxis -continue bactrim -monitor Cr and K # hypothyroidism -continue synthroid # HLD -continue statin Code status is full code. DVT prophylaxis with Eliquis. Proxy is son Maximino. I have reviewed home meds and used all available resources to reconcile the home meds. Case discussed with ED physician/APC and patient will be admitted to the hospitalist service for further workup and management. This patient will be admitted as inpatient and will require greater than 2 midnights of hospital time to treat acute hypoxic respiratory failure secondary to rhinovirus.
[2023-07-28] MEDS: methylPREDNISolone 125 MG/2 ML VIAL 60 MG IV (21:47)
[2023-07-28] MEDS: MAGNESIUM OXIDE 400 MG TABLET PO (21:47)
[2023-07-28] MEDS: guaiFENesin ER 600 MG TAB PO (21:47)
[2023-07-28] MEDS: APIXABAN 5 MG TABLET PO (21:47)
[2023-07-28] MEDS: PANTOPRAZOLE DR 40 MG TABLET PO (21:48)
[2023-07-28] MEDS: methocarbamoL 500 MG TABLET 250 MG PO (22:14)
[2023-07-29] VITALS (10 sets, daily range): BP systolic 98–129; BP diastolic 56–74; PULSE 92–112; RESP 15–24; TEMP 36.1–36.8; O2SAT 93–98
[2023-07-29] MEDS: SODIUM CHLORIDE 0.9% 1,000 ML 100 ML IV (00:42)
--- NOTE | 2023-07-29 00:54 | PC.NURSE ---
Patient is alert and oriented. Breath sounds with expiratory and audible wheezing throughout. On oxygen at 4L/min per NC with sat of 95%; on continuous oximetry. HRR but tachycardic in low 100's; BP also trending lower. Denied nausea. BT present and abdomen is soft. Voiding per BSC and denied dysuria but reports she has chronic cystitis so if taking chronic antibiotics. Is able to turn herself in bed. Assisted to BSC with 1 assist but uses cane if going further distances. Denied pain. On droplet precautions due to being positive for rhinovirus. Fall risk score is high and bed alarm is activated.
[2023-07-29] MEDS: ALBUTEROL 2.5 MG/3 ML NEB (ADULT) INH (02:44)
[2023-07-29 05:39] LABS: Add Manual Diff / Slide Review NO; Basophils Absolute Auto 0 /uL (0-100); Basophils Percent Auto 0.1 % (0-2); Eosinophils Absolute Auto 0 /uL (0-450); Eosinophils Percent Auto 0.1 % (2-4); Hematocrit 38.8 % (36-46); Lymphocytes Absolute Auto 500 /uL (1100-4500); Lymphocytes Percent Auto 11.6 % (25-40); Mean Corpuscular HGB Conc 33.6 % (30-36); Mean Corpuscular Hemoglobin 31.8 PG (26-34); Mean Corpuscular Volume 94.7 fL (80-100); Monocytes Absolute Auto 200 /uL (0-900); Monocytes Percent Auto 6.1 % (3-14); Neutrophils Absolute Auto 3300 /uL (1500-7000); Neutrophils Percent Auto 82.1 % (50-75); Platelet Count 175 X10^3/uL (150-400); Red Blood Cell Count 4.09 X10^6/uL (4.0-5.2); Red Cell Distribution Width 14.4 % (11.6-14.8)
[2023-07-29] MEDS: PANTOPRAZOLE DR 40 MG TABLET PO ×2 (05:39→20:10)
[2023-07-29] MEDS: LEVOTHYROXINE 125 MCG TABLET PO (05:39)
[2023-07-29 05:52] LABS: BUN Creatinine Ratio 17.4 (6-22); Blood Urea Nitrogen 19 mg/dL (7-17); Calcium 9.1 mg/dL (8.4-10.2); Carbon Dioxide 27 mmol/L (22-32); Chloride 103 mmol/L (98-107); Estimated Glomerular Filt Rate 49 mL/min (>60); Glucose 144 mg/dL (80-110); HEMOLYSIS < 15 (0-50); Potassium 4.3 mmol/L (3.4-5.1); Sodium 138 mmol/L (137-145)
[2023-07-29 06:08] LABS: Procalcitonin 0.08 ng/mL (<0.5)
[2023-07-29] MEDS: ALBUTEROL/IPRATROPIUM 3 ML AMPUL INH ×3 (08:06→18:10)
[2023-07-29 08:58] LABS: Blood Gas Collection Site Right Brachial; Fractionated Inspired Oxygen 21; HCO3 ABG 28 mmol/L (23-27); Oxygen Saturation ABG 87 % (95-100); PCO2 ABG 42.5 mmHg (35-45); PO2 ABG 52 mmHg (80-100); TCO2 ABG 29 mmol/L (23-27); pH ABG 7.43 (7.35-7.45)
[2023-07-29] MEDS: guaiFENesin ER 600 MG TAB PO ×2 (09:53→20:09)
[2023-07-29] MEDS: METOPROLOL ER 25 MG TABLET PO (09:53)
[2023-07-29] MEDS: methocarbamoL 500 MG TABLET 250 MG PO ×2 (09:53→21:06)
[2023-07-29] MEDS: MAGNESIUM OXIDE 400 MG TABLET PO ×2 (09:53→20:10)
[2023-07-29] MEDS: APIXABAN 5 MG TABLET PO ×2 (09:53→20:10)
[2023-07-29] MEDS: methylPREDNISolone 125 MG/2 ML VIAL 60 MG IV (09:54)
[2023-07-29] MEDS: MYRBETRIQ 50 MG 50 EACH PO (09:54)
[2023-07-29] MEDS: SODIUM CHLORIDE 0.9% FLUSH 10 ML IV ×2 (09:55→20:10)
--- NOTE | 2023-07-29 13:14 | PT.IIE ---
Current Diagnoses Acute respiratory failure with hypoxia (07/28/23) Surgical History (Last Reviewed 07/28/23 @ 14:17 by Aimee Lovell DO) History of hysterectomy Medical History (Last Reviewed 07/28/23 @ 14:17 by Aimee Lovell DO) Dysuria GERD (gastroesophageal reflux disease) History of DVT (deep vein thrombosis) History of migraine Hypothyroid Neuropathy Paroxysmal A-fib Physical Therapy Inpatient Evaluation/Re-Eval M1 PT/OT-IP Prior Functional Status Start: 07/29/23 12:39 Freq: NEEDED Status: Active Protocol: Document 07/29/23 12:42 MB (Rec: 07/29/23 13:14 MB [id number]) Medical Review Prior Functional Status Medical History Reviewed Yes Diet/Fluid Consistency Regular Communication WNLs Mobility and Gait Mod I with SPC Activities of Daily Living and IADL's Mod I with SPC Social History Household Members family Living Arrangements Apartment/Condo Number of Floors (Floors) One Floor Number of Stairs To Enter/Railing? 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 M2 PT-IP Current Condition Start: 07/29/23 12:39 Freq: NEEDED Status: Active Protocol: Document 07/29/23 12:42 MB (Rec: 07/29/23 13:13 MB [id number]) Physical Therapy Current Condition Current Condition Evaluation Date 07/29/23 Treatment Diagnosis Acute hypoxic respiratory failure and rhinovirus M3 PT-IP Subjective Start: 07/29/23 12:39 Freq: NEEDED Status: Active Protocol: Document 07/29/23 12:42 MB (Rec: 07/29/23 13:13 MB [id number]) Subjective Physical Therapy Visit Type Type Initial Evaluation Visit Start Time 12:42 Visit Stop Time 13:01 Total Visit Minutes 19 Number of SUPERVISOR CONTACT LENS Visits 0 Physical Therapy Visit Comments Patient Comments I'm so tired. I hadn't been able to breathe well. I should have come into the hospital sooner. M4 PT-IP Mobility and Gait Start: 07/29/23 12:39 Freq: NEEDED Status: Active Protocol: Document 07/29/23 12:42 MB (Rec: 07/29/23 13:13 MB [id number]) PT-Bed Mobility Assessment Rolling Level of Assist Contact Guard Assistance,1 Person Assistance Supine to Sit Supine to Sit Contact Guard Assistance,1 Person Assistance,Head of Bed Elevated,Bedrails Scooting Scooting Up and Down in Bed Contact Guard Assistance PT-Transfer Assessment Sit to and From Stand Sit to and from Stand Minimal Assistance,1 Person Assistance,Use of Upper Extremities Equipment Transfer Assistive Device Straight Cane Orthotic/Prosthetic Devices or Brace: No Transfers Transfer Destination Chair Transfer Technique Stepping Transfer Ability Level of Assist Minimal Assistance Gait Assessment Gait Gait Assistance Required: Minimum Assistance,1 Person Assist Distance (Feet) 1 Able to Maintain Weight Bearing Status No During Gait Assistive Devices Assistive Device Gait Belt,Straight Cane Gait Deviations General Gait Pattern Decreased Stride Length, Decreased Feet Clearance, Flexed Trunk Factors Limiting Gait Function Factors Limiting Gait Function Decreased Activity Tolerance, Poor Balance,Poor Safety Awareness,Respiratory Distress Comments Gait Comments Pt's O2 sats on .5-1L O2 are 87-95% and drop with talking and mobility and pt presents with [place] with talking and short mobility. PT must remind pt to use her cane and pt tends to reach for chair and bed d/t decreased activity tolerance PT-Balance Assessment Sitting Balance and Reactions Static Sitting Balance Ability Good Dynamic Sitting Balance Ability Good Standing Balance and Reactions Static Standing Balance Ability Fair Dynamic Standing Balance Ability Fair Device Used SPC, bed and chair M7 PT-IP Assessment and Plan Start: 07/29/23 12:39 Freq: NEEDED Status: Active Protocol: Document 07/29/23 12:42 MB (Rec: 07/29/23 13:13 [id number]) PT Summary Assessment and Plan Potential Rehabilitation Potential Fair Status of Condition at Evaluation Unstable Summary Impairments Balance,Bed Mobility,Transfers ,Gait,Activity Tolerance Progress Towards Goals Slow Progress due to Activity Tolerance Assessment Summary Pt is a pleasant 87 y/o female who reports she lives at home in her apartment with her grandson who has had brain surgeries, seizures and who is heavily medicated usually. She does all the house work, driving and errands. Taking care of the apartment and managing has been getting harder for her, per her report . She states she couldn't rest or breathe well for several days and she should have come into the hospital sooner. Pt presents with decreasing O2 sats with conversation and she can only tolerate getting up to the chair with PT today. She will benefit from being up in the chair and to BSC with nsg. She will also benefit from ongoing acute PT to improve gait and try platform step to allow home entrance. She is not able to progress gait this afternoon d/t severe CANADA and O2 saturation drop. Goals Bed Mobility Goal Independent Transfer Goal Standby Assistance,Cane,Front Wheeled Walker Gait Goal Standby Assistance,Cane,Front Wheel Walker Gait Distance 75 Other Goals Pt will ascend and descend platform step with LRAD and superv. Days to Meet Goals 3 Frequency of Treatment Frequency Of Treatment Once a Day Treatment Plan Physical Therapy Treatment Plan Bed Mobility Training,Transfer Training,Gait Training, Therapeutic Exercise,Balance Retraining Weight Bearing Status Weight Bearing Status Weight Bear as Tolerated Recommendations To Nursing Amount of Assist Needed 1 Person Assist Discharge Recommendations PT Discharge Recommendations Home with Assistance,Home Health Transportation Needs at Discharge Private Vehicle
--- NOTE | 2023-07-29 15:47 | CM.DANOTE ---
Initial DCP Assessment Note Pt is an 87 yo female, resident at [facility] in [place], patient arrives with SOB and overall feeling ill, admitted for management of acute resp failure, Rhino virus+ , currently on O2 PCP: Sharmin Grimes Payer: Della PAIGE/KIM Reviewed chart, met w/patient, introduced self and role. Patient lives with her 32 yo grandson Scar who is disabled r/t a brain tumor at 3yo. Grandson has a seizure disorder, left sided weakness and does not drive. Scar is indp in ADLs, suffers from unsteadiness at times. Patient admits to feeling overwhelmed with current family circumstance. Son Shantanu (Scar's Dad) lives in [place] and is caring for one of his grand kids currently that is suffering from a substance use disorder. Patient feels responsible for the care of her grandson Scar, and wonders what will happen when either patient's or Scar's care needs increase. Encouraged patient to focus on the short term plan today, discussed home health services. Patient agreeable and has no agency preference. Patient agreeable to an CUSTOM SHOP WORKER being added for ongoing resource development for patient and her family. Patient has KIM in place and would benefit from LTC application. Patient also considering assigning a DPOA. F2F and HH order completed. RAHEL Moore has forwarded these orders to [facility] which has accepted referral and patient's insurance. PT has seen and is clearing patient for return home w/HH services. Spoke w.son Shantanu briefly who agrees HH services would be helpful. Shantanu wonders how he can research resources closer to him in case patient and son Scar move closer to [place]; provided number for the [facility] of aging and disability services. Plan: Discharge home w/[facility] to follow is anticipated. Patient may need KIM transport, grand son Scar does not drive. CM team will plan to follow closely to assist with discharge coordination and support. SPENSER Lipscomb Discharge Planning/Care Management CM Discharge Assessment Start: 07/29/23 15:14 Freq: Status: Active Protocol: Document 07/29/23 15:14 LUIS (Rec: 07/29/23 15:39 LUIS [id number]) Discharge Planning Assessment Assigned Drama Professor SPENSER Soto DPOA/Assigned Designee Name Shantanu Mejia, son (Tom Mcguire) Contact Information [phone] Advance Directives? No History Provided By Patient,Family Member Prior Living Arrangements Apartment/Condo Household Members family Type of transporation used prior to Drives own vehicle admit Independent with ADL's Yes: Poor activity tolerance r /t back pain, general fatigue Is patient alert and oriented? Yes Needs Assistance With Home Chores / Shopping Patient/Family Preference Home with Home Health Barriers to Discharge No Discharge Plan Home with Home Health Transportation Arrangement Family vs KIM transport Referrals Initiated Home Health Additional Comment [facility] accepts patient's [employer] MCR
--- NOTE | 2023-07-29 17:15 | PM.PN.1 ---
Subjective Subjective Interval history: Patient weaned to 1L. She is still having a wet cough. Duonebs have helped. APPLICATION PACKAGING SPECIALIST arranging HH. Exam Vital Signs (past 8 hours): - 07/29/23 09:53 07/29/23 13:02 07/29/23 13:16 Temperature 98.3 F Pulse Rate 92 H 105 H 104 H Respiratory Rate 18 24 Blood Pressure 129/72 110/63 Pulse Oximetry 95 96 Oxygen Delivery Method Nasal Cannula Oxygen Flow Rate 1 1 07/29/23 17:00 Temperature 97.6 F Pulse Rate 101 H Respiratory Rate 18 Blood Pressure 110/66 Pulse Oximetry 94 Oxygen Delivery Method Oxygen Flow Rate 1 Oxygen Delivery Method Nasal Cannula Oxygen Flow Rate 1 Narrative Exam Narrative: GEN: no acute distress, appears better today HEENT: moist mucous membranes, PERRL NECK: trachea midline, no JVD CV: regular rate and rhythm, no murmurs PULM: coarse breath sounds bilaterally are improving ABD: soft, nontender, nondistended, no organomegaly EXT: warm and well perfused with no edema NEURO: awake, alert, oriented, no focal deficits Objective Labs 07/29/23 05:05 07/29/23 05:05 Labs: Laboratory Results - last 24 hr 07/28/23 07/29/23 13:00 05:05 WBC 4.0 L RBC 4.09 Hgb 13.0 Hct 38.8 MCV 94.7 MCH 31.8 MCHC 33.6 RDW 14.4 Plt Count 175 Neut % (Auto) 82.1 H Lymph % (Auto) 11.6 L [place] % (Auto) 6.1 Eos % (Auto) 0.1 L Baso % (Auto) 0.1 Neut # (Auto) 3300 Lymph # (Auto) 500 L [place] # (Auto) 200 Eos # (Auto) 0 Baso # (Auto) 0 ABG Sample Site Right brachial ABG pH 7.43 ABG pCO2 42.5 ABG pO2 52 L ABG HCO3 28 H ABG Total CO2 29 H ABG O2 Saturation 87 L ABG Base Excess 4.0 H FiO2 21 Sodium 138 Potassium 4.3 Chloride 103 Carbon Dioxide 27 BUN 19 H Creatinine 1.09 H Estimated GFR 49 L BUN/Creatinine Ratio 17.4 Glucose 144 H Calcium 9.1 Procalcitonin 0.08 PFSH Medical History Dysuria History of DVT (deep vein thrombosis) Neuropathy History of migraine Paroxysmal A-fib Hypothyroid GERD (gastroesophageal reflux disease) Surgical History History of hysterectomy Family History Other No pertinent family history Social History household members: family Smoking Status: Never smoker Assessment & Plan Assessment & Plan narrative: # acute hypoxic resp failure 2/2 rhinovirus, improving -patient reports 3 days of dyspnea, coughing and congestion -in ED satting in 80's and req 4L NC -supportive care with mucinex, tessalon perles PRN -duonebs and IV solu-medrol 60mg BID -CXR normal -doubt PE as she has been compliant with eliquis -weanaed to 1L NC -add mucomyst as patient having trouble clearing secretions # CKD -Cr 1.21 -IVF x12 hrs -Cr imrpoved with IVF # h/o DVT/PE -continue eliquis # valvular disease -continue jardiance and metoprolol # GERD -continue PPI # UTI prophylaxis -continue bactrim -monitor Cr and K # hypothyroidism -continue synthroid # HLD -continue statin Code status is full code. DVT prophylaxis with Eliquis. Proxy is son Maximino. I have reviewed home meds and used all available resources to reconcile the home meds. Dispo: Likely home with on 07/30.
[2023-07-29] MEDS: ACETYLCYSTEINE (PO/INH) 200 MG/ML VIAL 600 MG INH (18:10)
[2023-07-29] MEDS: TRIMETH/SULFA 160/800 (DS) TABLET 0.5 TAB PO (20:09)
[2023-07-30] VITALS (7 sets, daily range): BP systolic 115–128; BP diastolic 60–70; PULSE 85–104; RESP 16–24; TEMP 35.8–36.3; O2SAT 93–98
[2023-07-30] MEDS: PANTOPRAZOLE DR 40 MG TABLET PO (05:05)
[2023-07-30] MEDS: methocarbamoL 500 MG TABLET 250 MG PO (05:05)
[2023-07-30] MEDS: LEVOTHYROXINE 125 MCG TABLET PO (05:05)
[2023-07-30] MEDS: MAGNESIUM OXIDE 400 MG TABLET PO (05:06)
[2023-07-30 05:15] LABS: Add Manual Diff / Slide Review NO; Basophils Absolute Auto 0 /uL (0-100); Basophils Percent Auto 0.3 % (0-2); Eosinophils Absolute Auto 0 /uL (0-450); Eosinophils Percent Auto 0.1 % (2-4); Hemoglobin 12.7 g/dL (12.0-16.0); Lymphocytes Absolute Auto 1200 /uL (1100-4500); Lymphocytes Percent Auto 14.6 % (25-40); Mean Corpuscular HGB Conc 33.5 % (30-36); Mean Corpuscular Hemoglobin 31.8 PG (26-34); Mean Corpuscular Volume 94.8 fL (80-100); Monocytes Absolute Auto 900 /uL (0-900); Neutrophils Absolute Auto 5900 /uL (1500-7000); Platelet Count 183 X10^3/uL (150-400); Red Blood Cell Count 4.01 X10^6/uL (4.0-5.2); Red Cell Distribution Width 14.7 % (11.6-14.8); White Blood Cell Count 7.9 X10^3/uL (4.5-11.0)
[2023-07-30 05:27] LABS: Blood Urea Nitrogen 32 mg/dL (7-17); Calcium 9.3 mg/dL (8.4-10.2); Carbon Dioxide 30 mmol/L (22-32); Chloride 104 mmol/L (98-107); Estimated Glomerular Filt Rate 59 mL/min (>60); Glucose 94 mg/dL (80-110); HEMOLYSIS 30 (0-50); Potassium 4.1 mmol/L (3.4-5.1); Sodium 137 mmol/L (137-145)
[2023-07-30 05:42] LABS: Procalcitonin 0.06 ng/mL (<0.5)
[2023-07-30] MEDS: BENZONATATE 100 MG CAPSULE PO (06:17)
[2023-07-30] MEDS: METOPROLOL ER 25 MG TABLET PO (08:37)
[2023-07-30] MEDS: MYRBETRIQ 50 MG 50 EACH PO (08:37)
[2023-07-30] MEDS: predniSONE 20 MG TABLET 40 MG PO (08:37)
[2023-07-30] MEDS: POTASSIUM CHLORIDE 10 MEQ TAB 20 MEQ PO (08:37)
[2023-07-30] MEDS: guaiFENesin ER 600 MG TAB PO (08:37)
[2023-07-30] MEDS: APIXABAN 5 MG TABLET PO (08:37)
[2023-07-30] MEDS: ATORVASTATIN 20 MG TABLET PO (08:38)
--- NOTE | 2023-07-30 11:00 | PT.IPTN ---
Current Diagnoses Acute respiratory failure with hypoxia (07/28/23) Physical Therapy Treatment Note M2 PT-IP Current Condition Start: 07/29/23 12:39 Freq: NEEDED Status: Active Protocol: Document 07/29/23 12:42 MB (Rec: 07/29/23 13:13 MB [id number]) Physical Therapy Current Condition Current Condition Evaluation Date 07/29/23 Treatment Diagnosis Acute hypoxic respiratory failure and rhinovirus M3 PT-IP Subjective Start: 07/29/23 12:39 Freq: NEEDED Status: Active Protocol: Document 07/30/23 11:27 TS (Rec: 07/30/23 12:02 TS [id number]) Subjective Physical Therapy Visit Type Type Treatment Note Visit Start Time 11:00 Visit Stop Time 11:27 Total Visit Minutes 27 Number of WELDER Visits 1 Physical Therapy Visit Comments Patient Comments Pt reports she is feeling better this morning, will be going home today, is agreeable to PT. M4 PT-IP Mobility and Gait Start: 07/29/23 12:39 Freq: NEEDED Status: Active Protocol: Document 07/30/23 11:27 TS (Rec: 07/30/23 12:02 TS [id number]) PT-Bed Mobility Assessment Supine to Sit Supine to Sit Standby Assistance Sit to Supine Sit to Supine Standby Assistance Scooting Scooting to Edge of Bed Standby Assistance Scooting Up and Down in Bed Standby Assistance PT-Transfer Assessment Sit to and From Stand Sit to and from Stand Standby Assistance Equipment Transfer Assistive Device Straight Cane Orthotic/Prosthetic Devices or Brace: No Comments Mobility Comments Pt found resting in bed, Spo2 95% on RA before mobility. Supine to sit with HOB elevated SBA with use of rail support. She performed sit to stand with SPC SBA, slightly unsteady, pt grasps handrail with LUE for balance. She ambulated ~150'SBA with SPC, pt reaches for delaney for balance support. Pt ambulated back to room, Spo2 93% on RA, pt reports SOB, required cues for PLB. She performed stairs x2 CGA with SPC had no buckling or LOB. Pt was left in bed, all needs met. Gait Assessment Gait Gait Assistance Required: Standby Assistance Distance (Feet) 150 Assistive Devices Assistive Device Gait Belt,Straight Cane Orthotic/Prosthetic Devices or Brace: No Gait Deviations General Gait Pattern Decreased Stride Length, Decreased Feet Clearance, Flexed Trunk Factors Limiting Gait Function Factors Limiting Gait Function Decreased Activity Tolerance, Poor Balance,Poor Safety Awareness,Respiratory Distress Comments Gait Comments See mobility comments. Stair Climbing Assessment Evaluation Level of Assist On Stairs Contact Guard Assistance Devices Stair Climbing Assistive Devices Straight Cane Technique/Endurance Stair Climbing Direction Ascend and Descend Stair Climbing Technique Step to Step Number of Steps Climbed 2 Comments Stair Climbing Comments See mobility comments. PT-Balance Assessment Sitting Balance and Reactions Static Sitting Balance Ability Good Dynamic Sitting Balance Ability Good Standing Balance and Reactions Static Standing Balance Ability Fair Dynamic Standing Balance Ability Fair M7 PT-IP Assessment and Plan Start: 07/29/23 12:39 Freq: NEEDED Status: Active Protocol: Document 07/30/23 11:27 TS (Rec: 07/30/23 12:02 TS [id number]) PT Summary Assessment and Plan Potential Rehabilitation Potential Fair Summary Impairments Balance,Bed Mobility,Transfers ,Gait,Activity Tolerance Progress Towards Goals Progressing Toward Goals Assessment Summary Sun is making some progress with her mobility this session. She is on RA this morning, resting at 95% on RA, desats to low 90's after mobility. She performed all bed mobility SBA and sit to stands SBA with SPC. She progressed her gait to ~150' CGA with SPC, pt slightly unsteady, reaches for delaney with LUE for balance. Educated pt on using a FWW for home use for more support, pt agreed. PT is recommending home with assist and HHPT. Goals Bed Mobility Goal Independent Transfer Goal Standby Assistance,Cane,Front Wheeled Walker Gait Goal Standby Assistance,Cane,Front Wheel Walker Gait Distance 75 Other Goals Pt will ascend and descend platform step with LRAD and superv. Days to Meet Goals 3 Frequency of Treatment Frequency Of Treatment Once a Day Treatment Plan Physical Therapy Treatment Plan Bed Mobility Training,Transfer Training,Gait Training, Therapeutic Exercise,Balance Retraining Weight Bearing Status Weight Bearing Status Weight Bear as Tolerated Recommendations To Nursing Amount of Assist Needed Standby Assistance Discharge Recommendations PT Discharge Recommendations Home with Assistance,Home Health Transportation Needs at Discharge Private Vehicle
--- NOTE | 2023-07-30 11:06 | P.DS_ITS ---
History of Present Illness History of Present Illness Chief complaint: Body Aches, Diff Breathing Narrative: Sun Mejia is an 87yo F with PMH of DVT and PE on eliquis, paroxysmal A-fib, migraines, frequent UTI's on chronic Bactrim, CKD, hypothyroidism, HLD, valvular disease and GERD who presents with worsening dyspnea, cough and congestion. Patient states she has felt like she is going to for 3 days due to worsening SOB. She hasn't been this sick in 40 years she claims. Says her grandson whom she lives with has had a hacking cough lately as well. In the ED found to have rhinovirus and requiring 4L NC to maintain O2 sats. She was given nebs and steroids. She currently feels much better after the nebs especially. She thinks she may have a history of COPD given both of her parents smoked 5 packs per day for her entire childhood and smoked in the house. She denies CP, NV, abd pain, dizziness, or diarrhea. Discharge Providers Provider Date of admission: 07/28/23 13:48 Discharge Date: 07/30/23 Primary care physician: Sharmin Grimes PA-C Consults: 07/29/23 10:14 Consult to Physical Therapy Evaluate & Treat Comment: Physician Instructions: Evaluate and Treat 07/29/23 15:37 Consult to Home Health Routine Comment: Reason For Exam: Home health services upon discharge Discharge provider: Greg Patel DO Summary Hospital Course Discharge Diagnosis: # acute hypoxic resp failure 2/2 rhinovirus, improving -patient reports 3 days of dyspnea, coughing and congestion -in ED satting in 80's and req 4L NC -supportive care with mucinex, tessalon perles PRN -duonebs and IV solu-medrol 60mg BID -CXR normal -doubt PE as she has been compliant with eliquis -weaned to room air -add mucomyst as patient having trouble clearing secretions -transitioned to po prednisone on discharge # CKD -Cr 1.21 -IVF x12 hrs -Cr improved with IVF # h/o DVT/PE -continue eliquis # valvular disease -continue jardiance and metoprolol # GERD -continue PPI # UTI prophylaxis -continue bactrim -monitor Cr and K # hypothyroidism -continue synthroid # HLD -continue statin Hospital Course: Admitted for RSV requiring O2. Was very wheezy and coughing. Improved with IV steroids, duonebs, mucomyst, and mucinex. Able to wean off O2. Discharged home on a couple more days of prednisone. SENIOR DIRECTOR INSIGHT arranged HH. Exam Vital Signs (past 8 hours): - 07/30/23 05:00 07/30/23 07:49 07/30/23 08:37 Temperature 96.7 F L 97.4 F L Pulse Rate 94 H 92 H 92 H Respiratory Rate 17 16 Blood Pressure 116/60 128/68 128/68 Pulse Oximetry 94 94 Oxygen Delivery Method Oxygen Flow Rate 1 1 07/30/23 09:00 07/30/23 09:52 Temperature Pulse Rate Respiratory Rate Blood Pressure Pulse Oximetry 98 Oxygen Delivery Method Nasal Cannula Room Air Oxygen Flow Rate Oxygen Delivery Method Room Air Oxygen Flow Rate 1 Narrative Exam Narrative: GEN: no acute distress HEENT: moist mucous membranes, PERRL NECK: trachea midline, no JVD CV: regular rate and rhythm, no murmurs PULM: mild wheezes bilaterally ABD: soft, nontender, nondistended, no organomegaly EXT: warm and well perfused with no edema NEURO: awake, alert, oriented, no focal deficits Objective Labs 07/30/23 04:44 07/30/23 04:44 Labs: Laboratory Results - last 24 hr 07/30/23 04:44 WBC 7.9 D RBC 4.01 Hgb 12.7 Hct 38.0 MCV 94.8 MCH 31.8 MCHC 33.5 RDW 14.7 Plt Count 183 Neut % (Auto) 74.0 Lymph % (Auto) 14.6 L [place] % (Auto) 11.0 Eos % (Auto) 0.1 L Baso % (Auto) 0.3 Neut # (Auto) 5900 Lymph # (Auto) 1200 [place] # (Auto) 900 Eos # (Auto) 0 Baso # (Auto) 0 Sodium 137 Potassium 4.1 Chloride 104 Carbon Dioxide 30 BUN 32 H Creatinine 0.94 Estimated GFR 59 L BUN/Creatinine Ratio 34.0 H Glucose 94 Calcium 9.3 Procalcitonin 0.06 PFSH Medical History Dysuria History of DVT (deep vein thrombosis) Neuropathy History of migraine Paroxysmal A-fib Hypothyroid GERD (gastroesophageal reflux disease) Surgical History History of hysterectomy Family History Other No pertinent family history Social History household members: family Smoking Status: Never smoker Discharge Plan Discharge Plan Patient Disposition: Home Health Service Provider Discharge Comment: You were admitted for shortness of breath and coughing and found to have rhinovirus. You initially were requiring oxygen as well. Your symptoms and oxygen needs improved with steroids, nebulizers and you were able to wean off O2. You will now finish a few more days of prednisone at home. It was a pleasure meeting you and I wish you the best! Dr. Patel Discharge orders & Medications Prescriptions: New prednisone 20 mg tablet 40 mg PO DAILY 3 Days Qty: 6 0RF Rx Instructions: start on 07/31 Continued pantoprazole 40 MG tablet,delayed release (DR/EC) 40 mg PO BID Qty: 0 furosemide 40 mg tablet 20 mg PO DAILY Qty: 0 potassium chloride 10 mEq Capsule, Extended Release 20 meq PO QAM cyanocobalamin (vitamin B-12) [B-12 DOTS] 500 mcg Tablet 1,000 mcg PO DAILY methocarbamol 500 mg tablet 250 mg PO TID PRN (Reason: muscle cramps) Qty: 14 0RF Rx Instructions: Plan to titrate off methocarbamol and use ropinirole vitamin E 400 unit Tablet 180 mg PO DAILY metoprolol succinate 25 mg tablet extended release 24 hr 25 mg PO QAM magnesium 200 mg Tablet 400 mg PO BID Myrbetriq 50 mg tablet extended release 24 hr 50 mg PO DAILY Eliquis 5 mg tablet 5 mg PO BID sulfamethoxazole-trimethoprim 400-80 mg tablet 1 tab PO DAILY levothyroxine 125 mcg tablet 125 mcg PO QAM Jardiance 10 mg tablet 10 mg PO QAM cyclosporine [Restasis] 0.05 % dropperette 2 drp EYE-BOTH PRN PRN (Reason: Dry Eyes) Patient Comments: [NO ORIGINAL SIG] atorvastatin 20 mg tablet 20 mg PO QAM albuterol sulfate 90 mcg/actuation HFA aerosol inhaler 2 puff inhalation PRN PRN (Reason: sob) nitroglycerin 0.4 mg Tablet, Sublingual 4 mg sublingual PRN PRN (Reason: Chest Pain) Follow up/Referrals: Sharmin Grimes PA-C [Primary Care Provider] - Visit Report/Discharge Packet Instructions: DI for Shortness of Breath Stand Alone Forms: Patient Portal/API, Stroke Signs & Symptoms Discharge Data Primary Care Provider: Sharmin Grimes
--- NOTE | 2023-07-30 11:10 | CM.DPNOTE ---
Addendum entered by SPENSER Garces 07/30/23 11:38: CADDY/CADDIE SUPERVISOR received notice from Medicaid transport. [facility] will p/u pt at around 12pm. CADDY/CADDIE SUPERVISOR spoke with dispatch at [facility], confirms they will come up to the room to p/u pt. CADDY/CADDIE SUPERVISOR updated RN and pt. Pt excited to dc home. ROSALIA Moore kindly agreed to update MOLD STAMPER SL Original Note: DCP Note CADDY/CADDIE SUPERVISOR reviewed EMR. Per provider in rounds, pt to dc home today. Per respiratory therapy, pt on room air and likely will not need home O2. CADDY/CADDIE SUPERVISOR entered room and introduced self and role. pt resting in bed and reports eager to dc home. Pt reports anxious about taking care of her disabled grandson and managing his appointments at this time. Pt agreeable to [facility]. Pt reports not having a ride home. CADDY/CADDIE SUPERVISOR agreed to assist in arranging Medicaid transport home. Pt agreeable to either Medicaid transport or taxi home. Pt confirms address and [facility] pharmacy in [place]. CADDY/CADDIE SUPERVISOR provided senior resources booklet and [facility] booklet. Pt appreciative. CADDY/CADDIE SUPERVISOR notified Radha at [facility] about pt dc. She already has order/F2f and will just need dc summary. CADDY/CADDIE SUPERVISOR placed F2F in scanning folder. CADDY/CADDIE SUPERVISOR completed Medicaid transport form. ROSALIA Moore kindly agreed to fax form and assist in arranging transport. Plan: home with [facility] today. Medicaid transport pending. CM team will continue to follow closely. SPENSER Garces
[2023-07-30] MEDS: ACETYLCYSTEINE (PO/INH) 200 MG/ML VIAL 600 MG INH (11:25)
[2023-07-30] MEDS: ALBUTEROL/IPRATROPIUM 3 ML AMPUL INH (11:25)
--- NOTE | 2023-07-30 13:18 | PC.NURSE ---
Day shift: Discharge instructions gone over by SAADIA Simeon No PIV. No tele. Pt picked up by [employer]. All belongings with patient. SAADIA Simeon escorted patient via wheelchair to her ride.
--- NOTE | 2023-07-31 14:13 | CM.DPNOTE ---
DCP Note SURGICAL TRAINING SPECIALIST right faxed the signed DC summary to [facility] SPENSER Garces
== END 2023-07-30 13:00 | disposition home health service (06) | DRG 189 ==
LOC: ED 13:45 → AC 13:48
PROVIDERS: Admitting Provider Student in an Organized Health Care Education/Training Program; Emergency Provider Emergency Medicine; PCP Physician Assistant; Referring Provider Emergency Medicine; Visit Provider Student in an Organized Health Care Education/Training Program
DX: J96.01 Acute respiratory failure with hypoxia (principal); I38 Endocarditis, valve unspecified; B34.8 Other viral infections of unspecified site; K21.9 Gastro-esophageal reflux disease without esophagitis; E03.9 Hypothyroidism, unspecified; E78.5 Hyperlipidemia, unspecified; N18.9 Chronic kidney disease, unspecified; Z79.01 Long term (current) use of anticoagulants; Z86.718 Personal history of other venous thrombosis and embolism; Z86.711 Personal history of pulmonary embolism
CPT/HCPCS: 36415; 36600; 71045; 80048; 80053; 82550; 82805; 83690; 83735; 83880; 84145; 84484; 85025; 85610; 85730; 87633; 87635; 93005; 93010; 94640; 94762; 96374; 97116; 97161; 97530; 99285; C9803; J2930; J7613

== ENCOUNTER → 2023-09-10 09:47 | Outpatient (CLI) | payer OTHER, MEDICAID, SELFPAY ==
[2023-07-28 15:12] VITALS: BMI 31.9
--- NOTE | 2023-09-10 09:50 | DI.MG.S_ITS ---
BILATERAL DIGITAL DIAGNOSTIC MAMMOGRAM 3D/2D: 09/10/2023 CLINICAL: Short term follow up of the left breast, due for bilateral imaging. Comparison is made to exams dated: 09/03/2022 mammogram, 03/02/2022 mammogram, 09/15/2021 mammogram, 08/21/2021 mammogram - [facility], and 01/31/2015 mammogram - out side. There are scattered areas of fibroglandular density in both breasts (category b / 25%-50% glandular tissue). There are stable benign 1.3 cm grouped dystrophic and punctate calcifications in the left breast at 7 o'clock anterior depth. No other significant masses, calcifications, or other findings are seen in either breast. IMPRESSION: BENIGN There is no mammographic evidence of malignancy. Left breast calcifications demonstrate long-term stability and are benign. A 1 year screening mammogram is recommended. Exam findings were conveyed to the patient. This exam was interpreted at Station ID: [id number]. NOTE: For mammograms, a report in lay terms will be sent to the patient. Approximately 15% of breast malignancies will not be visualized mammographically. In the management of a palpable breast mass, a negative mammogram must not discourage biopsy of a clinically suspicious lesion. Electronically Signed By: Elio Rodriguez M.D. slc/:09/10/2023 11:55:00 letter sent: Normal Exam ACR BI-RADS Category 2: Benign Finding(s) 3342F
== END ==
LOC: MAMMO 09:47
PROVIDERS: PCP Physician Assistant; Referring Provider Physician Assistant; Visit Provider Physician Assistant
DX: R92.8 Other abnormal and inconclusive findings on diagnostic imaging of breast (principal); R92.1 Mammographic calcification found on diagnostic imaging of breast
CPT/HCPCS: 77066; G0279

== ENCOUNTER 2023-12-06 19:49 | Emergency (ER) | payer MEDICARE, MEDICAID, SELFPAY ==
[2023-07-28 15:12] VITALS: BMI 31.9
[2023-12-06 19:51] VITALS: BP 117/55; PULSE 107; RESP 17; TEMP 36.7; O2SAT 96; BMI 31.3
--- NOTE | 2023-12-06 19:56 | DI.RAD.S_ITS ---
PROCEDURE: XR CHEST 1V INDICATIONS: chest pain TECHNIQUE: One view of the chest was acquired. COMPARISON: [facility], CR, XR CHEST 1V, 07/28/2023, 11:31. FINDINGS: Surgical changes and devices: None. Lungs and pleura: Asymmetric left hemidiaphragm elevation, chronic. There is mild alveolar opacity and haziness at the right lung base. No other dense consolidations effusion, or pneumothorax. Mediastinum: Mediastinal contours appear normal. Heart size is normal. Bones and chest wall: No suspicious bony lesions. Overlying soft tissues appear unremarkable. IMPRESSION: Hazy right lung base alveolar opacity may be infectious, inflammatory, or aspiration. Dictated by: Iram Levin M.D. on 12/06/2023 at 21:05 Approved by: Iram Levin M.D. on 12/06/2023 at 21:06
[2023-12-06 20:19] LABS: Add Manual Diff / Slide Review NO; Basophils Absolute Auto 100 /uL (0-100); Eosinophils Absolute Auto 500 /uL (0-450); Eosinophils Percent Auto 7.4 % (2-4); Hemoglobin 13.6 g/dL (12.0-16.0); Lymphocytes Absolute Auto 1900 /uL (1100-4500); Mean Corpuscular HGB Conc 33.2 % (30-36); Mean Corpuscular Hemoglobin 31.6 PG (26-34); Mean Corpuscular Volume 95.2 fL (80-100); Monocytes Absolute Auto 800 /uL (0-900); Monocytes Percent Auto 12.5 % (3-14); Neutrophils Absolute Auto 3200 /uL (1500-7000); Neutrophils Percent Auto 49.1 % (50-75); Platelet Count 198 X10^3/uL (150-400); Red Blood Cell Count 4.31 X10^6/uL (4.0-5.2); Red Cell Distribution Width 14.1 % (11.6-14.8); White Blood Cell Count 6.5 X10^3/uL (4.5-11.0)
[2023-12-06 20:25] LABS: INR 1.1 (0.9-1.3); Prothrombin Time 12.6 SECONDS (9.4-12.5)
[2023-12-06 20:28] LABS: PTT Partial Thromboplastin Tim 40 SECONDS (25.1-36.5)
[2023-12-06 20:30] LABS: Alanine Aminotransferase 28 IU/L (<35); Albumin 4.1 g/dL (3.5-5.0); Albumin Globulin Ratio 1.5 (1.0-2.8); Alkaline Phosphatase 83 U/L (38-126); Aspartate Aminotransferase 35 IU/L (14-36); Bilirubin Total 0.4 mg/dL (0.2-1.3); Blood Urea Nitrogen 23 mg/dL (7-17); Carbon Dioxide 32 mmol/L (22-32); Chloride 104 mmol/L (98-107); Creatine Kinase 80 U/L (30-135); Estimated Glomerular Filt Rate 41 mL/min (>60); Globulin 2.7 g/dL (1.7-4.1); Glucose 94 mg/dL (80-110); HEMOLYSIS < 15 (0-50); Lipase 121 U/L (23-300); Magnesium 2.5 mg/dL (1.6-2.3); Sodium 139 mmol/L (137-145); Total Protein 6.8 g/dL (6.3-8.2)
[2023-12-06 20:41] LABS: Troponin I < 0.012 ng/mL (0.01-0.034)
--- NOTE | 2023-12-06 21:14 | ED_ITS ---
HPI - Chest Pain General Chief Complaint: Chest Pain Stated Complaint: chest pains Time Seen by Provider: 12/06/23 21:14 Source: patient Mode of arrival: Ambulatory History of Present Illness HPI narrative: 88-year-old female reports history of congestive heart failure, followed by tools programmer at [facility] and [facility], takes Lasix with extra doses when she has lower extremity swelling problems, most recently seems fairly well controlled compared to last month in the month before, complains of left anterior chest discomfort onset at rest today 730, took nitroglycerin, chest pain seemed to get better before she took the nitroglycerin, recurred, stuttering, took 3 doses nitroglycerin, currently pain-free. She denies any coronary vessel interventions. She does admit to 2 weeks' duration of a dry cough. Left anterior chest discomfort radiates to the left anterior shoulder, not to her back, not to her neck. No associated diaphoresis. No associated nausea or vomiting. She also reports history of asthma, uses inhaler at home, has not recently tried this. She does not feel feverish, no chills. No exposure to household members with upper respiratory infections recent. Related Data Home Medications Medication Instructions Recorded Confirmed pantoprazole 40 mg tablet,delayed 40 mg PO BID ##0 10/18/17 07/28/23 release cyanocobalamin (vitamin B-12) 500 1,000 mcg PO DAILY 03/15/18 07/28/23 mcg tablet (B-12 DOTS) potassium chloride 10 mEq 20 meq PO QAM 03/15/18 07/28/23 capsule,extended release furosemide 40 mg tablet 20 mg PO DAILY #0 tabs 06/10/18 07/28/23 albuterol sulfate 90 mcg/actuation 2 puff inhalation PRN PRN sob 07/28/23 07/28/23 aerosol inhaler apixaban 5 mg tablet (Eliquis) 5 mg PO BID 07/28/23 07/28/23 atorvastatin 20 mg tablet 20 mg PO QAM 07/28/23 07/28/23 cyclosporine 0.05 % eye drops in a 2 drp EYE-BOTH PRN PRN Dry Eyes 07/28/23 07/28/23 dropperette (Restasis) empagliflozin 10 mg tablet 10 mg PO QAM 07/28/23 07/28/23 (Jardiance) levothyroxine 125 mcg tablet 125 mcg PO QAM 07/28/23 07/28/23 magnesium 200 mg tablet 400 mg PO BID 07/28/23 07/28/23 metoprolol succinate 25 mg 25 mg PO QAM 07/28/23 07/28/23 tablet,extended release 24 hr mirabegron 50 mg tablet,extended 50 mg PO DAILY 07/28/23 07/28/23 release 24 hr (Myrbetriq) nitroglycerin 0.4 mg sublingual 4 mg sublingual PRN PRN Chest Pain 07/28/23 07/28/23 tablet sulfamethoxazole 400 1 tab PO DAILY 07/28/23 07/28/23 mg-trimethoprim 80 mg tablet vitamin E 400 unit tablet 180 mg PO DAILY 07/28/23 07/28/23 Previous Rx's Medication Instructions Recorded methocarbamol 500 mg tablet 250 mg (1/2 x 500 mg) PO TID PRN 07/17/22 muscle cramps #14 tabs cefdinir 300 mg capsule 300 mg PO BID 10 days #20 caps 12/07/23 doxycycline hyclate 100 mg capsule 100 mg PO BID 10 days #20 caps 12/07/23 Allergies Allergy/AdvReac Type Severity Reaction Status Date / Time chlorothiazide Allergy Unknown Unknown Verified 12/06/23 19:51 [CHLOROTHIAZIDE] codeine [CODEINE] AdvReac Unknown itching Verified 12/06/23 19:51 naproxen [NAPROXEN] AdvReac Unknown SHOOTING Verified 12/06/23 19:51 ELECTRICITY DOWN LEG Patient History Medical History (Updated 12/07/23 @ 01:12 by Andrea Issa MD) Dysuria History of DVT (deep vein thrombosis) Neuropathy History of migraine Paroxysmal A-fib Hypothyroid GERD (gastroesophageal reflux disease) Surgical History History of hysterectomy Family History Other No pertinent family history Social History household members: family Smoking Status: Never smoker Smoking Status: Never smoker alcohol intake frequency: holidays/special occasions only Substance Use Type: does not use Exam Narrative Exam Narrative: GENERAL: Well-developed patient, in mild distress. HEAD: Atraumatic. Normocephalic. EYES: Pupils equal round and reactive. Extraocular motions intact. No scleral icterus. No injection or drainage. ENT: Nose without bleeding, purulent drainage. Throat without erythema, tonsillar hypertrophy or exudate. Airway patent. NECK: Trachea midline. Non tender CARDIOVASCULAR: Regular rate and rhythm without murmurs, gallops, or rubs. RESPIRATORY: Right lower lobe crackles, no respiratory distress, no retractions, no wheezes obvious. GASTROINTESTINAL: Abdomen soft, non-tender, nondistended. EXTREMITIES: Trace edema bilateral lower extremities to ankles, she says this is much better than has been in the last couple of months. BACK: Nontender without deformity or crepitance. No flank tenderness. NEURO: AOx3. SKIN: No rash or erythema of visible areas Initial Vital Signs Initial Vital Signs: Vital Signs Temperature 98.0 F 12/06/23 19:51 Pulse Rate 107 H 12/06/23 19:51 Respiratory Rate 17 12/06/23 19:51 Blood Pressure 117/55 L 12/06/23 19:51 Pulse Oximetry 96 12/06/23 19:51 Oxygen Delivery Method Room Air 12/06/23 19:51 Course Orders Ordered: ED Orders 12/06/23 19:56 XR chest 1V Stat EKG-12 Lead Stat 12/06/23 20:10 Complete Blood Count AUTO DIFF Stat Comprehensive Metabolic Panel Stat Lactate (Lactic Acid) Stat Lipase Stat Magnesium Stat NT-proBNP (BNP-Adult 18+) Stat PTT Partial Thromboplastin Cristhian Stat Prothrombin Time INR Stat Troponin & CK Cardiac Panel Stat 12/06/23 23:12 Trop I [Troponin I] Stat Discontinued Medications Aspirin (Aspirin 81 Mg Chew Tab) 324 mg PO NOW ONE Stop: 12/06/23 19:57 Last Admin: 12/06/23 20:19 Dose: Not Given Documented By: KAHLIL Doxycycline Hyclate (Doxycycline Hyclate 100 Mg Tablet) 100 mg PO NOW ONE Stop: 12/06/23 21:55 Last Admin: 12/06/23 22:19 Dose: 100 mg Documented By: KAHLIL Ceftriaxone Sodium 1,000 mg/ (Sodium Chloride) 100 mls @ 200 mls/hr IV NOW ONE Stop: 12/06/23 21:54 Last Infusion: 12/06/23 22:53 Dose: Infused Documented By: Admin: 12/06/23 22:27 Dose: 200 mls/hr Documented By: KAHLIL Ondansetron HCl (Ondansetron 4 Mg/2 Ml Inj) 4 mg IV NOW ONE Stop: 12/06/23 23:12 Last Admin: 12/06/23 23:14 Dose: 4 mg Documented By: KAHLIL Vital Signs Vital signs: Vital Signs - 8 hr 12/07/23 01:22 Pulse Rate 89 Respiratory Rate 16 Blood Pressure 121/56 L Pulse Oximetry 96 Oxygen Delivery Method Room Air MDM - Chest Pain Lab Data Attestation: I reviewed the patient's lab results. 12/06/23 20:10 12/06/23 20:10 Labs: Lab Results 12/06/23 12/06/23 Range/Units 20:10 23:12 WBC 6.5 (4.5-11.0) X10^3/uL RBC 4.31 (4.0-5.2) X10^6/uL Hgb 13.6 (12.0-16.0) g/dL Hct 41.0 (36-46) % MCV 95.2 (80-100) fL MCH 31.6 (26-34) PG MCHC 33.2 (30-36) % RDW 14.1 (11.6-14.8) % Plt Count 198 (150-400) X10^3/uL Neut % (Auto) 49.1 L (50-75) % Lymph % (Auto) 30.0 (25-40) % [place] % (Auto) 12.5 (3-14) % Eos % (Auto) 7.4 H (2-4) % Baso % (Auto) 1.0 (0-2) % Neut # (Auto) 3200 (6707-0710) /uL Lymph # (Auto) 1900 (4249-9331) /uL [place] # (Auto) 800 (0-900) /uL Eos # (Auto) 500 H (0-450) /uL Baso # (Auto) 100 (0-100) /uL PT 12.6 H (9.4-12.5) SECONDS INR 1.1 (0.9-1.3) APTT 40 H (25.1-36.5) SECONDS Sodium 139 (137-145) mmol/L Potassium 4.0 (3.4-5.1) mmol/L Chloride 104 (98-107) mmol/L Carbon Dioxide 32 (22-32) mmol/L BUN 23 H (7-17) mg/dL Creatinine 1.28 H (0.52-1.04) mg/dL Estimated GFR 41 L (>60) mL/min BUN/Creatinine Ratio 18.0 (6-22) Glucose 94 (80-110) mg/dL Lactate 1.3 (0.7-2.1) mmol/L Calcium 9.0 (8.4-10.2) mg/dL Magnesium 2.5 H (1.6-2.3) mg/dL Total Bilirubin 0.4 (0.2-1.3) mg/dL AST 35 (14-36) IU/L ALT 28 (<35) IU/L Alkaline Phosphatase 83 (38-126) U/L Total Creatine Kinase 80 (30-135) U/L Troponin I < 0.012 < 0.012 (0.01-0.034) ng/mL NT-Pro-B Natriuret Pep 256 (<450) pg/mL Total Protein 6.8 (6.3-8.2) g/dL Albumin 4.1 (3.5-5.0) g/dL Globulin 2.7 (1.7-4.1) g/dL Albumin/Globulin Ratio 1.5 (1.0-2.8) Lipase 121 (23-300) U/L Imaging Data Chest x-ray: Radiologist's Impression: [address] [address] XRay Report Signed Patient: Sun Mejia MR#: [id number] : 1935 Acct:[id number] Age/Sex: 88 / F Date of Service: 12/06/23 Loc: ED Accession Number: [id number] Procedure: XR chest 1V Ordering Provider: Andrea Issa MD PROCEDURE: XR CHEST 1V INDICATIONS: chest pain TECHNIQUE: One view of the chest was acquired. COMPARISON: [facility]ed [facility], , XR CHEST 1V, 07/28/2023, 11:31. FINDINGS: Surgical changes and devices: None. Lungs and pleura: Asymmetric left hemidiaphragm elevation, chronic. There is mild alveolar opacity and haziness at the right lung base. No other dense consolidations effusion, or pneumothorax. Mediastinum: Mediastinal contours appear normal. Heart size is normal. Bones and chest wall: No suspicious bony lesions. Overlying soft tissues appear unremarkable. IMPRESSION: Hazy right lung base alveolar opacity may be infectious, inflammatory, or aspiration. Dictated by: Iram Levin M.D. on 12/06/2023 at 21:05 Approved by: Iram Levin M.D. on 12/06/2023 at 21:06 ECG Data Interpretation: Normal sinus rhythm with rate 98, no obvious ST segment elevation or depression changes. Some motion artifact noted as well. Normal NM interval, QRS 68, QTC 457. MDM Narrative Medical decision making narrative: 88-year-old female with left-sided chest discomfort, no known CAD, history of CHF, takes Lasix, lower extremity edema better than recent baseline, also admits to 2 weeks' duration of cough, chest x-ray screening shows right hazy infiltrates in the base. EKG without obvious ischemic changes, troponin negative. Blood culture sent, add lactate, IV ceftriaxone, p.o. doxycycline. We will obtain interval troponin. Repeat troponin negative. Patient feels better, would like to go home, does not want any further workup here for now. Further workup of chest discomfort symptoms as an outpatient. Pain might be due to her pneumonia but could be concomitant other source of pain including ACS. Patient desired to go home now. Discharged, improved. Return precautions discussed Critical Care Time Critical Care Time Critical Care Time: Yes Total Critical Care Time: 31 Attestation: The high probability of a clinically significant, sudden or life threatening deterioration of the [cardiopulmonary] system(s) required my full and direct attention, intervention and personal management. The aggregate critical care time was [31] minutes. This time is in addition to time spent performing reported procedures but includes the following: [x] Data Review and interpretation [x] Patient assessment and monitoring of vital signs [x] Documentation [x] Medication orders and management Discharge Plan Departure Patient Disposition: Home Clinical Impression: Chest pain, Pneumonia Instructions: DI for Pneumonia -- Adult Activity Restrictions/Additional Instructions: Chest pain tonight, recent coughing, chest x-ray suspicious for right lower lobe pneumonia, IV antibiotics initiated, oral antibiotics as well. EKG and serial blood testing not suggestive of heart attack at this time. History of congestive heart failure noted, with improved lower extremity swelling, CHF related blood tests look pretty good tonight. Seems like your symptoms in the right lower lobe may be pneumonia related, and perhaps a cause of your chest pain. Take antibiotics as directed as an outpatient for now. You felt better and wanted to go home. Follow up with your regular provider for further testing and workup of chest pain as an outpatient for now. Return to this/nearest emergency department for any change worsening symptoms or any concerns prior Prescriptions: New cefdinir 300 mg capsule 300 mg PO BID 10 Days Qty: 20 0RF doxycycline hyclate 100 mg capsule 100 mg PO BID 10 Days Qty: 20 0RF No Action pantoprazole 40 MG tablet,delayed release (DR/EC) 40 mg PO BID Qty: 0 furosemide 40 mg tablet 20 mg PO DAILY Qty: 0 potassium chloride 10 mEq Capsule, Extended Release 20 meq PO QAM cyanocobalamin (vitamin B-12) [B-12 DOTS] 500 mcg Tablet 1,000 mcg PO DAILY methocarbamol 500 mg tablet 250 mg PO TID PRN (Reason: muscle cramps) Qty: 14 0RF Rx Instructions: Plan to titrate off methocarbamol and use ropinirole vitamin E 400 unit Tablet 180 mg PO DAILY metoprolol succinate 25 mg tablet extended release 24 hr 25 mg PO QAM magnesium 200 mg Tablet 400 mg PO BID Myrbetriq 50 mg tablet extended release 24 hr 50 mg PO DAILY Eliquis 5 mg tablet 5 mg PO BID sulfamethoxazole-trimethoprim 400-80 mg tablet 1 tab PO DAILY levothyroxine 125 mcg tablet 125 mcg PO QAM Jardiance 10 mg tablet 10 mg PO QAM cyclosporine [Restasis] 0.05 % dropperette 2 drp EYE-BOTH PRN PRN (Reason: Dry Eyes) Patient Comments: [NO ORIGINAL SIG] atorvastatin 20 mg tablet 20 mg PO QAM albuterol sulfate 90 mcg/actuation HFA aerosol inhaler 2 puff inhalation PRN PRN (Reason: sob) nitroglycerin 0.4 mg Tablet, Sublingual 4 mg sublingual PRN PRN (Reason: Chest Pain) Referrals: Sharmin Grimes PA-C [Primary Care Provider] - Stand Alone Forms: Patient Portal/API
[2023-12-06 22:03] LABS: NT-proBNP (BNP-Adult 18+) 256 pg/mL (<450)
[2023-12-06] MEDS: DOXYCYCLINE HYCLATE 100 MG TABLET PO (22:19)
[2023-12-06] MEDS: cefTRIAXone 1,000 MG in SODIUM CHLORIDE 0.9% 100 ML 200 MG IV (22:27)
[2023-12-06 22:38] LABS: Lactate (Lactic Acid) 1.3 mmol/L (0.7-2.1)
[2023-12-06] MEDS: ONDANSETRON 4 MG/2 ML INJ IV (23:14)
[2023-12-06 23:43] LABS: Troponin I < 0.012 ng/mL (0.01-0.034)
[2023-12-07 01:22] VITALS: BP 121/56; PULSE 89; RESP 16; O2SAT 96
== END 2023-12-07 01:37 | disposition home or self-care (01) ==
PROVIDERS: Emergency Provider Emergency Medicine; PCP Physician Assistant
DX: J18.9 Pneumonia, unspecified organism (principal); R07.9 Chest pain, unspecified
CPT/HCPCS: 36415; 71045; 80053; 82550; 83605; 83690; 83735; 83880; 84484; 85025; 85610; 85730; 93005; 96365; 96375; 99284; J0696; J2405

== ENCOUNTER 2024-05-21 11:12 | Observation (INO) | payer MEDICARE, MEDICAID, SELFPAY ==
[2023-07-28 15:12] VITALS: BMI 31.9
[2024-05-21] VITALS (25 sets, daily range): BP systolic 90–121; BP diastolic 51–75; PULSE 98–136; RESP 17–32; TEMP 36.5–37.9; O2SAT 93–99; BMI 30.5
--- NOTE | 2024-05-21 11:29 | DI.RAD.S_ITS ---
PROCEDURE: XR CHEST 1V INDICATIONS: Shortness of breath TECHNIQUE: One view of the chest was acquired. COMPARISON: [facility], CR, XR CHEST 2V, 02/24/2022, 12:22. [facility], CR, XR CHEST 1V, 12/06/2023, 20:04. [facility], CR, XR CHEST 1V, 07/28/2023, 11:31. FINDINGS: Surgical changes and devices: None. Lungs and pleura: An incomplete inspiratory result is noted, causing a crowded appearance to the lung markings. No focal infiltrates are seen. No pneumothorax or significant pleural effusions are seen. Mediastinum: Mediastinal contours appear normal. Heart size is normal. Bones and chest wall: No suspicious bony lesions. Age-appropriate bony degenerative changes are seen. Overlying soft tissues appear unremarkable. IMPRESSION: Low lung volumes, without an acute abnormality seen by plain film. Dictated by: Arie Rodriguez M.D. on 05/21/2024 at 11:00 Approved by: Arie Rodriguez M.D. on 05/21/2024 at 11:01
[2024-05-21] MEDS: ALBUTEROL 2.5 MG/3 ML NEB (ADULT) INH (11:34)
--- NOTE | 2024-05-21 11:37 | EKG_ITS ---
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
[2024-05-21 11:46] LABS: Add Manual Diff / Slide Review NO; Basophils Absolute Auto 0 /uL (0-100); Basophils Percent Auto 0.4 % (0-2); Eosinophils Absolute Auto 200 /uL (0-450); Eosinophils Percent Auto 1.9 % (2-4); Hematocrit 41.7 % (36-46); Hemoglobin 13.8 g/dL (12.0-16.0); Lymphocytes Absolute Auto 1200 /uL (1100-4500); Mean Corpuscular HGB Conc 33.2 % (30-36); Mean Corpuscular Volume 96.5 fL (80-100); Monocytes Absolute Auto 1500 /uL (0-900); Monocytes Percent Auto 14.1 % (3-14); Neutrophils Absolute Auto 7500 /uL (1500-7000); Neutrophils Percent Auto 71.6 % (50-75); Platelet Count 188 X10^3/uL (150-400); Red Blood Cell Count 4.32 X10^6/uL (4.0-5.2); Red Cell Distribution Width 14.3 % (11.6-14.8); White Blood Cell Count 10.4 X10^3/uL (4.5-11.0)
--- NOTE | 2024-05-21 11:47 | ED_ITS ---
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 She apparently does have history of coronary artery disease she felt like she had a band across her middle with some burning of her chest she took nitro at home. Not really gotten better. She is noted to low-grade temperature here of 100.2. She is in AFib with RVR heart rate in the 120s she says that she is always in AFib heart rate is usually 90. She denies any cough, he does have some mild shortness of breath. Apparently she does have some COPD she was just seen by a mlt. She was unaware that she had a temperature. She has no abdominal pain nausea or vomiting. No painful or frequent urination. Her chest pain a little bit better. It has not reproducible with palpation positioning sitting upright makes it better lying down makes it worse Related Data Home Medications Medication Instructions Recorded Confirmed pantoprazole 40 mg tablet,delayed 40 mg PO BID ##0 10/18/17 05/21/24 release cyanocobalamin (vitamin B-12) 500 1,000 mcg PO DAILY 03/15/18 05/21/24 mcg tablet (B-12 DOTS) potassium chloride 10 mEq 20 meq PO QAM 03/15/18 05/21/24 capsule,extended release furosemide 40 mg tablet 20 mg PO DAILY #0 tabs 06/10/18 05/21/24 albuterol sulfate 90 mcg/actuation 2 puff inhalation PRN PRN sob 07/28/23 05/21/24 aerosol inhaler apixaban 5 mg tablet (Eliquis) 5 mg PO BID 07/28/23 05/21/24 atorvastatin 20 mg tablet 20 mg PO QAM 07/28/23 05/21/24 cyclosporine 0.05 % eye drops in a 2 drp EYE-BOTH PRN PRN Dry Eyes 07/28/23 05/21/24 dropperette (Restasis) empagliflozin 10 mg tablet 10 mg PO QAM 07/28/23 05/21/24 (Jardiance) levothyroxine 125 mcg tablet 125 mcg PO QAM 07/28/23 05/21/24 magnesium 200 mg tablet 200 mg PO BEDTIME 07/28/23 05/21/24 metoprolol succinate 25 mg 25 mg PO QAM 07/28/23 05/21/24 tablet,extended release 24 hr mirabegron 50 mg tablet,extended 50 mg PO DAILY 07/28/23 05/21/24 release 24 hr (Myrbetriq) nitroglycerin 0.4 mg sublingual 4 mg sublingual PRN PRN Chest Pain 07/28/23 05/21/24 tablet sulfamethoxazole 400 1 tab PO BEDTIME 07/28/23 05/21/24 mg-trimethoprim 80 mg tablet vitamin E 400 unit tablet 90 mg PO DAILY 07/28/23 05/21/24 fluticasone fur. 100 mcg-umeclid 1 ea inhalation DAILY 05/21/24 05/21/24 62.5 mcg-vilant 25 mcg inhalat.powder (Trelegy Ellipta) fluticasone fur. 100 mcg-umeclid 1 ea inhalation DAILY 05/21/24 05/21/24 62.5 mcg-vilant 25 mcg inhalat.powder (Trelegy Ellipta) tiotropium bromide 2.5 2 puff inhalation DAILY 05/21/24 05/21/24 mcg/actuation mist for inhalation (Spiriva Respimat) Previous Rx's Medication Instructions Recorded methocarbamol 500 mg tablet 250 mg (1/2 x 500 mg) PO TID PRN 07/17/22 muscle cramps #14 tabs Allergies Allergy/AdvReac Type Severity Reaction Status Date / Time chlorothiazide Allergy Unknown Unknown Verified 05/21/24 11:39 [CHLOROTHIAZIDE] codeine [CODEINE] AdvReac Unknown itching Verified 05/21/24 11:39 naproxen [NAPROXEN] AdvReac Unknown SHOOTING Verified 05/21/24 11:39 ELECTRICITY DOWN LEG Patient History Medical History Dysuria History of DVT (deep vein thrombosis) Neuropathy History of migraine Paroxysmal A-fib Hypothyroid GERD (gastroesophageal reflux disease) Surgical History History of hysterectomy Family History Other No pertinent family history Social History household members: family Smoking Status: Never smoker alcohol intake: current Smoking Status: Never smoker alcohol intake frequency: holidays/special occasions only Substance Use Type: does not use Exam Initial Vital Signs Initial Vital Signs: Vital Signs Pulse Rate 125 H 05/21/24 11:23 Blood Pressure 118/75 05/21/24 11:23 Pulse Oximetry 96 05/21/24 11:23 GENERAL: Alert nontoxic pleasant 88-year-old female HEENT: Head atraumatic,EOMI, pupils reactive, face symmetric, moist mucous membranes CARDIOVASCULAR: Tachycardic irregularly irregular EARS: Eustachian tube in left ear no significant erythema right ear no Eustachian tube no erythema RESPIRATORY: Breath sounds equal bilaterally, no wheezes rales or rhonchi. ABDOMEN: Soft, nontender. Normoactive bowel sounds all 4 quadrants. No guarding or rebound. EXTREMITIES: Normal range of motion, no clubbing or edema. Neurovascularly intact NEUROLOGICAL: Alert and oriented x4.Normal gait and speech. Cranial nerves II through XII grossly intact. SKIN: Warm, dry, no laceration, no petechiae, no rashes or lesions. Course Orders Ordered: ED Orders 05/21/24 11:29 XR chest 1V Stat EKG-12 Lead Stat Measure peak expiratory flow ONCE RT Consult Eval and Treat NOW 05/21/24 11:37 BNP [NT-proBNP (BNP-Adult 18+)] Stat Complete Blood Count AUTO DIFF Stat Comprehensive Metabolic Panel Stat Lactate (Lactic Acid) Stat NT-proBNP (BNP-Adult 18+) Stat Procalcitonin Stat Prothrombin Time INR Stat Troponin I Stat 05/21/24 11:42 Respiratory Panel (Film Array) Stat 05/21/24 11:59 Blood Culture Stat 05/21/24 13:04 Trop I [Troponin I] Stat Acetaminophen (Acetaminophen 325 Mg Tablet) 650 mg PO Q6H PRN PRN Reason: Fever/Mild Pain (1-3) Albuterol (Albuterol 2.5 Mg/3 Ml Neb (Adult)) 2.5 mg INH PRN PRN PRN Reason: Shortness Of Breath Apixaban (Apixaban 5 Mg Tablet) 5 mg PO BID [facility] Atorvastatin Calcium (Atorvastatin 20 Mg Tablet) 20 mg PO DAILY [facility] Diltiazem HCl (Diltiazem 30 Mg Tablet) 30 mg PO Q6HR [facility] Last Admin: 05/21/24 17:49 Dose: 30 mg Documented By: VERO Levothyroxine Sodium (Levothyroxine 125 Mcg Tablet) 125 mcg PO 0600 [facility] Metoprolol Succinate (Metoprolol Er 25 Mg Tablet) 25 mg PO DAILY [facility] Naloxone HCl (Naloxone 0.4 Mg/Ml Vial) 0.2 mg IV Q2MIN PRN PRN Reason: Opiate Reversal Nitroglycerin (Nitroglycerin 0.4 Mg Sl Tab) 4 mg SL PRN PRN PRN Reason: Chest Pain Nf - Cyclosporine ( Restasis) 0.05 % Dropperette 2 drop EYE-BOTH BID [facility] Nf - Empagliflozin ( Jardiance) 10 Mg Tablet 10 mg PO DAILY [facility] Nf - Mirabegron ( Myrbetriq) 50 Mg Er Tablet 50 mg PO DAILY [facility] Non-Formulary Medication (Dtcyaeiexbb-Rikfedvqh-Dqtsdctx [Trelegy Ellipta]) 1 each INHALATION DAILY [facility] Pantoprazole Sodium (Pantoprazole Dr 40 Mg Tablet) 40 mg PO BID [facility] Discontinued Medications Acetaminophen (Acetaminophen 325 Mg Tablet) 975 mg PO NOW ONE Stop: 05/21/24 11:48 Last Admin: 05/21/24 12:05 Dose: 975 mg Documented By: PARESH Albuterol (Albuterol 2.5 Mg/3 Ml Neb (Adult)) 2.5 mg INH NOW ONE Stop: 05/21/24 11:31 Last Admin: 05/21/24 11:34 Dose: 2.5 mg Documented By: MADDY Albuterol/Ipratropium (Albuterol/Ipratropium 3 Ml Ampul) 3 ml INH NOW ONE Stop: 05/21/24 14:54 Last Admin: 05/21/24 15:03 Dose: 3 ml Documented By: MADDY Sodium Chloride (Normal Saline 0.9%) 500 mls @ 1,000 mls/hr IV BOLUS ONE Stop: 05/21/24 14:17 Last Infusion: 05/21/24 14:14 Dose: Infused Documented By: Admin: 05/21/24 13:48 Dose: 1,000 mls/hr Documented By: KW Vital Signs Vital signs: Vital Signs - 8 hr 05/21/24 11:23 05/21/24 11:23 05/21/24 11:29 Temperature 100.2 F H Pulse Rate 125 H 136 H Respiratory Rate 32 H Blood Pressure 118/75 118/75 Pulse Oximetry 96 96 Oxygen Delivery Method Room Air 05/21/24 11:30 05/21/24 11:34 05/21/24 12:00 Temperature Pulse Rate 129 H 119 H 132 H Respiratory Rate 20 Blood Pressure Pulse Oximetry 97 96 97 Oxygen Delivery Method Room Air 05/21/24 12:00 05/21/24 12:30 05/21/24 12:30 Temperature Pulse Rate 110 H Respiratory Rate Blood Pressure 117/68 108/55 L Pulse Oximetry Oxygen Delivery Method 05/21/24 13:00 05/21/24 13:00 05/21/24 13:15 Temperature Pulse Rate 115 H 116 H Respiratory Rate 20 27 H Blood Pressure 103/51 L Pulse Oximetry 94 95 Oxygen Delivery Method 05/21/24 13:15 05/21/24 13:18 05/21/24 13:18 Temperature Pulse Rate 116 H Respiratory Rate Blood Pressure 93/55 L 90/54 L Pulse Oximetry 95 Oxygen Delivery Method 05/21/24 13:30 05/21/24 13:31 05/21/24 13:31 Temperature Pulse Rate 128 H 114 H Respiratory Rate Blood Pressure 92/56 L Pulse Oximetry 94 94 Oxygen Delivery Method 05/21/24 14:00 05/21/24 14:00 05/21/24 14:20 Temperature Pulse Rate 108 H 118 H Respiratory Rate 26 H 28 H Blood Pressure 94/55 L Pulse Oximetry 97 99 Oxygen Delivery Method 05/21/24 14:20 05/21/24 14:30 05/21/24 14:30 Temperature Pulse Rate 114 H Respiratory Rate 17 Blood Pressure 121/56 L 109/52 L Pulse Oximetry 98 Oxygen Delivery Method 05/21/24 15:00 05/21/24 15:00 05/21/24 15:03 Temperature Pulse Rate 111 H 118 H Respiratory Rate 18 20 Blood Pressure 113/54 L Pulse Oximetry 97 97 Oxygen Delivery Method Room Air 05/21/24 15:30 05/21/24 15:30 05/21/24 16:00 Temperature Pulse Rate 112 H Respiratory Rate 20 Blood Pressure 113/53 L 105/59 L Pulse Oximetry 96 Oxygen Delivery Method 05/21/24 16:00 05/21/24 16:12 Temperature 98.5 F Pulse Rate 121 H Respiratory Rate Blood Pressure Pulse Oximetry 97 Oxygen Delivery Method MDM - Arrhythmia/Palpitations Lab Data 05/21/24 11:37 05/21/24 11:37 Labs: Lab Results 05/21/24 05/21/24 05/21/24 Range/Units 11:37 11:37 11:42 WBC 10.4 (4.5-11.0) X10^3/uL RBC 4.32 (4.0-5.2) X10^6/uL Hgb 13.8 (12.0-16.0) g/dL Hct 41.7 (36-46) % MCV 96.5 (80-100) fL MCH 32.0 (26-34) PG MCHC 33.2 (30-36) % RDW 14.3 (11.6-14.8) % Plt Count 188 (150-400) X10^3/uL Neut % (Auto) 71.6 (50-75) % Lymph % (Auto) 12.0 L (25-40) % Tucker % (Auto) 14.1 H (3-14) % Eos % (Auto) 1.9 L (2-4) % Baso % (Auto) 0.4 (0-2) % Neut # (Auto) 7500 H (0499-8390) /uL Lymph # (Auto) 1200 (5529-0722) /uL Tucker # (Auto) 1500 H (0-900) /uL Eos # (Auto) 200 (0-450) /uL Baso # (Auto) 0 (0-100) /uL PT 15.8 H (9.4-12.5) SECONDS INR 1.4 H (0.9-1.3) Sodium 135 L (137-145) mmol/L Potassium 4.1 (3.4-5.1) mmol/L Chloride 101 (98-107) mmol/L Carbon Dioxide 26 (22-32) mmol/L BUN 19 H (7-17) mg/dL Creatinine 1.16 H (0.52-1.04) mg/dL Estimated GFR 46 L (>60) mL/min BUN/Creatinine Ratio 16.4 (6-22) Glucose 115 H (80-110) mg/dL Lactate 1.5 (0.7-2.1) mmol/L Calcium 8.8 (8.4-10.2) mg/dL Total Bilirubin 0.9 (0.2-1.3) mg/dL AST 42 H (14-36) IU/L ALT 33 (<35) IU/L Alkaline Phosphatase 103 (38-126) U/L Troponin I < 0.012 (0.01-0.034) ng/mL NT-Pro-B Natriuret Pep 1150 H 1110 H (<450) pg/mL Total Protein 7.0 (6.3-8.2) g/dL Albumin 4.0 (3.5-5.0) g/dL Globulin 3.0 (1.7-4.1) g/dL Albumin/Globulin Ratio 1.3 (1.0-2.8) Procalcitonin 0.058 (<0.5) ng/mL Chlamy pneumoniae PCR Not detected (Not Detect) Adenovirus (PCR) Not detected (Not Detect) B. pertussis DNA (PCR) Not detected (Not Detect) B.parapertussis DNA PCR Not detected (Not Detecte) Coronavirus OC43 (PCR) Not detected (Not Detect) Coronavirus HKU1 (PCR) Not detected (Not Detect) Coronavirus 229E (PCR) Not detected (Not Detect) SARS-CoV-2 (PCR) Not detected (Not Detecte) Coronavirus NL63 (PCR) Not detected (Not Detect) Human Metapneumovir PCR Not detected (Not Detect) Influenza Type A (PCR) Not detected (Not Detect) Influenza Type B (PCR) Not detected (Not Detect) M. pneumoniae (PCR) Not detected (Not Detect) Parainfluenza 1 (PCR) Not detected (Not Detect) Parainfluenza 2 (PCR) Not detected (Not Detect) Parainfluenza 3 (PCR) Not detected (Not Detect) Parainfluenza 4 (PCR) Not detected (Not Detect) RSV (PCR) Not detected (Not Detect) Entero/Rhino (PCR) Not detected (Not Detect) 05/21/24 Range/Units 13:04 WBC (4.5-11.0) X10^3/uL RBC (4.0-5.2) X10^6/uL Hgb (12.0-16.0) g/dL Hct (36-46) % MCV (80-100) fL MCH (26-34) PG MCHC (30-36) % RDW (11.6-14.8) % Plt Count (150-400) X10^3/uL Neut % (Auto) (50-75) % Lymph % (Auto) (25-40) % Tucker % (Auto) (3-14) % Eos % (Auto) (2-4) % Baso % (Auto) (0-2) % Neut # (Auto) (3788-2131) /uL Lymph # (Auto) (1329-1142) /uL Tucker # (Auto) (0-900) /uL Eos # (Auto) (0-450) /uL Baso # (Auto) (0-100) /uL PT (9.4-12.5) SECONDS INR (0.9-1.3) Sodium (137-145) mmol/L Potassium (3.4-5.1) mmol/L Chloride (98-107) mmol/L Carbon Dioxide (22-32) mmol/L BUN (7-17) mg/dL Creatinine (0.52-1.04) mg/dL Estimated GFR (>60) mL/min BUN/Creatinine Ratio (6-22) Glucose (80-110) mg/dL Lactate (0.7-2.1) mmol/L Calcium (8.4-10.2) mg/dL Total Bilirubin (0.2-1.3) mg/dL AST (14-36) IU/L ALT (<35) IU/L Alkaline Phosphatase (38-126) U/L Troponin I < 0.012 (0.01-0.034) ng/mL NT-Pro-B Natriuret Pep (<450) pg/mL Total Protein (6.3-8.2) g/dL Albumin (3.5-5.0) g/dL Globulin (1.7-4.1) g/dL Albumin/Globulin Ratio (1.0-2.8) Procalcitonin (<0.5) ng/mL Chlamy pneumoniae PCR (Not Detect) Adenovirus (PCR) (Not Detect) B. pertussis DNA (PCR) (Not Detect) B.parapertussis DNA PCR (Not Detecte) Coronavirus OC43 (PCR) (Not Detect) Coronavirus HKU1 (PCR) (Not Detect) Coronavirus 229E (PCR) (Not Detect) SARS-CoV-2 (PCR) (Not Detecte) Coronavirus NL63 (PCR) (Not Detect) Human Metapneumovir PCR (Not Detect) Influenza Type A (PCR) (Not Detect) Influenza Type B (PCR) (Not Detect) M. pneumoniae (PCR) (Not Detect) Parainfluenza 1 (PCR) (Not Detect) Parainfluenza 2 (PCR) (Not Detect) Parainfluenza 3 (PCR) (Not Detect) Parainfluenza 4 (PCR) (Not Detect) RSV (PCR) (Not Detect) Entero/Rhino (PCR) (Not Detect) Urine Dip Bedside Urine Glucose 1000 mg/dl Bedside Urine Bilirubin - Negative Bedside Urine Ketone - Negative Urine Specific [place] 1.015 Bedside Urine Occult Blood - Negative Bedside Urine pH 6.0 Bedside Urine Protein - Negative Bedside Urine Urobilinogen - Negative Bedside Urine Nitrite - Negative Bedside Urine Leukocytes - Negative Esterase Imaging Data Chest x-ray: Radiologist's Impresson: PROCEDURE: XR CHEST 1V INDICATIONS: Shortness of breath TECHNIQUE: One view of the chest was acquired. COMPARISON: [facility], CR, XR CHEST 2V, 02/24/2022, 12:22. [facility], CR, XR CHEST 1V, 12/06/2023, 20:04. [facility], CR, XR CHEST 1V, 07/28/2023, 11:31. FINDINGS: Surgical changes and devices: None. Lungs and pleura: An incomplete inspiratory result is noted, causing a crowded appearance to the lung markings. No focal infiltrates are seen. No pneumothorax or significant pleural effusions are seen. Mediastinum: Mediastinal contours appear normal. Heart size is normal. Bones and chest wall: No suspicious bony lesions. Age-appropriate bony degenerative changes are seen. Overlying soft tissues appear unremarkable. IMPRESSION: Low lung volumes, without an acute abnormality seen by plain film. Dictated by: Arie Rodriguez M.D. on 05/21/2024 at 11:00 ECG Data Attestation: I personally reviewed and interpreted this ECG as follows: Interpretation: Atrial fibrillation rate [address] changes MDM Narrative Medical decision making narrative: MDM CC: Chest pain Complicating co-morbidities: Atrial fibrillation on anticoagulation COPD CHF Medical records reviewed: Previous ED visit 12/06/2023 was here for chest pain cardiology is at [facility] [place] [facility] Differential considered: Infection sepsis acute coronary syndrome congestive heart failure COPD exacerbation Exam documented above, pertinent findings include: Alert well-appearing 88, breath sounds are clear without respiratory distress heart is irregular and tachycardic no obvious peripheral edema Lab Test results independently reviewed as above. Pertinent findings: WBC 10.4 hemoglobin 13.8 hematocrit 41.7 INR 1.4 Sodium 135 potassium 4.1 chloride 101 carbon dioxide 26 BUN 19 creatinine 1.1 Lactate 1.5, procalcitonin 0.058 Troponin negativex2 BNP 1110 Respiratory panel negative Urinalysis negative Independently reviewed EKG as above atrial fibrillation with RVR without ischemia Imaging studies independently reviewed: Chest x-ray low volumes but no abnormality Consultations: Dr. Walters updated on patient's symptoms evaluated patient in ED And accept chest pain observation Treatments: 500 cc bolus albuterol Re-evaluations: Patient's blood pressure did drop 93/55 remains in the 90 so she did give 500 cc bolus she tolerated it well. Blood pressure improved. Initially thought RVR with secondary to fever of 100.2 so she was given Tylenol however she remained tachycardic She would minimal improvement with albuterol for her breathing. She was never hypoxic or in significant respiratory distress. 1700 patient is still having some chest discomfort needing to sit up rather than lay down Discussion: Patient 88-year-old female history of atrial fibrillation COPD CHF presenting today with chest pain and shortness of breath. She has had 2- troponins no significant EKGs changes. Initially thought she may have sepsis with the elevated temperature. But no source of infection found. Heart rate remained elevated 110-120. Blood pressure also dropped briefly so she was given a 500 cc bolus. She has no sign of severe sepsis and lactic acid is within normal limits. Still having some mild chest discomfort. She was seen evaluated here back in November for something similar she has not had any further follow-up with Cardiology no further stress test or echocardiogram. Pulmonary embolism considered but unlikely secondary to compliance with [facility] Hospitalist agrees for admission to observation Discharge Plan Departure Patient Disposition: Admitted as Observation Clinical Impression: Chest pain Admit Date/Time: 05/21/24 16:27 Admit Provider: Kelvin Walters V
[2024-05-21 11:58] LABS: Lactate (Lactic Acid) 1.5 mmol/L (0.7-2.1)
[2024-05-21] MEDS: ACETAMINOPHEN 325 MG TABLET 975 MG PO (12:05)
[2024-05-21 12:06] LABS: Alanine Aminotransferase 33 IU/L (<35); Albumin Globulin Ratio 1.3 (1.0-2.8); Alkaline Phosphatase 103 U/L (38-126); Aspartate Aminotransferase 42 IU/L (14-36); BUN Creatinine Ratio 16.4 (6-22); Bilirubin Total 0.9 mg/dL (0.2-1.3); Blood Urea Nitrogen 19 mg/dL (7-17); Calcium 8.8 mg/dL (8.4-10.2); Carbon Dioxide 26 mmol/L (22-32); Chloride 101 mmol/L (98-107); Estimated Glomerular Filt Rate 46 mL/min (>60); Glucose 115 mg/dL (80-110); HEMOLYSIS 40 (0-50); Potassium 4.1 mmol/L (3.4-5.1); Sodium 135 mmol/L (137-145)
[2024-05-21 12:07] LABS: NT-proBNP (BNP-Adult 18+) 1110 pg/mL (<450)
[2024-05-21 12:22] LABS: Procalcitonin 0.058 ng/mL (<0.5)
[2024-05-21 12:58] LABS: Adenovirus Not Detected (Not Detect); B. parapertussis Not Detected (Not Detecte); Bordetella pertussis Not Detected (Not Detect); Chlamydophila pneumoniae Not Detected (Not Detect); Coronavirus 229E Not Detected (Not Detect); Coronavirus HKU1 Not Detected (Not Detect); Coronavirus NL 63 Not Detected (Not Detect); Coronavirus OC43 Not Detected (Not Detect); Human Metapneumovirus Not Detected (Not Detect); Human Rhinovirus/Enterovirus Not Detected (Not Detect); Influenza A Not Detected (Not Detect); Influenza B Not Detected (Not Detect); Mycoplasma pneumoniae Not Detected (Not Detect); Parainfluenza Virus 1 Not Detected (Not Detect); Parainfluenza Virus 2 Not Detected (Not Detect); Parainfluenza Virus 3 Not Detected (Not Detect); Parainfluenza Virus 4 Not Detected (Not Detect); Respiratory Syncytial Virus Not Detected (Not Detect); SARS- CoV-2 Not Detected (Not Detecte)
[2024-05-21 13:09] LABS: INR 1.4 (0.9-1.3); Prothrombin Time 15.8 SECONDS (9.4-12.5)
--- NOTE | 2024-05-21 13:26 | PC.NURSE ---
notified of pt decreasing blood pressure (90 sys). Pt report CP is 4/10; and states it is no longer in her back. Heart rate remains elevated.
[2024-05-21 13:31] LABS: NT-proBNP (BNP-Adult 18+) 1150 pg/mL (<450); Troponin I < 0.012 ng/mL (0.01-0.034)
[2024-05-21] MEDS: SODIUM CHLORIDE 0.9% 500 ML 1000 ML IV (13:48)
[2024-05-21] MEDS: ALBUTEROL/IPRATROPIUM 3 ML AMPUL INH (15:03)
--- NOTE | 2024-05-21 15:04 | EKG_ITS ---
[address] [address] [address], [place] [address] Test Date: 2024-05-21 Pat Name: Sun Mejia Department: Room: 217 Gender: Female Feed Handler: MALORIE : [id number] Requested By: Order Number: [id number] Reading MD: Jcarlos Batista MD Measurements Intervals [place] Rate: 100 P: [place]: QRS: 30 QRSD: 70 T: 62 QT: 346 QTc: 446 Interpretive Statements Atrial fibrillation Low voltage QRS Electronically Signed On 05-22-2024 7:30:26 PST by Jcarlos Batista MD
[2024-05-21 15:33] LABS: Troponin I < 0.012 ng/mL (0.01-0.034)
--- NOTE | 2024-05-21 16:04 | PC.NURSE ---
Lab reports they have first set of blood cultures in lab. RN and fitting room supervisor unable to grab 2nd set.
--- NOTE | 2024-05-21 16:31 | P.HP_ITS ---
History of Present Illness History of Present Illness Date Patient Seen: 05/21/24 Time Patient Seen: 17:45 Chief complaint: shortness of breath cant breath Narrative: 88-year-old woman and the primary care of Sharmin Grimes PA-C with a history of atrial fibrillation, DVT and pulmonary embolism on Eliquis experienced a feeling of intense indigestion this morning. This persisted and became severe up to 9/10 intensity, radiating through to her back with difficulty catching her breath, and she felt that this was different than her usual indigestion which is controlled with pantoprazole typically. She stated ongoing symptoms and notified family who brought her to the emergency department. She was found to be in atrial fibrillation, her typical rhythm but in the 120s beat per minute range, up from her usual heart rate in the 90s. Evaluation was otherwise unremarkable in the emergency department and she is admitted for further management and evaluation. On evaluation in the medical floor she states only 1 or 2/10 chest discomfort at [facility] Medical History Dysuria History of DVT (deep vein thrombosis) Neuropathy History of migraine Paroxysmal A-fib Hypothyroid GERD (gastroesophageal reflux disease) Surgical History History of hysterectomy Family History Other No pertinent family history Social History household members: family Smoking Status: Never smoker alcohol intake: current Meds Home Medications and Allergies Home Medications Medication Instructions Recorded Confirmed Type pantoprazole 40 mg tablet,delayed 40 mg PO BID ##0 10/18/17 05/21/24 History release cyanocobalamin (vitamin B-12) 500 1,000 mcg PO DAILY 03/15/18 05/21/24 History mcg tablet (B-12 DOTS) potassium chloride 10 mEq 20 meq PO QAM 03/15/18 05/21/24 History capsule,extended release furosemide 40 mg tablet 20 mg PO DAILY #0 tabs 06/10/18 05/21/24 History methocarbamol 500 mg tablet 250 mg (1/2 x 500 mg) PO TID PRN 07/17/22 05/21/24 Rx muscle cramps #14 tabs albuterol sulfate 90 mcg/actuation 2 puff inhalation PRN PRN sob 07/28/23 05/21/24 History aerosol inhaler apixaban 5 mg tablet (Eliquis) 5 mg PO BID 07/28/23 05/21/24 History atorvastatin 20 mg tablet 20 mg PO QAM 07/28/23 05/21/24 History cyclosporine 0.05 % eye drops in a 2 drp EYE-BOTH PRN PRN Dry Eyes 07/28/23 05/21/24 History dropperette (Restasis) empagliflozin 10 mg tablet 10 mg PO QAM 07/28/23 05/21/24 History (Jardiance) levothyroxine 125 mcg tablet 125 mcg PO QAM 07/28/23 05/21/24 History magnesium 200 mg tablet 200 mg PO BEDTIME 07/28/23 05/21/24 History metoprolol succinate 25 mg 25 mg PO QAM 07/28/23 05/21/24 History tablet,extended release 24 hr mirabegron 50 mg tablet,extended 50 mg PO DAILY 07/28/23 05/21/24 History release 24 hr (Myrbetriq) nitroglycerin 0.4 mg sublingual 4 mg sublingual PRN PRN Chest Pain 07/28/23 05/21/24 History tablet sulfamethoxazole 400 1 tab PO BEDTIME 07/28/23 05/21/24 History mg-trimethoprim 80 mg tablet vitamin E 400 unit tablet 90 mg PO DAILY 07/28/23 05/21/24 History fluticasone fur. 100 mcg-umeclid 1 ea inhalation DAILY 05/21/24 05/21/24 History 62.5 mcg-vilant 25 mcg inhalat.powder (Trelegy Ellipta) fluticasone fur. 100 mcg-umeclid 1 ea inhalation DAILY 05/21/24 05/21/24 History 62.5 mcg-vilant 25 mcg inhalat.powder (Trelegy Ellipta) tiotropium bromide 2.5 2 puff inhalation DAILY 05/21/24 05/21/24 History mcg/actuation mist for inhalation (Spiriva Respimat) Allergies Allergy/AdvReac Type Severity Reaction Status Date / Time chlorothiazide Allergy Unknown Unknown Verified 05/21/24 11:39 [CHLOROTHIAZIDE] codeine [CODEINE] AdvReac Unknown itching Verified 05/21/24 11:39 naproxen [NAPROXEN] AdvReac Unknown SHOOTING Verified 05/21/24 11:39 ELECTRICITY DOWN LEG Review of Systems Review of Systems ROS: Yes All systems reviewed with the patient and are negative except as otherwise documented Exam Vital Signs (past 8 hours): - 05/21/24 11:23 05/21/24 11:23 05/21/24 11:29 Temperature 100.2 F H Pulse Rate 125 H 136 H Respiratory Rate 32 H Blood Pressure 118/75 118/75 Pulse Oximetry 96 96 Oxygen Delivery Method Room Air 05/21/24 11:30 05/21/24 11:34 05/21/24 12:00 Temperature Pulse Rate 129 H 119 H 132 H Respiratory Rate 20 Blood Pressure Pulse Oximetry 97 96 97 Oxygen Delivery Method Room Air 05/21/24 12:00 05/21/24 12:30 05/21/24 12:30 Temperature Pulse Rate 110 H Respiratory Rate Blood Pressure 117/68 108/55 L Pulse Oximetry Oxygen Delivery Method 05/21/24 13:00 05/21/24 13:00 05/21/24 13:15 Temperature Pulse Rate 115 H 116 H Respiratory Rate 20 27 H Blood Pressure 103/51 L Pulse Oximetry 94 95 Oxygen Delivery Method 05/21/24 13:15 05/21/24 13:18 05/21/24 13:18 Temperature Pulse Rate 116 H Respiratory Rate Blood Pressure 93/55 L 90/54 L Pulse Oximetry 95 Oxygen Delivery Method 05/21/24 13:30 05/21/24 13:31 05/21/24 13:31 Temperature Pulse Rate 128 H 114 H Respiratory Rate Blood Pressure 92/56 L Pulse Oximetry 94 94 Oxygen Delivery Method 05/21/24 14:00 05/21/24 14:00 05/21/24 14:20 Temperature Pulse Rate 108 H 118 H Respiratory Rate 26 H 28 H Blood Pressure 94/55 L Pulse Oximetry 97 99 Oxygen Delivery Method 05/21/24 14:20 05/21/24 14:30 05/21/24 14:30 Temperature Pulse Rate 114 H Respiratory Rate 17 Blood Pressure 121/56 L 109/52 L Pulse Oximetry 98 Oxygen Delivery Method 05/21/24 15:00 05/21/24 15:00 05/21/24 15:03 Temperature Pulse Rate 111 H 118 H Respiratory Rate 18 20 Blood Pressure 113/54 L Pulse Oximetry 97 97 Oxygen Delivery Method Room Air 05/21/24 15:30 05/21/24 15:30 05/21/24 16:00 Temperature Pulse Rate 112 H Respiratory Rate 20 Blood Pressure 113/53 L 105/59 L Pulse Oximetry 96 Oxygen Delivery Method 05/21/24 16:00 05/21/24 16:12 Temperature 98.5 F Pulse Rate 121 H Respiratory Rate Blood Pressure Pulse Oximetry 97 Oxygen Delivery Method Oxygen Delivery Method Room Air Narrative Exam Narrative: GENERAL: This is a well-nourished, well-developed patient, in no apparent distress. HEAD: Atraumatic. Normocephalic. No temporal or scalp tenderness. EYES: Pupils equal round and reactive. Extraocular motions intact. No scleral icterus. No injection or drainage. ENT: Mucous membranes pink and moist. NECK: Trachea midline. No JVD, bruits or lymphadenopathy. Supple, nontender, no meningeal signs. CARDIOVASCULAR: Regular rate and rhythm without murmurs, gallops, or rubs. RESPIRATORY: Clear to auscultation. GASTROINTESTINAL: Abdomen soft, non-tender, nondistended. EXTREMITIES: No clubbing, cyanosis, or edema. BACK: Nontender without deformity or crepitance. No flank tenderness. NEUROLOGIC: Alert, oriented, speech fluent, full upper and lower motor strength, no focal deficits evident. DERMATOLOGIC: No rashes or skin lesions. Objective ECG Impression: Atrial fibrillation with rapid ventricular response at 123bpm Low voltage QRS Nonspecific ST abnormality Imaging Chest x-ray: Radiologist's impression: Low lung volumes, without an acute abnormality seen by plain film. Labs 05/21/24 11:37 05/21/24 11:37 Labs: Laboratory Results - last 24 hr 05/21/24 05/21/24 05/21/24 11:37 11:37 11:42 WBC 10.4 RBC 4.32 Hgb 13.8 Hct 41.7 MCV 96.5 MCH 32.0 MCHC 33.2 RDW 14.3 Plt Count 188 Neut % (Auto) 71.6 Lymph % (Auto) 12.0 L [place] % (Auto) 14.1 H Eos % (Auto) 1.9 L Baso % (Auto) 0.4 Neut # (Auto) 7500 H Lymph # (Auto) 1200 [place] # (Auto) 1500 H Eos # (Auto) 200 Baso # (Auto) 0 PT 15.8 H INR 1.4 H Sodium 135 L Potassium 4.1 Chloride 101 Carbon Dioxide 26 BUN 19 H Creatinine 1.16 H Estimated GFR 46 L BUN/Creatinine Ratio 16.4 Glucose 115 H Lactate 1.5 Calcium 8.8 Total Bilirubin 0.9 AST 42 H ALT 33 Alkaline Phosphatase 103 Troponin I < 0.012 NT-Pro-B Natriuret Pep 1150 H 1110 H Total Protein 7.0 Albumin 4.0 Globulin 3.0 Albumin/Globulin Ratio 1.3 Procalcitonin 0.058 Chlamy pneumoniae PCR Not detected Adenovirus (PCR) Not detected B. pertussis DNA (PCR) Not detected B.parapertussis DNA PCR Not detected Coronavirus OC43 (PCR) Not detected Coronavirus HKU1 (PCR) Not detected Coronavirus 229E (PCR) Not detected SARS-CoV-2 (PCR) Not detected Coronavirus NL63 (PCR) Not detected Human Metapneumovir PCR Not detected Influenza Type A (PCR) Not detected Influenza Type B (PCR) Not detected M. pneumoniae (PCR) Not detected Parainfluenza 1 (PCR) Not detected Parainfluenza 2 (PCR) Not detected Parainfluenza 3 (PCR) Not detected Parainfluenza 4 (PCR) Not detected RSV (PCR) Not detected Entero/Rhino (PCR) Not detected 05/21/24 13:04 WBC RBC Hgb Hct MCV MCH MCHC RDW Plt Count Neut % (Auto) Lymph % (Auto) [place] % (Auto) Eos % (Auto) Baso % (Auto) Neut # (Auto) Lymph # (Auto) [place] # (Auto) Eos # (Auto) Baso # (Auto) PT INR Sodium Potassium Chloride Carbon Dioxide BUN Creatinine Estimated GFR BUN/Creatinine Ratio Glucose Lactate Calcium Total Bilirubin AST ALT Alkaline Phosphatase Troponin I < 0.012 NT-Pro-B Natriuret Pep Total Protein Albumin Globulin Albumin/Globulin Ratio Procalcitonin Chlamy pneumoniae PCR Adenovirus (PCR) B. pertussis DNA (PCR) B.parapertussis DNA PCR Coronavirus OC43 (PCR) Coronavirus HKU1 (PCR) Coronavirus 229E (PCR) SARS-CoV-2 (PCR) Coronavirus NL63 (PCR) Human Metapneumovir PCR Influenza Type A (PCR) Influenza Type B (PCR) M. pneumoniae (PCR) Parainfluenza 1 (PCR) Parainfluenza 2 (PCR) Parainfluenza 3 (PCR) Parainfluenza 4 (PCR) RSV (PCR) Entero/Rhino (PCR) Assessment & Plan Assessment & Plan narrative: 1. Chest pain. Admit to observation, monitor on telemetry, follow serial cardiac enzymes, and continue routine medications, with the addition of diltiazem 30 mg every 6 hours for rate control. Echocardiogram ordered, noting elevated BNP without overt heart failure noted on exam. Consider stress testing tomorrow pending clinical course. 2. Atrial fibrillation with rapid ventricular response. Continue routine beta- maritza, add diltiazem 30 mg p.o. every 6 hours and check TS H. Monitor serial cardiac enzymes. Continue apixaban. 3. History of DVT/pulmonary embolism. Continue routine apixaban. 4. COPD. Continue routine home inhalers. She has transitioning from Spiriva to Trelegy Ellipta. 5. Gastroesophageal reflux disease. Continue routine PPI therapy. 6. Chronic kidney disease, stage 3A. Appears stable. 7. Hyperlipidemia. Continue routine statin therapy. Check lipids. 8. Hypothyroidism. Continue routine medication and check TSH. 9. DVT prophylaxis: Addressed on apixaban. 10. Code status: Full code. This is reviewed and affirmed with the patient on admission. plan: -admit to observation -monitor serial cardiac enzymes -add diltiazem 30 mg every 6 hours -monitor on telemetry -continue PPI therapy -check TSH -echocardiogram -consider stress testing tomorrow The patient is admitted to observation status. Quality MIPS - Admit I confirm the patient?s Advance Care Plan is present, Code status is documented, Surrogate decision maker is in patient?s record [If Yes, STOP here]: Yes MIPS - Meds 'Current medications' to include all prescriptions, [id number] products, herbals, cannabis/cannabidiol products, and vitamin/mineral/dietary (nutritional) supplements. I have utilized all available resources to obtain, update, or review the patient?s current medications. [If Yes, STOP here]: Yes PROFEE Charge Codes Initial inpatient/observation care: 87054
--- NOTE | 2024-05-21 16:48 | DI.ECHO.S_ITS ---
[facility] +---------+ [facility] : : [address] : : [place] : : [id number] : : Phone: [phone] Echocardiogram Report + + :Name: AD BENAVIDES Study Date: 05/22/2024 Height: 67 in : :[facility] ReadingLocation: Weight: 195 lb: : Gender: Female BSA: 2.0 m2 : :: 1935 Age: 88 yrs : :Reason For Study: CONGESTIVE HEART FAILURE : :Ordering Physician: KATELIN, : :NOHEMI Performed By: June Muñoz : :Referring: NOHEMI THOMASON : + + Interpretation Summary Normal left ventricle size with ejection fraction 55-60%. The left atrium is mildly dilated. Mild aortic valve sclerosis. Mild mitral annular calcification. Procedure: A two-dimensional transthoracic echocardiogram with color flow and Doppler was performed. The study quality was technically adequate. There is no prior echocardiogram noted for this patient. The heart rate ranged between 94-107 bpm during the study. Left Ventricle: The left ventricle is normal in size and wall thickness. The ejection fraction is estimated to be 55-60%. There are no obvious focal wall motion abnormalities noted but poor endocardial definition reduces the sensitivity for the detection of such. Diastolic parameters suggest a pseudonormalization pattern, consistent with probable elevated filling pressures. Right Ventricle: The right ventricle is normal in size and function. Atria: The left atrium is mildly dilated. Right atrial size is normal. There is no Doppler evidence for an interatrial shunt. Mitral Valve: The mitral valve is normal in structure and function. There is mild mitral annular calcification. There is trace mitral regurgitation. Aortic Valve: The aortic valve is trileaflet. The aortic valve opens well. There is mild aortic valve sclerosis. There is no aortic valve stenosis. No aortic regurgitation is present. Tricuspid Valve: The tricuspid valve is normal in structure and function. There is trace tricuspid regurgitation. Right ventricular systolic pressure is estimated to be 8 mmHg plus the clinically estimated CVP which cannot be estimated on this exam. Pulmonic Valve: The pulmonic valve is not well visualized. The pulmonic valve is not well seen, but is grossly normal. There is no pulmonic valvular regurgitation. Great Vessels: The aortic root is normal size. The dimensions of the ascending aorta are normal. The IVC is dilated (diameter is greater than 2.1 cm) yet it collapses greater than 50% with a sniff. This suggests a right atrial pressure of 8 mm Hg. Pericardium/ Pleura There is no pericardial effusion. There is an anterior echo-free space consistent with a fat pad. There is no pleural effusion. MMode/2D Measurements & Calculations LVIDd: 4.0 cm LVOT diam: 2.2 cm LVIDs: 3.0 cm Ao root diam: 3.0 cm FS: 25.7 % asc Aorta Diam: 3.2 cm IVSd: 0.94 cm Ao Arch Diam (Prox Trans): 2.9 cm LVPWd: 0.86 cm LV shah. diameter/BSA (cm/m^2): 2.0 LV sys. diameter/BSA (cm/m^2): 1.5 LA A2 area: 24.1 cm2 RA long axis: 4.5 cm LA A4 area: 16.6 cm2 RA area: 12.7 cm2 LA length (vol): 4.9 cm RA vol: 30.3 ml LA vol: 68.8 ml RA : 15.2 ml/m2 LA vol index: 34.4 ml/m2 IVC diam: 2.3 cm RVD1 (basal): 3.3 cm RVD2 (mid): 2.2 cm TAPSE: 1.7 cm Doppler Measurements & Calculations Ao V2 max: 133.8 cm/sec LVOT Max Jde: 91.1 cm/sec Ao V2 mean: 94.5 cm/sec LV V1 max P.3 mmHg Ao max P.2 mmHg LV V1 VTI: 18.1 cm Ao mean P.9 mmHg DENNIS(I,D): 2.7 cm2 Ao V2 VTI: 24.5 cm DENNIS(V,D): 2.5 cm2 sev ratio: 0.74 DENNIS indexed to BSA (cm^2/m^2): 1.4 MV E max jed: 91.3 cm/sec PA pr(Accel): 41.3 mmHg MV A max jed: 88.5 cm/sec MV E/A: 1.0 Med Peak E' Jed: 9.2 cm/sec E/E' med: 9.9 Lat Peak E' Jed: 5.9 cm/sec E/E' lat: 15.4 E/e' average: 12.7 MV dec time: 0.22 sec MVA(VTI): 2.7 cm2 MV V2 mean: 69.7 cm/sec SV(LVOT): 66.4 ml MV mean P.1 mmHg MV V2 VTI: 24.7 cm Electronically signed by: Jorge L Campuzano on Reading Physician:05/22/2024 08:18 AM
--- NOTE | 2024-05-21 17:39 | PC.NURSE ---
persistent chest pain. denies back pain. remains tachycardic.
[2024-05-21] MEDS: dilTIAZem 30 MG TABLET PO (17:49)
[2024-05-21] MEDS: PANTOPRAZOLE DR 40 MG TABLET PO (20:45)
[2024-05-21] MEDS: APIXABAN 5 MG TABLET PO (20:45)
[2024-05-22] VITALS: BP 114/56; PULSE 105; TEMP 36.4; O2SAT 97
[2024-05-22] MEDS: dilTIAZem 30 MG TABLET PO ×3 (00:46→13:11)
[2024-05-22 04:00] VITALS: BP 104/47; PULSE 104; RESP 16; TEMP 36.9; O2SAT 93
[2024-05-22 04:30] LABS: Add Manual Diff / Slide Review NO; Basophils Absolute Auto 0 /uL (0-100); Basophils Percent Auto 0.2 % (0-2); Eosinophils Absolute Auto 500 /uL (0-450); Eosinophils Percent Auto 5.9 % (2-4); Hematocrit 35.5 % (36-46); Hemoglobin 12.1 g/dL (12.0-16.0); Lymphocytes Absolute Auto 1700 /uL (1100-4500); Lymphocytes Percent Auto 21.9 % (25-40); Mean Corpuscular HGB Conc 34.1 % (30-36); Mean Corpuscular Hemoglobin 32.7 PG (26-34); Monocytes Absolute Auto 1000 /uL (0-900); Neutrophils Absolute Auto 4600 /uL (1500-7000); Platelet Count 154 X10^3/uL (150-400); Red Cell Distribution Width 14.5 % (11.6-14.8); White Blood Cell Count 7.9 X10^3/uL (4.5-11.0)
[2024-05-22 04:44] LABS: BUN Creatinine Ratio 17.9 (6-22); Blood Urea Nitrogen 19 mg/dL (7-17); Calcium 8.4 mg/dL (8.4-10.2); Carbon Dioxide 30 mmol/L (22-32); Chloride 101 mmol/L (98-107); Estimated Glomerular Filt Rate 51 mL/min (>60); Glucose 118 mg/dL (80-110); HEMOLYSIS < 15 (0-50); Potassium 3.7 mmol/L (3.4-5.1); Sodium 134 mmol/L (137-145)
[2024-05-22 04:55] LABS: Troponin I < 0.012 ng/mL (0.01-0.034)
[2024-05-22 05:44] LABS: Thyroid Stimulating Hormone 1.04 uIU/mL (0.47-4.68)
[2024-05-22] MEDS: LEVOTHYROXINE 125 MCG TABLET PO (06:05)
[2024-05-22 08:00] VITALS: BP 104/57; PULSE 98; RESP 24; TEMP 36.9; O2SAT 98
[2024-05-22] MEDS: PANTOPRAZOLE DR 40 MG TABLET PO (09:37)
[2024-05-22] MEDS: ATORVASTATIN 20 MG TABLET PO (09:45)
[2024-05-22] MEDS: APIXABAN 5 MG TABLET PO (09:45)
[2024-05-22] MEDS: ACETAMINOPHEN 325 MG TABLET 650 MG PO (09:57)
--- NOTE | 2024-05-22 10:43 | DI.CT.S_ITS ---
PROCEDURE: CT ANGIO CHEST ABDOMEN PELVIS INDICATIONS: chest pain radiating to back, r/o dissection TECHNIQUE: Precontrast 5 mm thick sections acquired from the lung apices to the iliac crests. After the administration of intravenous contrast, 2.5 mm thick sections again acquired from the lung apices to the iliac crests. Maximum intensity projection (MIP) oblique sagittal and coronal reformats were then acquired. For radiation dose reduction, the following was used: automated exposure control. COMPARISON: CT, CT ABDOMEN PELVIS W CON, 03/16/2018, 12:17. [facility], CT, CT ANGIO CHEST PE PROTOCOL, 02/25/2022, 2:57. FINDINGS: Image quality: Diagnostic. AORTA: No aortic aneurysm. No acute aortic syndrome. CHEST: Lower Neck: No enlarged lymph nodes. Thyroid: No thyroid nodules which require sonographic evaluation. Axillae: No enlarged lymph nodes. Chest Wall: Unremarkable. Lungs and Pleura: No pneumothorax or pleural effusions. Several minimal scattered areas of ground-glass like opacity particularly in the right upper and left lower lobes. Heart: Heart size is normal. Mild pericardial effusion, measuring 5 mm. Thoracic Vessels: Pulmonary arteries demonstrate normal size. Mediastinum and Venus: 1.2 cm precarinal lymph node unchanged since 2021. Esophagus: No wall thickening. Moderate hiatal hernia. ABDOMEN: Liver: No solid mass. Gallbladder: Removed. Biliary ducts: No biliary dilation. Pancreas: No ductal dilation. Spleen: Size is within normal limits. Adrenal Glands: No adrenal nodules. Kidneys and Ureters: No hydronephrosis. No solid mass. No complex renal cystic lesion which requires follow up. Stomach and Bowel: Normal colonic caliber, without significant wall thickening. Diverticula without inflammatory change. Peritoneum: No abnormal intraperitoneal fluid. No free air. Ventral Wall: Fat containing ventral hernia. Abdominal Nodes: No retroperitoneal or mesenteric adenopathy by size criteria. Vessels: Inferior vena cava is normal in size. PELVIS: Pelvic Organs: Unremarkable. Bladder: Unremarkable. Pelvic Nodes: No enlarged lymph nodes. Miscellaneous: No inguinal hernias are seen. Bones: Unremarkable. IMPRESSION: Aorta demonstrates no areas of hemodynamically significant stenosis, vascular occlusion, aneurysmal dilation or dissection. Mild pericardial effusion. Minimal scattered ground-glass opacities within the lungs suggestive infection or inflammation. Recommend interval follow-up as indicated. Diverticulosis. Dictated by: Selene Rodgers M.D. on 05/22/2024 at 13:52 Approved by: Selene Rodgers M.D. on 05/22/2024 at 14:02
[2024-05-22 11:47] VITALS: BP 113/53; PULSE 86
[2024-05-22] MEDS: METOPROLOL ER 25 MG TABLET PO (11:47)
[2024-05-22 12:00] VITALS: BP 113/53; PULSE 77; RESP 17; TEMP 36.7; O2SAT 98
[2024-05-22 16:00] VITALS: BP 106/66; PULSE 88; RESP 20; TEMP 36.6; O2SAT 98
--- NOTE | 2024-05-22 16:49 | CM.DANOTE ---
B DCP Assessment note pt is a 88yo F here with chest pain. Afib with RVR. [facility] PUBLIC HEALTH ADVISOR reviewed EMR. per chart review, last admission was Jul. per chart, lives in [place] [address] in [place] with disabled grandson due to brain tumor at 3years old. per chart, grandson indep with ADLs. last admission, [place] with [facility] [place], PUBLIC HEALTH ADVISOR provided pt with LTC apt through [facility]. last admission, pt dc'd home with medicaid transport. Per RN, pt standby assist at this time. Per RN, pt concerned about taking care of her grandson and all the things she needs to do. Pending if pt will be able to get an echo/stress test today. PUBLIC HEALTH ADVISOR unable to meet with pt today due to triaging needs. P: likely home at [place], follow close for transport need. f/u for need to resume [facility]. Cm team will continue to follow closely for any CM/DCP needs that arise. SPENSER Garces Discharge Planning/Care Management CM Discharge Assessment Start: 05/22/24 16:47 Freq: Status: Active Protocol: Document 05/22/24 16:48 (Rec: 05/22/24 16:49 [id number]) Discharge Planning Assessment Assigned Supervisor [employer] SPENSER Mccord DPOA/Assigned Designee Name kendrick Fournier Contact Information [phone] Advance Directives? No History Provided By Patient,Family Member Prior Living Arrangements Apartment/Condo Household Members family Comment cares for disabled grandson Comment hx of [facility] Discharge Plan Home Transportation Arrangement Family vs [facility] transport Review Status In Process Please Provide Date Initial DC 05/22/24 Assessment Was Performed Next Review Type Continued Stay Review
--- NOTE | 2024-05-22 17:16 | PM.DS.1 ---
History of Present Illness History of Present Illness Date Patient Seen: 06/21/24 Time Patient Seen: 17:16 Chief complaint: shortness of breath cant breath Narrative: Per admitting provider, 88-year-old woman and the primary care of Sharmin Grimes PA-C with a history of atrial fibrillation, DVT and pulmonary embolism on Eliquis experienced a feeling of intense indigestion this morning. This persisted and became severe up to 9/10 intensity, radiating through to her back with difficulty catching her breath, and she felt that this was different than her usual indigestion which is controlled with pantoprazole typically. She stated ongoing symptoms and notified family who brought her to the emergency department. She was found to be in atrial fibrillation, her typical rhythm but in the 120s beat per minute range, up from her usual heart rate in the 90s. Evaluation was otherwise unremarkable in the emergency department and she is admitted for further management and evaluation. On evaluation in the medical floor she states only 1 or 2/10 chest discomfort at Discharge Providers Provider Date of admission: 05/21/24 16:27 Discharge Date: 05/22/24 Primary care physician: Sharmin Grimes PA-C Discharge provider: Leonid Florence DO Summary Hospital Course Discharge Diagnosis: 1. Chest pain, improved. 2. Chronic Atrial fibrillation with rapid ventricular response. 3. History of DVT/pulmonary embolism. 4. COPD. 5. Gastroesophageal reflux disease. 6. Chronic kidney disease, stage 3A. 7. Hyperlipidemia. 8. Hypothyroidism. Hospital Course: This is an 88-year-old female with a past medical history of atrial fibrillation, COPD, DVT with prior PE, and CKD stage 3 who was admitted for further evaluation of chest pain in the setting of atrial fibrillation with rapid ventricular response. Troponins were unremarkable, EKG showed no ischemic changes. Echocardiogram showed no significant wall motion abnormalities and a normal ejection fraction. She was started on diltiazem for rate control with marked improvement in her symptoms. Given her echocardiogram findings, and improvement in symptoms with rate control, further evaluation with stress testing was not deemed necessary during this admission but should be considered as an outpatient with her manager hi. Diltiazem 240 mg daily was prescribed at discharge, no change was made to her home metoprolol. Do recommend follow-up with PCP and Cardiology for ongoing management of atrial fibrillation in the next 1-2 weeks ideally. Time Spent with Patient Time spent: Greater than 30 minutes Exam Vital Signs (past 8 hours): - 05/22/24 11:47 05/22/24 12:00 05/22/24 16:00 Temperature 98.1 F 97.8 F Pulse Rate 86 77 88 Respiratory Rate 17 20 Blood Pressure 113/53 L 113/53 L 106/66 Pulse Oximetry 98 98 Oxygen Flow Rate 0 0 Oxygen Delivery Method Room Air Oxygen Flow Rate 0 Narrative Exam Narrative: GENERAL: This is a well-nourished, well-developed patient, in no apparent distress. HEAD: Atraumatic. Normocephalic. No temporal or scalp tenderness. EYES: Pupils equal round and reactive. Extraocular motions intact. No scleral icterus. No injection or drainage. ENT: Mucous membranes pink and moist. NECK: Trachea midline. No JVD, bruits or lymphadenopathy. Supple, nontender, no meningeal signs. CARDIOVASCULAR: regular rate, irregularly irregular rhythm. RESPIRATORY: Clear to auscultation. GASTROINTESTINAL: Abdomen soft, non-tender, nondistended. EXTREMITIES: No clubbing, cyanosis, or edema. BACK: Nontender without deformity or crepitance. No flank tenderness. NEUROLOGIC: Alert, oriented, speech fluent, full upper and lower motor strength, no focal deficits evident. DERMATOLOGIC: No rashes or skin lesions. Objective Labs 05/22/24 04:17 05/22/24 04:17 Labs: Laboratory Results - last 24 hr 05/22/24 04:17 WBC 7.9 RBC 3.70 L Hgb 12.1 Hct 35.5 L MCV 96.0 MCH 32.7 MCHC 34.1 RDW 14.5 Plt Count 154 Neut % (Auto) 59.0 Lymph % (Auto) 21.9 L Tyler % (Auto) 13.0 Eos % (Auto) 5.9 H Baso % (Auto) 0.2 Neut # (Auto) 4600 Lymph # (Auto) 1700 Tyler # (Auto) 1000 H Eos # (Auto) 500 H Baso # (Auto) 0 Sodium 134 L Potassium 3.7 Chloride 101 Carbon Dioxide 30 BUN 19 H Creatinine 1.06 H Estimated GFR 51 L BUN/Creatinine Ratio 17.9 Glucose 118 H Calcium 8.4 Troponin I < 0.012 TSH 1.04 [facility] Medical History Dysuria History of DVT (deep vein thrombosis) Neuropathy History of migraine Paroxysmal A-fib Hypothyroid GERD (gastroesophageal reflux disease) Surgical History History of hysterectomy Family History Other No pertinent family history Social History household members: family Smoking Status: Never smoker alcohol intake: current Discharge Plan Discharge Plan Patient Disposition: Home Provider Discharge Comment: You were admitted to the hospital with chest pain, rapid heart rate which improved with additional medications. Your echocardiogram did not show any concerning findings either. Your symptoms improved with lowering your heart rate. No other medication changes are recommended at this time. Discharge orders & Medications Prescriptions: New diltiazem HCl 240 mg capsule,extended release 24hr 240 mg PO 1800 30 Days Qty: 30 0RF Continued pantoprazole 40 MG tablet,delayed release (DR/EC) 40 mg PO BID Qty: 0 furosemide 40 mg tablet 20 mg PO DAILY Qty: 0 potassium chloride 10 mEq Capsule, Extended Release 20 meq PO QAM cyanocobalamin (vitamin B-12) [B-12 DOTS] 500 mcg Tablet 1,000 mcg PO DAILY methocarbamol 500 mg tablet 250 mg PO TID PRN (Reason: muscle cramps) Qty: 14 0RF Rx Instructions: Plan to titrate off methocarbamol and use ropinirole vitamin E 400 unit Tablet 90 mg PO DAILY metoprolol succinate 25 mg tablet extended release 24 hr 25 mg PO QAM magnesium 200 mg Tablet 200 mg PO BEDTIME mirabegron [Myrbetriq] 50 mg tablet extended release 24 hr 50 mg PO DAILY Eliquis 5 mg tablet 5 mg PO BID sulfamethoxazole-trimethoprim 400-80 mg tablet 1 tab PO BEDTIME levothyroxine 125 mcg tablet 125 mcg PO QAM Jardiance 10 mg tablet 10 mg PO QAM cyclosporine [Restasis] 0.05 % dropperette 2 drp EYE-BOTH PRN PRN (Reason: Dry Eyes) Patient Comments: [NO ORIGINAL SIG] atorvastatin 20 mg tablet 20 mg PO QAM albuterol sulfate 90 mcg/actuation HFA aerosol inhaler 2 puff inhalation PRN PRN (Reason: sob) nitroglycerin 0.4 mg Tablet, Sublingual 4 mg sublingual PRN PRN (Reason: Chest Pain) Spiriva Respimat 2.5 mcg/actuation mist 2 puff inhalation DAILY Trelegy Ellipta 100-62.5-25 mcg blister with device 1 ea inhalation DAILY Trelegy Ellipta 100-62.5-25 mcg blister with device 1 ea inhalation DAILY Follow up/Referrals: Sharmin Grimes, SILVESTRE [Primary Care Provider] - Diet/Activity/Treatments Diet: Diet as Tolerated and Regular Activity: As tolerated, no restrictions. Visit Report/Discharge Packet Instructions: DI for Atrial Fibrillation, Diltiazem Stand Alone Forms: Congestive Heart Failure, Patient Portal/API, Stroke Signs & Symptoms Discharge Data Primary Care Provider: Sharmin Grimes Attending Provider: Kelvin Walters V Admit Date/Time: 05/21/24 16:27 Quality VTE Deep Vein Thrombosis/Pulmonary Embolism Present on Admission: No
[2024-05-22] MEDS: dilTIAZem CD 120 MG CAP 240 MG PO (17:43)
--- NOTE | 2024-05-22 18:21 | PC.NURSE ---
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 Patient has no further questions or concerns at this time, she is very eager to get home tonight with her grandson. Patient escorted out via wheelchair by TIFFANY to dc home.
== END 2024-05-22 18:23 | disposition home or self-care (01) ==
LOC: ED 16:27 → AC 16:28
PROVIDERS: Admitting Provider Internal Medicine; Emergency Provider Emergency Medicine; PCP Physician Assistant; Referring Provider Emergency Medicine; Visit Provider Internal Medicine
DX: I48.91 Unspecified atrial fibrillation (principal); J44.9 Chronic obstructive pulmonary disease, unspecified; K21.9 Gastro-esophageal reflux disease without esophagitis; N18.31 Chronic kidney disease, stage 3a; E78.5 Hyperlipidemia, unspecified; E03.9 Hypothyroidism, unspecified; Z86.718 Personal history of other venous thrombosis and embolism; Z79.01 Long term (current) use of anticoagulants; Z11.52 Encounter for screening for COVID-19
CPT/HCPCS: 36415; 71045; 71275; 74174; 80048; 80053; 81003; 83605; 83880; 84145; 84443; 84484; 85025; 85610; 87040; 87633; 93005; 93306; 94640; 99284; G0378; J7613; Q9967

== ENCOUNTER → 2024-06-20 07:18 | Outpatient (CLI) | payer MEDICARE, MEDICAID, SELFPAY ==
[2024-05-21 16:41] VITALS: BMI 30.5
[2024-06-20 08:28] LABS: Alanine Aminotransferase 30 IU/L (<35); Albumin 3.5 g/dL (3.5-5.0); Albumin Globulin Ratio 1.3 (1.0-2.8); Alkaline Phosphatase 111 U/L (38-126); Aspartate Aminotransferase 37 IU/L (14-36); Bilirubin Total 0.4 mg/dL (0.2-1.3); Blood Urea Nitrogen 15 mg/dL (7-17); Calcium 8.7 mg/dL (8.4-10.2); Carbon Dioxide 34 mmol/L (22-32); Chloride 101 mmol/L (98-107); Cholesterol 139 mg/dL (140-199); Estimated Glomerular Filt Rate 42 mL/min (>60); Globulin 2.7 g/dL (1.7-4.1); Glucose 102 mg/dL (80-110); HDL Cholesterol 60 mg/dL (40-60); HEMOLYSIS < 15 (0-50); LDL Cholesterol Calculated 63 mg/dL (<100); Potassium 4.4 mmol/L (3.4-5.1); Sodium 138 mmol/L (137-145); Total Protein 6.2 g/dL (6.3-8.2); Triglycerides 78 mg/dL (35-150)
== END ==
PROVIDERS: PCP Physician Assistant; Referring Provider Internal Medicine Cardiovascular Disease; Visit Provider Internal Medicine Cardiovascular Disease
DX: E78.5 Hyperlipidemia, unspecified; I48.91 Unspecified atrial fibrillation
CPT/HCPCS: 36415; 80053; 80061

== ENCOUNTER 2024-06-23 12:03 | Emergency (ER) | payer MEDICARE, MEDICAID, SELFPAY ==
[2024-05-21 16:41] VITALS: BMI 30.5
[2024-06-23] VITALS (15 sets, daily range): BP systolic 114–136; BP diastolic 57–81; PULSE 93–101; RESP 13–25; TEMP 37.7; O2SAT 92–100; BMI 29.4
--- NOTE | 2024-06-23 12:14 | DI.RAD.S_ITS ---
PROCEDURE: XR CHEST 1V INDICATIONS: Shortness of breath TECHNIQUE: One view of the chest was acquired. COMPARISON: [facility], CR, XR CHEST 1V, 05/21/2024, 11:41. [facility], CR, XR CHEST 1V, 12/06/2023, 20:04. FINDINGS: Surgical changes and devices: Heart monitor projects over the left chest wall. Lungs and pleura: Small left pleural effusion. Streaky left basilar opacities. Mediastinum: Mediastinal contours appear normal. Heart size is normal. Bones and chest wall: No suspicious bony lesions. Overlying soft tissues appear unremarkable. IMPRESSION: Small left pleural effusion with streaky left basilar atelectasis/consolidation. Dictated by: Timothy Kemp M.D. on 06/23/2024 at 12:58 Approved by: Timothy Kemp M.D. on 06/23/2024 at 12:59
--- NOTE | 2024-06-23 12:14 | EKG_ITS ---
[facility] [address] [place] [address] Test Date: 2024-06-23 Pat Name: Sun Mejia Department: Room: Gender: Female Audit Lead: MICKY : 1935 Requested By: Order Number: [id number] Reading MD: Jcarlos Batista MD Measurements Intervals [place] Rate: 96 P: 84 MO: 178 QRS: 43 QRSD: 72 T: 59 QT: 316 QTc: 399 Interpretive Statements Normal sinus rhythm Low voltage QRS Nonspecific ST and T wave abnormality Electronically Signed On 06-25-2024 17:05:22 PST by Jcarlos Batista MD
[2024-06-23] MEDS: ALBUTEROL/IPRATROPIUM 3 ML AMPUL INH (12:30)
[2024-06-23 12:54] LABS: Add Manual Diff / Slide Review NO; Basophils Absolute Auto 100 /uL (0-100); Basophils Percent Auto 0.5 % (0-2); Eosinophils Absolute Auto 300 /uL (0-450); Eosinophils Percent Auto 2.9 % (2-4); Hemoglobin 13.8 g/dL (12.0-16.0); Lymphocytes Absolute Auto 800 /uL (1100-4500); Lymphocytes Percent Auto 8.8 % (25-40); Mean Corpuscular HGB Conc 32.8 % (30-36); Mean Corpuscular Hemoglobin 30.9 PG (26-34); Mean Corpuscular Volume 93.9 fL (80-100); Monocytes Absolute Auto 1000 /uL (0-900); Monocytes Percent Auto 10.4 % (3-14); Neutrophils Absolute Auto 7400 /uL (1500-7000); Neutrophils Percent Auto 77.4 % (50-75); Platelet Count 271 X10^3/uL (150-400); Red Blood Cell Count 4.47 X10^6/uL (4.0-5.2); White Blood Cell Count 9.6 X10^3/uL (4.5-11.0)
[2024-06-23 13:00] LABS: INR 1.9 (0.9-1.3); Prothrombin Time 21.1 SECONDS (9.4-12.5)
[2024-06-23 13:08] LABS: Alanine Aminotransferase 24 IU/L (<35); Albumin 3.9 g/dL (3.5-5.0); Albumin Globulin Ratio 1.2 (1.0-2.8); Alkaline Phosphatase 125 U/L (38-126); Aspartate Aminotransferase 28 IU/L (14-36); BUN Creatinine Ratio 11.9 (6-22); Bilirubin Total 0.8 mg/dL (0.2-1.3); Blood Urea Nitrogen 14 mg/dL (7-17); Calcium 8.9 mg/dL (8.4-10.2); Carbon Dioxide 31 mmol/L (22-32); Chloride 101 mmol/L (98-107); Estimated Glomerular Filt Rate 45 mL/min (>60); Globulin 3.3 g/dL (1.7-4.1); Glucose 100 mg/dL (80-110); HEMOLYSIS < 15 (0-50); Potassium 4.1 mmol/L (3.4-5.1); Sodium 137 mmol/L (137-145); Total Protein 7.2 g/dL (6.3-8.2)
[2024-06-23 13:20] LABS: NT-proBNP (BNP-Adult 18+) 851 pg/mL (<450); Troponin I < 0.012 ng/mL (0.01-0.034)
[2024-06-23 13:25] LABS: Procalcitonin 0.077 ng/mL (<0.5)
[2024-06-23 13:48] LABS: Influenza A - CEPHEID Flu A NEGATIVE (NEGATIVE); Influenza B - CEPHEID Flu B NEGATIVE (NEGATIVE); Respiratory Syncytial Virus Negative (Negative)
--- NOTE | 2024-06-23 13:53 | ED.SOB ---
HPI - SOB/Dyspnea General Chief Complaint: Shortness of Breath/Dyspnea Stated Complaint: Increased SOB, coughing, wheezing, COPD<AFIB Time Seen by Provider: 06/23/24 13:49 Source: patient Mode of arrival: Ambulatory Limitations: no limitations History of Present Illness HPI Narrative: 88-year-old female history of DVT/PE on Eliquis, chronic atrial fibrillation, coronary artery disease, frequent UTIs, hypothyroidism who presents with complaint of increased shortness of breath over the past couple weeks. She states she was wheezing that has been a little bit better over the last day or so she has had a cough that has been persistent. She states it is better after she had a DuoNeb here. Patient states no fevers that she was aware of. Denies any chest pain currently. Has not been having frequent chest pain. She feels short of breath intermittently sometimes with exertion. Mostly with cough. She states cough has been mostly nonproductive but when there is sputum is white. Patient denies any nausea or vomiting no issues with bowel movements. Denies urinary symptoms. She notes that she has had significant improvement swelling in her extremity. Patient had medication changes by Dr. Gross in the last 2 weeks and she has been much improved and had quite a bit of decrease in swelling in her legs she feels like they are back to normal as well as weight loss. Reviewing patient's medications appear she was on furosemide 80 mg has now been moved back to 40 mg daily but also was started on diltiazem and Trelegy inhaler and spiriva was stopped. Patient states she was chronically in atrial fibrillation heart rate around high 90s to low 100. Priors allergy to chlorothiazide, codeine and naproxen. Related Data Home Medications Medication Instructions Recorded Confirmed pantoprazole 40 mg tablet,delayed 40 mg PO BID ##0 10/18/17 06/23/24 release cyanocobalamin (vitamin B-12) 500 1,000 mcg PO DAILY 03/15/18 06/23/24 mcg tablet (B-12 DOTS) potassium chloride 10 mEq 20 meq PO QAM 03/15/18 06/23/24 capsule,extended release furosemide 40 mg tablet 20 mg PO DAILY #0 tabs 06/10/18 06/23/24 albuterol sulfate 90 mcg/actuation 2 puff inhalation PRN PRN sob 07/28/23 06/23/24 aerosol inhaler apixaban 5 mg tablet (Eliquis) 5 mg PO BID 07/28/23 06/23/24 atorvastatin 20 mg tablet 20 mg PO QAM 07/28/23 06/23/24 cyclosporine 0.05 % eye drops in a 2 drp EYE-BOTH PRN PRN Dry Eyes 07/28/23 06/23/24 dropperette (Restasis) empagliflozin 10 mg tablet 10 mg PO QAM 07/28/23 06/23/24 (Jardiance) levothyroxine 125 mcg tablet 125 mcg PO QAM 07/28/23 06/23/24 magnesium 200 mg tablet 200 mg PO BEDTIME 07/28/23 06/23/24 mirabegron 50 mg tablet,extended 50 mg PO DAILY 07/28/23 06/23/24 release 24 hr (Myrbetriq) nitroglycerin 0.4 mg sublingual 4 mg sublingual PRN PRN Chest Pain 07/28/23 06/23/24 tablet sulfamethoxazole 400 1 tab PO BEDTIME 07/28/23 06/23/24 mg-trimethoprim 80 mg tablet vitamin E 400 unit tablet 90 mg PO DAILY 07/28/23 06/23/24 fluticasone fur. 100 mcg-umeclid 1 ea inhalation DAILY 05/21/24 06/23/24 62.5 mcg-vilant 25 mcg inhalat.powder (Trelegy Ellipta) fluticasone fur. 100 mcg-umeclid 1 ea inhalation DAILY 05/21/24 06/23/24 62.5 mcg-vilant 25 mcg inhalat.powder (Trelegy Ellipta) diltiazem HCl 240 mg 240 mg PO DAILY 06/23/24 06/23/24 capsule,extended release 24 hr metoprolol succinate 25 mg 50 mg PO BID 06/23/24 06/23/24 tablet,extended release 24 hr Previous Rx's Medication Instructions Recorded methocarbamol 500 mg tablet 250 mg (1/2 x 500 mg) PO TID PRN 07/17/22 muscle cramps #14 tabs azithromycin 250 mg tablet See Rx Instructions PO .COMPLEX #6 06/23/24 tabs ipratropium 0.5 mg-albuterol 3 mg 3 ml inhalation QID PRN shortness 06/23/24 (2.5 mg base)/3 mL nebulization of breath or wheezing #90 mL soln nebulizer accessories #1 ea 06/23/24 nebulizer and compressor #1 ea 06/23/24 prednisone 10 mg tablets in a dose See Rx Instructions PO .COMPLEX 06/23/24 pack #21 ea Allergies Allergy/AdvReac Type Severity Reaction Status Date / Time chlorothiazide Allergy Unknown Unknown Verified 06/23/24 11:45 [CHLOROTHIAZIDE] codeine [CODEINE] AdvReac Unknown itching Verified 06/23/24 11:45 naproxen [NAPROXEN] AdvReac Unknown SHOOTING Verified 06/23/24 11:45 ELECTRICITY DOWN LEG Review of Systems Review of Systems ROS Unobtainable: All systems reviewed & are unremarkable except as noted in HPI and below Patient History Medical History Dysuria History of DVT (deep vein thrombosis) Neuropathy History of migraine Paroxysmal A-fib Hypothyroid GERD (gastroesophageal reflux disease) Surgical History History of hysterectomy Family History Other No pertinent family history Social History household members: family Smoking Status: Never smoker alcohol intake: current Smoking Status: Never smoker alcohol intake frequency: holidays/special occasions only Exam Narrative Exam Narrative: GENERAL: Alert and oriented x three, elderly female in mild distress HEENT: Head normocephalic, atraumatic, EOMI, pupils reactive, face symmetric, moist mucous membranes NECK: Supple, full range of motion CARDIOVASCULAR: Regular rate and rhythm without murmurs, rubs or gallops. No JVD. No edema bilateral lower extremities. RESPIRATORY: Breath sounds equal bilaterally, no wheezes, mild crackles right greater than left, no rhonchi. No tachypnea no accessory muscle use. ABDOMEN: Soft, nontender. Normoactive bowel sounds all 4 quadrants. No guarding or rebound, rigidity, no mass : No CVA tenderness EXTREMITIES: Normal range of motion, no clubbing or edema. Neurovascularly intact NEUROLOGICAL: Cranial nerves II through XII grossly intact. Moving all extremities SKIN: Warm, dry, no petechiae, no rashes or lesions. Initial Vital Signs Initial Vital Signs: Vital Signs Pulse Rate 101 H 06/23/24 12:12 Pulse Oximetry 100 06/23/24 12:12 Course Orders Ordered: Discontinued Medications Albuterol/Ipratropium (Albuterol/Ipratropium 3 Ml Ampul) 3 ml INH NOW ONE Stop: 06/23/24 12:29 Last Admin: 06/23/24 12:30 Dose: 3 ml Documented By: LAUREL Methylprednisolone (Methylprednisolone 125 Mg/2 Ml Vial) 125 mg IV NOW ONE Stop: 06/23/24 14:15 Last Admin: 06/23/24 14:34 Dose: 125 mg Documented By: NICKIE Vital Signs Vital signs: Vital Signs - 8 hr 06/23/24 12:12 06/23/24 12:17 06/23/24 12:17 Temperature Pulse Rate 101 H 97 H Respiratory Rate 23 Blood Pressure 125/79 Pulse Oximetry 100 94 Oxygen Delivery Method Oxygen Flow Rate 06/23/24 12:18 06/23/24 12:30 06/23/24 12:31 Temperature 99.9 F H Pulse Rate 97 H 93 H Respiratory Rate 25 H Blood Pressure 125/79 130/81 Pulse Oximetry 98 93 Oxygen Delivery Method Room Air Oxygen Flow Rate 06/23/24 12:31 06/23/24 12:42 06/23/24 12:46 Temperature Pulse Rate 93 H 97 H Respiratory Rate 20 Blood Pressure 130/62 Pulse Oximetry 94 94 Oxygen Delivery Method Room Air Oxygen Flow Rate 0 06/23/24 12:46 06/23/24 13:00 06/23/24 13:00 Temperature Pulse Rate 98 H 96 H Respiratory Rate Blood Pressure 126/61 Pulse Oximetry 93 92 Oxygen Delivery Method Oxygen Flow Rate 06/23/24 13:15 06/23/24 13:15 Temperature Pulse Rate 97 H Respiratory Rate Blood Pressure 122/65 Pulse Oximetry 92 Oxygen Delivery Method Oxygen Flow Rate MDM - SOB/Dyspnea Lab Data 06/23/24 12:40 06/23/24 12:40 Labs: Lab Results 06/23/24 06/23/24 Range/Units 12:40 12:45 WBC 9.6 (4.5-11.0) X10^3/uL RBC 4.47 (4.0-5.2) X10^6/uL Hgb 13.8 (12.0-16.0) g/dL Hct 42.0 (36-46) % MCV 93.9 (80-100) fL MCH 30.9 (26-34) PG MCHC 32.8 (30-36) % RDW 15.0 H (11.6-14.8) % Plt Count 271 (150-400) X10^3/uL Neut % (Auto) 77.4 H (50-75) % Lymph % (Auto) 8.8 L (25-40) % [place] % (Auto) 10.4 (3-14) % Eos % (Auto) 2.9 (2-4) % Baso % (Auto) 0.5 (0-2) % Neut # (Auto) 7400 H (9871-1351) /uL Lymph # (Auto) 800 L (2806-1383) /uL [place] # (Auto) 1000 H (0-900) /uL Eos # (Auto) 300 (0-450) /uL Baso # (Auto) 100 (0-100) /uL PT 21.1 H (9.4-12.5) SECONDS INR 1.9 H (0.9-1.3) Sodium 137 (137-145) mmol/L Potassium 4.1 (3.4-5.1) mmol/L Chloride 101 (98-107) mmol/L Carbon Dioxide 31 (22-32) mmol/L BUN 14 (7-17) mg/dL Creatinine 1.18 H (0.52-1.04) mg/dL Estimated GFR 45 L (>60) mL/min BUN/Creatinine Ratio 11.9 (6-22) Glucose 100 (80-110) mg/dL Lactate 1.0 (0.7-2.1) mmol/L Calcium 8.9 (8.4-10.2) mg/dL Total Bilirubin 0.8 (0.2-1.3) mg/dL AST 28 (14-36) IU/L ALT 24 (<35) IU/L Alkaline Phosphatase 125 (38-126) U/L Troponin I < 0.012 (0.01-0.034) ng/mL NT-Pro-B Natriuret Pep 851 H (<450) pg/mL Total Protein 7.2 (6.3-8.2) g/dL Albumin 3.9 (3.5-5.0) g/dL Globulin 3.3 (1.7-4.1) g/dL Albumin/Globulin Ratio 1.2 (1.0-2.8) Procalcitonin 0.077 (<0.5) ng/mL SARS-CoV-2 (PCR) Negative (Negative) Influenza A (RT-PCR) Flu a negative (NEGATIVE) Influenza B (RT-PCR) Flu b negative (NEGATIVE) RSV (PCR) Negative (Negative) Imaging Data Chest x-ray: Radiologist's Impression: Close Chest X-Ray (Signed) Timothy Kemp - 06/23/24 Chest/Abdomen/Pelvis CTA (Signed) Selene Rodgers - 05/22/24 Echocardiogram Ultrasound (Signed) Jorge L Diaz - 05/21/24 Telemetry Strips 05/21/24 Chest X-Ray (Signed) Arie Rodriguez - 05/21/24 Chest X-Ray (Signed) Iram Levin - 12/06/23 Mammogram Diagnostic (Signed) Elio Rodriguez - 09/10/23 Chest X-Ray (Signed) Agatha Obrien - 07/28/23 Lumbar Spine MRI (Signed) James Rasmussen - 11/25/22 Mammogram Diagnostic (Signed) Kennedy Humphreys - 09/03/22 Mammogram Diagnostic (Signed) Elio Rodriguez - 03/02/22 Chest CTA (Signed) [place] - 02/25/22 Chest X-Ray (Signed) Jyothi Mercado - 02/24/22 Vascular Ultrasound (Signed) Dariana Levin - 01/21/22 Mammogram, Additional Views (Signed) Iram Levin - 09/15/21 Chest CTA (Signed) Agatha Obrien - 08/29/21 Vascular Ultrasound (Signed) James Rasmussen - 08/29/21 DEXA Result 08/21/21 Mammogram Screening (Signed) Jameel Ramon - 08/21/21 Bone Densitometry 08/21/21 Hand X-Ray (Signed) Dariana Levin - 02/28/21 Abdomen/Pelvis CT (Signed) Cristian Gallgeos - 10/28/20 Abdomen/Pelvis CT (Signed) Iram Levin - 04/08/20 Chest X-Ray (Signed) Irma Levin - 04/08/20 Chest CTA (Signed) Roman Sultanaie - 06/07/19 Chest X-Ray (Signed) RdStew - 06/07/[address] (Signed) Cristian Gallegos - 08/24/18 Abdomen/Pelvis CT (Signed) Erasmo Pham - 03/16/18 Chest X-Ray (Signed) Stew Sultana - 03/15/18 Launch?Image [address] [address] XRay Report Signed Patient: Sun Mejia MR#: [id number] : 1935 Acct:[id number] Age/Sex: 88 / F Date of Service: 06/23/24 Loc: ED Accession Number: [id number] Procedure: XR chest 1V Ordering Provider: Aimee Lovell D.O. PROCEDURE: XR CHEST 1V INDICATIONS: Shortness of breath TECHNIQUE: One view of the chest was acquired. COMPARISON: [facility], CR, XR CHEST 1V, 05/21/2024, 11:41. [facility], CR, XR CHEST 1V, 12/06/2023, 20:04. FINDINGS: Surgical changes and devices: Heart monitor projects over the left chest wall. Lungs and pleura: Small left pleural effusion. Streaky left basilar opacities. Mediastinum: Mediastinal contours appear normal. Heart size is normal. Bones and chest wall: No suspicious bony lesions. Overlying soft tissues appear unremarkable. IMPRESSION: Small left pleural effusion with streaky left basilar atelectasis/consolidation. Dictated by: Timothy Kemp M.D. on 06/23/2024 at 12:58 Approved by: Timothy Kemp M.D. on 06/23/2024 at 12:59 ECG Data Attestation: I personally reviewed and interpreted this ECG as follows: Prior ECG tracings: available for review Interpretation: Sinus rhythm nonspecific change prior from 05/21/2024 appears similar with no acute changes. [facility] Narrative Medical decision making narrative: 88-year-old female presents with a complaint of increased shortness of breath, patient has a history of atrial fibrillation some CHF but states she has had significant diuresis over the past 2 weeks and had improvement clinically. She notes little bit increased wheeze, she has had little bit of cold cough symptoms. Based on her exam today, labs and comparison to prior evaluation she has had improvement in for BNP although not complete resolution I suspect this is more COPD exacerbation. She had DuoNeb here in the department which also improved her symptoms. Labs show white count of 9.6 hemoglobin of 13 platelets of 271 predominance of neutrophils. Chemistries negative creatinine is 1.18 glucose is 100 lactate 1 troponins less than 0.012 with a BNP of 851, procalcitonin 0.077. Patient has prior BNP is around 1100 in May but was 256 in November of 2023. Chest x-ray small left pleural effusion streaky left basilar atelectasis/consolidation RSV/COVID/influenza swab is negative. EKG shows sinus rhythm Patient had DuoNeb here in the department. She feels improved afterwards. Reviewed her findings from today suspect likely COPD exacerbation she has had significant improvement in her swelling with her medication adjustments by Dr. Gross. We will start a short course of oral prednisone, azithromycin as she was chronic COPD. Discussed with patient she was not using a spacer with her albuterol so 1 was provided. She was interested in having a nebulizer so sent a prescription for nebulizer as well as vials DuoNeb although we discussed might not be filled by her insurance company. She feels improved after DuoNeb here in the department as well as Solu-Medrol. Patient has not been hypoxic here in the department felt appropriate for discharge home. Discharge Plan Departure Patient Disposition: Home Clinical Impression: Acute exacerbation of chronic obstructive pulmonary disease Instructions: DI for Chronic Obstructive Pulmonary Disease Activity Restrictions/Additional Instructions: Your workup today seems most consistent with COPD exacerbation. Take steroids until completed. Take your next dose tomorrow Take azithromycin, 2 tablets p.o. x1 day, then 1 tablet p.o. q.day x4 days. Start this prescription today. Continue to use your inhalers as needed. There is a prescription sent for a nebulizer and accessory kit, you can use 1 vial every 4 hours as needed for shortness of breath. You can use your albuterol with a spacer instead of this or even in between. Prescription sent to [facility] in [place]. Please return if you are having any increasing shortness of breath, new swelling of your legs, chest pain, lightheadedness or passing out, fevers, coughing up green or discolored sputum or other new or concerning changes. Prescriptions: New prednisone 10 mg tablets,dose pack See Rx Instructions .ROUTE .COMPLEX Qty: 21 0RF Rx Instructions: 6 tabs p.o. x1 day, then 5 tabs p.o. x1 day, then 4 tablets p.o. x1 day, then 3 tabs p.o. x1 day, then 2 tabs p.o. x1 day, then 1 tab p.o. x1 day azithromycin 250 mg tablet See Rx Instructions .ROUTE .COMPLEX Qty: 6 0RF Rx Instructions: For 250 mg dose pack: take 500 mg today (day 1), then 250 mg for 4 days (days 2-5) ([facility] [place] nebulizer and compressor Device See Rx Instructions .Route Qty: 1 0RF Rx Instructions: As directed ([facility] [place]) nebulizer accessories Kit See Rx Instructions .Route Qty: 1 0RF Rx Instructions: As directed ipratropium-albuterol 0.5 mg-3 mg(2.5 mg base)/3 mL solution for nebulization 3 ml inhalation QID PRN (Reason: shortness of breath or wheezing) Qty: 90 0RF No Action diltiazem HCl 240 mg capsule,extended release 24hr 240 mg PO DAILY pantoprazole 40 MG tablet,delayed release (DR/EC) 40 mg PO BID Qty: 0 furosemide 40 mg tablet 20 mg PO DAILY Qty: 0 potassium chloride 10 mEq Capsule, Extended Release 20 meq PO QAM cyanocobalamin (vitamin B-12) [B-12 DOTS] 500 mcg Tablet 1,000 mcg PO DAILY methocarbamol 500 mg tablet 250 mg PO TID PRN (Reason: muscle cramps) Qty: 14 0RF Rx Instructions: Plan to titrate off methocarbamol and use ropinirole vitamin E 400 unit Tablet 90 mg PO DAILY magnesium 200 mg Tablet 200 mg PO BEDTIME mirabegron [Myrbetriq] 50 mg tablet extended release 24 hr 50 mg PO DAILY Eliquis 5 mg tablet 5 mg PO BID sulfamethoxazole-trimethoprim 400-80 mg tablet 1 tab PO BEDTIME levothyroxine 125 mcg tablet 125 mcg PO QAM Jardiance 10 mg tablet 10 mg PO QAM cyclosporine [Restasis] 0.05 % dropperette 2 drp EYE-BOTH PRN PRN (Reason: Dry Eyes) Patient Comments: [NO ORIGINAL SIG] atorvastatin 20 mg tablet 20 mg PO QAM albuterol sulfate 90 mcg/actuation HFA aerosol inhaler 2 puff inhalation PRN PRN (Reason: sob) nitroglycerin 0.4 mg Tablet, Sublingual 4 mg sublingual PRN PRN (Reason: Chest Pain) metoprolol succinate 25 mg tablet extended release 24 hr 50 mg PO BID Trelegy Ellipta 100-62.5-25 mcg blister with device 1 ea inhalation DAILY Trelegy Ellipta 100-62.5-25 mcg blister with device 1 ea inhalation DAILY Referrals: Sharmin Grimes PA-C [Primary Care Provider] - Stand Alone Forms: Patient Portal/API/Survey
[2024-06-23 14:02] LABS: COVID-19 CEPHEID 4-PLEX PCR Negative (Negative)
[2024-06-23] MEDS: methylPREDNISolone 125 MG/2 ML VIAL IV (14:34)
== END 2024-06-23 15:01 | disposition home or self-care (01) ==
PROVIDERS: Emergency Provider Emergency Medicine; PCP Physician Assistant
DX: J44.1 Chronic obstructive pulmonary disease with (acute) exacerbation (principal); R05.9 Cough, unspecified
CPT/HCPCS: 0241U; 36415; 71045; 80053; 83605; 83880; 84145; 84484; 85025; 85610; 87040; 93005; 93010; 94640; 96374; 99284; J2919

== ENCOUNTER → 2024-10-04 11:13 | Outpatient (CLI) | payer MEDICARE, MEDICAID, SELFPAY ==
[2024-05-21 16:41] VITALS: BMI 30.5
--- NOTE | 2024-10-04 11:15 | DI.MG.S_ITS ---
MM screening mammo BI: 10/04/2024. BI-RADS: 2 CLINICAL: 89-year old female for bilateral screening mammogram. No Tyrer-Cuzick risk score calculation due to patient's age being over 85 years old. No personal or first-degree family history of breast cancer. Current reported family history of breast cancer: maternal grandmother. PRIOR EXAMS 09/10/2023, 09/03/2022, 03/02/2022, 09/15/2021, 08/21/2021. MAMMOGRAPHY TECHNIQUE: 2D and 3D (tomosynthesis) digital mammographic views obtained, with additional images as needed for full coverage. Current study was also evaluated with a Computer Aided Detection (CAD) system. DENSITY C. The breasts are heterogeneously dense, which may obscure small masses. MAMMOGRAPHY FINDINGS Bilateral: Benign-appearing calcifications noted. There are no suspicious masses, calcifications, or other findings in the breast. No significant change from comparison. IMPRESSION: * No evidence of malignancy with benign findings. RECOMMENDATIONS Bilateral * Annual screening mammography. OVERALL ASSESSMENT CATEGORY BI-RADS-2: Benign. The [employer] recommends annual screening mammography beginning at age 40 for women with average risk of breast cancer. ELECTRONICALLY SIGNED: Luz Aden M.D. on 10/04/2024 at 05:02:58 PM PT Interpreting Station ID: [id number]
== END ==
LOC: MAMMO 11:14
PROVIDERS: PCP Physician Assistant; Referring Provider Physician Assistant; Visit Provider Physician Assistant
DX: Z12.31 Encounter for screening mammogram for malignant neoplasm of breast (principal); Z80.3 Family history of malignant neoplasm of breast
CPT/HCPCS: 77063; 77067

== ENCOUNTER → 2025-02-26 13:40 | Outpatient (CLI) | payer MEDICARE, MEDICAID, SELFPAY ==
[2024-05-21 16:41] VITALS: BMI 30.5
== END ==
PROVIDERS: PCP Physician Assistant; Visit Provider Nurse Practitioner Family
DX: R30.0 Dysuria (principal)
CPT/HCPCS: 87077; 87086; 87186

== ENCOUNTER → 2025-04-26 11:46 | Outpatient (CLI) | payer OTHER, MEDICAID, SELFPAY ==
[2024-05-21 16:41] VITALS: BMI 30.5
[2025-04-26 12:38] LABS: Hematocrit 39.1 % (36-46); Hemoglobin 13.0 g/dL (12.0-16.0); Mean Corpuscular HGB Conc 33.2 % (30-36); Mean Corpuscular Hemoglobin 31.2 PG (26-34); Mean Corpuscular Volume 94.2 fL (80-100); Platelet Count 233 X10^3/uL (150-400)
[2025-04-26 12:48] LABS: Alanine Aminotransferase 31 IU/L (<35); Albumin 3.5 g/dL (3.5-5.0); Albumin Globulin Ratio 1.3 (1.0-2.8); Alkaline Phosphatase 86 U/L (38-126); Blood Urea Nitrogen 21 mg/dL (7-17); Calcium 9.4 mg/dL (8.4-10.2); Carbon Dioxide 30 mmol/L (22-32); Chloride 102 mmol/L (98-107); Estimated Glomerular Filt Rate 35 mL/min (>60); Globulin 2.8 g/dL (1.7-4.1); Glucose 93 mg/dL (70-99); HEMOLYSIS < 15 (0-50); Potassium 4.0 mmol/L (3.4-5.1); Sodium 140 mmol/L (137-145); Total Protein 6.3 g/dL (6.3-8.2)
[2025-04-26 13:06] LABS: Free T4, Direct Thyroxine 2.54 ng/dL (0.78-2.19)
[2025-04-26 13:19] LABS: Thyroid Stimulating Hormone 1.79 uIU/mL (0.47-4.68)
== END ==
PROVIDERS: PCP Student in an Organized Health Care Education/Training Program; Referring Provider Internal Medicine; Visit Provider Internal Medicine
DX: C85.90 Non-Hodgkin lymphoma, unspecified, unspecified site (principal); I10 Essential (primary) hypertension; I48.0 Paroxysmal atrial fibrillation; I48.91 Unspecified atrial fibrillation
CPT/HCPCS: 36415; 80053; 84439; 84443; 85027